=== PATIENT | female | born 1950 | race Caucasian/White ===

== ENCOUNTER 2024-01-12 15:17 | Emergency (ER) | payer MEDICARE, OTHER, SELFPAY ==
[2024-01-12] VITALS (11 sets, daily range): BP systolic 112–136; BP diastolic 84–101; PULSE 85–116; TEMP 36.6; O2SAT 95–97; BMI 32.6
--- NOTE | 2024-01-12 15:34 | ECG_ITS ---
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
--- NOTE | 2024-01-12 15:34 | XR_ITS ---
The [address] [address] Patient Name: MATTHEW CLARKE MRN: [id number] date: 1950 Sex: F Assigned Patient Location: ED.MAIN Current Patient Location: ER Accession/Order Number: [id number] Exam Date: 01/12/2024 16:06 Report Date: 01/12/2024 16:49 At the request of: MINDY LUCIANO Procedure: XR chest 1V EXAM: XR chest 1V HISTORY: sob COMPARISON: Chest x-ray 12/19/2020 and earlier. TECHNIQUE: AP portable upright chest x-ray FINDINGS: Prominent lung markings increased previous without focal density, cannot or consolidation. No evidence of edema. No pleural effusion. Heart size normal for technique unchanged. Probable retrocardiac hiatal hernia poorly visualized. XR/XR chest 1V IMPRESSION: Prominent lung markings increased from previous without focal infiltrate or edema. Probable retrocardiac hiatal hernia. Electronically authenticated by: RAMY GUAJARDO Date: 01/12/2024 16:49
[2024-01-12 16:11] LABS: Alanine Aminotransferase 14 U/L (14-59); Albumin Globulin Ratio 0.8; Albumin Level 3.6 g/dL (3.4-5.0); Alkaline Phosphatase 98 U/L (46-116); Anion Gap 16.6; Aspartate Amino Transferase 14 U/L (15-37); BUN Creatinine Ratio 22.7; Bilirubin Total 0.7 mg/dL (0.2-1.0); Calcium 9.7 mg/dL (8.5-10.1); Chloride 99 mmol/L (98-107); Estimated GFR (African America >60 (>=60); Estimated GFR (Non-African Ame >60 (>=60); Globulin 4.3 g/dL; Glucose 103 mg/dL (74-106); Potassium 3.6 mmol/L (3.5-5.1); Sodium 136 mmol/L (136-145); Total Protein 7.9 g/dL (6.4-8.2); Troponin I High Sensitivity 5.9 pg/mL (4.0-51.3)
[2024-01-12] MEDS: 0.9 % SODIUM CHLORIDE 1,000 ML 500 ML IV (16:12)
[2024-01-12] MEDS: KETOROLAC TROMETHAMINE 30 MG/ML VIAL 15 MG IVP (16:12)
[2024-01-12 16:36] LABS: Basophils Absolute Auto 0.1 10^3/uL (0.0-0.1); Eosinophils Absolute Auto 0.1 10^3/uL (0.0-0.7); Eosinophils Percent Auto 1.2 % (0.9-7.0); Hematocrit 40.5 % (36.0-48.0); Hemoglobin 13.1 g/dL (12.0-16.0); Immature Granulocytes Abs Auto 0.02 10^3/uL (0.00-0.03); Immature Granulocytes Pct Auto 0.3 % (0.0-0.5); Lymphocytes Absolute Auto 1.2 10^3/uL (1.2-3.8); Mean Corpuscular HGB Conc 32.3 g/dL (29.9-35.2); Mean Corpuscular Hemoglobin 28.5 pg (26.7-34.0); Mean Corpuscular Volume 88.2 fL (81.0-99.0); Mean Platelet Volume 10.8 fL (9.5-13.5); Monocytes Absolute Auto 0.9 10^3/uL (0.3-0.8); Neutrophils Absolute Auto 5.4 10^3/uL (1.4-6.5); Neutrophils Percent Auto 70.5 % (43.0-75.0); Platelet Count 334 10^3/uL (150-450); Red Blood Count 4.59 10^6/uL (4.20-5.40); Red Cell Distribution Width 14.3 % (11.0-15.0); White Blood Count 7.7 10^3/uL (4.0-11.0)
[2024-01-12 17:33] LABS: Troponin I High Sensitivity 9.6 pg/mL (4.0-51.3)
--- NOTE | 2024-01-12 17:44 | ED_ITS ---
HPI HPI - General Adult General Chief complaint: Weakness Stated complaint: High Blood Pressure Time Seen by Provider: 01/12/24 15:33 Source: patient and family Mode of arrival: walk-in Limitations: no limitations History of Present Illness HPI narrative: The patient had no complaints until she was standing outside and the grandson graduation for the last few hours when she all of a sudden started having headache in the posterior aspect of her head as well as neck pain and she was feeling warm, she mentioned also some mild shortness of breath, no chest pain no nausea no vomiting no other complaints Related Data Home Medications ?Medication ?Instructions ?Recorded ?Confirmed alprazolam 0.5 mg tablet 0.5 mg PO TID 01/12/24 01/12/24 benazepril 10 mg tablet 10 mg PO DAILY 01/12/24 01/12/24 citalopram 40 mg tablet 40 mg PO BEDTIME 01/12/24 01/12/24 tizanidine 2 mg tablet 2 mg PO BEDTIME 01/12/24 01/12/24 Allergies Allergy/AdvReac Type Severity Reaction Status Date / Time influenza A (H1N1) virus AdvReac Mild Swelling Verified 01/12/24 15:28 vaccine m-dayna-split 2008 of [From influenza A (H1N1)] Lip/Tongue/Throat morphine AdvReac Mild Headache Verified 01/12/24 15:28 Opioid HPI Opioid Management Most Recent Opioid Data: Last Pain Scale 7 01/12/24 16:12 Last OCT Pain Assessment 01/12/24 16:12 Review of Systems ROS Status of ROS 10 or more systems reviewed and unremark able except as noted in history and below Exam Narrative Exam Narrative: Nurses notes and vital signs reviewed and patient is not hypoxic. General: Well-appearing and in no apparent distress. Skin: Warm, dry, no pallor noted. No rash. Head: Normocephalic, atraumatic. Neck: Supple, non-tender. Eye: Pupils are equal, round and EOMI. No scleral icterus. Ears, Nose, Mouth, and Throat: TM are clear, no nasal mucosal hypertrophy. Oral mucosa is moist, no posterior oropharynx erythema, uvula is mid-line Cardiovascular: Regular Rate and Rhythm without murmur, gallop or rub. Respiratory: No accessory muscle use or respiratory distress. Lungs are clear to auscultation, no wheezing, rales or rhonchi Chest Wall: no tenderness Back: No midline thoracic or lumbar vertebral tenderness. No CVA tenderness Musculoskeletal: normal ROM, no calf or popliteal tenderness, no lower extremity edema/swelling GI: Abdomen is soft, non-distended. Normal bowel sounds. No masses appreciated. No tenderness to palpation. No rebound, guarding, or rigidity noted. Neurological: A&O x4. No cranial nerve dysfunction observed. No truncal ataxia. Moves all extremities. Sensation intact. Psychiatric: Cooperative and interactive. Normal mood and affect. Constitutional Vital Signs, click to edit/add: Last Vital Signs Temp 97.8 F 01/12/24 15:28 Pulse 102 H 01/12/24 16:31 Resp 01/12/24 16:31 BP 120/93 H 01/12/24 16:30 Pulse Ox 95 01/12/24 16:31 O2 Del Method Room Air 01/12/24 15:51 Course Vital Signs Vital signs: Vital Signs Blood Pressure 127/92 H 01/12/24 15:26 Temperature 97.8 F 01/12/24 15:28 Pulse Rate 102 H 01/12/24 16:31 Respiratory Rate 01/12/24 16:31 Blood Pressure 120/93 H 01/12/24 16:30 Pulse Oximetry 95 01/12/24 16:31 Oxygen Delivery Method Room Air 01/12/24 15:51 Medical Decision Making [facility] Narrative Medical decision making narrative: The patient EKG upon presentation showing sinus tachycardia with a heart rate of [address] elevation or depression CBC and chemistry showed no acute significant pathology except for the elevated BUN which could be secondary to dehydration The patient was feeling much better after she was treated with IV fluids as well as Toradol for the headache Troponin was repeated twice was negative The patient is smiling and feeling much better better she was discharged to continue supportive care and avoid heat exposure. The patient is to follow up with primary care physician in next 2-3 days or to return to the emergency department should any of the signs or symptoms worsen or new symptoms develop. The patient agrees with the following Diagnosis and Treatment plan and the patient will be discharged home. Lab Data Labs: Lab Results 01/12/24 01/12/24 Range/Units 15:46 17:11 WBC 7.7 (4.0-11.0) 10^3/uL RBC 4.59 (4.20-5.40) 10^6/uL Hgb 13.1 (12.0-16.0) g/dL Hct 40.5 (36.0-48.0) % MCV 88.2 (81.0-99.0) fL MCH 28.5 (26.7-34.0) pg MCHC 32.3 (29.9-35.2) g/dL RDW 14.3 (11.0-15.0) % Plt Count 334 (150-450) 10^3/uL MPV 10.8 (9.5-13.5) fL Neut % (Auto) 70.5 (43.0-75.0) % Lymph % (Auto) 15.0 L (20.5-60.0) % [place] % (Auto) 12.0 (1.7-12.0) % Eos % (Auto) 1.2 (0.9-7.0) % Baso % (Auto) 1.0 (0.2-2.0) % Neut # (Auto) 5.4 (1.4-6.5) 10^3/uL Lymph # (Auto) 1.2 (1.2-3.8) 10^3/uL [place] # (Auto) 0.9 H (0.3-0.8) 10^3/uL Eos # (Auto) 0.1 (0.0-0.7) 10^3/uL Baso # (Auto) 0.1 (0.0-0.1) 10^3/uL Abs Immat Gran (auto) 0.02 (0.00-0.03) 10^3/uL Imm/Tot Granulo (auto) 0.3 (0.0-0.5) % Sodium 136 (136-145) mmol/L Potassium 3.6 (3.5-5.1) mmol/L Chloride 99 (98-107) mmol/L Carbon Dioxide 24.0 (21.0-32.0) mmol/L Anion Gap 16.6 BUN 20.0 H (7.0-18.0) mg/dL Creatinine 0.88 (0.55-1.02) mg/dL Est GFR ( Amer) >60 (>=60) Est GFR (Non-Af Amer) >60 (>=60) BUN/Creatinine Ratio 22.7 Glucose 103 (74-106) mg/dL Calcium 9.7 (8.5-10.1) mg/dL Total Bilirubin 0.7 (0.2-1.0) mg/dL AST 14 L (15-37) U/L ALT 14 (14-59) U/L Alkaline Phosphatase 98 (46-116) U/L Troponin I High Sens 5.9 9.6 (4.0-51.3) pg/mL Total Protein 7.9 (6.4-8.2) g/dL Albumin 3.6 (3.4-5.0) g/dL Globulin 4.3 g/dL Albumin/Globulin Ratio 0.8 Discharge Plan Discharge Stand Alone Forms: Portal Instructions Chief Complaint: Weakness Clinical Impression: Adverse effect of heat Qualifiers: Encounter type: initial encounter Qualified Code(s): T67.9XXA - Effect of heat and light, unspecified, initial encounter Patient Disposition: Home, Self-Care Time of Disposition Decision: 17:43 Condition: Good Prescriptions / Home Meds: No Action alprazolam 0.5 mg tablet 0.5 mg PO TID benazepril 10 mg tablet 10 mg PO DAILY citalopram 40 mg tablet 40 mg PO BEDTIME tizanidine 2 mg tablet 2 mg PO BEDTIME Print Language: Indonesian Instructions: Heat Exhaustion (ED) Referrals: Francis Osborne DO [Primary Care Provider] - 1 week
== END 2024-01-12 17:58 | disposition home or self-care (01) ==
PROVIDERS: Emergency Provider Emergency Medicine; PCP Internal Medicine
DX: T67.9XXA Effect of heat and light, unspecified, initial encounter (principal); X30.XXXA Exposure to excessive natural heat, initial encounter; Z79.899 Other long term (current) drug therapy
CPT/HCPCS: 36415; 71045; 80053; 84484; 85025; 93005; 96374; 99285

== ENCOUNTER 2024-06-04 14:14 | Outpatient (OUT) | payer MEDICARE, OTHER, SELFPAY ==
--- NOTE | 2024-06-04 14:27 | XR_ITS ---
The [address] [address] Patient Name: MATTHEW CLARKE MRN: [id number] date: 1950 Sex: F Assigned Patient Location: MAMMO Current Patient Location: Accession/Order Number: [id number] Exam Date: 06/04/2024 14:55 Report Date: 06/07/2024 05:18 At the request of: JENIFER FRANCO Procedure: XR shoulder RT min 2V PROCEDURE: XR shoulder RT min 2V HISTORY: Right Shoulder Pain COMPARISON: None. FINDINGS: BONES:Mild degenerative changes of the acromioclavicular joint and glenohumeral joint. No fracture, dislocation, or bone lesion. SOFT TISSUES:No visible soft tissue swelling. EFFUSION:None visible. OTHER: Negative. XR/XR shoulder RT min 2V IMPRESSION: 1. No appreciable acute abnormality. 2. Very mild degenerative changes. Electronically authenticated by: MURRAY MCKAY Date: 06/07/2024 05:18
--- OUTSIDE RECORDS SUMMARY | 2024-06-04 14:31 | XMS_ITS | CCD ---
Author Organization [facility] Care Team Providers Care Preparatory Technician Name Role Phone Francis Osborne Unavailable DR FRANCIS OSBORNE Admitting Unavailable DYLON, DR BLANCO Attending Unavailable DYLON, DR BLANCO Primary Care Unavailable DYLON, DR BLANCO Consulting Unavailable WOODY, DR TRIPP Skinner Consulting Unavailable ROJELIO, DR Katey Gutierrez Admitting Unavailable ROJELIO, DR Katey Gutierrez Attending Unavailable DYLON, DR BLANCO Primary Care Unavailable ROJELIO, DR Katey Gutierrez Consulting Unavailable LEVON, HOLLEY Consulting Unavailable Emiliana Patricia Unavailable Francis Osborne Attending Unavailable Francis Osborne Primary Care Unavailable Francis Osborne Admitting Unavailable Dylon, DO Blanco Primary Care Provider [phone] DO Francis Osborne Attending Provider [phone] Allergies Allergy Classification Reported Allergen(s) Allergy Type Date of Onset Reaction(s) Facility (15 sources) Morphine Drug Allergy 02-10-20 24 [facility] (16 sources) Influenza Vac Recombinant MOREJON Drug allergy swelling at site location [employer] Other (1 source) Morphine Drug Allergy 10-26-19 14 [facility] (1 source) Flu Vaccine [id number] (9 yr +) Drug allergy (disorder) 10-26-19 14 [facility] (1 source) Flu Vaccine [id number] (3 yr +) Drug allergy (disorder) 10-26-19 14 [facility] (7 sources) influenza A virus (H1N1) antigen / influenza A virus (H3N2) antigen / influenza B virus antigen Drug Allergy Comment:FLU VACCINE [employer] Other (2 sources) patient allergy list reviewed by nurse or physicia Propensity to adverse reactions 07-24-20 13 Comment:Done [employer] Other (10 sources) Contraindication to Flu Injection Propensity to adverse reactions 09-20-19 Comment:advers e rxn/side effects [employer] Other (3 sources) Morphine Drug Allergy migraines [employer] [facility] [employer] Other (5 sources) Fluad Quadrivalent Drug allergy 05-15-20 Comment:FLU VACCINE [facility] (2 sources) Influenza Virus Vaccines Allergy to substance 02-10-20 swelling at site location [facility] Medications Current Medications Medication Drug Class(es) Dates Sig (Normalized) Sig (Original) ALPRAZolam 0.5 mg oral tablet (20 sources) Benzodiazepine Start: 10-31-2023 End: 04-09-2024 take 0.5 mg by mouth three times daily Alprazolam Active 0.5 MG PO Three times daily April 09, 2024 2:29pm Start: 09-03-2023 take 1 tablet by bony th three times daily ALPRAZolam 0.5 MG 1 tablet Orally three times daily for 30 days Aug, Active Start: 05-09-2023 take 1 tablet by bony th three times daily ALPRAZolam 0.5 MG 1 tablet Orally three times daily Apr, Active Start: 04-01-2023 take 1 tablet by bony th three times daily ALPRAZolam 0.5 MG TAKE 1 TABLET BY MOUTH THREE TIMES A DAY Mar, Active Start: 02-28-2023 Start: 08-30-2022 take 1 tablet by bony th three times daily ALPRAZolam 0.5 MG 1 tablet Orally three times daily Aug, Active atorvastatin 40 mg oral tablet (13 sources) HMG-CoA Reductase Inhibitor take 1 tablet by mouth every twenty-four hours Atorvastatin Calcium 40 MG 1 tablet Orally Once a day Active benazepril hydrochloride 10 mg oral tablet (20 sources) Angiotensin Converting Enzyme Inhibitor Start: 10-31-19 End: 11-01-19 take 10 mg by mouth once daily Benazepril Active 10 MG PO Daily November 01, 2023 11:32am take 1 tablet by mouth once buster y Benazepril HCl 10 MG TAKE 1 TABLET BY MOUTH EVERY DAY Active cetirizine hydrochloride 10 mg oral tablet (9 sources) Histamine-1 Receptor Antagonist Start: 10-31-2023 take 10 mg by mouth once daily Cetirizine Active 10 MG PO Daily October 31, 2023 1:00am Start: 04-12-2023 take 1 tablet by bony th every twenty-four hours Cetirizine HCl 10 MG 1 tablet Orally Once a day for 14 days Mar, Active citalopram 40 mg oral tablet (20 sources) Serotonin Reuptake Inhibitor Start: 10-21-2023 End: 11-01-2023 take 40 mg by mouth once daily Citalopram Active 40 MG PO Daily November 01, 2023 11:33am take 1 tablet by bony th once daily at bedtime Citalopram Hydrobromide 40 MG TAKE 1 TAB LET BY MOUTH EVERYDAY AT BEDTIME Active take 0.5 tablet by m outh every twenty-four hours Citalopram Hydrobromide 40 MG 0.5 tablet Orally Once a day Active cyproheptadine hydrochloride 4 mg oral tablet (1 source) Start: 05-08-2024 take 4 mg by mouth once daily at bedtime Cyproheptadine Active 4 MG PO Daily at bedtime May 08, 2024 12:00am etodolac 400 mg oral tablet (3 sources) Nonsteroidal Anti-inflammatory Drug Start: 05-15-2023 take 1 tablet by mouth every twelve hours Etodolac 400 MG 1 tablet with food Orally Twice a day for 14 days Apr, Active predniSONE 20 mg oral tablet (4 sources) Start: 04-12-2023 take 1 tablet by mouth every twelve hours prednisone 20 MG 1 tablet Orally BID for 5 Mar, Active Completed/Discontinued Medications Medication Drug Class(es) Dates Sig (Normalized) Sig (Original) Albuterol Sulfate 108 (90 Base) MCG/ACT (16 sources) Start: 09-23-2017 take 1-2 puff(s) by inhalation every six hours as needed Albuterol Sulfate 108 (90 Base) MCG/ACT 1-2 puff as needed Inhalation every 6 hrs, as needed for 10 days Aug, Not-Taking/PRN Start: 09-23-2017 Start: 09-23-2017 take 1-2 puff(s) by inhalation every six hours as needed Albuterol Sulfate 108 (90 Base) MCG/ACT 1-2 puff as needed Inhalation every 6 hrs, as needed for 10 days Aug, Not-Taking aspirin 81 mg delayed release oral tablet (18 sources) Platelet Aggregation Inhibitor, Nonsteroidal Anti-inflammatory Drug Start: 10-31-2023 End: 05-08-2024 take 81 mg by mouth once daily Aspirin Discontinued 81 MG PO Daily October 31, 2023 1:00am May 08, 2024 10:08am take 1 tablet by bony th every twenty-four hours Aspirin 81 81 MG 1 tablet Orally Once a day Active betamethasone 0.5 mg/ml / clotrimazole 10 mg/ml topical cream (16 sources) Azole Antifungal, Corticosteroid Clotrimazole-Betamet hasone 1-0.05 % 1 application Externally Twice a day Not-Taking/PRN hydroCHLOROthiazide (16 sources) Thiazide Diuretic hydroCHLOROthi azide Not-Taking/PRN hydroCHLOROthiaz ursula Not-Taking hydroCHLOROthiaz ursula Active omeprazole 20 mg / sodium bicarbonate 1100 mg oral capsule (9 sources) Proton Pump Inhibitor Start: 10-31-2023 End: 05-08-2024 Omeprazole-Sodium Bicarbonate Discontinued 1 CAP PO October 31, 2023 1:00am May 08, 2024 10:08am take 1 capsule by mo uth every twenty-four hours Zegerid 20-1100 MG 1 capsule on an empty stomach Orally Once a day Active tiZANidine 2 mg oral tablet (6 sources) Central alpha-2 Adrenergic Agonist Start: 02-16-2024 End: 05-08-2024 take 1 tablet by mouth at bedtime Tizanidine Discontinued 0 .ROUTE .COMPLEX February 16, 2024 8:20am May 08, 2024 10:08am take 1 tablet by mouth at bedtime Start: 11-01-2023 End: 02-16-2024 take 2 mg by mouth once daily at bedtime Tizanidine Discontinued 2 MG PO Daily at bedtime 90 November 01, 2023 1:00am February 16, 2024 8:20am Start: 05-15-2023 take 1 tablet by bony th once at bedtime as needed tiZANidine HCl 2 MG 1 tablet as needed Orally q HS for 14 days Apr, Active Vitamin D3 (16 sources) Vitamin D3 Not-T aking/PRN Vitamin D3 Not-T aking Problems Active Problems Problem Classification Problem Date Documented Da te Episodic/Chronic Anxiety disorders (20 sources) Generalized anxiety disorder; Translations: [Generalized anxiety disorder] Chronic Cancer of breast (4 sources) Malignant neoplasm of female breast; Translations: [Malignant neoplasm of unspecified site of right female breast] Onset: 4 Chronic Cancer of breast (20 sources) History of malignant neoplasm of breast; Translations: [Personal history of malignant neoplasm of breast] Onset: 4 Episodic Cardiac dysrhythmias (9 sources) Palpitations; Translations: [Palpitations] 10-31-2023 Episodic Deficiency and other anemia (4 sources) Pernicious anemia; Translations: [Vitamin B12 deficiency anemia due to intrinsic factor deficiency] 10-31-2023 Episodic Disorders of lipid metabolism (20 sources) Hypercholesterolemia; Translations: [Pure hypercholesterolemia, unspecified] Chronic Esophageal disorders (2 sources) Gastroesophageal reflux disease; Translations: [Gastro-esophageal reflux disease without esophagitis] 10-31-2023 Chronic Esophageal disorders (2 sources) Esophageal disorders; Translations: [Gastro-esophageal reflux disease with esophagitis, without bleeding] Essential hypertension (20 sources) Essential hypertension; Translations: [Essential (primary) hypertension] Chronic Genitourinary symptoms and ill-defined conditions (2 sources) Overflow incontinence of urine; Translations: [Overflow incontinence] Onset: 7 Chronic Headache; including migraine (13 sources) Migraine with aura; Translations: [Migraine with aura, not intractable, without status migrainosus] Onset: 4 11-01-2023 Chronic Menopausal disorders (2 sources) Primary ovarian failure; Translations: [Other primary ovarian failure] Onset: 7 Chronic Mood disorders (12 sources) Moderate recurrent major depression; Translations: [Major depressive disorder, recurrent, moderate] Onset: 4 Resolved: 2 10-31-2023 Chronic Multiple sclerosis (2 sources) Multiple sclerosis; Translations: [Multiple sclerosis] Onset: 5 Chronic Mycoses (2 sources) Candidiasis of skin and nails; Translations: [Candidiasis of skin and nail] Episodic Nutritional deficiencies (2 sources) Vitamin D deficiency; Translations: [Vitamin D deficiency, unspecified] Onset: 7 Chronic Osteoarthritis (6 sources) Localized, primary osteoarthritis of the shoulder region; Translations: [Primary osteoarthritis, left shoulder] Onset: 5 Chronic Osteoporosis (20 sources) Senile osteoporosis; Translations: [Age-related osteoporosis without current pathological fracture] Chronic Other aftercare (2 sources) Other half-way (current) drug therapy Episodic Other and ill-defined cerebrovascular disease (5 sources) Cerebral atherosclerosis; Translations: [Cerebral atherosclerosis] 10-31-2023 Chronic Other and ill-defined cerebrovascular disease (4 sources) Cerebral atherosclerosis; Translations: [Cerebral atherosclerosis] Chronic Other circulatory disease (2 sources) History of cerebrovascular accident without residual deficits; Translations: [Personal history of transient ischemic attack (TIA), and cerebral infarction without residual deficits] Episodic Other connective tissue disease (2 sources) Fibromyalgia; Translations: [Fibromyalgia] Episodic Other connective tissue disease (2 sources) Synovial cyst of popliteal space; Translations: [Synovial cyst of popliteal space [Garcia], left knee] Episodic Other connective tissue disease (2 sources) Adhesive capsulitis of left shoulder; Translations: [Adhesive capsulitis of left shoulder] Episodic Other connective tissue disease (1 source) Synovial cyst of left popliteal space; Translations: [Synovial cyst of popliteal space [Garcia], left knee] 10-31-2023 Episodic Other connective tissue disease (1 source) Synovial cyst of popliteal space [Garcia], left knee; Translations: [Synovial cyst of left popliteal space] 10-31-2023 Episodic Other diseases of bladder and urethra (2 sources) Bladder muscle dysfunction - overactive; Translations: [Hypertonicity of bladder] Onset: 7 Chronic Other ear and sense organ disorders (2 sources) Sensorineural hearing loss, bilateral; Translations: [Sensorineural hearing loss, bilateral] Chronic Other gastrointestinal disorders (2 sources) Irritable bowel syndrome with diarrhea; Translations: [Irritable bowel syndrome with diarrhea] Onset: 7 Chronic Other hereditary and degenerative nervous system conditions (2 sources) Mild cognitive disorder ; Translations: [Mild cognitive impairment, so stated] Onset: 4 Chronic Other injuries and conditions due to external causes (2 sources) History of fall; Translations: [History of falling] Episodic Other nervous system disorders (16 sources) Chronic pain; Translations: [Other chronic pain] Chronic Other nervous system disorders (1 source) Other chronic pain Chronic Other nervous system disorders (2 sources) Demyelinating disease of central nervous system; Translations: [Unspecified demyelinating disease of central nervous system] Onset: 6 Chronic Other nervous system disorders (2 sources) Disorder of autonomic nervous system; Translations: [Unspecified disorder of autonomic nervous system] Onset: 6 Chronic Other nervous system disorders (2 sources) Abnormal gait; Translations: [Unsteadiness on feet] Episodic Other non-traumatic joint disorders (2 sources) Lower limb joint arthritis; Translations: [Osteoarthrosis, unspecified whether generalized or localized, lower leg] Chronic Other non-traumatic joint disorders (2 sources) Pain in right hip; Translations: [PAIN IN RIGHT HIP] Onset: 3 Episodic Other non-traumatic joint disorders (2 sources) Pain in right hip joint; Translations: [Pain in right hip] Episodic Other non-traumatic joint disorders (2 sources) Arthralgia of the lower leg; Translations: [Pain in left knee] Episodic Other non-traumatic joint disorders (2 sources) Shoulder joint pain; Translations: [Pain in left shoulder] Episodic Other non-traumatic joint disorders (2 sources) Pain in right shoulder; Translations: [Right shoulder pain] 05-08-2024 Episodic Other nutritional; endocrine; and metabolic disorders (2 sources) Morbid obesity; Translations: [Morbid (severe) obesity due to excess calories] Onset: 4 Chronic Other nutritional; endocrine; and metabolic disorders (2 sources) Obesity; Translations: [Obesity, unspecified] Onset: 0 Chronic Other nutritional; endocrine; and metabolic disorders (2 sources) Simple obesity ; Translations: [Other obesity due to excess calories] Onset: 4 Chronic Other nutritional; endocrine; and metabolic disorders (6 sources) Obese class II; Translations: [Body mass index (BMI) 37.0-37.9, adult] Onset: 6 Chronic Other nutritional; endocrine; and metabolic disorders (2 sources) Obese class I; Translations: [Body mass index 34.0-34.9, adult] Onset: 4 Chronic Other nutritional; endocrine; and metabolic disorders (2 sources) Body mass index 30+ - obesity; Translations: [Body mass index 36.0-36.9, adult] Onset: 6 Chronic Other screening for suspected conditions (not mental disorders or infectious disease) (3 sources) Encounter for screening for malignant neoplasm of colon; Translations: [Patient encounter status] Episodic Other upper respiratory infections (3 sources) Acute maxillary sinusitis; Translations: [Acute maxillary sinusitis, unspecified] Onset: 7 Episodic Spondylosis; intervertebral disc disorders; other back problems (14 sources) Inflammatory spondylopathy; Translations: [Unspecified inflammatory spondylopathy, lumbar region] Onset: 5 Resolved: 1 10-31-2023 Chronic Spondylosis; intervertebral disc disorders; other back problems (20 sources) Chronic low back pain; Translations: [Lumbago with sciatica, right side] Onset: 7 Episodic Sprains and strains (1 source) Strain of muscle, fascia and tendon at neck level, initial encounter Episodic Unclassified (2 sources) Screening; Translations: [Screening for unspecified condition] Onset: 7 Past or Other Problems Problem Classification Problem Date Documented Da te Episodic/Chronic Bacterial infection; unspecified site (2 sources) Bacterial infectious disease; Translations: [Bacterial infection, unspecified, in conditions classified elsewhere and of unspecified site] Onset: 10-18-2016 Episodic Coma; stupor; and brain damage (2 sources) Coma; Translations: [Unspecified coma] Onset: 03-18-2017 Episodic Conditions associated with dizziness or vertigo (2 sources) Dizziness and giddiness; Translations: [Dizziness and giddiness] Onset: 06-22-2014 Episodic Genitourinary symptoms and ill-defined conditions (4 sources) Dysuria; Translations: [Dysuria] Onset: 12-22-2014 Episodic Headache; including migraine (2 sources) Headache; Translations: [Headache, unspecified] Onset: 06-22-2014 Episodic Headache; including migraine (1 source) Headache; including migraine Malaise and fatigue (2 sources) Malaise and fatigue; Translations: [Other malaise and fatigue] Onset: 02-07-2016 Episodic Nonmalignant breast conditions (2 sources) Breast lump; Translations: [Unspecified lump in unspecified breast] Onset: 06-10-2018 Episodic Other circulatory disease (2 sources) Elevated blood-pressure reading without diagnosis of hypertension; Translations: [Elevated blood-pressure reading, without diagnosis of hypertension] Onset: 05-03-2015 Episodic Other gastrointestinal disorders (2 sources) Diarrhea; Translations: [Diarrhea] Onset: 12-04-2013 Episodic Other nervous system disorders (2 sources) Ataxia; Translations: [Ataxia, unspecified] Onset: 02-10-2015 Episodic Other nervous system disorders (2 sources) Paresthesia; Translations: [Paresthesia of skin] Onset: 09-20-2014 Episodic Residual codes; unclassified (2 sources) Amnesia; Translations: [Memory loss] Onset: 02-07-2016 Episodic Syncope (2 sources) Syncope and collapse; Translations: [Syncope and collapse] Onset: 03-18-2017 Episodic Results Test Name Value Interpretation Reference Range Facility Basophils Auto (Bld) [#/Vol] on 01-12-2024 Basophils (Bld) [#/Vol] 0.1 10 3/uL 0.0-0.1 [facility] Basophils/100 WBC Auto (Bld) on 01-12-2024 Basophils/100 WBC (Bld) 1.0 % 0.2-2.0 [facility] Eosinophils/100 WBC Auto (Bl d)on 01-12-2024 Eosinophils/100 WBC (Bld) 1.2 % 0.9-7.0 [facility] Erythrocyte distribution wid th Auto (RBC) [Ratio]on 01-12-2024 Erythrocyte distribution width (RBC) [Ratio] 14.3 % 11.0-15.0 [facility] Estimated glomerular filtrat ion rate (GFR) non- Americanon 01-12-2024 GFR/1.73 sq M.predicted among non-blacks MDRD (S/P/Bld) [Vol rate/Area] mL/min/{1.73_m2} >=60 [facility] Globulin Calc (S) [Mass/Vol] on 01-12-2024 Globulin (S) [Mass/Vol] 4.3 g/dL [facility] Hematocrit Auto (Bld) [Volum e fraction]on 01-12-2024 Hematocrit (Bld) [Volume fraction] 40.5 % 36.0-48.0 [facility] Hemoglobin [Mass/volume] in Bloodon 01-12-2024 Hemoglobin (Bld) [Mass/Vol] 13.1 g/dL 12.0-16.0 [facility] Laboratory - Chemistry and C hemistry - challengeon 01-12-2024 Albumin [Mass/Vol] 3.6 g/dL 3.4-5.0 [facility] ALP [Catalytic activity/Vol] 98 U/L 46-116 [facility] ALT [Catalytic activity/Vol] 14 U/L 14-59 [facility] AST [Catalytic activity/Vol] 14 U/L 15-37 [facility] Bilirubin [Mass/Vol] 0.7 mg/dL 0.2-1.0 [facility] Calcium [Mass/Vol] 9.7 mg/dL 8.5-10.1 [facility] Chloride [Moles/Vol] 99 mmol/L 98-107 [facility] CO2 [Moles/Vol] 24.0 mmol/L 21.0-32.0 [facility] Creatinine [Mass/Vol] 0.88 mg/dL 0.55-1.02 [facility] GFR/1.73 sq M.predicted MDRD (S/P/Bld) [Vol rate/Area] mL/min/{1.73_m2} >=60 [facility] Glucose [Mass/Vol] 103 mg/dL 74-106 [facility] Potassium [Moles/Vol] 3.6 mmol/L 3.5-5.1 [facility] Protein [Mass/Vol] 7.9 g/dL 6.4-8.2 [facility] Sodium [Moles/Vol] 136 mmol/L 136-145 [facility] Urea nitrogen [Mass/Vol] 20.0 mg/dL 7.0-18.0 [facility] Urea nitrogen/Creatinine [Mass ratio] 22.7 mg/mg [facility] Laboratory - Hematology and Cell countson 01-12-2024 Immature granulocytes/100 WBC (Bld) 0.3 % 0.0-0.5 [facility] Leukocytes [#/volume] correc sharon for nucleated erythrocytes in Blood by Automated counon 01-12-2024 WBC corrected for nucl RBC Auto (Bld) [#/Vol] 7.7 10 3/uL 4.0-11.0 [facility] Lymphocytes Auto (Bld) [#/Vo l]on 01-12-2024 Lymphocytes (Bld) [#/Vol] 1.2 10 3/uL 1.2-3.8 [facility] Lymphocytes/100 WBC Auto (Bl d)on 01-12-2024 Lymphocytes/100 WBC (Bld) 15.0 % 20.5-60.0 [facility] MCH Auto (RBC) [Entitic mass ]on 01-12-2024 MCH (RBC) [Entitic mass] 28.5 pg 26.7-34.0 [facility] MCHC Auto (RBC) [Mass/Vol]on 01-12-2024 MCHC (RBC) [Mass/Vol] 32.3 g/dL 29.9-35.2 [facility] MCV Auto (RBC) [Entitic vol] on 01-12-2024 MCV (RBC) [Entitic vol] 88.2 fL 81.0-99.0 [facility] Monocytes Auto (Bld) [#/Vol] on 01-12-2024 Monocytes (Bld) [#/Vol] 0.9 10 3/uL 0.3-0.8 [facility] Monocytes/100 WBC Auto (Bld) on 01-12-2024 Monocytes/100 WBC (Bld) 12.0 % 1.7-12.0 [facility] Neutrophils Auto (Bld) [#/Vo l]on 01-12-2024 Neutrophils (Bld) [#/Vol] 5.4 10 3/uL 1.4-6.5 [facility] Neutrophils/100 WBC Auto (Bl d)on 01-12-2024 Neutrophils/100 WBC (Bld) 70.5 % 43.0-75.0 [facility] No Panel Informationon 01-11 Troponin I High Sensitivity 9.6 pg/mL 4.0-51.3 [facility] Comment on above: CUT-OFF POINTS HAVE BEEN ESTABLISHED BASED ON THE FOURTHUNIVERSAL DEFINITION OF MYOCARDIAL INFARCTION. THE UPPERREFERENCE LIMIT (URL) OF TROPONIN, DEFINED THE 99THPERCENTILE OF cTnI DISTRIBUTION IN A REFERENCE POPULATION,HAS BEEN CONFIRMED THE DECISION THRESHOLD FOR MIDIAGNOSIS.99TH PERCENTILE = 51.4 PG/MLNOTE: HIGH-SENSITIVITY TROPONIN ASSAY IS NOT INTENDED TO BEUSED IN ISOLATION BUT SHOULD BE INTERPRETED IN CONJUNCTIONWITH OTHER DIAGNOSTIC AND CLINICAL INFORMATION. Eosinophils # (Auto) 0.1 10 3/uL 0.0-0.7 [facility] Immature Granulocyte # (Auto) 0.02 10 3/uL 0.00-0.03 [facility] Platelet mean volume Auto (B ld) [Entitic vol]on 01-12-2024 Platelet mean volume (Bld) [Entitic vol] 10.8 fL 9.5-13.5 [facility] Platelets Auto (Bld) [#/Vol] on 01-12-2024 Platelets (Bld) [#/Vol] 334 10 3/uL 150-450 [facility] RBC Auto (Bld) [#/Vol]on RBC (Bld) [#/Vol] 4.59 10 6/uL 4.20-5.40 [facility] Serum or plasma albumin/glob ulin mass ratioon 01-12-2024 Albumin/Globulin [Mass ratio] 0.8 {ratio} [facility] Serum or plasma anion gap de terminationon 01-12-2024 Anion gap [Moles/Vol] 16.6 mmol/L [facility] MRI LSPINE WO CONon 12-07-19 MRI LSPINE WO CON EXAM: MRI LSPINE WO CON REASON FOR EXAM: Lumbago co-occurrent with right-side sciatica. TECHNIQUE: Multiplanar, multisequence imaging of the lumbar spine was performed without contrast COMPARISON: Plain radiograph 10/18/2022. FINDINGS: 5 nonrib-bearing lumbar vertebrae. Normal lumbar lordosis without significant listhesis. Vertebral body heights are maintained. No acute or aggressive osseous abnormality identified. Susceptibility artifact involving the posterior paraspinal muscles suggests prior surgical intervention. The visualized bony pelvis is congruent with mild to moderate osteoarthritis the sacroiliac joints. Limited evaluation the abdominopelvic viscera is without acute or suspicious abnormality. L1-L2: Broad-based disc bulge with thecal sac. No significant spinal canal stenosis. Moderate bilateral neural foraminal stenosis secondary to disc osteophyte complex and facet arthropathy. L2-L3: Broad-based disc bulge with moderate spinal canal stenosis when combined with ligamentum flavum hypertrophy and facet arthropathy. Moderate to severe bilateral neural foraminal stenosis, right greater than left secondary to disc osteophyte complex and facet arthropathy. L3-L4: Broad-based disc bulge with mild spinal canal stenosis. Moderate bilateral neural foraminal stenosis secondary to disc osteophyte complex and facet arthropathy. L4-L5: Minimal broad-based disc bulge without significant spinal canal stenosis. Mild bilateral neural foraminal stenosis secondary to disc osteophyte complex and facet arthropathy. L5-S1: No spinal canal stenosis. Mild to moderate bilateral neural foraminal stenosis secondary to disc osteophyte complex and facet arthropathy. IMPRESSION: Moderate multilevel degenerative disc disease and facet arthropathy, most notably at the L2-L3 level as described above. Electronically authenticated by: HOLLEY DOS SANTOS Date: 2022-12-06 10:06 Normal [facility] MG MAMM ALE DIAG W CADon MG MAMM ALE DIAG W CAD [employer] Other MG MAMM DIAGNOSTIC 3D ALE CA Don 10-18-2022 MG MAMM DIAGNOSTIC 3D ALE CAD Patient: BIRGIT CLARKE Exam Date: 10/18/2022 : 1950 Gender:F Ordering : DR FRANCIS OSBORNE D.O. Admission #: [id number] Family : Order #: [id number] CLICK HERE TO VIEW EXAM RADIOLOGY REPORT PROCEDURE: MAMMOGRAM DIAGNOSTIC 3D BILATERAL CAD COMPARISON: MG MAMM ALE DIAG W CAD, 03/30/2020. MG MAMM RT DIAG W CAD, 06/13/2018. DIGITIZED_MAMMO, 11/25/2008. INDICATIONS: Personal history of malignant neoplasm of breast Calculator Name NCI Breast Cancer Risk Assessment Tool 5 Year Breast Cancer Risk n/a% Lifetime Breast Cancer Risk n/a% Personal Breast Cancer Yes, Right breast cancer Age 44 Personal Ovarian Cancer No Treatments Lumpectomy and radiation Family Cancers Mother with breast cancer at age 68; Father with lung cancer at age 60. LOCATION: [facility] BREAST COMPOSITION: Scattered areas fibroglandular density. FINDINGS: DIAGNOSTIC CATEGORY 2--BENIGN FINDING: RIGHT BREAST: No significant suspicious finding. Stable postsurgical scarring and large dystrophic calcification within upper-outer quadrant. Scattered benign-appearing calcifications are present. No significant change has occurred. LEFT BREAST: No significant suspicious finding. No significant change has occurred. RECOMMENDATIONS: ROUTINE MAMMOGRAM AND CLINICAL EVALUATION IN 12 MONTHS. PLEASE NOTE: A NORMAL MAMMOGRAM DOES NOT EXCLUDE THE POSSIBILITY OF BREAST CANCER. A CLINICALLY SUSPICIOUS PALPABLE LUMP SHOULD BE BIOPSIED. Dictated by: Tripp Travis M.D. on 10/18/2022 at 13:32 Approved by: Tripp Travis M.D. on 10/18/2022 at 13:36 Normal [facility] XR HIP RT 2 3V W PELVISon XR HIP RT 2 3V W PELVIS [employer] Other XR LSPINE W_OBLS AND FLEX_EX Ton 10-18-2022 XR LSPINE W_OBLS AND FLEX_EXT EXAMINATION: XR LSPINE W_OBLS AND FLEX_EXT HISTORY: Lumbago co-occurrent with right-side sciatica ; chronic low back and right leg pain COMPARISON: XR L-spine 11/20/2018 FINDINGS: BONES: Moderate left convex curvature of lumbar spine. 4.7 mm anterior listhesis of L3 on 4 during flexion which reduces to 1 mm during extension and neutral position. No compression fracture or bone lesion. Moderate degenerative facet arthropathy L3-L4 through L5-S1. DISC SPACES: Multilevel mild narrowing. Moderate at L5-S1. PARASPINOUS: No paraspinous abnormality is seen. OTHER: Negative. IMPRESSION: 1. Moderate degenerative changes of lumbar spine and mild levoscoliosis; progressed compared to 2019. Electronically authenticated by: TRIPP TRAVIS Date: 2022-10-18 18:59 Normal [facility] XR lumbar spine 6V w bending on 10-18-2022 XR lumbar spine 6V w bending [employer] Other Vital Signs Date Time Vital Sign Value Performing Clinician Facility 05-08-2024 09:38-0400 Body height 157.48 cm DO flatev Work Phone: [facility] 05-08-2024 09:38-0400 Body mass index (BMI) [Ratio] 30.2 kg/m2 DO flatev Work Phone: [facility] 05-08-2024 09:38-0400 Body weight 74.84 kg DO Francis Ball Work Phone: [facility] 05-08-2024 09:38-0400 Diastolic blood pressure 86 mm[Hg] DO Francis Ball Work Phone: [facility] 05-08-2024 09:38-0400 Heart rate 84 /min DO Francis Ball Work Phone: [facility] 05-08-2024 09:38-0400 Respiratory rate 12 /min DO Francis Ball Work Phone: [facility] 05-08-2024 09:38-0400 Systolic blood pressure 136 mm[Hg] DO Francis Ball Work Phone: [facility] 02-10-2024 10:42-0400 Body height 157.48 cm [facility] 02-10-2024 10:42-0400 Body mass index (BMI) [Ratio] 29.9 kg/m2 [facility] 02-10-2024 10:42-0400 Body weight 74.38 kg [facility] 02-10-2024 10:42-0400 Diastolic blood pressure 89 mm[Hg] [facility] 02-10-2024 10:42-0400 Heart rate 114 /min [facility] 02-10-2024 10:42-0400 Respiratory rate 12 /min [facility] 02-10-2024 10:42-0400 Systolic blood pressure 130 mm[Hg] [facility] 05-15-2023 15:45-0400 Body height 157.48 cm Francis Ball Other [facility] Other 05-15-2023 15:45-0400 Body mass index (BMI) [Ratio] 32.37 kg/m2 Francis Ball Other [facility] Other 05-15-2023 15:45-0400 Body weight 80.29 kg Francis Ball Other [facility] Other 05-15-2023 15:45-0400 Diastolic blood pressure 87 mm[Hg] Francis Ball Other [employer] Other 05-15-2023 15:45-0400 Respiratory rate 12 /min Francis Ball Other [employer] Other 05-15-2023 15:45-0400 Systolic blood pressure 121 mm[Hg] Francis Ball Other [employer] Other 04-12-2023 11:25-0400 Body height 157.48 cm Emiliana Patricia Other [employer] Other 04-12-2023 11:25-0400 Body mass index (BMI) [Ratio] 31.09 kg/m2 Emiliana Patricia Other [employer] Other 04-12-2023 11:25-0400 Body temperature 98.1 [degF] Emiliana Patricia Other [employer] Other 04-12-2023 11:25-0400 Body weight 77.11 kg Emiliana Patricia Other [employer] Other 04-12-2023 11:25-0400 Diastolic blood pressure 88 mm[Hg] Emiliana Patricia Other [employer] Other 04-12-2023 11:25-0400 Respiratory rate 18 /min Emiliana Patricia Other [employer] Other 04-12-2023 11:25-0400 SaO2% (BldA) [Mass fraction] 98 % Emiliana Patricia Other [employer] Other 04-12-2023 11:25-0400 Systolic blood pressure 144 mm[Hg] Emiliana Patricia Other [employer] Other 04-08-2023 09:00-0400 Body height 157.48 cm Francis Ball Other [employer] Other 04-08-2023 09:00-0400 Body mass index (BMI) [Ratio] 32.19 kg/m2 Francis Ball Other [employer] Other 04-08-2023 09:00-0400 Body weight 79.83 kg Francis Ball Other [employer] Other 04-08-2023 09:00-0400 Diastolic blood pressure 83 mm[Hg] Francis Ball Other [employer] Other 04-08-2023 09:00-0400 Respiratory rate 12 /min Francis Ball Other [employer] Other 04-08-2023 09:00-0400 Systolic blood pressure 117 mm[Hg] Francis Ball Other [employer] Other 09-21-2022 14:30-0500 Body height 157.48 cm Francis Ball Other [employer] Other 09-21-2022 14:30-0500 Body mass index (BMI) [Ratio] 31.64 kg/m2 Francis Ball Other [employer] Other 09-21-2022 14:30-0500 Body weight 78.47 kg Francis Ball Other [employer] Other 09-21-2022 14:30-0500 Diastolic blood pressure 64 mm[Hg] Francis Ball Other [employer] Other 09-21-2022 14:30-0500 Respiratory rate 18 /min Francis Ball Other [employer] Other 09-21-2022 14:30-0500 SaO2% (BldA) [Mass fraction] 97 % Francis Osborne Other [employer] Other 09-21-2022 14:30-0500 Systolic blood pressure 136 mm[Hg] Francis Osborne Other [employer] Other Encounters Encounter Date Encounter Type Care Provider Facility Start: 05-08-2024 End: 05-08-2024 ambulatory DO Francis Osborne Work Phone: [facility] Work Phone: Start: 05-08-2024 End: 05-08-2024 Patient encounter procedure DO Francis Osborne Work Phone: [facility] Work Phone: Start: 05-06-2024 Patient encounter procedure DO Francis Dylon Work Phone: [facility] Start: 02-21-2024 End: 02-21-2024 Patient encounter procedure DO Francis Osborne Work Phone: [facility] Start: 02-21-2024 End: 02-21-2024 ambulatory Francis Osborne Facility:[facility] Start: 02-10-2024 End: 02-10-2024 ambulatory [facility] Work Phone: Start: 02-10-2024 End: 02-10-2024 Patient encounter procedure [facility] Work Phone: Start: 01-12-2024 Non-patient / Non-visit [facility] Work Phone: Start: 09-02-2023 End: 09-02-2023 ambulatory Francis Osborne Other [employer] Other Start: 01-08-2024 Telephone encounter Francis Osborne [facility] Start: 05-15-2023 End: 05-15-2023 ambulatory Francis Osborne Other [employer] Other Start: 05-15-2023 Office outpatient vi sit 25 minutes Francis Osborne [facility] Start: 05-15-2023 Telephone encounter Francis Osborne [facility] Start: 05-09-2023 End: 05-09-2023 ambulatory Francis Osborne Other [employer] Other Start: 05-09-2023 Telephone encounter Francis Osborne [facility] Start: 05-01-2023 End: 05-01-2023 ambulatory Francis Osborne Other [employer] Other Start: 05-01-2023 Telephone encounter Francis Osborne [facility] Start: 04-12-2023 End: 04-12-2023 ambulatory Emiliana Patricia Other [employer] Other Start: 04-12-2023 Office outpatient vi sit 25 minutes Emiliana Patricia [facility] Start: 04-08-2023 End: 04-08-2023 ambulatory Francis Osborne Other [employer] Other Start: 04-08-2023 Patient encounter procedure Francis Osborne [facility] Start: 04-01-2023 End: 04-01-2023 ambulatory Francis Osborne Other [employer] Other Start: 04-01-2023 Telephone encounter Francis Osborne [facility] Start: 02-28-2023 End: 02-28-2023 ambulatory Francis Osborne Other [employer] Other Start: 02-28-2023 Telephone encounter Francis Osborne [facility] Start: 01-27-2023 End: 01-27-2023 ambulatory Francis Osborne Other [employer] Other Start: 01-27-2023 Telephone encounter [facility] Start: 12-04-2022 End: 12-05-[address] Katey SHAH Facility:[facility] Start: 10-22-2022 End: 10-22-2022 ambulatory Francis Osborne Other [employer] Other Start: 10-22-2022 Telephone encounter [facility] Start: 10-18-2022 End: 10-19-[address] FRANCIS OSBORNE Facility:[facility] Start: 09-23-2022 End: 09-23-2022 ambulatory Francis Osborne Other [employer] Other Start: 09-23-2022 Telephone encounter Francis [facility] Start: 09-21-2022 End: 09-21-2022 ambulatory Francis Osborne Other [employer] Other Start: 09-21-2022 Office outpatient vi sit 25 minutes Francis Osborne [facility] Start: 08-30-2022 End: 08-30-2022 ambulatory Francis Dylon Other [employer] Other Start: 08-30-2022 Telephone encounter [facility] Start: 01-24-2022 Adult health examination Francis Osborne Other [employer] Other Procedures Date Procedure Procedure Detail Performing Clinician Start: 06-18-2017 Screening for malign ant neoplasm of colon Francis Osborne Other Start: 06-18-2017 Screening for osteoporosis Francis Osborne Other Start: 06-18-2017 Screening mammography B enjamecca Osborne Other Screening for malign ant neoplasm of breast Francis Osborne Other Plan of Treatment Date Care Activity Detail Author Comprehensive metabo lic 2000 panel - Serum or Plasma [facility] enter MG Breast - bilateral Diagnostic [facility] MG Breast - bilateral Diagnostic [facility] XR Shoulder - right Views Fi [facility] Immunizations Immunization Date Immunization Notes Care Provider Tamiko jose 12-31-2021 COVID-19 Vaccine Pfi zer - Documentation Purposes Only Francis Osborne Other [facility] 06-19-2017 diphtheria, tetanus toxoids and acellular pertussis vaccine, unspecified formulation Francis Osborne Other [facility] 04-29-2013 tetanus and diphther ia toxoids, adsorbed, preservative free, for adult use (5 Lf of tetanus toxoid and 2 Lf of diphtheria toxoid) Francis Osborne Other [facility] 06-06-2011 diphtheria, tetanus toxoids and acellular pertussis vaccine, unspecified formulation Francis Osborne Other [facility] Payers Date Payer Category Payer Medicare [id number] 1961 Unknown [id number] 1950 Unknown [id number] 1950 Unknown [id number] Medicare [id number] Medicare Medicare [id number] Medicare Cigna Medicare Supplemental [id number] Self-pay Self Pay [id number] Unknown [place] [id number] Social History Date Type Detail Facility Sex Assigned At [employer] Other Start: 1950 Sex Assigned At Female F [facility] Clinical Notes 09-21-2022 to 09-02-2023 Note Date & Type Note Facility 09-02-2023 Evaluation note Encounter Date Diagnosis Assessment Notes Aug, SHEFALI (generalized anxiety disorder) (ICD-10 - F41.1) [employer] Other 09-20-2023 Evaluation note* Encounter Date Diagnosis Assessment Notes Treatment Notes Treatment Clinical Notes Apr, Occipital headache (ICD-10 - R51.9) ROM exercises, heat/ice and Tylenol as needed. ER for increased pain. Apr, Cerebral atherosclerosis (ICD-10 - I67.2) Hx of TIA w/ MRI findings of significant microvascular atherosclerosis. Instructed to restart ASA Will be encouraged to initiate Statin therapy Healthy, low fat/salt diet Apr, Primary hypertension (ICD-10 - I10) This patient is instructed to consume a healthy, low-fat, low-salt diet. They are also encouraged to continue exercise to achieve/maintain a normal BMI. Apr, Elevated cholesterol (ICD-10 - E78.00) Instructed on diet and exercise and will be encouraged to initiated statin therapy.Discussed the beneficial effects of lowering cholesterol in reducing the risk for cerebrovascular and cardiovascular disease. Apr, Acute strain of neck muscle, initial encounter (ICD-10 - S16.1XXA) ROM exercises, heat/ice and Tylenol. Initiated Etodolac during daytime and Zanaflex at bedtime Apr, SHEFALI (generalized anxiety disorder) (ICD-10 - F41.1) Healthy diet, exercise and keep active Continue Xanax as needed Continue SSRI as prescribed. [employer] Other 09-14-2023 Evaluation note* Encounter Date Diagnosis Assessment Notes Treatment Notes Treatment Clinical Notes Apr, SHEFALI (generalized anxiety disorder) (ICD-10 - F41.1) [employer] Other 08-18-2023 Evaluation note* Encounter Date Diagnosis Assessment Notes Treatment Notes Treatment Clinical Notes Mar, Viral URI with cough (ICD-10 - J06.9) Patient declines/refuses all testing today in office. Discussed diagnosis with patient today in office. Advised patient that will treat as viral URI. Supportive care as directed, increase fluids and rest, Tylenol/Motrin as directed, OTC cough/cold remedies as directed on packaging such as Coricidin HBP, cool mist humidifier, throat lozenges. Will send in Rx of cetirizine and prednisone to use as directed. Discussed infection control practices such as good hand washing and mask wearing. Patient to follow up with PCP if symptoms persist or worsen despite treatment. Immediate eval for SOB, difficulty breathing, chest pain, fevers that do not break with antipyretic or any other concerning symptoms as reviewed on patient education handout. Patient verbalizes understanding and is agreeable to treatment plan. Patient left in stable condition. [employer] Other 08-14-2023 Evaluation note* Encounter Date Diagnosis Assessment Notes Treatment Notes Treatment Clinical Notes Mar, Medicare annual wellness visit, subsequent (ICD-10 - Z00.00) Personalized health advice was given to the beneficiary including a written plan for screenings discussed and provided. Advanced care planning reviewed and/or information given as requested. Additional counseling was provided here today in regards to, [ ]. The above visit was performed by [ ], under direct supervision of [ ]. Document reviewed and amended by provider signed below. Mar, Elevated cholesterol (ICD-10 - E78.00) Instructed on diet and exercise with continued statin therapy.Discussed the beneficial effects of lowering cholesterol in reducing the risk for cerebrovascular and cardiovascular disease. Mar, Primary hypertension (ICD-10 - I10) This patient is instructed to consume a healthy, low-fat, low-salt diet. They are also encouraged to continue exercise to achieve/maintain a normal BMI. Mar, SHEFALI (generalized anxiety disorder) (ICD-10 - F41.1) Healthy diet, exercise and continue medical therapy No recent ER/hosp visits due to anxiety/panic attacks Mar, Age-related osteoporosis without current pathological fracture (ICD-10 - M81.0) Continue Ca and Vitamin D supplements. Encouraged w/ weight bearing exercises Mar, Personal history of malignant neoplasm of breast (ICD-10 - Z85.3) UTD w/ surveilance mammgrams Instructed on monthly SBE Mar, Screening for colon cancer (ICD-10 - Z12.11) Due for cologuard She is an asymptomatic, low risk patient. She denies heartburn, dysphagia, N/V/D, abdominal pain, melena or hematochezia She denies change in appetite, weight or bowel habits Mar, High risk medication use (ICD-10 - Z79.899) [employer] Other 02-23-2023 NotePROCEDURE: XR HIP RT 2 3V W PELVIS HISTORY: Pain in right hip joint ; chronic lumbar and right leg pain COMPARISON: None. FINDINGS: BONES:No fracture, acute abnormality, or significant arthropathy of right hip joint. Irregularity involving posterior rim of right iliac wing, likely posttraumatic. SOFT TISSUES:No visible soft tissue swelling. EFFUSION:None visible. OTHER: Negative. IMPRESSION: 1. No acute abnormality or significant degenerative changes of right hip. Electronically authenticated by: TRIPP TRAVIS Date: 2022-10-18 19:00[facility]01-27-2023 Evaluation note* Encounter Date Diagnosis Assessment Notes Treatment Notes Treatment Clinical Notes Aug, Lumbago with sciatica, right side (ICD-10 - M54.41) The patient is instructed to avoid bending, twisting or lifting. They are to use intermittent heat and ice as needed. They may schedule a massage or gentle manipulation. They may safely use Tylenol as needed. Completed PT and injections w/ pain management w/o benefit. Discussed and ordered referral to Dr. Shah for evaluation and treatment Aug, Primary hypertension (ICD-10 - I10) This patient is instructed to consume a healthy, low-fat, low-salt diet. They are also encouraged to continue exercise to achieve/maintain a normal BMI. Aug, Pain in right hip (ICD-10 - M25.551) Hx of Epiphysitis as child w/ year long bedrest. Age related OA contributing, r/o bone metastasis. Aug, Age-related osteoporosis without current pathological fracture (ICD-10 - M81.0) Ca and Vitamin D supplements along w/ weight bearing exercise. Continue Alendronate, repeat DEXA qoy Aug, SHEFALI (generalized anxiety disorder) (ICD-10 - F41.1) Healthy diet, keep active, proper sleep routine. Continue medications w/o interruption. Aug, Elevated cholesterol (ICD-10 - E78.00) Diet and exercise with continued statin therapy. Aug, Other chronic pain (ICD-10 - G89.29) 27 Aug, 2022 Personal history of malignant neoplasm of breast (ICD-10 - Z85.3) Instructed on importance of timely surveillance. SBE monthly and will send order to schedule mammogram. [employer] Other Evaluation noteNo InformationNort [employer] [facility] [employer] Other Evaluation note* Diagnosis Onset Date Resolution Status Cerebral atherosclerosis acu te Cervical spondylosis acute SHEFALI (generalized anxiety disorder) acute Hypertension acute Migraine acute Sinus tachycardia acute [facility] Work Phone: Evaluation note* Diagnosis Onset Date Resolution Status Cerebral atherosclerosis acu te Cervical spondylosis acute SHEFALI (generalized anxiety disorder) acute Hypertension acute Migraine acute Sinus tachycardia acute Cerebral atherosclerosis acu te SHEFALI (generalized anxiety disorder) acute Hypertension acute Medicare annual wellness visit, subsequent acute Migraine acute Personal history of malignant neoplasm of breast acute Right shoulder pain acute Sinus tachycardia acute [facility] Work Phone: Hisvtbq general Narrative - Reported* Type Description Date Medical History high blood pressure Medical History obesity Medical History history of right breast cancer Medical History lumbar spondylosis Medical History fibromyalgia Medical History age related osteoporosis Medical History pernicious anemia Medical History GERD Medical History major depressive disorder Medical History palpitation Medical History hypercholesterolemia Medical History TIA Medical History generalized anxiety disorder Medical History sensorial hearing loss Medical History garcia cyst left knee Medical History Daniel's Epiphysitis Surgical History spinal surgery Surgical History lumbar fusion Surgical History MARIA E/BSO 03/1987 Surgical History right lumpectomy 1993 Surgical History cholecystectomy 09/2000 Surgical History ventral hernia repair 08/2007 Surgical History bilateral cataract extraction Hospitalization History SEE SURGICAL HX [employer] Other History general Narrative - [employer] Other [facility]wgr[facility] general Narrative - Reported* Type Description Date Medical History high blood pressure Medical History obesity Medical History history of right breast cancer Medical History lumbar spondylosis Medical History fibromyalgia Medical History age related osteoporosis Medical History pernicious anemia Medical History GERD Medical History major depressive disorder Medical History palpitation Medical History hypercholesterolemia Medical History TIA Medical History generalized anxiety disorder Medical History sensorial hearing loss Medical History garcia cyst left knee Medical History Daniel's Epiphysitis Surgical History spinal surgery Surgical History lumbar fusion Surgical History MARIA E/BSO 03/1987 Surgical History right lumpectomy 1992 Surgical History cholecystectomy 09/2000 Surgical History ventral hernia repair 08/2007 Surgical History bilateral cataract extraction Surgical History tonsillectomy and adenoidectomy Hospitalization History SEE SURGICAL HX [employer] Other Reason for Referral Reason *FU 10/29 Low back and right hip pain Diagnosis 1 Lumbago with sciatic a, right side (M54.41) Diagnosis 2 Pain in right hip (M 25.551) Referral Organization [facility] [employer] jay Referring Provider First Name Francis Referring Provider Last Name Dylon Referring Provider Specialty Internal Me siddhartha Referred Organization [facility] Referred Provider Colten Shah Referred Address ,[place], [place],[address] Referred Provider Specialty Orthopedic S urgery Referral Priority Routine General Notes Patient seen w/ database [facility] low back and right hip pain. 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 She has experienced increased pain over the past 6-12 months that is now interfering w/ ADL. She has completed PT and injections w/ pain management w/o benefit. She is being referred for evaluation and treatment. Lolis Du 09/24/2022 11:45:45 AM >received today, note locked, no ins card on file. will send XR results once we have them Lolis Du 10/01/2022 08:53:48 AM >faxed first attempt letter. no xr in chart Lolis Du 10/08/2022 02:21:19 PM >faxed second attempt letter Lolis Du 10/15/2022 02:12:25 PM >faxed third attempt letter. will call next Lolis Du 10/16/2022 04:15:45 PM >received fax that as of 10/01 they are waiting for pt to get XR and then will run it past Dr. Shah. will follow back up Clinical Notes She has hx of breast cancer and mammogram, XR hip, XR lumbar spine have been ordered and should be included Summary Purpose Family History Relationship Condition Age at Onset Recorded Date/T shakir brother Unknown father Heart disease Unknown Unknown Not Specified Malignant neoplasm Unknown Relationship Condition Age at Onset Recorded Date/T shakir brother Unknown father Heart disease Unknown Unknown mother Malignant neoplasm Unknown Advance Directives Advance Directive Response Recorded Date/ Time Advance Directives No January 29 2:22pm Chief Complaint and Reason for Visit Chief Complaint bp check, talk about driving Reason for Visit Cerebral atheroscler osis Cervical spondylosis SHEFALI (generalized anxiety disorder) Hypertension Migraine Sinus tachycardia Chief Complaint bp check, talk about driving [employer] Safety headahces, right knee pain Reason for Visit Cerebral atheroscler osis Cervical spondylosis SHEFALI (generalized anxiety disorder) Hypertension Migraine Sinus tachycardia Cerebral atherosclerosis SHEFALI (generalized anxiety disorder) Hypertension Medicare annual wellness visit, subsequent Migraine Personal history of malignant neoplasm of breast Right shoulder pain Sinus tachycardia Additional Source Comments REASON FOR VISIT (unrecogniz ed section and content) Prescription refillReferral DiscussionNo InformationresultsNo InformationNo InformationNo InformationWellnessEARACHEWellnessClinicalrefillWanting In TodayHeadachesrefill INFORMATION SOURCE (unrecogn ized section and content) DATE CREATED AUTHOR 12/10/2022 [facility] DATE CREATED AUTHOR AUTHOR'S ORGANIZ ATION 02/23/2024 [facility] Care Teams (unrecognized sec tion and content) Team Status: Active Member Role Status Dates Francis Osborne DO Primary Care Provider Active Team Status: Inactive Member Role Status Kashif Osborne DO Primary Care Provide r, Attending Provider Active Start: February 10, 2024 End: February 10, 2024 Team Status: Inactive Member Role Status Kashif Osborne DO Primary Care Provide r, Attending Provider Active Start: February 21, 2024 End: February 21, 2024 Team Status: Inactive Member Role Status Kashif Osborne DO Primary Care Provide r, Attending Provider Active Start: May 08, 2024 End: May 08, 2024 Team Status: Active Member Role Status Kashif Osborne DO Primary Care Provider Active Team Status: Active Member Role Status Kashif Osborne DO Primary Care Provider Active Start: January 12, 2024 Mia Manning MD Attending Provider Active Sta rt: January 12, 2024 Team Status: Inactive Member Role Status Kashif Osborne DO Primary Care Provide r, Attending Provider Active Start: February 10, 2024 End: February 10, 2024 Team Status: Inactive Member Role Status Kashif Osborne DO Primary Care Provide r, Attending Provider Active Start: February 21, 2024 End: February 21, 2024 Team Status: Inactive Member Role Status Dates Francis Osborne , DO Primary Care Provide r, Attending Provider Active Start: May 08, 2024 End: May 08, 2024 Goals (unrecognized section and content) Goals may be documented in a n alternate section FOR RECORDS PERTAINING TO PATIENTS WHO ARE OR HAVE BEEN ENROLLED IN A CHEMICAL DEPENDENCY/SUBSTANCEABUSE PROGRAM, SOME INFORMATION MAY BE OMITTED. This clinical summary was aggregated from multiple sources. Caution should be exercised in using it in the provision of clinical care. This summary normalizes information from multiple sources, and as a consequence, information in this document may materially change the coding, format and clinical context of patient data. In addition, data may be omitted in some cases. CLINICAL DECISIONS SHOULD BE BASED ON THE PRIMARY CLINICAL RECORDS. [facility] [employer] provides no warranty or guarantee of the accuracy or completeness of information in this document.
--- NOTE | 2024-06-04 14:32 | MM_ITS ---
Patient Name: MATTHEW CLARKE MR#: [id number] : 1950 Exam Date: 06/04/2024 Ordering Doctor: DR Francis Osborne D.O. RADIOLOGY REPORT PROCEDURE: MM TOMOSYNTHESIS SCREENING BI COMPARISON: MG MAMM DIAGNOSTIC 3D ALE CAD, 10/18/2022. MG MAMM ALE DIAG W CAD, 03/30/2020. MG MAMM RT DIAG W CAD, 06/13/2018. MG MAMM ALE DIAG W CAD DIG, 11/04/2014. INDICATIONS: Screening Calculator Name NCI Breast Cancer Risk Assessment Tool 5 Year Breast Cancer Risk n/a% Lifetime Breast Cancer Risk n/a% Personal Breast Cancer Yes, Right breast cancer Age 44 Personal Ovarian Cancer No Treatments Lumpectomy and radiation Family Cancers Mother with breast cancer at age ~68; Father with lung cancer at age ~60. LOCATION: [facility] BREAST COMPOSITION: There are scattered areas of fibroglandular density. FINDINGS: DIAGNOSTIC CATEGORY 2--BENIGN FINDING: RIGHT BREAST: No significant suspicious finding. Scattered benign-appearing calcifications are present. Stable large calcification within upper-outer quadrant likely dystrophic calcification from prior trauma/surgery. No significant change has occurred. LEFT BREAST: No significant suspicious finding. No significant change has occurred. RECOMMENDATIONS: ROUTINE MAMMOGRAM AND CLINICAL EVALUATION IN 12 MONTHS. PLEASE NOTE: A NORMAL MAMMOGRAM DOES NOT EXCLUDE THE POSSIBILITY OF BREAST CANCER. A CLINICALLY SUSPICIOUS PALPABLE LUMP SHOULD BE BIOPSIED. Dictated by: Tripp Travis M.D. on 06/04/2024 at 15:48 Approved by: Tripp Travis M.D. on 06/04/2024 at 15:51
[2024-06-04 14:33] LABS: Basophils Absolute Auto 0.1 10^3/uL (0.0-0.1); Basophils Percent Auto 1.1 % (0.2-2.0); Eosinophils Absolute Auto 0.1 10^3/uL (0.0-0.7); Eosinophils Percent Auto 2.2 % (0.9-7.0); Hematocrit 41.4 % (36.0-48.0); Hemoglobin 13.5 g/dL (12.0-16.0); Immature Granulocytes Abs Auto 0.01 10^3/uL (0.00-0.03); Immature Granulocytes Pct Auto 0.2 % (0.0-0.5); Lymphocytes Absolute Auto 1.3 10^3/uL (1.2-3.8); Lymphocytes Percent Auto 23.2 % (20.5-60.0); Mean Corpuscular HGB Conc 32.6 g/dL (29.9-35.2); Mean Corpuscular Hemoglobin 29.9 pg (26.7-34.0); Mean Corpuscular Volume 91.6 fL (81.0-99.0); Mean Platelet Volume 10.3 fL (9.5-13.5); Monocytes Absolute Auto 0.8 10^3/uL (0.3-0.8); Monocytes Percent Auto 14.9 % (1.7-12.0); Neutrophils Absolute Auto 3.2 10^3/uL (1.4-6.5); Neutrophils Percent Auto 58.4 % (43.0-75.0); Platelet Count 320 10^3/uL (150-450); Red Blood Count 4.52 10^6/uL (4.20-5.40); Red Cell Distribution Width 13.7 % (11.0-15.0); White Blood Count 5.4 10^3/uL (4.0-11.0)
[2024-06-04 15:33] LABS: Alanine Aminotransferase 15 U/L (14-59); Albumin Globulin Ratio 0.8; Albumin Level 3.3 g/dL (3.4-5.0); Alkaline Phosphatase 107 U/L (46-116); Anion Gap 12.4; Aspartate Amino Transferase 16 U/L (15-37); BUN Creatinine Ratio 17.6; Bilirubin Total 0.4 mg/dL (0.2-1.0); Calcium 9.5 mg/dL (8.5-10.1); Carbon Dioxide 27.9 mmol/L (21.0-32.0); Chloride 100 mmol/L (98-107); Estimated GFR (African America >60 (>=60 mL/min/1.73m^2); Estimated GFR (Non-African Ame >60 (>=60 mL/min/1.73m^2); Globulin 4.4 g/dL; Glucose 84 mg/dL (74-106); Potassium 4.3 mmol/L (3.5-5.1); Sodium 136 mmol/L (136-145); Thyroid Stimulating Hormone 2.602 uIU/mL (0.358-3.740); Total Protein 7.7 g/dL (6.4-8.2)
== END 2024-06-04 14:15 | disposition home or self-care (01) ==
LOC: MAMMO 14:14
PROVIDERS: PCP Internal Medicine; Visit Provider Internal Medicine
DX: R00.0 Tachycardia, unspecified (principal); Z85.3 Personal history of malignant neoplasm of breast; I67.2 Cerebral atherosclerosis; I10 Essential (primary) hypertension; M25.511 Pain in right shoulder; Z12.31 Encounter for screening mammogram for malignant neoplasm of breast; Z80.3 Family history of malignant neoplasm of breast; Z80.1 Family history of malignant neoplasm of trachea, bronchus and lung
CPT/HCPCS: 36415; 73030; 77063; 77067; 80053; 84443; 85025

== ENCOUNTER 2024-10-06 12:28 | Outpatient (OUT) | payer MEDICARE, OTHER, SELFPAY ==
--- OUTSIDE RECORDS SUMMARY | 2024-10-06 12:33 | XMS_ITS | CCD ---
Author Organization [facility] Care Team Providers Care Senior Lead Java Developer Name Role Phone Francis Osborne Unavailable DR [...] Unavailable Dylon, DO Blanco Primary Care Provider DO Francis Osborne Attending Provider [phone] Allergies Allergy Classification Reported Allergen(s) Allergy Type Date of Onset Reaction(s) Facility (16 sources) Morphine Drug Allergy 02-10-20 24 [facility] (16 sources) Influenza Vac Recombinant MOREJON Drug allergy swelling at site location [facility] Other (1 source) Morphine Drug Allergy 10-26-19 14 [facility] (1 source) Flu Vaccine [id number] (9 yr +) Drug allergy (disorder) 10-26-19 14 [facility] (1 source) Flu Vaccine [id number] (3 yr +) Drug allergy (disorder) 10-26-19 14 [facility] (7 sources) influenza A virus (H1N1) antigen / influenza A virus (H3N2) antigen / influenza B virus antigen Drug Allergy Comment:FLU VACCINE [facility] Other (2 sources) patient allergy list reviewed by nurse or physicia Propensity to adverse reactions 07-24-20 13 Comment:Done [facility] Other (10 sources) Contraindication to Flu Injection Propensity to adverse reactions 09-20-19 15 Comment:advers e rxn/side effects [facility] Other (3 sources) Morphine Drug Allergy migraines [facility] Other (6 sources) Fluad Quadrivalent Drug allergy 05-15-20 23 Comment:FLU VACCINE [facility] (3 sources) Influenza Virus Vaccines Allergy to substance 02-10-20 swelling at site location [facility] Medications Current Medications Medication Drug Class(es) Dates Sig (Normalized) Sig (Original) ALPRAZolam 0.5 mg oral tablet (20 sources) Benzodiazepine Start: 10-31-2023 End: 08-28-2024 take 1 tablet by mouth three times daily Alprazolam 0.5 mg tablet Active 0.5 MG PO Three times daily August 28, 2024 3:38pm Start: 09-03-2023 take 1 tablet by bony [...] Enzyme Inhibitor Start: 10-31-19 End: 11-01-19 take 1 tablet by mouth once daily Benazepril 10 mg tablet Active 10 MG PO Daily November 01, 2023 10:32am take 1 tablet by mouth once butser y Benazepril HCl 10 MG TAKE 1 TABLET BY MOUTH EVERY DAY Active bisoprolol fumarate 5 mg / hydroCHLOROthiazide 6.25 mg oral tablet (1 source) Thiazide Diuretic, beta-Adrenergic Lou Start: 09-24-2024 take 1 tablet by mouth once daily Bisoprolol-Hydrochlorothiazide 5-6.25 mg tablet Active 1 TAB PO Daily 90 September 24, 2024 12:00am cetirizine hydrochloride 10 mg oral tablet (10 sources) Histamine-1 Receptor Antagonist Start: 10-31-2023 take 1 tablet by mouth once daily Cetirizine 10 mg tablet Active 10 MG PO Daily October 31, 2023 12:00am Start: 04-12-2023 take 1 tablet by bony th every twenty-four hours Cetirizine HCl 10 MG 1 tablet Orally Once a day for 14 days Mar, Active citalopram 40 mg oral tablet (20 sources) Serotonin Reuptake Inhibitor Start: 10-21-2023 End: 06-12-2024 take 1 tablet by mouth once daily Citalopram 40 mg tablet Active 40 MG PO Daily June 12, 2024 11:01am take 1 tablet by bony th once daily at bedtime Citalopram Hydrobromide 40 MG TAKE 1 TAB LET BY MOUTH EVERYDAY AT BEDTIME Active take 0.5 tablet by m outh every twenty-four hours Citalopram Hydrobromide 40 MG 0.5 tablet Orally Once a day Active cyproheptadine hydrochloride 4 mg oral tablet (2 sources) Start: 05-08-2024 take 1 tablet by mouth once daily at bedtime Cyproheptadine 4 mg tablet Active 4 MG PO Daily at bedtime May 07, 2024 11:00pm etodolac 400 mg oral tablet (3 sources) [...] tablet Orally BID for 5 Mar, Active tiZANidine 2 mg oral capsule (10 sources) Central alpha-2 Adrenergic Agonist Start: 06-30-2024 End: 06-30-2024 take 1 capsule by mouth once daily at bedtime Tizanidine 2 mg capsule Active 2 MG PO Daily at bedtime June 30, 2024 4:44pm Start: 02-16-2024 End: 05-08-2024 take 1 tablet by mouth at bedtime Tizanidine 2 mg tablet Discontinued 0 .ROUTE .COMPLEX February 16, 2024 7:20am May 08, 2024 9:08am take 1 tablet by mouth at bedtime Start: 02-16-2024 End: 05-08-2024 take 1 tablet by mouth at bedtime Tizanidine Discontinued 0 .ROUTE .COMPLEX February 16, 2024 8:20am May 08, 2024 10:08am take 1 tablet by mouth at bedtime Start: 11-01-2023 End: 02-16-2024 take 1 tablet by mouth once daily at bedtime Tizanidine 2 mg tablet Discontinued 2 MG PO Daily at bedtime November 01, 2023 12:00am February 16, 2024 7:20am Start: 05-15-2023 take 1 tablet by bony th once at bedtime as needed tiZANidine HCl 2 MG 1 tablet as needed Orally q HS for 14 days Apr, Active Completed/Discontinued Medications Medication Drug Class(es) Dates [...] aspirin 81 mg delayed release oral tablet (19 sources) Platelet Aggregation Inhibitor, Nonsteroidal Anti-inflammatory Drug Start: 10-31-2023 End: 05-08-2024 take 1 tablet by mouth once daily Aspirin 81 mg tablet,delayed release (DR/EC) Discontinued 81 MG PO Daily October 31, 2023 12:00am May 08, 2024 9:08am take 1 tablet by bony th every [...] / sodium bicarbonate 1100 mg oral capsule (10 sources) Proton Pump Inhibitor Start: 10-31-2023 End: 05-08-2024 Omeprazole-Sodium Bicarbonate 20-1.1 mg-gram capsule Discontinued 1 CAP PO October 31, 2023 12:00am May 08, 2024 9:08am take 1 capsule by mo ut every twenty-four hours Zegerid 20-1100 MG 1 capsule on an empty stomach Orally Once a day Active Vitamin D3 (16 sources) Vitamin D3 [...] of breast] Onset: 4 Episodic Cardiac dysrhythmias (12 sources) Palpitations; Translations: [Palpitations] 10-31-2023 Episodic Deficiency and other anemia (5 sources) Pernicious anemia; Translations: [Vitamin B12 deficiency anemia due to intrinsic factor deficiency] 10-31-2023 Episodic Disorders of lipid metabolism (20 sources) Hypercholesterolemia; Translations: [Pure hypercholesterolemia, unspecified] Chronic Esophageal disorders (3 sources) Gastroesophageal reflux disease; Translations: [Gastro-esophageal reflux disease without esophagitis] 10-31-2023 Chronic Esophageal disorders (2 sources) Esophageal disorders; Translations: [Gastro-esophageal reflux disease with esophagitis, without bleeding] Essential hypertension (20 sources) Essential hypertension; Translations: [Essential (primary) hypertension] Chronic Genitourinary symptoms and ill-defined conditions (2 sources) Overflow incontinence of urine; Translations: [Overflow incontinence] Onset: 7 Chronic Headache; including migraine (15 sources) Migraine with aura; Translations: [Migraine with aura, not intractable, without status migrainosus] Onset: 4 11-01-2023 Chronic Menopausal disorders (2 sources) Primary ovarian failure; Translations: [Other primary ovarian failure] Onset: 7 Chronic Mood disorders (13 sources) Moderate recurrent major depression; Translations: [Major [...] fracture] Chronic Other aftercare (2 sources) Other oysterman (current) drug therapy Episodic Other and ill-defined cerebrovascular disease (6 sources) Cerebral atherosclerosis; Translations: [Cerebral atherosclerosis] 10-31-2023 Chronic Other and ill-defined cerebrovascular disease (5 sources) Cerebral atherosclerosis; Translations: [Cerebral atherosclerosis] Chronic [...] knee] 10-31-2023 Episodic Other connective tissue disease (2 sources) Synovial cyst of popliteal space [Garcia], left [...] left shoulder] Episodic Other non-traumatic joint disorders (3 sources) Pain in right shoulder; Translations: [Right [...] conditions (not mental disorders or infectious disease) (4 sources) Encounter for screening for malignant neoplasm of colon; Translations: [Patient encounter status] Episodic Other upper respiratory infections (3 sources) Acute maxillary sinusitis; Translations: [Acute maxillary sinusitis, unspecified] Onset: 7 Episodic Spondylosis; intervertebral disc disorders; other back problems (16 sources) Inflammatory spondylopathy; Translations: [Unspecified inflammatory spondylopathy, [...] Basophils (Bld) [#/Vol] 0.1 10 3/uL 0.0-0.1 [facility] Basophils/100 WBC Auto (Bld) on 01-12-2024 Basophils/100 WBC (Bld) 1.0 % 0.2-2.0 [facility] Eosinophils/100 WBC Auto (Bl d)on 01-12-2024 Eosinophils/100 WBC (Bld) 1.2 % 0.9-7.0 [facility] Erythrocyte distribution wid th Auto (RBC) [Ratio]on 01-12-2024 Erythrocyte distribution width (RBC) [Ratio] 14.3 % 11.0-15.0 [facility] Estimated glomerular filtrat ion rate (GFR) non- Americanon 01-12-2024 GFR/1.73 sq M.predicted among non-blacks MDRD (S/P/Bld) [Vol rate/Area] mL/min/{1.73_m2} >=60 [facility] Globulin Calc (S) [Mass/Vol] on 01-12-2024 Globulin (S) [Mass/Vol] 4.3 g/dL [facility] Hematocrit Auto (Bld) [Volum e fraction]on 01-12-2024 Hematocrit (Bld) [Volume fraction] 40.5 % 36.0-48.0 [facility] Hemoglobin [Mass/volume] in Bloodon 01-12-2024 Hemoglobin (Bld) [Mass/Vol] 13.1 g/dL 12.0-16.0 [facility] Laboratory - Chemistry and C hemistry - challengeon 01-12-2024 Albumin [Mass/Vol] 3.6 g/dL 3.4-5.0 [facility] ALP [Catalytic activity/Vol] 98 U/L 46-116 [facility] ALT [Catalytic activity/Vol] 14 U/L 14-59 [facility] AST [Catalytic activity/Vol] 14 U/L 15-37 [facility] Bilirubin [Mass/Vol] 0.7 mg/dL 0.2-1.0 [facility] Calcium [Mass/Vol] 9.7 mg/dL 8.5-10.1 [facility] Chloride [Moles/Vol] 99 mmol/L 98-107 [facility] CO2 [Moles/Vol] 24.0 mmol/L 21.0-32.0 [facility] Creatinine [Mass/Vol] 0.88 mg/dL 0.55-1.02 [facility] GFR/1.73 sq M.predicted MDRD (S/P/Bld) [Vol rate/Area] mL/min/{1.73_m2} >=60 [facility] Glucose [Mass/Vol] 103 mg/dL 74-106 [facility] Potassium [Moles/Vol] 3.6 mmol/L 3.5-5.1 [facility] Protein [Mass/Vol] 7.9 g/dL 6.4-8.2 [facility] Sodium [Moles/Vol] 136 mmol/L 136-145 [facility] Urea nitrogen [Mass/Vol] 20.0 mg/dL 7.0-18.0 [facility] Urea nitrogen/Creatinine [Mass ratio] 22.7 mg/mg [facility] Laboratory - Hematology and Cell countson 01-12-2024 Immature granulocytes/100 WBC (Bld) 0.3 % 0.0-0.5 [facility] Leukocytes [#/volume] correc sharon for nucleated erythrocytes in Blood by Automated counon 01-12-2024 WBC corrected for nucl RBC Auto (Bld) [#/Vol] 7.7 10 3/uL 4.0-11.0 [facility] Lymphocytes Auto (Bld) [#/Vo l]on 01-12-2024 Lymphocytes (Bld) [#/Vol] 1.2 10 3/uL 1.2-3.8 [facility] Lymphocytes/100 WBC Auto (Bl d)on 01-12-2024 Lymphocytes/100 WBC (Bld) 15.0 % 20.5-60.0 [facility] MCH Auto (RBC) [Entitic mass ]on 01-12-2024 MCH (RBC) [Entitic mass] 28.5 pg 26.7-34.0 [facility] MCHC Auto (RBC) [Mass/Vol]on 01-12-2024 MCHC (RBC) [Mass/Vol] 32.3 g/dL 29.9-35.2 [facility] MCV Auto (RBC) [Entitic vol] on 01-12-2024 MCV (RBC) [Entitic vol] 88.2 fL 81.0-99.0 [facility] Monocytes Auto (Bld) [#/Vol] on 01-12-2024 Monocytes (Bld) [#/Vol] 0.9 10 3/uL 0.3-0.8 [facility] Monocytes/100 WBC Auto (Bld) on 01-12-2024 Monocytes/100 WBC (Bld) 12.0 % 1.7-12.0 [facility] Neutrophils Auto (Bld) [#/Vo l]on 01-12-2024 Neutrophils (Bld) [#/Vol] 5.4 10 3/uL 1.4-6.5 [facility] Neutrophils/100 WBC Auto (Bl d)on 01-12-2024 Neutrophils/100 WBC (Bld) 70.5 % 43.0-75.0 [facility] No Panel Informationon 01-11 Troponin I High Sensitivity 9.6 pg/mL 4.0-51.3 [facility] Comment on above: CUT-OFF POINTS HAVE [...] Eosinophils # (Auto) 0.1 10 3/uL 0.0-0.7 [facility] Immature Granulocyte # (Auto) 0.02 10 3/uL 0.00-0.03 [facility] Platelet mean volume Auto (B ld) [Entitic vol]on 01-12-2024 Platelet mean volume (Bld) [Entitic vol] 10.8 fL 9.5-13.5 [facility] Platelets Auto (Bld) [#/Vol] on 01-12-2024 Platelets (Bld) [#/Vol] 334 10 3/uL 150-450 [facility] RBC Auto (Bld) [#/Vol]on RBC (Bld) [#/Vol] 4.59 10 6/uL 4.20-5.40 [facility] Serum or plasma albumin/glob ulin mass ratioon 01-12-2024 Albumin/Globulin [Mass ratio] 0.8 {ratio} [facility] Serum or plasma anion gap de terminationon 01-12-2024 Anion gap [Moles/Vol] 16.6 mmol/L [facility] MRI LSPINE WO CONon 12-07-19 MRI [...] HOLLEY DOS SANTOS Date: 2022-12-06 10:06 Normal [facility] MG MAMM ALE DIAG W CADon MG MAMM ALE DIAG W CAD [facility] Other MG MAMM DIAGNOSTIC 3D ALE CA Don 10-18-2022 MG MAMM DIAGNOSTIC 3D ALE CAD Patient: BIRGIT CLARKE Exam Date: 10/18/2022 : 1950 Gender:F Ordering : DR FRANCIS OSBORNE D.O. Admission #: [id number] Family : Order #: [id number] CLICK HERE TO VIEW EXAM RADIOLOGY REPORT [...] lung cancer at age 58. LOCATION: [facility] BREAST COMPOSITION: Scattered areas fibroglandular density. FINDINGS: [...] Travis M.D. on 10/18/2022 at 13:36 Normal [facility] XR HIP RT 2 3V W PELVISon XR HIP RT 2 3V W PELVIS [facility] Other XR LSPINE W_OBLS AND FLEX_EX Ton [...] by: TRIPP TRAVIS Date: 2022-10-18 18:59 Normal [facility] XR lumbar spine 6V w bending on 10-18-2022 XR lumbar spine 6V w bending [facility] Other Vital Signs Date Time Vital Sign Value Performing Clinician Facility 09-24-2024 11:02-0500 Body height 157.48 cm [facility] 09-24-2024 11:02-0500 Body mass index (BMI) [Ratio] 30.5 kg/m2 [facility] 09-24-2024 11:02-0500 Body weight 75.74 kg [facility] 09-24-2024 11:02-0500 Diastolic blood pressure 110 mm[Hg] [facility] 09-24-2024 11:02-0500 Heart rate 111 /min [facility] 09-24-2024 11:02-0500 Respiratory rate 20 /min [facility] 09-24-2024 11:02-0500 Systolic blood pressure 145 mm[Hg] [facility] 05-08-2024 09:38-0400 Body height 157.48 cm DO Francis Ball Work Phone: [facility] 05-08-2024 09:38-0400 Body mass index (BMI) [Ratio] 30.2 kg/m2 DO Francis Ball Work Phone: [facility] 05-08-2024 09:38-0400 Body weight 74.84 kg DO Francis Ball Work Phone: [facility] 05-08-2024 09:38-0400 Diastolic blood pressure 86 mm[Hg] DO Francis Ball Work Phone: [facility] 05-08-2024 09:38-0400 Heart rate 84 /min DO Francis Ball Work Phone: [facility] 05-08-2024 09:38-0400 Respiratory rate 12 /min DO Francis Ball Work Phone: [facility] 05-08-2024 09:38-0400 Systolic blood pressure 136 mm[Hg] DO Francis Ball Work Phone: [facility] 02-10-2024 10:42-0400 Body height 157.48 cm [facility] 02-10-2024 10:42-0400 Body mass index (BMI) [Ratio] 29.9 kg/m2 [facility] 02-10-2024 10:42-0400 Body weight 74.38 kg [facility] 02-10-2024 10:42-0400 Diastolic blood pressure 89 mm[Hg] [facility] 02-10-2024 10:42-0400 Heart rate 114 /min [facility] 02-10-2024 10:42-0400 Respiratory rate 12 /min [facility] 02-10-2024 10:42-0400 Systolic blood pressure 130 mm[Hg] [facility] 05-15-2023 15:45-0400 Body height 157.48 cm Francis Ball Other [facility] Other 05-15-2023 15:45-0400 Body mass index (BMI) [Ratio] 32.37 kg/m2 Francis Ball Other [facility] Other 05-15-2023 15:45-0400 Body weight 80.29 kg Farncis Ball Other [facility] Other 05-15-2023 15:45-0400 Diastolic blood pressure 87 mm[Hg] Francis Ball Other [facility] Other 05-15-2023 15:45-0400 Respiratory rate 12 /min Francis Ball Other [facility] Other 05-15-2023 15:45-0400 Systolic blood pressure 121 mm[Hg] Francis Ball Other [facility] Other 04-12-2023 11:25-0400 Body height 157.48 cm Emiliana Patricia Other [facility] Other 04-12-2023 11:25-0400 Body mass index (BMI) [Ratio] 31.09 kg/m2 Emiliana Patricia Other [facility] Other 04-12-2023 11:25-0400 Body temperature 98.1 [degF] Emiliana Patricia Other [facility] Other 04-12-2023 11:25-0400 Body weight 77.11 kg Emiliana Patricia Other [facility] Other 04-12-2023 11:25-0400 Diastolic blood pressure 88 mm[Hg] Emiliana Patricia Other [facility] Other 04-12-2023 11:25-0400 Respiratory rate 18 /min Emiliana Patricia Other [facility] Other 04-12-2023 11:25-0400 SaO2% (BldA) [Mass fraction] 98 % Emiliana Patricia Other [facility] Other 04-12-2023 11:25-0400 Systolic blood pressure 144 mm[Hg] Emiliana Patricia Other [facility] Other 04-08-2023 09:00-0400 Body height 157.48 cm Francis Ball Other [facility] Other 04-08-2023 09:00-0400 Body mass index (BMI) [Ratio] 32.19 kg/m2 Francis Ball Other [facility] Other 04-08-2023 09:00-0400 Body weight 79.83 kg Francis Ball Other [facility] Other 04-08-2023 09:00-0400 Diastolic blood pressure 83 mm[Hg] Francis Ball Other [facility] Other 04-08-2023 09:00-0400 Respiratory rate 12 /min Francis Ball Other [facility] Other 04-08-2023 09:00-0400 Systolic blood pressure 117 mm[Hg] Francis Ball Other [facility] Other 09-21-2022 14:30-0500 Body height 157.48 cm Francis Ball Other [facility] Other 09-21-2022 14:30-0500 Body mass index (BMI) [Ratio] 31.64 kg/m2 Francis Ball Other [facility] Other 09-21-2022 14:30-0500 Body weight 78.47 kg Francis Ball Other [facility] Other 09-21-2022 14:30-0500 Diastolic blood pressure 64 mm[Hg] Francis Ball Other [facility] Other 09-21-2022 14:30-0500 Respiratory rate 18 /min Francis Ball Other [facility] Other 09-21-2022 14:30-0500 SaO2% (BldA) [Mass fraction] 97 % Francis Ball Other [facility] Other 09-21-2022 14:30-0500 Systolic blood pressure 136 mm[Hg] Francis Osborne Other [facility] Other Encounters Encounter Date Encounter Type Care Provider Facility Start: 09-24-2024 End: 09-24-2024 ambulatory [facility] Work Phone: Start: 09-24-2024 End: 09-24-2024 Patient encounter procedure [facility] Physician [facility] Work Phone: Start: 05-08-2024 End: 05-08-2024 ambulatory DO Francis Ball Work Phone: [facility] Work Phone: Start: 05-08-2024 End: 05-08-2024 Patient encounter procedure DO Francis Ball Work Phone: [facility] Physician [facility] Work Phone: Start: 05-06-2024 Patient encounter procedure DO Francis Ball Work Phone: [facility] Start: 02-21-2024 End: 02-21-2024 Patient encounter procedure DO Francis Ball Work Phone: [facility] Start: 02-21-2024 End: 02-21-2024 ambulatory Francis Ball Facility:[facility] Start: 02-10-2024 End: 02-10-2024 ambulatory [facility] Work Phone: Start: 02-10-2024 End: 02-10-2024 Patient encounter procedure [facility] Physician [facility] Work Phone: Start: 01-12-2024 Non-patient / Non-visit [facility] Physician [facility] Professional [employer] Work Phone: Start: 09-02-2023 End: 09-02-2023 ambulatory Francis Osborne Other [facility] Other Start: 09-02-2023 Telephone encounter Francis Dylon FP [facility] Start: 05-15-2023 End: 05-15-2023 ambulatory Francis Osborne Other [facility] Other Start: 05-15-2023 Office outpatient vi sit 25 minutes Francis Osborne [facility] Start: 05-15-2023 Telephone encounter Francis Osborne [facility] Start: 05-09-2023 End: 05-09-2023 ambulatory Francis Osborne Other [facility] Other Start: 05-09-2023 Telephone encounter Francis Ball [facility] Start: 05-01-2023 End: 05-01-2023 ambulatory Francis Osborne Other [facility] Other Start: 05-01-2023 Telephone encounter Francis Osborne [facility] Start: 04-12-2023 End: 04-12-2023 ambulatory Emiliana Patricia Other [facility] Other Start: 04-12-2023 Office outpatient vi sit 25 minutes Emiliana Patricia [facility] Start: 04-08-2023 End: 04-08-2023 ambulatory Francis Osborne Other [facility] Other Start: 04-08-2023 Patient encounter procedure Francis Osborne [facility] Start: 04-01-2023 End: 04-01-2023 ambulatory Francis Osborne Other [facility] Other Start: 04-01-2023 Telephone encounter Francis Osborne [facility] Start: 02-28-2023 End: 02-28-2023 ambulatory Francis Osborne Other [facility] Other Start: 02-28-2023 Telephone encounter Francis Ball [facility] Start: 01-27-2023 End: 01-27-2023 ambulatory Francis Osborne Other [facility] Other Start: 01-27-2023 Telephone encounter Francis Ball [facility] Start: 12-04-2022 End: 12-05-[address] Katey SHAH Facility:[facility] Start: 10-22-2022 End: 10-22-2022 ambulatory Francis Dylon Other [facility] Other Start: 10-22-2022 Telephone encounter Francis Osborne [facility] Start: 10-18-2022 End: 10-19-[address] FRANCIS OSBORNE Facility:[facility] Start: 09-23-2022 End: 09-23-2022 ambulatory Francis Osborne Other [facility] Other Start: 09-23-2022 Telephone encounter Francis Osborne [facility] Start: 09-21-2022 End: 09-21-2022 ambulatory Francis Osborne Other [facility] Other Start: 09-21-2022 Office outpatient vi sit 25 minutes Francis Osborne [facility] Start: 08-30-2022 End: 08-30-2022 ambulatory Francis Dylon Other [facility] Other Start: 08-30-2022 Telephone encounter Francis Osborne [facility] Start: 01-24-2022 Adult health examination Francis Osborne Other [facility] Other Procedures Date Procedure Procedure Detail Performing Clinician Start: 06-18-2017 Screening for malign ant neoplasm of colon Francis Osborne Other Start: 06-18-2017 Screening for osteoporosis Francis Osborne Other Start: 06-18-2017 Screening mammography B enjamecca Osborne Other Screening for malign ant neoplasm of breast Francis Osborne Other Plan of Treatment Date Care Activity Detail Author Comprehensive metabo lic 2000 panel - Serum or Plasma [facility] enter MG Breast - bilateral Diagnostic [facility] MG Breast - bilateral Diagnostic [facility] XR Shoulder - right Views Fi [facility] Immunizations Immunization Date Immunization Notes Care Provider Tamiko jose 12-31-2021 COVID-19 Vaccine Pfi zer - Documentation Purposes Only Francis Osborne Other [facility] 06-19-2017 diphtheria, tetanus toxoids and acellular pertussis vaccine, unspecified formulation Francis Osborne Other [facility] 04-29-2013 tetanus and diphther ia toxoids, adsorbed, preservative free, for adult use (5 Lf of tetanus toxoid and 2 Lf of diphtheria toxoid) Francis Osborne Other [facility] 06-06-2011 diphtheria, tetanus toxoids and acellular pertussis vaccine, unspecified formulation Francis Osborne Other [facility] Payers Date Payer Category Payer Medicare [id number] 1961 Unknown [id number] 1950 Unknown [id number] 1950 Unknown [id number] Medicare [id number] Medicare Medicare [id number] Medicare Cign[employer] Medicare Supplemental [id number] Self-pay Self Pay [id number] Unknown [facility] [id number] Social History Date Type Detail Facility Sex Assigned At [facility] Other Start: 1950 Sex Assigned At Female [facility] [facility] Tobacco smoking stat us NJIS Unknown if ever smoked [facility] Work Phone: Start: 09-24-2024 Sex Female (finding) [facility] Clinical Notes 09-21-2022 to 09-02-2023 Note Date & Type Note Facility 09-02-2023 Evaluation note Encounter Date Diagnosis Assessment Notes Aug, SHEFALI (generalized anxiety disorder) (ICD-10 - F41.1) [facility] Other 09-20-2023 Evaluation note* Encounter Date Diagnosis [...] Xanax as needed Continue SSRI as prescribed. [facility] Other 09-14-2023 Evaluation note* Encounter Date Diagnosis Assessment Notes Treatment Notes Treatment Clinical Notes Apr, SHEFALI (generalized anxiety disorder) (ICD-10 - F41.1) [facility] Other 08-18-2023 Evaluation note* Encounter Date Diagnosis [...] treatment plan. Patient left in stable condition. [facility] Other 08-14-2023 Evaluation note* Encounter Date Diagnosis [...] High risk medication use (ICD-10 - Z79.899) [facility] Other 02-23-2023 NotePROCEDURE: XR HIP RT 2 [...] Electronically authenticated by: TRIPP TRAVIS Date: 2022-10-18 19:00[facility]01-27-2023 Evaluation note* Encounter Date Diagnosis Assessment Notes [...] Aug, Other chronic pain (ICD-10 - G89.29) Aug, Personal history of malignant neoplasm of breast (ICD-10 - Z85.3) Instructed on importance of timely surveillance. SBE monthly and will send order to schedule mammogram. [place] [facility] Other [facility]No [facility] Other [facility] [employer] Other Evaluation note* Diagnosis Onset Date Resolution Status Cerebral atherosclerosis acu te Cervical spondylosis acute SHEFALI (generalized anxiety disorder) acute Hypertension acute Migraine acute Sinus tachycardia acute [facility] Work Phone: Evaluation note* Diagnosis Onset Date Resolution Status Cerebral atherosclerosis acu te Cervical spondylosis acute SHEFALI (generalized anxiety disorder) acute Hypertension acute Migraine acute Sinus tachycardia acute Cerebral atherosclerosis acu te SHEFALI (generalized anxiety disorder) acute Hypertension acute Medicare annual wellness visit, subsequent acute Migraine acute Personal history of malignant neoplasm of breast acute Right shoulder pain acute Sinus tachycardia acute [facility] Work Phone: Evaluation note* Diagnosis Onset Date Resolution Status Admit Date Cerebral atherosclerosis acute September 24, 2024 10:50am SHEFALI (generalized anxiety disorder) acute September 24 10:50am Hypertension acute August 10:50am Migraine acute September 24, 2024 10:50am Sinus tachycardia acute September 24, 2024 10:50am [facility] Work Phone: History general Narrative - Reported* Type Description Date [...] cataract extraction Hospitalization History SEE SURGICAL HX [facility] Other History general Narrative - ReportedNort [employer] Other History general Narrative - Reported* Type Description Date [...] and adenoidectomy Hospitalization History SEE SURGICAL HX [facility] Other Reason for Referral Reason *FU 10/29 Low back and right hip pain Diagnosis 1 Lumbago with sciatic a, right side (M54.41) Diagnosis 2 Pain in right hip (M 25.551) Referral Organization [facility] Dylon Renteria jay Referring Provider First Name Francis Referring Provider Last Name Dylon Referring Provider Specialty Internal Fl dicine Referred Organization [facility] Referred Provider Colten Shah Referred Address ,[place], [place],[address] Referred Provider Specialty Orthopedic S urgery Referral Priority Routine General Notes 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 Reason for Visit Cerebral atheroscler osis Cervical spondylosis SHEFALI (generalized anxiety disorder) Hypertension Migraine Sinus tachycardia Cerebral atherosclerosis SHEFALI (generalized anxiety disorder) Hypertension Medicare annual wellness visit, subsequent Migraine Personal history of malignant neoplasm of breast Right shoulder pain Sinus tachycardia Chief Complaint Admit Date arthritis pain September 24, 2024 1 0:50am Reason for Visit Admit Date Cerebral atherosclerosis September 24, 025 10:50am SHEFALI (generalized anxiety disorder) Janua ry 2024 10:50am Hypertension September 24, 2024 1 0:50am Migraine September 24, 2024 1 0:50am Sinus tachycardia September 24, 2024 1 0:50am Additional Source Comments REASON FOR VISIT (unrecogniz ed section and content) Prescription refillReferral DiscussionNo InformationresultsNo InformationNo InformationNo InformationWellnessEARACHEWellnessClinicalrefillWanting In TodayHeadachesrefill INFORMATION SOURCE (unrecogn ized section and content) DATE CREATED AUTHOR 12/10/2022 [facility] DATE CREATED AUTHOR 'S ORGANIZ ATION 02/23/2024 [facility] Care Teams (unrecognized sec tion and content) Team Status: Active Member Role Status Dates Francis Osborne DO Primary Care Provider Active Team Status: Inactive Member Role Status Dates [...] 2024 Team Status: Active Member Role Status Dates Francis Osborne , DO Primary Care Provider Active Start: January 12, 2024 Mia Manning MD Attending Provider Active Sta rt: January 12, 2024 Team Status: Inactive Member Role Status Dates Francis Osborne , DO Primary Care Provide r, Attending Provider Active Start: September 24, 2024 End: September 24, 2024 Goals (unrecognized section and content) Goals [...] BE BASED ON THE PRIMARY CLINICAL RECORDS. [facility] [employer] provides no warranty or guarantee of the accuracy or completeness of information in this document.
--- NOTE | 2024-10-06 12:39 | XR_ITS ---
[place] [id number] Patient Name: MATTHEW CLARKE MRN: [id number] date: 1950 Sex: F Assigned Patient Location: [facility] Current Patient Location: [facility] Accession/Order Number: [id number] Exam Date: 10/06/2024 12:45 Report Date: 10/06/2024 14:55 At the request of: JENIFER FRANCO Procedure: XR knee RT 4V PROCEDURE: XR knee RT 4V COMPARISON: None. HISTORY: Primary osteoarthritis of right knee FINDINGS: BONES:No acute fracture or dislocation. Mild to moderate degenerative osteoarthropathy with marginal osteophyte formation SOFT TISSUES:Negative. No visible soft tissue swelling. EFFUSION:Trace joint effusion OTHER: Vascular calcifications XR/XR knee RT 4V IMPRESSION: Mild to moderate osteoarthritis Electronically authenticated by: LYNN WOODWARD Date: 10/06/2024 14:55
== END 2024-10-06 12:29 | disposition home or self-care (01) ==
LOC: RAD 12:30
PROVIDERS: PCP Internal Medicine; Visit Provider Internal Medicine
DX: M17.11 Unilateral primary osteoarthritis, right knee (principal)
CPT/HCPCS: 73564

== ENCOUNTER 2024-10-21 10:27 | Outpatient (OUT) | payer MEDICARE, OTHER, SELFPAY ==
--- OUTSIDE RECORDS SUMMARY | 2024-10-21 10:44 | XMS_ITS | CCD ---
Author Organization [facility] Care Team Providers Care Parts And Service Manager Name Role Phone Francis Osborne Unavailable DR [...] Care Provider DO Francis Osborne Attending Provider [phone] Allergies Allergy Classification Reported Allergen(s) Allergy Type Date of Onset Reaction(s) Facility (16 sources) Morphine Drug Allergy 02-10-20 24 [facility] (16 sources) Influenza Vac Recombinant MOREJON Drug allergy swelling at site location [facility] Other (1 source) Morphine Drug Allergy 10-26-19 14 [facility] (1 source) Flu Vaccine 6217-9189 (9 yr +) Drug allergy (disorder) 10-26-19 14 [facility] (1 source) Flu Vaccine 0241-0431 (3 yr +) Drug allergy (disorder) 10-26-19 14 [facility] (7 sources) influenza A virus (H1N1) antigen / influenza A virus (H3N2) antigen / influenza B virus antigen Drug Allergy Comment:FLU VACCINE [facility] Other (2 sources) patient allergy list reviewed by nurse or physicia Propensity to adverse reactions 07-24-20 13 Comment:Done [facility] Other (10 sources) Contraindication to Flu Injection Propensity to adverse reactions 09-20-19 15 Comment:advers e rxn/side effects [facility] Other (3 sources) Morphine Drug Allergy migraines [facility] [employer] Other (6 sources) Fluad Quadrivalent Drug allergy 05-15-20 23 Comment:FLU VACCINE [facility] (3 sources) Influenza Virus Vaccines Allergy to substance 02-10-20 swelling at site location [facility] Medications Current Medications Medication Drug Class(es) [...] 10:32am take 1 tablet by mouth once buster [...] fracture] Chronic Other aftercare (2 sources) Other terminal gauger (current) drug therapy Episodic Other and ill-defined [...] Basophils (Bld) [#/Vol] 0.1 10 3/uL 0.0-0.1 [facility] Basophils/100 WBC Auto (Bld) on 01-12-2024 Basophils/100 WBC (Bld) 1.0 % 0.2-2.0 [facility] Eosinophils/100 WBC Auto (Bl d)on 01-12-2024 Eosinophils/100 WBC (Bld) 1.2 % 0.9-7.0 [facility] Erythrocyte distribution wid th Auto (RBC) [Ratio]on 01-12-2024 Erythrocyte distribution width (RBC) [Ratio] 14.3 % 11.0-15.0 [facility] Estimated glomerular filtrat ion rate (GFR) non- Americanon 01-12-2024 GFR/1.73 sq M.predicted among non-blacks MDRD (S/P/Bld) [Vol rate/Area] mL/min/{1.73_m2} >=60 [facility] Globulin Calc (S) [Mass/Vol] on 01-12-2024 Globulin (S) [Mass/Vol] 4.3 g/dL [facility] Hematocrit Auto (Bld) [Volum e fraction]on 01-12-2024 Hematocrit (Bld) [Volume fraction] 40.5 % 36.0-48.0 [facility] Hemoglobin [Mass/volume] in Bloodon 01-12-2024 Hemoglobin (Bld) [Mass/Vol] 13.1 g/dL 12.0-16.0 [facility] Laboratory - Chemistry and C hemistry - challengeon 01-12-2024 Albumin [Mass/Vol] 3.6 g/dL 3.4-5.0 [facility] ALP [Catalytic activity/Vol] 98 U/L 46-116 [facility] ALT [Catalytic activity/Vol] 14 U/L 14-59 [facility] AST [Catalytic activity/Vol] 14 U/L 15-37 [facility] Bilirubin [Mass/Vol] 0.7 mg/dL 0.2-1.0 [facility] Calcium [Mass/Vol] 9.7 mg/dL 8.5-10.1 [facility] Chloride [Moles/Vol] 99 mmol/L 98-107 [facility] CO2 [Moles/Vol] 24.0 mmol/L 21.0-32.0 [facility] Creatinine [Mass/Vol] 0.88 mg/dL 0.55-1.02 [facility] GFR/1.73 sq M.predicted MDRD (S/P/Bld) [Vol rate/Area] mL/min/{1.73_m2} >=60 [facility] Glucose [Mass/Vol] 103 mg/dL 74-106 [facility] Potassium [Moles/Vol] 3.6 mmol/L 3.5-5.1 [facility] Protein [Mass/Vol] 7.9 g/dL 6.4-8.2 [facility] Sodium [Moles/Vol] 136 mmol/L 136-145 [facility] Urea nitrogen [Mass/Vol] 20.0 mg/dL 7.0-18.0 [facility] Urea nitrogen/Creatinine [Mass ratio] 22.7 mg/mg [facility] Laboratory - Hematology and Cell countson 01-12-2024 Immature granulocytes/100 WBC (Bld) 0.3 % 0.0-0.5 [facility] Leukocytes [#/volume] correc sharon for nucleated erythrocytes in Blood by Automated counon 01-12-2024 WBC corrected for nucl RBC Auto (Bld) [#/Vol] 7.7 10 3/uL 4.0-11.0 [facility] Lymphocytes Auto (Bld) [#/Vo l]on 01-12-2024 Lymphocytes (Bld) [#/Vol] 1.2 10 3/uL 1.2-3.8 [facility] Lymphocytes/100 WBC Auto (Bl d)on 01-12-2024 Lymphocytes/100 WBC (Bld) 15.0 % 20.5-60.0 [facility] MCH Auto (RBC) [Entitic mass ]on 01-12-2024 MCH (RBC) [Entitic mass] 28.5 pg 26.7-34.0 [facility] MCHC Auto (RBC) [Mass/Vol]on 01-12-2024 MCHC (RBC) [Mass/Vol] 32.3 g/dL 29.9-35.2 [facility] MCV Auto (RBC) [Entitic vol] on 01-12-2024 MCV (RBC) [Entitic vol] 88.2 fL 81.0-99.0 [facility] Monocytes Auto (Bld) [#/Vol] on 01-12-2024 Monocytes (Bld) [#/Vol] 0.9 10 3/uL 0.3-0.8 [facility] Monocytes/100 WBC Auto (Bld) on 01-12-2024 Monocytes/100 WBC (Bld) 12.0 % 1.7-12.0 [facility] Neutrophils Auto (Bld) [#/Vo l]on 01-12-2024 Neutrophils (Bld) [#/Vol] 5.4 10 3/uL 1.4-6.5 [facility] Neutrophils/100 WBC Auto (Bl d)on 01-12-2024 Neutrophils/100 WBC (Bld) 70.5 % 43.0-75.0 [facility] No Panel Informationon 01-11 Troponin I High Sensitivity 9.6 pg/mL 4.0-51.3 [facility] Comment on above: CUT-OFF POINTS HAVE [...] Eosinophils # (Auto) 0.1 10 3/uL 0.0-0.7 [facility] Immature Granulocyte # (Auto) 0.02 10 3/uL 0.00-0.03 [facility] Platelet mean volume Auto (B ld) [Entitic vol]on 01-12-2024 Platelet mean volume (Bld) [Entitic vol] 10.8 fL 9.5-13.5 [facility] Platelets Auto (Bld) [#/Vol] on 01-12-2024 Platelets (Bld) [#/Vol] 334 10 3/uL 150-450 [facility] RBC Auto (Bld) [#/Vol]on RBC (Bld) [#/Vol] 4.59 10 6/uL 4.20-5.40 [facility] Serum or plasma albumin/glob ulin mass ratioon 01-12-2024 Albumin/Globulin [Mass ratio] 0.8 {ratio} [facility] Serum or plasma anion gap de terminationon 01-12-2024 Anion gap [Moles/Vol] 16.6 mmol/L [facility] MRI LSPINE WO CONon 12-07-19 MRI [...] HOLLEY DOS SANTOS Date: 2022-12-06 10:06 Normal [facility] MG MAMM ALE DIAG W CADon MG MAMM ALE DIAG W CAD [facility] Other MG MAMM DIAGNOSTIC 3D ALE CA Don 10-18-2022 MG MAMM DIAGNOSTIC 3D ALE CAD Patient: BIRGIT CLARKE Exam Date: 10/18/2022 : 1950 Gender:F Ordering : DR FRANCIS OSBORNE D.O. Admission #: [id number] Family : Order #: [id number] CLICK HERE TO VIEW EXAM RADIOLOGY REPORT [...] lung cancer at age 58. LOCATION: [facility] BREAST COMPOSITION: Scattered areas fibroglandular density. FINDINGS: [...] M.D. on 10/18/2022 at 13:36 Normal [facility] XR HIP RT 2 3V W PELVISon XR HIP RT 2 3V W PELVIS [facility] Other XR LSPINE W_OBLS AND FLEX_EX Ton [...] by: TRIPP TRAVIS Date: 2022-10-18 18:59 Normal [facility] XR lumbar spine 6V w bending on 10-18-2022 XR lumbar spine 6V w bending [facility] Other Vital Signs Date Time Vital Sign Value Performing Clinician Facility 09-24-2024 11:02-0500 Body height 157.48 cm [facility] 09-24-2024 11:02-0500 Body mass index (BMI) [Ratio] 30.5 kg/m2 [facility] 09-24-2024 11:02-0500 Body weight 75.74 kg [facility] 09-24-2024 11:02-0500 Diastolic blood pressure 110 mm[Hg] [facility] 09-24-2024 11:02-0500 Heart rate 111 /min [facility] 09-24-2024 11:02-0500 Respiratory rate 20 /min [facility] 09-24-2024 11:02-0500 Systolic blood pressure 145 mm[Hg] [facility] 05-08-2024 09:38-0400 Body height 157.48 cm DO Francis Ball Work Phone: [facility] 05-08-2024 09:38-0400 Body mass index (BMI) [Ratio] 30.2 kg/m2 DO Francis Ball Work Phone: [facility] 05-08-2024 09:38-0400 Body weight 74.84 kg DO Francis Ball Work Phone: [facility] 05-08-2024 09:38-0400 Diastolic blood pressure 86 mm[Hg] DO Francis Ball Work Phone: [facility] 05-08-2024 09:38-0400 Heart rate 84 /min DO Francis Ball Work Phone: [facility] 05-08-2024 09:38-0400 Respiratory rate 12 /min DO Francis Ball Work Phone: [facility] 05-08-2024 09:38-0400 Systolic blood pressure 136 mm[Hg] DO Francis Ball Work Phone: [facility] 02-10-2024 10:42-0400 Body height 157.48 cm [facility] 02-10-2024 10:42-0400 Body mass index (BMI) [Ratio] 29.9 kg/m2 [facility] 02-10-2024 10:42-0400 Body weight 74.38 kg [facility] 02-10-2024 10:42-0400 Diastolic blood pressure 89 mm[Hg] [facility] 02-10-2024 10:42-0400 Heart rate 114 /min [facility] 02-10-2024 10:42-0400 Respiratory rate 12 /min [facility] 02-10-2024 10:42-0400 Systolic blood pressure 130 mm[Hg] [facility] 05-15-2023 15:45-0400 Body height 157.48 cm Francis Ball Other [facility] [employer] Other 05-15-2023 15:45-0400 Body mass index (BMI) [Ratio] 32.37 kg/m2 Francis Ball Other [facility] [employer] Other 05-15-2023 15:45-0400 Body weight 80.29 kg Francis Ball Other [facility] [employer] Other 05-15-2023 15:45-0400 Diastolic blood pressure 87 mm[Hg] Francis Ball Other [facility] [employer] Other 05-15-2023 15:45-0400 Respiratory rate 12 /min Francis Ball Other [facility] [employer] Other 05-15-2023 15:45-0400 Systolic blood pressure 121 mm[Hg] Francis Ball Other [facility] Other 04-12-2023 11:25-0400 Body height 157.48 cm Emiliana Patricia Other [facility] Other 04-12-2023 11:25-0400 Body mass index (BMI) [Ratio] 31.09 kg/m2 Emiliana Patricia Other [facility] Other 04-12-2023 11:25-0400 Body temperature 98.1 [degF] Emiliana Patricia Other [facility] Other 04-12-2023 11:25-0400 Body weight 77.11 kg Emiliana Particia Other [facility] Other 04-12-2023 11:25-0400 Diastolic blood pressure 88 mm[Hg] Emiliana Patricia Other [facility] Other 04-12-2023 11:25-0400 Respiratory rate 18 /min Emiliana Patricia Other [facility] Other 04-12-2023 11:25-0400 SaO2% (BldA) [Mass fraction] 98 % Emiliana Patricia Other [facility] Other 04-12-2023 11:25-0400 Systolic blood pressure 144 mm[Hg] Emiliana Patricia Other [facility] Other 04-08-2023 09:00-0400 Body height 157.48 cm Francis Ball Other [facility] Other 04-08-2023 09:00-0400 Body mass index (BMI) [Ratio] 32.19 kg/m2 Francis Ball Other [facility] Other 04-08-2023 09:00-0400 Body weight 79.83 kg Francis Ball Other [facility] Other 04-08-2023 09:00-0400 Diastolic blood pressure 83 mm[Hg] Francis Ball Other [facility] Other 04-08-2023 09:00-0400 Respiratory rate 12 /min Francis Ball Other [facility] Other 04-08-2023 09:00-0400 Systolic blood pressure 117 mm[Hg] Francis Ball Other [facility] Other 09-21-2022 14:30-0500 Body height 157.48 cm Francis Ball Other [facility] Other 09-21-2022 14:30-0500 Body mass index (BMI) [Ratio] 31.64 kg/m2 Francis Ball Other [facility] Other 09-21-2022 14:30-0500 Body weight 78.47 kg Francis Ball Other [facility] Other 09-21-2022 14:30-0500 Diastolic blood pressure 64 mm[Hg] Francis Ball Other [facility] Other 09-21-2022 14:30-0500 Respiratory rate 18 /min Francis Ball Other [facility] Other 09-21-2022 14:30-0500 SaO2% (BldA) [Mass fraction] 97 % Francis Ball Other [facility] Other 09-21-2022 14:30-0500 Systolic blood pressure 136 mm[Hg] Francis Osborne Other [facility] Other Encounters Encounter Date Encounter Type Care Provider Facility Start: 09-24-2024 End: 09-24-2024 ambulatory [facility] Work Phone: Start: 09-24-2024 End: 09-24-2024 Patient encounter procedure [facility] Work Phone: Start: 05-08-2024 End: 05-08-2024 ambulatory DO Francis Ball Work Phone: [facility] Work Phone: Start: 05-08-2024 End: 05-08-2024 Patient encounter procedure DO Francis Ball Work Phone: [facility] Work Phone: Start: 05-06-2024 Patient encounter procedure DO Francis Ball Work Phone: [facility] Start: 02-21-2024 End: 02-21-2024 Patient encounter procedure DO Francis Ball Work Phone: [facility] Start: 02-21-2024 End: 02-21-2024 ambulatory Francis Ball Facility:[facility] Start: 02-10-2024 End: 02-10-2024 ambulatory [facility] Work Phone: Start: 02-10-2024 End: 02-10-2024 Patient encounter procedure [facility] Work Phone: Start: 01-12-2024 Non-patient / Non-visit [facility] Work Phone: Start: 09-02-2023 End: 09-02-2023 ambulatory Francis Osborne Other [facility] Other Start: 09-02-2023 Telephone encounter Francis Dylon [facility] Start: 05-15-2023 End: 05-15-2023 ambulatory Francis Osborne Other [facility] Other Start: 05-15-2023 Office outpatient vi sit 25 minutes Francis Osborne [facility] Start: 05-15-2023 Telephone encounter Francis Osborne [facility] Start: 05-09-2023 End: 05-09-2023 ambulatory Francis Osborne Other [facility] Other Start: 05-09-2023 Telephone encounter Francis Ball [facility] Start: 05-01-2023 End: 05-01-2023 ambulatory Francis Osborne Other [facility] Other Start: 05-01-2023 Telephone encounter Francis Osborne [facility] Start: 04-12-2023 End: 04-12-2023 ambulatory Emiliana Patricia Other [facility] Other Start: 04-12-2023 Office outpatient vi sit 25 minutes Emiliana Patricia [facility] Start: 04-08-2023 End: 04-08-2023 ambulatory Francis Osborne Other [facility] Other Start: 04-08-2023 Patient encounter procedure Francis Osborne [facility] Start: 04-01-2023 End: 04-01-2023 ambulatory Francis Osborne Other [facility] Other Start: 04-01-2023 Telephone encounter Francis Obsorne [facility] Start: 02-28-2023 End: 02-28-2023 ambulatory Francis Osborne Other [facility] Other Start: 02-28-2023 Telephone encounter Francis Ball [facility] Start: 01-27-2023 End: 01-27-2023 ambulatory Francis Osborne Other [facility] Other Start: 01-27-2023 Telephone encounter Francis Ball [facility] Start: 12-04-2022 End: 12-05-[address] Katey SHAH Facility:[facility] Start: 10-22-2022 End: 10-22-2022 ambulatory Francis Dylon Other [facility] Other Start: 10-22-2022 Telephone encounter Francis Osborne [facility] Start: 10-18-2022 End: 10-19-[address] FRANCIS OSBORNE Facility:[facility] Start: 09-23-2022 End: 09-23-2022 ambulatory Francis Osborne Other [facility] Other Start: 09-23-2022 Telephone encounter Francis Osborne [facility] Start: 09-21-2022 End: 09-21-2022 ambulatory Francis Osborne Other [facility] Other Start: 09-21-2022 Office outpatient vi sit 25 minutes Francis Osborne [facility] Start: 08-30-2022 End: 08-30-2022 ambulatory Francis Dylon Other [facility] Other Start: 08-30-2022 Telephone encounter Francis Osborne [facility] Start: 01-24-2022 Adult health examination Francis Osborne Other [facility] Other Procedures Date Procedure Procedure Detail Performing Clinician Start: 06-18-2017 Screening for malign ant neoplasm of colon Francis Osborne Other Start: 06-18-2017 Screening for osteoporosis Francis Osborne Other Start: 06-18-2017 Screening mammography B enjamecca Osborne Other Screening for malign ant neoplasm of breast Francis Osborne Other Plan of Treatment Date Care Activity Detail Author Comprehensive metabo lic 2000 panel - Serum or Plasma [facility] enter MG Breast - bilateral Diagnostic [facility] MG Breast - bilateral Diagnostic [facility] XR Shoulder - right Views Fi [facility] Immunizations Immunization Date Immunization Notes Care Provider Tamiko jose 12-31-2021 COVID-19 Vaccine Pfi zer - Documentation Purposes Only Francis Osborne Other [facility] 06-19-2017 diphtheria, tetanus toxoids and acellular pertussis vaccine, unspecified formulation Francis Osborne Other [facility] 04-29-2013 tetanus and diphther ia toxoids, adsorbed, preservative free, for adult use (5 Lf of tetanus toxoid and 2 Lf of diphtheria toxoid) Francis Osborne Other [facility] 06-06-2011 diphtheria, tetanus toxoids and acellular pertussis vaccine, unspecified formulation Francis Osborne Other [facility] Payers Date Payer Category Payer Medicare [id number] 1961 Unknown [id number] 1950 Unknown [id number] 1950 Unknown [id number] Medicare [id number] Medicare Medicare [id number] Medicare Cigna Medicare Supplemental [id number] Self-pay Self Pay [id number] Unknown [place] [employer] [place] [id number] Social History Date Type Detail Facility Sex Assigned At [facility] Other Start: 1950 Sex Assigned At Female F [facility] Tobacco smoking stat us [facility]IS Unknown if ever smoked [facility] Work Phone: Start: 09-24-2024 Sex Female (finding) [facility] Clinical Notes 09-21-2022 to 09-02-2023 Note Date & Type Note Facility 09-02-2023 Evaluation note Encounter Date Diagnosis Assessment Notes Aug, SHEFALI (generalized anxiety disorder) (ICD-10 - F41.1) [facility] Other 09-20-2023 Evaluation note* Encounter Date Diagnosis [...] Xanax as needed Continue SSRI as prescribed. [facility] Other 09-14-2023 Evaluation note* Encounter Date Diagnosis Assessment Notes Treatment Notes Treatment Clinical Notes Apr, SHEFALI (generalized anxiety disorder) (ICD-10 - F41.1) [facility] Other 08-18-2023 Evaluation note* Encounter Date Diagnosis [...] treatment plan. Patient left in stable condition. [facility] Other 08-14-2023 Evaluation note* Encounter Date Diagnosis [...] High risk medication use (ICD-10 - Z79.899) [facility] Other 02-23-2023 NotePROCEDURE: XR HIP RT 2 [...] Electronically authenticated by: TRIPP TRAVIS Date: 2022-10-18 19:00[facility]01-27-2023 Evaluation note* Encounter Date Diagnosis Assessment [...] and will send order to schedule mammogram. [employer] Other Evaluation noteNo InformationNocox south [employer] Other Evaluation noteNocox south [employer] Other Evaluation note* Diagnosis Onset Date Resolution Status Cerebral atherosclerosis acu te Cervical spondylosis acute SHEFALI (generalized anxiety disorder) acute Hypertension acute Migraine acute Sinus tachycardia acute [facility] Work Phone: Evaluation note* Diagnosis Onset Date Resolution Status Cerebral atherosclerosis acu te Cervical spondylosis acute SHEFALI (generalized anxiety disorder) acute Hypertension acute Migraine acute Sinus tachycardia acute Cerebral atherosclerosis acu te SHEFALI (generalized anxiety disorder) acute Hypertension acute Medicare annual wellness visit, subsequent acute Migraine acute Personal history of malignant neoplasm of breast acute Right shoulder pain acute Sinus tachycardia acute [facility] Work Phone: Evaluation note* Diagnosis Onset Date Resolution Status Admit Date Cerebral atherosclerosis acute September 24, 2024 10:50am SHEFALI (generalized anxiety disorder) acute September 24 10:50am Hypertension acute August 10:50am Migraine acute September 24, 2024 10:50am Sinus tachycardia acute September 24, 2024 10:50am [facility] Work Phone: History general Narrative - Reported* [...] cataract extraction Hospitalization History SEE SURGICAL HX [facility] Other History general Narrative - ReportedNort [employer] Other History general Narrative - Reported* Type [...] and adenoidectomy Hospitalization History SEE SURGICAL HX [facility] Other Reason for Referral Reason *FU 10/29 Low back and right hip pain Diagnosis 1 Lumbago with sciatic a, right side (M54.41) Diagnosis 2 Pain in right hip (M 25.551) Referral Organization [facility] Dylon Renteria jay Referring Provider First Name Francis Referring Provider Last Name Dylon Referring Provider Specialty Internal Ri dicine Referred Organization [facility] Referred Provider Colten Shah Referred Address ,[place], [place],[address] Referred Provider Specialty Orthopedic S urgery Referral Priority Routine General Notes 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 [...] Chief Complaint bp check, talk about driving [employer] Safety headahces, right knee pain Reason for [...] CREATED AUTHOR 'S ORGANIZ ATION 02/23/2024 [facility] Care Teams (unrecognized sec tion [...] BE BASED ON THE PRIMARY CLINICAL RECORDS. [facility] [employer] provides no warranty or guarantee of the accuracy or completeness of information in this document.
--- NOTE | 2024-10-21 11:08 | PM.CN ---
Consult Note: HPI Data of Consult Patient: new to practice Requesting Physician: Mirtha Yuan NP Primary Care Provider: Francis Osborne DO Consult Narrative Reason for consult: establish, right knee pain Narrative: Birgit Sam a pleasant 74 year old female presents for evaluation and management of chronic right knee pain. Pt reports moderate to severe pain for the last 4-5 years, but significant increase over the last year without injury. Recent xray shows mild to moderate OA. Pain today 7/10 aching, increasing to 10/10 with standing, walking, activity, and ADLs. Pt has not had any prior knee injections. has failed to benefit from diclofenac gel, Tylenol, otc nsaids. engages in HEP as tolerated, however reporting difficulty tolerating exercises and stretching. cc:: CC: Mirtha Yuan NP Review of Systems ROS Musculoskeletal Reports: joint pain Meds Home Medications and Allergies Home Medications ?Medication ?Instructions ?Recorded ?Confirmed ?Type alprazolam 0.5 mg tablet 0.5 mg PO TID 01/12/24 01/12/24 History benazepril 10 mg tablet 10 mg PO DAILY 01/12/24 01/12/24 History citalopram 40 mg tablet 40 mg PO BEDTIME 01/12/24 01/12/24 History tizanidine 2 mg tablet 2 mg PO BEDTIME 01/12/24 01/12/24 History Allergies Allergy/AdvReac Type Severity Reaction Status Date / Time influenza A (H1N1) virus AdvReac Mild Swelling Verified 01/12/24 15:28 vaccine [id number] 2008 of (From influenza A (H1N1)) Lip/Tongue/Throat morphine AdvReac Mild Headache Verified 01/12/24 15:28 Exam Constitutional Documenting provider has reviewed patient's vital signs: yes Common normals: no apparent distress, oriented x3, healthy appearing, alert and well nourished General appearance: cooperative HENMT Common normals: normocephalic, hearing grossly normal bilaterally and moist oral mucous membranes Head and scalp: normocephalic Eye Common normals: PERRL Pupil: PERRL Neck & C-Spine Common normals: full ROM General: normal visual inspection Chest Common normals: inspection of chest normal Respiratory Common normals: normal respiratory effort, no retractions and no use of accessory muscles Extremity Right lower extremity: knee joint Other: mild edema, no redness or warmth noted. no instability noted. increased pain with medial and lateral stress testing. enlarged diameter, mild crepitus. Neuro Common normals: oriented x3, CN's II-XII intact bilaterally, moves all extremities, no focal motor deficits, no sensory deficits noted and deep tendon reflexes 2+ bilaterally Sensorium/orientation: alert Motor exam: strength 5/5 throughout and no movement abnormalities noted Psych Common normals: mental status grossly normal, thought process normal, cooperative, affect normal, speech normal and activity/motor behavior normal Speech: normal speech Thought process: normal thought process Assessment and Plan Assessment and Plan (1) Osteoarthritis of right knee: Plan right knee injection with Dr Pinto continue topical voltaren gel TID-QID continue HEP as tolerated f/u after injection
== END 2024-10-21 10:28 | disposition home or self-care (01) ==
LOC: PM 10:28
PROVIDERS: PCP Internal Medicine; Visit Provider Nurse Practitioner
DX: M17.11 Unilateral primary osteoarthritis, right knee (principal)
CPT/HCPCS: G0463

== ENCOUNTER 2024-10-26 14:38 | Outpatient (OUT) | payer MEDICARE, OTHER, SELFPAY ==
--- OUTSIDE RECORDS SUMMARY | 2024-10-26 14:43 | XMS_ITS | CCD ---
Author Organization [facility] Care Team Providers Care Baseball Player Name Role Phone Francis Osborne Unavailable DR [...] Care Provider DO Francis Osborne Attending Provider [phone] Allergies Allergy Classification Reported Allergen(s) Allergy Type Date of Onset Reaction(s) Facility (16 sources) Morphine Drug Allergy 02-10-20 24 [facility] (16 sources) Influenza Vac Recombinant MOREJON Drug allergy swelling at site location [facility] Other (1 source) Morphine Drug Allergy 10-26-19 14 [facility] (1 source) Flu Vaccine [id number] (9 yr +) Drug allergy (disorder) 10-26-19 14 [facility] (1 source) Flu Vaccine [id number] (3 yr +) Drug allergy (disorder) 10-26-19 14 [facility] (7 sources) influenza A virus (H1N1) antigen / influenza A virus (H3N2) antigen / influenza B virus antigen Drug Allergy Comment:FLU VACCINE [facility] Other (2 sources) patient allergy list reviewed by nurse or physicia Propensity to adverse reactions 07-24-20 13 Comment:Done [facility] Other (10 sources) Contraindication to Flu Injection Propensity to adverse reactions 09-20-19 15 Comment:advers e rxn/side effects [facility] Other (3 sources) Morphine Drug Allergy migraines [employer] [facility] Other (6 sources) Fluad Quadrivalent Drug allergy 05-15-20 23 Comment:FLU VACCINE [facility] (3 sources) Influenza Virus Vaccines Allergy to substance 02-10-20 swelling at site location [facility] Medications Current Medications Medication Drug Class(es) [...] Active Start: 05-09-2023 take 1 tablet by boyn th three times daily ALPRAZolam 0.5 MG [...] fracture] Chronic Other aftercare (2 sources) Other halfway (current) drug therapy Episodic Other and ill-defined [...] Basophils (Bld) [#/Vol] 0.1 10 3/uL 0.0-0.1 [facility] Basophils/100 WBC Auto (Bld) on 01-12-2024 Basophils/100 WBC (Bld) 1.0 % 0.2-2.0 [facility] Eosinophils/100 WBC Auto (Bl d)on 01-12-2024 Eosinophils/100 WBC (Bld) 1.2 % 0.9-7.0 [facility] Erythrocyte distribution wid th Auto (RBC) [Ratio]on 01-12-2024 Erythrocyte distribution width (RBC) [Ratio] 14.3 % 11.0-15.0 [facility] Estimated glomerular filtrat ion rate (GFR) non- Americanon 01-12-2024 GFR/1.73 sq M.predicted among non-blacks MDRD (S/P/Bld) [Vol rate/Area] mL/min/{1.73_m2} >=60 [facility] Globulin Calc (S) [Mass/Vol] on 01-12-2024 Globulin (S) [Mass/Vol] 4.3 g/dL [facility] Hematocrit Auto (Bld) [Volum e fraction]on 01-12-2024 Hematocrit (Bld) [Volume fraction] 40.5 % 36.0-48.0 [facility] Hemoglobin [Mass/volume] in Bloodon 01-12-2024 Hemoglobin (Bld) [Mass/Vol] 13.1 g/dL 12.0-16.0 [facility] Laboratory - Chemistry and C hemistry - challengeon 01-12-2024 Albumin [Mass/Vol] 3.6 g/dL 3.4-5.[address] [facility] ALP [Catalytic activity/Vol] 98 U/L 46-116 [facility] ALT [Catalytic activity/Vol] 14 U/L 14-59 [facility] AST [Catalytic activity/Vol] 14 U/L 15-37 [facility] Bilirubin [Mass/Vol] 0.7 mg/dL 0.2-1.0 [facility] Calcium [Mass/Vol] 9.7 mg/dL 8.5-10.[address] [facility] Chloride [Moles/Vol] 99 mmol/L 98-107 [facility] CO2 [Moles/Vol] 24.0 mmol/L 21.0-32.0 [facility] Creatinine [Mass/Vol] 0.88 mg/dL 0.55-1.02 [facility] GFR/1.73 sq M.predicted MDRD (S/P/Bld) [Vol rate/Area] mL/min/{1.73_m2} >=60 [facility] Glucose [Mass/Vol] 103 mg/dL 74-[address] [facility] Potassium [Moles/Vol] 3.6 mmol/L 3.5-5.1 [facility] Protein [Mass/Vol] 7.9 g/dL 6.4-8.[address] [facility] Sodium [Moles/Vol] 136 mmol/L 136-[address] [facility] Urea nitrogen [Mass/Vol] 20.0 mg/dL 7.0-18.0 [facility] Urea nitrogen/Creatinine [Mass ratio] 22.7 mg/mg [facility] Laboratory - Hematology and Cell countson 01-12-2024 Immature granulocytes/100 WBC (Bld) 0.3 % 0.0-0.5 [facility] Leukocytes [#/volume] correc sharon for nucleated erythrocytes in Blood by Automated counon 01-12-2024 WBC corrected for nucl RBC Auto (Bld) [#/Vol] 7.7 10 3/uL 4.0-11.0 [facility] Lymphocytes Auto (Bld) [#/Vo l]on 01-12-2024 Lymphocytes (Bld) [#/Vol] 1.2 10 3/uL 1.2-3.8 [facility] Lymphocytes/100 WBC Auto (Bl d)on 01-12-2024 Lymphocytes/100 WBC (Bld) 15.0 % 20.5-60.0 [facility] MCH Auto (RBC) [Entitic mass ]on 01-12-2024 MCH (RBC) [Entitic mass] 28.5 pg 26.7-34.0 [facility] MCHC Auto (RBC) [Mass/Vol]on 01-12-2024 MCHC (RBC) [Mass/Vol] 32.3 g/dL 29.9-35.2 [facility] MCV Auto (RBC) [Entitic vol] on 01-12-2024 MCV (RBC) [Entitic vol] 88.2 fL 81.0-99.0 [facility] Monocytes Auto (Bld) [#/Vol] on 01-12-2024 Monocytes (Bld) [#/Vol] 0.9 10 3/uL 0.3-0.8 [facility] Monocytes/100 WBC Auto (Bld) on 01-12-2024 Monocytes/100 WBC (Bld) 12.0 % 1.7-12.0 [facility] Neutrophils Auto (Bld) [#/Vo l]on 01-12-2024 Neutrophils (Bld) [#/Vol] 5.4 10 3/uL 1.4-6.5 [facility] Neutrophils/100 WBC Auto (Bl d)on 01-12-2024 Neutrophils/100 WBC (Bld) 70.5 % 43.0-75.0 [facility] No Panel Informationon 01-11 Troponin I High Sensitivity 9.6 pg/mL 4.0-51.3 [facility] Comment on above: CUT-OFF POINTS HAVE [...] Eosinophils # (Auto) 0.1 10 3/uL 0.0-0.7 [facility] Immature Granulocyte # (Auto) 0.02 10 3/uL 0.00-0.03 [facility] Platelet mean volume Auto (B ld) [Entitic vol]on 01-12-2024 Platelet mean volume (Bld) [Entitic vol] 10.8 fL 9.5-13.5 [facility] Platelets Auto (Bld) [#/Vol] on 01-12-2024 Platelets (Bld) [#/Vol] 334 10 3/uL 150-450 [facility] RBC Auto (Bld) [#/Vol]on RBC (Bld) [#/Vol] 4.59 10 6/uL 4.20-5.40 [facility] Serum or plasma albumin/glob ulin mass ratioon 01-12-2024 Albumin/Globulin [Mass ratio] 0.8 {ratio} [facility] Serum or plasma anion gap de terminationon 01-12-2024 Anion gap [Moles/Vol] 16.6 mmol/L [facility] MRI LSPINE WO CONon 12-07-19 MRI [...] HOLLEY DOS SANTOS Date: 2022-12-06 10:06 Normal [facility] MG MAMM ALE DIAG W CADon MG MAMM ALE DIAG W CAD [facility] Other MG MAMM DIAGNOSTIC 3D ALE CA Don 10-18-2022 MG MAMM DIAGNOSTIC 3D ALE CAD Patient: BIRGIT CLARKE Exam Date: 10/18/2022 : 1950 Gender:F Ordering : DR FRANCIS OSBORNE D.O. Admission #: [id number] Family : Order #: [id number] CLICK HERE TO VIEW EXAM RADIOLOGY REPORT [...] lung cancer at age 58. LOCATION: [facility] BREAST COMPOSITION: Scattered areas fibroglandular density. [...] M.D. on 10/18/2022 at 13:36 Normal [facility] XR HIP RT 2 3V W PELVISon XR HIP RT 2 3V W PELVIS [facility] Other XR LSPINE W_OBLS AND FLEX_EX Ton [...] by: TRIPP TRAVIS Date: 2022-10-18 18:59 Normal [facility] XR lumbar spine 6V w bending on 10-18-2022 XR lumbar spine 6V w bending [facility] Other Vital Signs Date Time Vital Sign Value Performing Clinician Facility 09-24-2024 11:02-0500 Body height 157.48 cm [facility] 09-24-2024 11:02-0500 Body mass index (BMI) [Ratio] 30.5 kg/m2 [facility] 09-24-2024 11:02-0500 Body weight 75.74 kg [facility] 09-24-2024 11:02-0500 Diastolic blood pressure 110 mm[Hg] [facility] 09-24-2024 11:02-0500 Heart rate 111 /min [facility] 09-24-2024 11:02-0500 Respiratory rate 20 /min [facility] 09-24-2024 11:02-0500 Systolic blood pressure 145 mm[Hg] [facility] 05-08-2024 09:38-0400 Body height 157.48 cm DO Francis Ball Work Phone: [facility] 05-08-2024 09:38-0400 Body mass index (BMI) [Ratio] 30.2 kg/m2 DO Francis Ball Work Phone: [facility] 05-08-2024 09:38-0400 Body weight 74.84 kg DO Francis Ball Work Phone: [facility] 05-08-2024 09:38-0400 Diastolic blood pressure 86 mm[Hg] DO Francis Ball Work Phone: [facility] 05-08-2024 09:38-0400 Heart rate 84 /min DO Francis Ball Work Phone: [facility] 05-08-2024 09:38-0400 Respiratory rate 12 /min DO Francis Ball Work Phone: [facility] 05-08-2024 09:38-0400 Systolic blood pressure 136 mm[Hg] DO Francis Ball Work Phone: [facility] 02-10-2024 10:42-0400 Body height 157.48 cm [facility] 02-10-2024 10:42-0400 Body mass index (BMI) [Ratio] 29.9 kg/m2 [facility] 02-10-2024 10:42-0400 Body weight 74.38 kg [facility] 02-10-2024 10:42-0400 Diastolic blood pressure 89 mm[Hg] [facility] 02-10-2024 10:42-0400 Heart rate 114 /min [facility] 02-10-2024 10:42-0400 Respiratory rate 12 /min [facility] 02-10-2024 10:42-0400 Systolic blood pressure 130 mm[Hg] [facility] 05-15-2023 15:45-0400 Body height 157.48 cm Francis Ball Other [facility] Other 05-15-2023 15:45-0400 Body mass index (BMI) [Ratio] 32.37 kg/m2 Francis Ball Other [facility] Other 05-15-2023 15:45-0400 Body weight 80.29 kg Francis Ball Other [facility] Other 05-15-2023 15:45-0400 Diastolic blood pressure 87 mm[Hg] Francis Ball Other [facility] Other 05-15-2023 15:45-0400 Respiratory rate 12 /min Francis Ball Other [facility] Other 05-15-2023 15:45-0400 Systolic blood pressure 121 mm[Hg] Francis Ball Other [facility] Other 04-12-2023 11:25-0400 Body height 157.48 cm Emiliana Patricia Other [facility] Other 04-12-2023 11:25-0400 Body mass index (BMI) [Ratio] 31.09 kg/m2 Emiliana Patricia Other [facility] Other 04-12-2023 11:25-0400 Body temperature 98.1 [degF] Emiliana Patricia Other [facility] Other 04-12-2023 11:25-0400 Body weight 77.11 kg Emiliana Patricia Other [facility] Other 04-12-2023 11:25-0400 Diastolic blood pressure 88 mm[Hg] Emiliana Patricia Other [facility] Other 04-12-2023 11:25-0400 Respiratory rate 18 /min Emiliana Patricia Other [facility] Other 04-12-2023 11:25-0400 SaO2% (BldA) [Mass fraction] 98 % Emiliana Patricia Other [facility] Other 04-12-2023 11:25-0400 Systolic blood pressure 144 mm[Hg] Emiliana Patricia Other [facility] Other 04-08-2023 09:00-0400 Body height 157.48 cm Francis Ball Other [facility] Other 04-08-2023 09:00-0400 Body mass index (BMI) [Ratio] 32.19 kg/m2 Francis Ball Other [facility] Other 04-08-2023 09:00-0400 Body weight 79.83 kg Francis Ball Other [facility] Other 04-08-2023 09:00-0400 Diastolic blood pressure 83 mm[Hg] Francis Ball Other [facility] Other 04-08-2023 09:00-0400 Respiratory rate 12 /min Francis Ball Other [facility] Other 04-08-2023 09:00-0400 Systolic blood pressure 117 mm[Hg] Francis Ball Other [facility] Other 09-21-2022 14:30-0500 Body height 157.48 cm Francis Ball Other [facility] Other 09-21-2022 14:30-0500 Body mass index (BMI) [Ratio] 31.64 kg/m2 Francis Ball Other [facility] Other 09-21-2022 14:30-0500 Body weight 78.47 kg Francis Ball Other [facility] Other 09-21-2022 14:30-0500 Diastolic blood pressure 64 mm[Hg] Francis Ball Other [facility] Other 09-21-2022 14:30-0500 Respiratory rate 18 /min Francis Ball Other [facility] Other 09-21-2022 14:30-0500 SaO2% (BldA) [Mass fraction] 97 % Francis Ball Other [facility] Other 09-21-2022 14:30-0500 Systolic blood pressure 136 mm[Hg] Francis Osborne Other [facility] Other Encounters Encounter Date Encounter Type Care Provider Facility Start: 09-24-2024 End: 09-24-2024 ambulatory [facility] Work Phone: Start: 09-24-2024 End: 09-24-2024 Patient encounter procedure [facility] Physician [facility] Work Phone: Start: 05-08-2024 End: 05-08-2024 ambulatory DO Francis Ball Work Phone: [facility] Work Phone: Start: 05-08-2024 End: 05-08-2024 Patient encounter procedure DO Francis Ball Work Phone: [facility] Physician [facility] Work Phone: Start: 05-06-2024 Patient encounter procedure DO Francis Ball Work Phone: [facility] Start: 02-21-2024 End: 02-21-2024 Patient encounter procedure DO Francis Ball Work Phone: [facility] [facility] Start: 02-21-2024 End: 02-21-2024 ambulatory Francis Ball Facility:[facility] Start: 02-10-2024 End: 02-10-2024 ambulatory [facility] Work Phone: Start: 02-10-2024 End: 02-10-2024 Patient encounter procedure [facility] Physician [facility] Work Phone: Start: 01-12-2024 Non-patient / Non-visit [facility] Physician [facility] Work Phone: Start: 09-02-2023 End: 09-02-2023 ambulatory Francis Osborne Other [facility] Other Start: 09-02-2023 Telephone encounter Francis Dylon [facility] Start: 05-15-2023 End: 05-15-2023 ambulatory Francis Osborne Other [facility] Other Start: 05-15-2023 Office outpatient vi sit 25 minutes Francis Osborne [facility] Start: 05-15-2023 Telephone encounter Francis Osborne [facility] Start: 05-09-2023 End: 05-09-2023 ambulatory Francis Osborne Other [facility] Other Start: 05-09-2023 Telephone encounter Francis Ball [facility] Start: 05-01-2023 End: 05-01-2023 ambulatory Francis Osborne Other [facility] Other Start: 05-01-2023 Telephone encounter Francis Osborne [facility] Start: 04-12-2023 End: 04-12-2023 ambulatory Emiliana Patricia Other [facility] Other Start: 04-12-2023 Office outpatient vi sit 25 minutes Emiliana Patricia [facility] Start: 04-08-2023 End: 04-08-2023 ambulatory Francis Osborne Other [facility] Other Start: 04-08-2023 Patient encounter procedure Francis Osborne [facility] Start: 04-01-2023 End: 04-01-2023 ambulatory Francis Osborne Other [facility] Other Start: 04-01-2023 Telephone encounter Francis Osborne [facility] Start: 02-28-2023 End: 02-28-2023 ambulatory Francis Osborne Other [facility] Other Start: 02-28-2023 Telephone encounter Francis Ball [facility] Start: 01-27-2023 End: 01-27-2023 ambulatory Francis Osborne Other [facility] Other Start: 01-27-2023 Telephone encounter Francis Ball [facility] Start: 12-04-2022 End: 12-05-[address] Katey SHAH Facility:[facility] Start: 10-22-2022 End: 10-22-2022 ambulatory Francis Dylon Other [facility] Other Start: 10-22-2022 Telephone encounter Francis Osborne [facility] Start: 10-18-2022 End: 10-19-[address] FRANCIS OSBORNE Facility:[facility] Start: 09-23-2022 End: 09-23-2022 ambulatory Francis Osborne Other [facility] Other Start: 09-23-2022 Telephone encounter Francis Osborne [facility] Start: 09-21-2022 End: 09-21-2022 ambulatory Francis Osborne Other [facility] Other Start: 09-21-2022 Office outpatient vi sit 25 minutes Francis Osborne [facility] Start: 08-30-2022 End: 08-30-2022 ambulatory Francis Dylon Other [facility] Other Start: 08-30-2022 Telephone encounter Francis Osborne [facility] Start: 01-24-2022 Adult health examination Francis Osborne Other [facility] Other Procedures Date Procedure Procedure Detail Performing Clinician Start: 06-18-2017 Screening for malign ant neoplasm of colon Francis Osborne Other Start: 06-18-2017 Screening for osteoporosis Francis Osborne Other Start: 06-18-2017 Screening mammography B enjamecca Osborne Other Screening for malign ant neoplasm of breast Francis Osborne Other Plan of Treatment Date Care Activity Detail Author Comprehensive metabo lic 2000 panel - Serum or Plasma [facility] enter MG Breast - bilateral Diagnostic [facility] MG Breast - bilateral Diagnostic [facility] XR Shoulder - right Views Fi [facility] Immunizations Immunization Date Immunization Notes Care Provider Tamiko jose 12-31-2021 COVID-19 Vaccine Pfi zer - Documentation Purposes Only Francis Osborne Other [facility] 06-19-2017 diphtheria, tetanus toxoids and acellular pertussis vaccine, unspecified formulation Francis Osborne Other [facility] 04-29-2013 tetanus and diphther ia toxoids, adsorbed, preservative free, for adult use (5 Lf of tetanus toxoid and 2 Lf of diphtheria toxoid) Francis Osborne Other [facility] 06-06-2011 diphtheria, tetanus toxoids and acellular pertussis vaccine, unspecified formulation Francis Osborne Other [facility] Payers Date Payer Category Payer Medicare [id number] 1961 Unknown [id number] 1950 Unknown [id number] 1950 Unknown [id number] Medicare [id number] Medicare Medicare [id number] Medicare Cign[employer] Medicare Supplemental [id number] Self-pay Self Pay [id number] Unknown [place] [employer] [place] [id number] Social History Date Type Detail Facility Sex Assigned At [facility] Other Start: 1950 Sex Assigned At Female F [facility] Tobacco smoking stat us UTIS Unknown if ever smoked [facility] Work Phone: Start: 09-24-2024 Sex Female (finding) [facility] Clinical Notes 09-21-2022 to 09-02-2023 Note Date & Type Note Facility 09-02-2023 Evaluation note Encounter Date Diagnosis Assessment Notes Aug, SHEFALI (generalized anxiety disorder) (ICD-10 - F41.1) [facility] Other 09-20-2023 Evaluation note* Encounter Date Diagnosis [...] Xanax as needed Continue SSRI as prescribed. [facility] Other 09-14-2023 Evaluation note* Encounter Date Diagnosis Assessment Notes Treatment Notes Treatment Clinical Notes Apr, SHEFALI (generalized anxiety disorder) (ICD-10 - F41.1) [facility] Other 08-18-2023 Evaluation note* Encounter Date Diagnosis [...] treatment plan. Patient left in stable condition. [facility] Other 08-14-2023 Evaluation note* Encounter Date Diagnosis [...] High risk medication use (ICD-10 - Z79.899) [facility] Other 02-23-2023 NotePROCEDURE: XR HIP RT 2 [...] Electronically authenticated by: TRIPP TRAVIS Date: 2022-10-18 19:00[facility]01[facility] Evaluation note* Encounter Date Diagnosis Assessment [...] and will send order to schedule mammogram. [facility] Other Evaluation noteNo InformationNocarondelet health [facility] Other [facility] Other Evaluation note* Diagnosis Onset Date Resolution Status Cerebral atherosclerosis acu te Cervical spondylosis acute SHEFALI (generalized anxiety disorder) acute Hypertension acute Migraine acute Sinus tachycardia acute [facility] Work Phone: Evaluation note* Diagnosis Onset Date Resolution Status Cerebral atherosclerosis acu te Cervical spondylosis acute SHEFALI (generalized anxiety disorder) acute Hypertension acute Migraine acute Sinus tachycardia acute Cerebral atherosclerosis acu te SHEFALI (generalized anxiety disorder) acute Hypertension acute Medicare annual wellness visit, subsequent acute Migraine acute Personal history of malignant neoplasm of breast acute Right shoulder pain acute Sinus tachycardia acute [facility] Work Phone: Evaluation note* Diagnosis Onset Date Resolution Status Admit Date Cerebral atherosclerosis acute September 24, 2024 10:50am SHEFALI (generalized anxiety disorder) acute September 24 10:50am Hypertension acute August 10:50am Migraine acute September 24, 2024 10:50am Sinus tachycardia acute September 24, 2024 10:50am [facility] Work Phone: History general Narrative - [...] cataract extraction Hospitalization History SEE SURGICAL HX [facility] Other History general Narrative - [facility] [employer] Other History general Narrative - Reported* Type [...] and adenoidectomy Hospitalization History SEE SURGICAL HX [facility] Other Reason for Referral Reason *FU 10/29 Low back and right hip pain Diagnosis 1 Lumbago with sciatic a, right side (M54.41) Diagnosis 2 Pain in right hip (M 25.551) Referral Organization [facility] Dylon Renteria jay Referring Provider First Name Francis Referring Provider Last Name Dylon Referring Provider Specialty Internal Wi dicine Referred Organization [facility] Referred Provider Colten Shah Referred Address ,[place], [place],[address] Referred Provider Specialty Orthopedic S urgery Referral Priority Routine General Notes Patient seen w/ drum puller marly low back and right hip pain. 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 [facility] [employer] provides no warranty or guarantee of the accuracy or completeness of information in this document.
--- NOTE | 2024-10-26 15:36 | P.CN_ITS ---
Consult Note: HPI Data of Consult Patient: known to practice within the last 3 years Consult date: 10/26/24 Requesting Physician: Blanca Pinto MD Primary Care Provider: Francis Osborne DO Consult Narrative Reason for consult: right knee pain Narrative: 74yof who presents for in office injection. continues to have right knee pain, would like to proceed with right knee injection. cc:: CC: Blanca Pinto MD Review of Systems ROS Status of ROS 10 or more systems reviewed and unremark able except as noted in history and below Meds Home Medications and Allergies Home Medications ?Medication ?Instructions ?Recorded ?Confirmed ?Type alprazolam 0.5 mg tablet 0.5 mg PO TID 01/12/24 01/12/24 History citalopram 40 mg tablet 40 mg PO BEDTIME 01/12/24 01/12/24 History Allergies Allergy/AdvReac Type Severity Reaction Status Date / Time influenza A (H1N1) virus AdvReac Mild Swelling Verified 01/12/24 15:28 vaccine m-dayna-split 2009 of (From influenza A (H1N1)) Lip/Tongue/Throat morphine AdvReac Mild Headache Verified 01/12/24 15:28 Exam Narrative Exam Narrative: Psych-alert and oriented x 3.? Attentive and appropriate, constitutionally normal, displays normal mood and affect per situation.? There are no obvious deficits in memory, reasoning, or intellect. Extremities-lower extremities are warm with minimal edema and palpable pulses. Knee-examination of the right knee reveals tenderness to palpation over the superior, inferior, lateral, and medial aspect of the knee.? Some swelling is noted without erythema. Pain is elicited with flexion and extension of the knee both actively and passively.? Some grinding is noted with these motions.? There is no notable ligamental laxity or instability.? Coordination remains intact.? Gait remains antalgic. Assessment and Plan Assessment and Plan (1) Osteoarthritis of right knee: Qualifiers: Osteoarthritis type: primary Qualified Code(s): M17.11 - Unilateral primary osteoarthritis, right knee Plan 74yof who presents for in office injection. would like to proceed with right knee injection. i am in agreement. follow up in 6 weeks. Procedure: Right knee injection Medications: Bupivacaine 0.25% 4cc, depomedrol 40mg I explained the details of the procedure to the patient including the risks, benefits and alternatives. We had an informed discussion and the patient verbalized understanding and signed the consent form. All questions were answered appropriately.? A time out was performed.? After obtaining a comfortable seated position, the right knee was prepped with alcohol x3. A syringe containing the above medication was attached to a 25 gauge, 1.5 inch needle under strict aseptic technique. The lateral tibial plateau was palpated.? The needle was then advanced through the subcutaneous tissue in a medial and superior direction towards the joint space.? The contents of the syringe were gently injected without any resistance. The needle was removed and pressure was applied to the injection site to decrease the incidence of ecchymosis and hematoma formation.? A sterile bandage was applied.
== END 2024-10-26 14:39 | disposition home or self-care (01) ==
LOC: PM 14:38
PROVIDERS: PCP Internal Medicine; Visit Provider Anesthesiology
DX: M17.11 Unilateral primary osteoarthritis, right knee (principal)
CPT/HCPCS: 20610; J0665; J1010

== ENCOUNTER 2024-12-03 13:37 | Outpatient (OUT) | payer MEDICARE, OTHER, SELFPAY ==
--- NOTE | 2024-12-03 14:10 | PM.CN ---
Consult Note: HPI Data of Consult Patient: known to practice within the last 3 years Requesting Physician: Mirtha Yuan NP Primary Care Provider: Francis Osborne DO Consult Narrative Reason for consult: back pain and right knee pain Narrative: 74 year old female presents for evaluation and management of chronic right knee pain and back pain. right knee pain 100% improvement ongoing after right knee injection 10/26/24. pt reports longstanding thoracic and lumbar spine pain, hx of lumbar surgery, has failed prior interventions per pt. no recent imaging available for review. engaged in provider guided HEP > 6 weeks without improvement, has failed tylenol, ibuprofen, heat, and ice. Pain today 8.5/10 increasing with standing, walking, activity. cc:: CC: Mirtha Yuan NP Review of Systems ROS Status of ROS 10 or more systems reviewed and unremarkable except as noted in history and below Musculoskeletal Reports: back pain Meds Home Medications and Allergies Home Medications ?Medication ?Instructions ?Recorded ?Confirmed ?Type alprazolam 0.5 mg tablet 0.5 mg PO TID 01/12/24 01/12/24 History citalopram 40 mg tablet 40 mg PO BEDTIME 01/12/24 01/12/24 History Allergies Allergy/AdvReac Type Severity Reaction Status Date / Time influenza A (H1N1) virus AdvReac Mild Swelling Verified 01/12/24 15:28 vaccine m-dayna-split 2008 of (From influenza A (H1N1)) Lip/Tongue/Throat morphine AdvReac Mild Headache Verified 01/12/24 15:28 Exam Constitutional Documenting provider has reviewed patient's vital signs: yes Common normals: no apparent distress, oriented x3, healthy appearing, alert and well nourished General appearance: cooperative HENMT Common normals: normocephalic, hearing grossly normal bilaterally and moist oral mucous membranes Head and scalp: normocephalic Eye Common normals: PERRL Pupil: PERRL Neck & C-Spine Common normals: full ROM General: normal visual inspection Chest Common normals: inspection of chest normal Respiratory Common normals: normal respiratory effort, no retractions and no use of accessory muscles Back & Pelvis Thoracic spine/upper back: ROM limited, pain with ROM and thoracic spinal tenderness T-spine tenderness location: T4, T5, T6 and T7 Lumbar spine/lower back: ROM limited, pain with ROM and lumbar spinal tenderness Lumbar spinal tenderness location: L2, L3 and L4 Other: increased pain with standing and walking, improved with forward flexion decreased sensation bilateral L3,4,5 strength 4/5 in BLE Neuro Common normals: oriented x3 Sensorium/orientation: alert Psych Common normals: mental status grossly normal, thought process normal, cooperative, affect normal, speech normal and activity/motor behavior normal Speech: normal speech Thought process: normal thought process Results Additional Findings Additional findings: If on a controlled substance or opioids, I have checked an OARRS report on this patient and there are no aberrancies noted in the prescribing history.??If on a controlled substance or opioid a drug screen was completed and reviewed within the last year, and if there has not been a drug screen completed we ordered one today to monitor higher risk, state monitored pain medication use. As part of providing excellent, safe, comprehensive care, the following was completed at our patient's visit: 1. A medication reconciliation and review to ensure accurate knowledge of current/active medications, including asking our patients to inform us about any [id number] medications or herbal remedies/nutritional supplements/alternative remedies. 2. A review to specifically ensure our patients have had annual screening for screening for depression, screening for tobacco use, and screening for unhealthy alcohol use. For concerning screenings had a discussion with the patient, provided patient education, and recommended follow-up with primary care provider when appropriate. If patient noted with a risk of falling, they received education on strength, gait, and balance training to prevent future risk of falling. Portions of this note may have been carried over from the previous visit and updated as appropriate. Please note this office utilizes paper charting in addition to the electronic medical record. A list of current medications, vitals, and PMH is available there as the clinical staff outside of myself do not have access to [employer] charting during the clinic day operations. As part of providing quality comprehensive care the current medications, vitals, and PMH were reviewed in the paper chart. Assessment and Plan Assessment and Plan (1) Thoracic spondylosis: (2) Lumbar spondylosis: (3) Failed back surgical syndrome: (4) Lumbar stenosis with neurogenic claudication: (5) Osteoarthritis of right knee: Qualifiers: Osteoarthritis type: primary Qualified Code(s): M17.11 - Unilateral primary osteoarthritis, right knee Plan update thoracic xray update lumbar xray with flexion update lumbar MRI without contrast to assess lumbar stenosis with NC and failed back syndrome in consideration of lumbar MADDY, SCS, NS consultation continue HEP as tolerated continue current medications f/u to review imaging
== END 2024-12-03 13:38 | disposition home or self-care (01) ==
LOC: PM 13:37
PROVIDERS: PCP Internal Medicine; Visit Provider Nurse Practitioner
DX: M47.814 Spondylosis without myelopathy or radiculopathy, thoracic region (principal); M47.816 Spondylosis without myelopathy or radiculopathy, lumbar region; M96.1 Postlaminectomy syndrome, not elsewhere classified; M48.062 Spinal stenosis, lumbar region with neurogenic claudication; M17.11 Unilateral primary osteoarthritis, right knee
CPT/HCPCS: G0463

== ENCOUNTER 2024-12-15 12:19 | Outpatient (OUT) | payer MEDICARE, OTHER, SELFPAY ==
--- NOTE | 2024-12-15 12:23 | MR_ITS ---
The [address] [address] Patient Name: MATTHEW CLARKE MRN: [id number] date: 1950 Sex: F Assigned Patient Location: MRI Current Patient Location: MRI Accession/Order Number: [id number] Exam Date: 12/15/2024 13:34 Report Date: 12/15/2024 14:11 At the request of: RINKU LOVE NP Procedure: MR lumbar spine wo con MRI Lumbar Spine withoutcontrast TECHNIQUE: Multiplanar T1 and T2-weighted imaging of lumbar spine obtained without contrast. HISTORY: Postlaminectomy syndrome. Spinal stenosis and neural chronic low back pain. COMPARISON: 12/04/2022 The last fully segmented vertebral pair is operationally defined as L5/S1. POST SURGERY CHANGES: None BONE MARROW INFILTRATION: None BONE MARROW EDEMA: None BONY ALIGNMENT: Adequate bony alignment identified. SPINAL CANAL: No significant central canal narrowing. LUMBAR FRACTURE: None BONY LESIONS: None KIDNEYS: No hydronephrosis is identified. AORTA: No aortic aneurysm is seen. CONUS MEDULLARIS : The distal spinal cord is in adequate position without abnormality. Additional findings CONJOINED NERVE ROOT: None Lower thoracic level: Unremarkable L1-2 :Broad-based disc bulge. Patent central canal. Moderate bilateral neural foraminal narrowing secondary to disc osteophyte complex and facet arthropathy. L2-3: Broad-based disc bulge with moderate central canal stenosis. Posterior element hypertrophy. Moderate severe bilateral foraminal stenosis greater on the right. This is secondary to disc and osteophyte complex and facet arthropathy. L3-4: A broad-based disc bulge with mild central canal stenosis. Moderate bilateral neural foraminal narrowing secondary to disc and osteophyte complex and facet arthropathy. L4-5: Minimal broad-based disc bulge without significant central canal stenosis. Mild bilateral neural foraminal narrowing secondary to disc and osteophyte complex and facet arthropathy. Bony bridging posteriorly L5-S1: No spinal canal stenosis. Mild to moderate bilateral neural foraminal narrowing secondary to disc osteophyte complex and facet arthropathy. No bony bridging posteriorly. MR/MR lumbar spine wo con IMPRESSION: Similar moderate multilevel discovertebral degenerative changes. Most prevalent at the L2-3 level. Pre-MRI plain film assessment: None Impression dictated by: Dorian Argueta M.D.12/15/2024 2:11 PM Dictation Location: [place] [address] Electronically authenticated by: [id number] Y Date: 12/15/2024 14:11
--- NOTE | 2024-12-15 12:46 | XR_ITS ---
[place] [id number] Patient Name: MATTHEW CLARKE MRN: [id number] date: 1950 Sex: F Assigned Patient Location: MRI Current Patient Location: MRI Accession/Order Number: [id number] Exam Date: 12/15/2024 13:30 Report Date: 12/15/2024 13:33 At the request of: RINKU LOVE NP Procedure: XR lumbar spine 6V w bending 8 views Lumbar Spinewith flexion and extension HISTORY: Chronic low back pain COMPARISON: None POSTSURGICAL CHANGES: Lower lumbar fusion change BONY ALIGNMENT: Mild scoliosis. Adequate lumbar lordosis. HYPERMOBILITY:No hypermobility LISTHESIS:Mild multilevel degenerative listhesis. FRACTURE: None DEGENERATIVE CHANGES: Multilevel disc space narrowing greatest at the L2-3 level. Extensive multilevel facet degeneration. SOFT TISSUES: Unremarkable BONY MINERALIZATION:Diffuse osteopenia XR/XR lumbar spine 6V w bending IMPRESSION: No hypermobility. Extensive degenerative changes. Scoliosis. Diffuse osteopenia. Impression dictated by: Dorian Argueta M.D.12/15/2024 1:33 PM Dictation Location: [employer] Electronically authenticated by: [id number] Y Date: 12/15/2024 13:33
--- NOTE | 2024-12-15 12:46 | XR_ITS ---
The [place] [id number] Patient Name: MATTHEW CLARKE MRN: [id number] date: 1950 Sex: F Assigned Patient Location: MRI Current Patient Location: MRI Accession/Order Number: [id number] Exam Date: 12/15/2024 13:29 Report Date: 12/15/2024 13:30 At the request of: RINKU LOVE NP Procedure: XR thoracic spine 2V 2 views of thoracic spine COMPARISON: None HISTORY: Thoracic spine pain. The thoracic kyphosis is adequate. The disc spaces are maintained. Thoracic endplate spurs are present. No compression deformity identified diffuse osteopenia No paraspinal abnormality seen. XR/XR thoracic spine 2V IMPRESSION: Thoracic spondylosis and diffuse osteopenia. There are no acute compression fracture. Impression dictated by: Dorian Argueta M.D.12/15/2024 1:30 PM Dictation Location: [place] [address] Electronically authenticated by: [id number] Y Date: 12/15/2024 13:30
== END 2024-12-15 12:20 | disposition home or self-care (01) ==
LOC: MRI 12:19
PROVIDERS: PCP Internal Medicine; Visit Provider Nurse Practitioner
DX: M96.1 Postlaminectomy syndrome, not elsewhere classified (principal); M48.062 Spinal stenosis, lumbar region with neurogenic claudication; M54.50 Low back pain, unspecified; M51.369 Other intervertebral disc degeneration, lumbar region without mention of lumbar back pain or lower extremity pain; M85.80 Other specified disorders of bone density and structure, unspecified site; M47.894 Other spondylosis, thoracic region
CPT/HCPCS: 72070; 72114; 72148

== ENCOUNTER 2024-12-24 09:20 | Outpatient (OUT) | payer MEDICARE, OTHER, SELFPAY ==
--- NOTE | 2024-12-24 10:01 | PM.CN ---
Consult Note: HPI Data of Consult Patient: known to practice within the last 3 years Requesting Physician: Mirtha Yuan NP Primary Care Provider: Francis Osborne DO Consult Narrative Reason for consult: back pain and right knee pain Narrative: 74 year old female presents for evaluation and management of chronic right knee pain and back pain. right knee pain 100% improvement ongoing after right knee injection 10/26/24. pt reports longstanding thoracic and lumbar spine pain, hx of lumbar surgery, has failed prior interventions per pt. recently underwent thoracic xray and lumbar MRI, see chart for details. engaged in provider guided HEP > 6 weeks without improvement, has failed tylenol, ibuprofen, heat, and ice. Pain today 8.5/10 increasing with standing, walking, activity. cc:: CC: Mirtha Yuan NP Review of Systems ROS Status of ROS 10 or more systems reviewed and unremarkable except as noted in history and below Musculoskeletal Reports: back pain Meds Home Medications and Allergies Home Medications ?Medication ?Instructions ?Recorded ?Confirmed ?Type alprazolam 0.5 mg tablet 0.5 mg PO TID 01/12/24 01/12/24 History citalopram 40 mg tablet 40 mg PO BEDTIME 01/12/24 01/12/24 History Allergies Allergy/AdvReac Type Severity Reaction Status Date / Time influenza A (H1N1) virus AdvReac Mild Swelling Verified 01/12/24 15:28 vaccine m-dayna-split 2008 of (From influenza A (H1N1)) Lip/Tongue/Throat morphine AdvReac Mild Headache Verified 01/12/24 15:28 Exam Constitutional Documenting provider has reviewed patient's vital signs: yes Common normals: no apparent distress, oriented x3, healthy appearing, alert and well nourished General appearance: cooperative HENMT Common normals: normocephalic, hearing grossly normal bilaterally and moist oral mucous membranes Head and scalp: normocephalic Eye Common normals: PERRL Pupil: PERRL Neck & C-Spine Common normals: full ROM General: normal visual inspection Chest Common normals: inspection of chest normal Respiratory Common normals: normal respiratory effort, no retractions and no use of accessory muscles Back & Pelvis Thoracic spine/upper back: ROM limited, pain with ROM and thoracic spinal tenderness T-spine tenderness location: T6, T7, T8 and T9 Lumbar spine/lower back: ROM limited, pain with ROM and lumbar spinal tenderness Lumbar spinal tenderness location: L2, L3 and L4 Other: increased pain with standing and walking, improved with forward flexion decreased sensation bilateral L3,4,5 strength 4/5 in BLE Neuro Common normals: oriented x3 Sensorium/orientation: alert Psych Common normals: mental status grossly normal, thought process normal, cooperative, affect normal, speech normal and activity/motor behavior normal Speech: normal speech Thought process: normal thought process Results Additional Findings Additional findings: If on a controlled substance or opioids, I have checked an OARRS report on this patient and there are no aberrancies noted in the prescribing history.??If on a controlled substance or opioid a drug screen was completed and reviewed within the last year, and if there has not been a drug screen completed we ordered one today to monitor higher risk, state monitored pain medication use. As part of providing excellent, safe, comprehensive care, the following was completed at our patient's visit: 1. A medication reconciliation and review to ensure accurate knowledge of current/active medications, including asking our patients to inform us about any [id number] medications or herbal remedies/nutritional supplements/alternative remedies. 2. A review to specifically ensure our patients have had annual screening for screening for depression, screening for tobacco use, and screening for unhealthy alcohol use. For concerning screenings had a discussion with the patient, provided patient education, and recommended follow-up with primary care provider when appropriate. If patient noted with a risk of falling, they received education on strength, gait, and balance training to prevent future risk of falling. Portions of this note may have been carried over from the previous visit and updated as appropriate. Please note this office utilizes paper charting in addition to the electronic medical record. A list of current medications, vitals, and PMH is available there as the clinical staff outside of myself do not have access to [employer] charting during the clinic day operations. As part of providing quality comprehensive care the current medications, vitals, and PMH were reviewed in the paper chart. Assessment and Plan Assessment and Plan (1) Thoracic spondylosis: Assessment and Plan: The patient has had over 3 months of moderate to severe back pain with functional impairment and inadequate response to conservative care including NSAIDS (unless there are contraindication such as concurrent blood thinners), multiple oral or topical pain medications, and home exercise program/physical therapy.? Patient has completed >6 weeks of guided home exercise program and/or formal physical therapy program without relief of their symptoms.? The Oswestry Disability Index was completed, and the patient scored a 46%.? The patient noted the following:?? moderate to severe pain impacting ADLs, sleep, social life, travel We discussed the risks and benefits of the procedure with the patient, and we are NOT planning on using sedation as outlined in the guidelines from Medicare unless there is a documented reason that sedation would be strongly recommended.?? ?The procedure will be completed with fluoroscopic guidance.? (2) Lumbar spondylosis: (3) Failed back surgical syndrome: Assessment and Plan: unknown prior back surgery, pt reports hx of extensive fusion however recent xrays contraindicate (4) Lumbar stenosis with neurogenic claudication: (5) Osteoarthritis of right knee: Qualifiers: Osteoarthritis type: primary Qualified Code(s): M17.11 - Unilateral primary osteoarthritis, right knee Plan bilateral T7,8 T8,7 MBB x2 working towards RFA for axial facet mediated back pain consider scs trial for chronic pain start baclofen 10mg TID PRN pain/spasms nncp due to xanax use continue PRN tylenol f/u after each injection
== END 2024-12-24 09:21 | disposition home or self-care (01) ==
PROVIDERS: PCP Internal Medicine; Visit Provider Nurse Practitioner
DX: M47.814 Spondylosis without myelopathy or radiculopathy, thoracic region (principal); M47.816 Spondylosis without myelopathy or radiculopathy, lumbar region; M96.1 Postlaminectomy syndrome, not elsewhere classified; M48.062 Spinal stenosis, lumbar region with neurogenic claudication; M17.11 Unilateral primary osteoarthritis, right knee
CPT/HCPCS: G0463

== ENCOUNTER 2024-12-29 18:43 | Observation (INO) | payer MEDICARE, OTHER, SELFPAY ==
[2024-12-29] VITALS (21 sets, daily range): BP systolic 147–173; BP diastolic 81–109; PULSE 83–121; TEMP 36.5–36.8; O2SAT 93–97; BMI 33.4; BMI 32.4
--- NOTE | 2024-12-29 18:57 | ECG_ITS ---
The [facility] Test Date: 2024-12-29 Pat Name: MATTHEW CLARKE Department: Room: - Gender: Female [employer]: : 1950 Requested By: [id number] Order Number: [id number] Reading MD: ANJALI WILKINSON M.D. Measurements Intervals [place] Rate: 111 P: 20 MN: 146 QRS: 16 QRSD: 76 T: 15 QT: 332 QTc: 398 Interpretive Statements 1120 Sinus tachycardia 4068 Nonspecific Twave abnormality abnormal ECG Compared to ECG 01/12/2024 15:26:01 No significant changes Electronically Signed On 12-30-2024 7:39:29 EDT by ANJALI WILKINSON M.D.
[2024-12-29 19:17] LABS: Glucometer 99 mg/dL (74-106)
[2024-12-29 19:23] LABS: Basophils Absolute Auto 0.1 10^3/uL (0.0-0.1); Basophils Percent Auto 0.6 % (0.2-2.0); Eosinophils Percent Auto 0.4 % (0.9-7.0); Hematocrit 44.1 % (36.0-48.0); Hemoglobin 14.9 g/dL (12.0-16.0); Immature Granulocytes Abs Auto 0.02 10^3/uL (0.00-0.03); Immature Granulocytes Pct Auto 0.2 % (0.0-0.5); Lymphocytes Absolute Auto 1.4 10^3/uL (1.2-3.8); Lymphocytes Percent Auto 14.6 % (20.5-60.0); Mean Corpuscular HGB Conc 33.8 g/dL (29.9-35.2); Mean Corpuscular Hemoglobin 30.2 pg (26.7-34.0); Mean Corpuscular Volume 89.3 fL (81.0-99.0); Mean Platelet Volume 10.2 fL (9.5-13.5); Monocytes Percent Auto 10.7 % (1.7-12.0); Neutrophils Absolute Auto 6.9 10^3/uL (1.4-6.5); Neutrophils Percent Auto 73.5 % (43.0-75.0); Platelet Count 369 10^3/uL (150-450); Red Blood Count 4.94 10^6/uL (4.20-5.40); Red Cell Distribution Width 13.6 % (11.0-15.0); White Blood Count 9.3 10^3/uL (4.0-11.0)
[2024-12-29 19:35] LABS: INR 0.97; Prothrombin Time 10.3 sec (9.0-11.6)
--- NOTE | 2024-12-29 19:42 | ED_ITS ---
HPI - Altered Mental Status General Chief Complaint: Altered Mental Status Stated Complaint: Altered Mental Status Time Seen by Provider: 12/29/24 18:57 Source: family Mode of arrival: walk-in Limitations: no limitations History of Present Illness HPI narrative: daughter spoke to patient last PM around 9 o'clock and she was her normal self. Son called her today around 5pm and he states she was confused. She was repeated questions he asked her as a response to his question. Did not know who her children were. Still does't know who the President of the [employer] is but states she does not like him. She also does not know what year it is. When asked how her vision is she answers with she feels a little confused. No weakness, nausea or paresthesia . States she has past history of TIAs Related Data Home Medications ?Medication ?Instructions ?Recorded ?Confirmed alprazolam 0.5 mg tablet 0.5 mg PO TID 01/12/2412/29 citalopram 40 mg tablet 40 mg PO BEDTIME 01/12/24 Held on 12/29/24. Instructions: Doctor's Order bisoprolol fumarate 5 mg tablet 5 mg PO .once daily 12/29/24 Previous Rx's ?Medication ?Instructions ?Recorded baclofen 10 mg tablet 10 mg PO TID #90 tabs Allergies Allergy/AdvReac Type Severity Reaction Status Date / Time influenza A (H1N1) virus AdvReac Mild Swelling Verified 12/29/24 18:51 vaccine m-dayna-split 2008 of (From influenza A (H1N1)) Lip/Tongue/Throat morphine AdvReac Mild Headache Verified 12/29/24 18:51 Review of Systems ROS Status of ROS 10 or more systems reviewed and unremark able except as noted in history and below Exam Constitutional Vital Signs, click to edit/add: Last Vital Signs Temp 98.2 F 12/29/24 18:51 Pulse 89 12/29/24 22:19 Resp 20 12/29/24 22:19 BP 158/88 H 12/29/24 22:19 Pulse Ox 96 12/29/24 22:19 O2 Del Method Room Air 12/29/24 22:19 Common normals: no apparent distress, average body habitus, healthy appearing, alert and well nourished [facility] Common normals: normocephalic Eye Common normals: PERRL and EOMs intact bilaterally Respiratory Common normals: normal respiratory effort, no retractions, no use of accessory muscles and clear to auscultation bilaterally Cardio Common normals: regular rate, regular rhythm, S1 normal heart sound and S2 normal heart sound GI Common normals: Normal to inspection, nondistended, normoactive bowel sounds present, soft to palpation and non-tender Extremity Common normals: normal to inspection and full ROM Neuro Common normals: CN's II-XII intact bilaterally, moves all extremities, no focal motor deficits and no sensory deficits noted Sensorium/orientation: awake, alert and oriented to place (AxOx1. Doesn't know president or year) Psych Appearance: grossly normal Course Vital Signs Vital signs: Vital Signs Temperature 98.2 F 12/29/24 18:51 Pulse Rate 121 H 12/29/24 18:51 Respiratory Rate 20 12/29/24 18:51 Blood Pressure 150/100 H 12/29/24 18:51 Pulse Oximetry 97 12/29/24 18:51 Oxygen Delivery Method Room Air 12/29/24 18:51 Temperature 98.2 F 12/29/24 18:51 Pulse Rate 89 12/29/24 22:19 Respiratory Rate 20 12/29/24 22:19 Blood Pressure 158/88 H 12/29/24 22:19 Pulse Oximetry 96 12/29/24 22:19 Oxygen Delivery Method Room Air 12/29/24 22:19 MDM - Altered Mental Status MDM Narrative Medical decision making narrative: patient presents with confusion. Usually clear headed . Family last spoke to her last PM at 9PM and she was her normal self. Today son spoke to her around 5pm and she was confused. She would answer his questions with the same question he asked her. Basically would repeat his question as her answer. She doesn't know the year or the President. CT brain without acute findings. UA neg for infection. Discussed with Stroke physican Dr Ramirez who feels she can stay here for the workup. Patient admitted to hospitalist service Lab Data Labs: Lab Results 12/29/24 12/29/24 12/29/24 Range/Units 17:46 19:16 20:56 WBC 9.3 (4.0-11.0) 10^3/uL RBC 4.94 (4.20-5.40) 10^6/uL Hgb 14.9 (12.0-16.0) g/dL Hct 44.1 (36.0-48.0) % MCV 89.3 (81.0-99.0) fL MCH 30.2 (26.7-34.0) pg MCHC 33.8 (29.9-35.2) g/dL RDW 13.6 (11.0-15.0) % Plt Count 369 (150-450) 10^3/uL MPV 10.2 (9.5-13.5) fL Neut % (Auto) 73.5 (43.0-75.0) % Lymph % (Auto) 14.6 L (20.5-60.0) % [place] % (Auto) 10.7 (1.7-12.0) % Eos % (Auto) 0.4 L (0.9-7.0) % Baso % (Auto) 0.6 (0.2-2.0) % Neut # (Auto) 6.9 H (1.4-6.5) 10^3/uL Lymph # (Auto) 1.4 (1.2-3.8) 10^3/uL [place] # (Auto) 1.0 H (0.3-0.8) 10^3/uL Eos # (Auto) 0.0 (0.0-0.7) 10^3/uL Baso # (Auto) 0.1 (0.0-0.1) 10^3/uL Abs Immat Gran (auto) 0.02 (0.00-0.03) 10^3/uL Imm/Tot Granulo (auto) 0.2 (0.0-0.5) % PT 10.3 (9.0-11.6) sec INR 0.97 Sodium 136 (136-145) mmol/L Potassium 3.6 (3.5-5.1) mmol/L Chloride 102 (98-107) mmol/L Carbon Dioxide 25.3 (21.0-32.0) mmol/L Anion Gap 12.3 BUN 19.0 H (7.0-18.0) mg/dL Creatinine 0.96 (0.55-1.02) mg/dL Est GFR ( Amer) >60 (>=60 mL/min/1.73m^2) Est GFR (Non-Af Amer) 57 L (>=60 mL/min/1.73m^2) BUN/Creatinine Ratio 19.8 Glucose 101 (74-106) mg/dL Calcium 9.6 (8.5-10.1) mg/dL Total Bilirubin 0.6 (0.2-1.0) mg/dL AST 17 (15-37) U/L ALT 18 (14-59) U/L Alkaline Phosphatase 146 H (46-116) U/L Troponin I High Sens <4.0 L (4.0-51.3) pg/mL Total Protein 8.3 H (6.4-8.2) g/dL Albumin 3.6 (3.4-5.0) g/dL Globulin 4.7 g/dL Albumin/Globulin Ratio 0.8 Urine Color Yellow (YELLOW) Urine Clarity Clear (CLEAR) Urine pH 6.0 (5.0-9.0) Ur Specific [place] >=1.030 A (1.005-1.025) Urine Protein Trace (NEG/TRACE) mg/dL Urine Glucose (UA) Negative (NEGATIVE) mg/dL Urine Ketones Trace A (NEGATIVE) mg/dL Urine Occult Blood Small A (NEGATIVE) Urine Nitrite Negative (NEGATIVE) Urine Bilirubin Negative (NEGATIVE) Urine Urobilinogen 1.0 (0.2-1.0) EU/dL Ur Leukocyte Esterase Negative (NEGATIVE) Urine RBC 0-2 (0-2) #/HPF Urine WBC 0-2 A (NONE SEEN) #/HPF Ur Squamous Epith Cells Rare (NONE/RARE) #/LPF Urine Crystals None seen (None Seen) #/HPF Urine Bacteria Trace A (NONE SEEN) #/HPF Urine Casts None seen (NONE SEEN) #/LPF Urine Mucus Moderate A (NONE SEEN) Ur Culture Indicated? No POC Glucose 99 (74-106) mg/dL Discharge Plan Discharge Chief Complaint: Altered Mental Status Clinical Impression: Altered mental status, Stroke Patient Disposition: Admitted as Observation
[2024-12-29 19:44] LABS: Alanine Aminotransferase 18 U/L (14-59); Albumin Globulin Ratio 0.8; Albumin Level 3.6 g/dL (3.4-5.0); Alkaline Phosphatase 146 U/L (46-116); Anion Gap 12.3; Aspartate Amino Transferase 17 U/L (15-37); BUN Creatinine Ratio 19.8; Bilirubin Total 0.6 mg/dL (0.2-1.0); Calcium 9.6 mg/dL (8.5-10.1); Carbon Dioxide 25.3 mmol/L (21.0-32.0); Chloride 102 mmol/L (98-107); Estimated GFR (African America >60 (>=60 mL/min/1.73m^2); Estimated GFR (Non-African Ame 57 (>=60 mL/min/1.73m^2); Globulin 4.7 g/dL; Glucose 101 mg/dL (74-106); Potassium 3.6 mmol/L (3.5-5.1); Sodium 136 mmol/L (136-145); Total Protein 8.3 g/dL (6.4-8.2); Troponin I High Sensitivity <4.0 pg/mL (4.0-51.3)
[2024-12-29] MEDS: 0.9 % SODIUM CHLORIDE 500 ML IV (20:03)
[2024-12-29 21:02] LABS: Bilirubin Urine NEGATIVE (NEGATIVE); Blood Urine SMALL (NEGATIVE); Clarity Urine CLEAR (CLEAR); Color Urine YELLOW (YELLOW); Glucose Urine UA NEGATIVE (NEGATIVE); Ketones Urine TRACE mg/dL (NEGATIVE); Leukocyte Esterase Urine NEGATIVE (NEGATIVE); Nitrite Urine NEGATIVE (NEGATIVE); Protein Urine TRACE mg/dL (NEG/TRACE); Specific Gravity Urine >=1.030 (1.005-1.025); Urine Microscopic Indicated YES
[2024-12-29 21:09] LABS: Bacteria Urine TRACE #/HPF (NONE SEEN); Cast Seen? NONE SEEN #/LPF (NONE SEEN); Crystals Seen? None Seen #/HPF (None Seen); Mucus Urine MODERATE (NONE SEEN); RBC Urine 0-2 #/HPF (0-2); Squamous Epithelial Cell Urine RARE #/LPF (NONE/RARE); Urine Culture Indicated NO; WBC Urine 0-2 #/HPF (NONE SEEN)
[2024-12-30] VITALS (17 sets, daily range): BP systolic 120–172; BP diastolic 76–102; PULSE 64–90; TEMP 36.6–36.8; O2SAT 91–98; BMI 32.4
[2024-12-30 06:10] LABS: Basophils Absolute Auto 0.1 10^3/uL (0.0-0.1); Basophils Percent Auto 0.8 % (0.2-2.0); Eosinophils Absolute Auto 0.1 10^3/uL (0.0-0.7); Hematocrit 39.6 % (36.0-48.0); Hemoglobin 13.4 g/dL (12.0-16.0); Immature Granulocytes Abs Auto 0.02 10^3/uL (0.00-0.03); Immature Granulocytes Pct Auto 0.3 % (0.0-0.5); Lymphocytes Absolute Auto 1.2 10^3/uL (1.2-3.8); Lymphocytes Percent Auto 19.7 % (20.5-60.0); Mean Corpuscular HGB Conc 33.8 g/dL (29.9-35.2); Mean Corpuscular Hemoglobin 30.1 pg (26.7-34.0); Mean Platelet Volume 10.6 fL (9.5-13.5); Monocytes Absolute Auto 0.9 10^3/uL (0.3-0.8); Monocytes Percent Auto 14.5 % (1.7-12.0); Neutrophils Absolute Auto 3.8 10^3/uL (1.4-6.5); Neutrophils Percent Auto 63.7 % (43.0-75.0); Platelet Count 320 10^3/uL (150-450); Red Blood Count 4.45 10^6/uL (4.20-5.40); Red Cell Distribution Width 13.8 % (11.0-15.0)
[2024-12-30 06:28] LABS: Alanine Aminotransferase 17 U/L (14-59); Albumin Globulin Ratio 0.8; Albumin Level 3.3 g/dL (3.4-5.0); Alkaline Phosphatase 127 U/L (46-116); Anion Gap 11.5; Aspartate Amino Transferase 14 U/L (15-37); Bilirubin Total 0.6 mg/dL (0.2-1.0); Calcium 9.1 mg/dL (8.5-10.1); Carbon Dioxide 24.7 mmol/L (21.0-32.0); Chloride 104 mmol/L (98-107); Estimated GFR (African America >60 (>=60 mL/min/1.73m^2); Estimated GFR (Non-African Ame >60 (>=60 mL/min/1.73m^2); Globulin 4.1 g/dL; Glucose 97 mg/dL (74-106); Potassium 3.2 mmol/L (3.5-5.1); Sodium 137 mmol/L (136-145); Total Protein 7.4 g/dL (6.4-8.2)
[2024-12-30 06:29] LABS: Estimated Average Glucose 111 mg/dL; Glycohemoglobin A1C 5.5 % (4.5-6.2)
[2024-12-30 06:36] LABS: Chol HDL Ratio 4.4; Cholesterol 229 mg/dL (<=200); HDL Cholesterol 52 mg/dL (40-60); Thyroid Stimulating Hormone 2.531 uIU/mL (0.358-3.740); Triglycerides 105 mg/dL (<=150)
[2024-12-30 06:37] LABS: Troponin I High Sensitivity 5.4 pg/mL (4.0-51.3)
--- NOTE | 2024-12-30 09:52 | CA_ITS ---
Patient Name: MATTHEW CLARKE MR#: [id number] : 1950 Exam Date: 12/30/2024 Ordering Doctor: SHAIKH Jannet BREWSTER . ECHOCARDIOGRAM REPORT PROCEDURE: CA ECHO DOPPLER COMPLETE INDICATIONS: stroke, h/o TIA, h/o TIA COMPARISON: None. DESCRIPTION: COMPLETE ECHOCARDIOGRAM Real-time transthoracic echocardiography with 2D, M-mode, spectral and color flow Doppler performed. QUALITY: Technical quality was good. LEFT VENTRICLE: Normal chamber size. Thickened septal wall. Normal systolic function. LV EF: Normal left ventricular ejection fraction, (55%). DIASTOLIC: Diastolic function is indeterminate. ATRIAL SEPTUM: LEFT ATRIUM: Normal chamber size. RIGHT ATRIUM: Normal chamber size. RIGHT VENTRICLE: Normal chamber size. Normal systolic function. TRICUSPID VALVE: Normal mobility and thickness. No stenosis with no regurgitation. Unable to assess right-sided pressures due to lack of measurable tricuspid regurgitation. MITRAL VALVE: Normal mobility and thickness. No evidence of mitral valve stenosis. Mild mitral annular calcification. Mild mitral regurgitation. AORTIC VALVE: Normal trileaflet appearance. Thickened aortic valve. Normal leaflet mobility. No evidence of aortic valve stenosis. No aortic regurgitation. AORTIC ROOT: Normal diameter and appearance, measuring 2.8 cm. The ascending aorta is normal in size measuring 3.1 cm. PULMONIC VALVE: Normal thickness and mobility. No stenosis. Trivial regurgitation. PERICARDIUM: No evidence of pericardial effusion. IVC: Not well visualized. PLEURA: CONCLUSION: 1. Normal left ventricular size and systolic function. LVEF is estimated at 55%. 2. Normal right ventricular size and systolic function. 3. Mild mitral regurgitation. 4. Unable to assess right-sided pressures due to lack of measurable tricuspid regurgitation. Adult Echocardiography Procedure Report Left Ventricle LVEDD (3.7 - 5.6 cm): 3.08 cm LVESD (2.2 - 4.0 cm): 2.81 cm LVIVS thickness (0.6 - 1.2 cm): 1.32 cm LVPW thickness (0.5 - 1.0 cm): 0.89 cm e': 0.07 m/s E - e': 8.40 LVOT Diameter 1.97 cm Left Atrium LA Volume Index (2D A2C): 25.18 ml/m2 Left Atrium Systolic Dimension: 2.62 cm Mitral Valve MV E to A Ratio: 0.75 Mitral Valve A-Wave Peak Velocity: 0.80 m/s Mitral Valve E-Wave Peak Velocity: 0.60 m/s Right Ventricle Aorta AO Root Diam: 2.83 cm Ascending Ao Diam: 3.13 cm Aortic Valve Peak Velocity(Antegrade Flow): 1.04 m/s, 1.16 m/s Peak Gradient(Antegrade Flow): 4.37 mm[Hg], 5.34 mm[Hg] Mean Velocity(Antegrade Flow): 0.79 m/s, 0.78 m/s Mean Gradient(Antegrade Flow): 2.79 mm[Hg], 2.77 mm[Hg] Velocity Time Integral: 24.45 cm, 26.37 cm Tricuspid Valve Pulmonic Valve Mean Gradient: 1.02 mm[Hg] Mean Velocity: 0.47 m/s Peak Velocity: 0.69 m/s, 0.70 m/s Peak Gradient: 1.98 mm[Hg], 1.90 mm[Hg] Right Atrium Dictated by: Phillip Gamez M.D. on 12/30/2024 at 17:54 Approved by: Phillip Gamez M.D. on 12/30/2024 at 17:57
[2024-12-30] MEDS: CEFTRIAXONE 1,000 MG in 0.9 % SODIUM CHLORIDE 50 ML 100 MG IV (09:55)
[2024-12-30] MEDS: ENOXAPARIN SODIUM 40 MG/0.4 ML SYRINGE SUBQ (09:56)
[2024-12-30] MEDS: ASPIRIN 81 MG TAB.CHEW PO (09:56)
[2024-12-30] MEDS: METOPROLOL TARTRATE 50 MG TABLET PO ×2 (09:57→21:07)
[2024-12-30] MEDS: 0.9 % SODIUM CHLORIDE 250 ML 10 ML IV (09:57)
--- NOTE | 2024-12-30 11:00 | CM.NOTE ---
Medicare Outpatient Observation Notice discussed with pt and daughter, daughter signs paper. Original given to pt and copy placed on pt's chart.
--- NOTE | 2024-12-30 12:15 | CM.NOTE ---
Rounds made with Dr. Whiting, discussed MRI findings with pt and daughter. Dr. Snyder also discussed daily ASA and cholesterol medication as new medications, pt verbalizes understanding. Teleneuro with consult with pt today for further recommendations.
--- NOTE | 2024-12-30 12:35 | CM.NOTE ---
Talked with pt about diagnosis and possible HH for nurse to check on pt and do vitals. Pt has had persistent hypertension and has failed to f/u with PCP. Discussed important of f/u with PCP and neurologist at discharge, pt and daughter verbalize understanding. Pt at this time refuse HH services. Pt states she will record her BP's twice daily and f/u with PCP. Pt is [employer] and has understanding of importance of recording BP's and f/u with PCP for better control of BP.
--- NOTE | 2024-12-30 13:29 | SWNOTE1 ---
See case management note. Pt has refused any services (home health) to come in to the home at this time. Pt's daughter was in room during conversation.
[2024-12-30] MEDS: BACLOFEN 10 MG TABLET PO ×2 (14:03→21:08)
[2024-12-30] MEDS: ONDANSETRON PF 4 MG/2 ML VIAL IV (14:08)
[2024-12-30] MEDS: ALPRAZOLAM 0.5 MG TABLET PO (14:49)
--- NOTE | 2024-12-30 14:56 | SWNOTE1 ---
SW reviewed physical therapy note and home health was recommended. SW went to speak with pt, nurse was in room, then someone came in to complete testing. SW to stop back later today.
--- NOTE | 2024-12-30 15:44 | SWNOTE1 ---
SW stopped back in room and spoke to pt and daughter about HH. SW explained what HH was. 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 SW explained HH is different and will not be a systems analyst engineer thing and is covered under insurance. SW explained it would just be therapy and a nurse. Pt is agreeable at this time and stated she is not going to be difficult about it. Daughter in agreement as well. Pt spoke about having [place] for insurance, but has Medicare as primary. Pt did not have preference on HH company. Referral sent to [facility] . Referral included face sheet, ED note, H&P, provider notes, case management report, and PT/OT notes.
--- NOTE | 2024-12-30 18:22 | DIETREC ---
Recommend 237 mL Ensure Clear BID. [place] Text to Dr. Snyder.
[2024-12-30] MEDS: ATORVASTATIN CALCIUM 40 MG TABLET PO (21:07)
--- NOTE | 2024-12-30 22:15 | PM.HP ---
HPI H&P: HPI History of Present Illness Chief complaint: Altered Mental Status, Stroke Narrative: 74 y o female with Pmhx of CVA, HTN, lives by herself at home and was in her usual state of health when her son called and noted that she was confused and did not act like her usual self. Son called his sister who then went to patient's house to check on her and noted that patient was confused, could not recognize her daughter and was unable to answer or respond to her questions appropriately. According to patient's daughter, patient also seemed to stoop to her one side when she attempted to walk her to bring her to ED and that patient reported feeling dizzy and unsteady. Patient has no recollection of the events and could not provide us any meaningful information. Patient had ischemic stroke about 15 years ago and had TIA subsequently but is not on ASA or statin. CTH in ED did not reveal anything significant. Tele stroke team was consulted from ED and patient was admitted for an MRI and stroke work up. MRI earlier today revealed acute ischemic stroke in left parieto-occipital region. Earlier today, upon evaluation, patient felt well and was at her baseline mentation. She reported feeling dizzy, nauseous, weak and felt unsteady. Patient also reported numbness in her hands. Her BP was noted to be poorly controlled but given recent stroke, it was left untreated to allow for permissive HTN. Opioid HPI Opioid Management Most Recent Pain and Opioid Data: Last Pain Scale 7 01/12/24, 16:12 Last Pain Assessment Today, 00:27 Last ORT Total Score 0 12/29/24, 23:51 Last ORT Risk Category Low Risk 12/29/24, 23:51 Review of Systems ROS Status of ROS 10 or more systems reviewed and unremarkable except as noted in history and below [facility] Medical History (Updated 12/30/24 @ 22:28 by Shaikh Claudio MD) HLD (hyperlipidemia) ?E78.5 - Hyperlipidemia, unspecified (ICD-10) HTN (hypertension) ?I10 - Essential (primary) hypertension (ICD-10) Encounter for cholecystectomy ?Z76.89 - Persons encountering health services in other specified circumstances (ICD-10) Hysterectomy planned TIA (transient ischemic attack) ?G45.9 - Transient cerebral ischemic attack, unspecified (ICD-10) Breast cancer ?C50.919 - Malignant neoplasm of unspecified site of unspecified female breast (ICD-10) Surgical History History of breast lump removal ?Z98.890 - Other specified postprocedural states (ICD-10) H/O Spinal surgery ?Z98.890 - Other specified postprocedural states (ICD-10) Social History Highest level of school completed/degree received: Bachelor's degree Little interest or pleasure in doing things: not at all Feeling down, depressed, or hopeless: not at all Meds Home Medications and Allergies Home Medications ?Medication ?Instructions ?Recorded ?Confirmed ?Type alprazolam 0.5 mg tablet 0.5 mg PO TID PRN anxiety 01/12/24 12/30/24 History baclofen 10 mg tablet 10 mg PO TID #90 tabs 12/24/24 12/29/24 Rx bisoprolol fumarate 5 mg tablet 5 mg PO .once daily 12/29/24 12/29/24 History bisoprolol 5 1 tab PO .QD 12/30/24 History mg-hydrochlorothiazide 6.25 mg tablet Allergies Allergy/AdvReac Type Severity Reaction Status Date / Time influenza A (H1N1) virus AdvReac Mild Swelling Verified 12/29/24 23:55 vaccine m-dayna-split 2008 of (From influenza A (H1N1)) Lip/Tongue/Throat morphine AdvReac Mild Headache Verified 12/29/24 23:55 Exam Constitutional Vital Signs, click to edit/add: Last Vital Signs Temp 98.2 F 12/30/24 19:43 Pulse 78 12/30/24 22:00 Resp 18 12/30/24 19:43 BP 120/76 12/30/24 19:43 Pulse Ox 91 L 12/30/24 19:43 O2 Del Method Room Air 12/30/24 19:43 Documenting provider has reviewed patient's vital signs: yes Common normals: no apparent distress and oriented x3 General appearance: cooperative HENMA Common normals: normocephalic and head/scalp atraumatic Head and scalp: normocephalic and atraumatic Eye Common normals: conjunctivae normal and no scleral icterus Conjunctiva: conjunctiva(e) normal Respiratory Common normals: normal respiratory effort and clear to auscultation bilaterally Effort & inspection: able to speak in complete sentences Auscultation: clear to auscultation bilaterally Cardio Common normals: regular rate, S1 normal heart sound and S2 normal heart sound Rate: regular rate Heart sounds: S1 normal and S2 normal GI Common normals: Normal to inspection, nondistended, normoactive bowel sounds present, soft to palpation, non-tender and no hepatosplenomegaly Palpation: soft and no hepatosplenomegaly Extremity Common normals: no clubbing, cyanosis or edema Neuro Common normals: oriented x3, moves all extremities and no focal motor deficits Psych Common normals: mental status grossly normal, denies hallucinations, denies homicidal ideation and denies suicidal ideation Results Labs Labs: Short CBC 12/30/24 Range/Units 05:20 WBC 6.0 (4.0-11.0) 10^3/uL Hgb 13.4 (12.0-16.0) g/dL Hct 39.6 (36.0-48.0) % Plt Count 320 (150-450) 10^3/uL BMP 12/30/24 05:20 Sodium 137 Potassium 3.2 L Chloride 104 Carbon Dioxide 24.7 BUN 17.0 Creatinine 0.74 Glucose 97 Calcium 9.1 Liver Function 12/30/24 Range/Units 05:20 Total Bilirubin 0.6 (0.2-1.0) mg/dL AST 14 L (15-37) U/L ALT 17 (14-59) U/L Alkaline Phosphatase 127 H (46-116) U/L Albumin 3.3 L (3.4-5.0) g/dL Assessment and Plan Assessment and Plan (1) Acute ischemic stroke: Assessment and Plan: Acute ischemic stroke on MRI. No large vessel occlusion/stenosis on CTA head/neck. ECHO pending. No afib on tele Started on ASA, Lipitor. (2) Altered mental status: Assessment and Plan: Likely due to Stroke but suspected non convulsive seizure. EEG ordered as per Tele stroke team. Back to baseline mentation Qualifiers: Altered mental status type: disorientation Qualified Code(s): R41.0 - Disorientation, unspecified (3) UTI (urinary tract infection): Assessment and Plan: No urinary symptoms, but abnormal UA. Will treat with Rocephin. Qualifiers: Urinary tract infection type: acute cystitis Hematuria presence: without hematuria Qualified Code(s): N30.00 - Acute cystitis without hematuria (4) HTN (hypertension): Assessment and Plan: Poorly controlled at baseline. Will allow permissive HTN. Patient will need to f/u with PCP to adjust her BP medications. Qualifiers: Hypertension type: primary hypertension Qualified Code(s): I10 - Essential (primary) hypertension (5) HLD (hyperlipidemia): Assessment and Plan: started on lipitor. Lipid panel in 6 weeks as outpatient. Qualifiers: Hyperlipidemia type: unspecified Qualified Code(s): E78.5 - Hyperlipidemia, unspecified
[2024-12-31] VITALS (9 sets, daily range): BP systolic 126–132; BP diastolic 78–81; PULSE 59–87; TEMP 36.6–36.8; O2SAT 90–94
[2024-12-31] MEDS: BACLOFEN 10 MG TABLET PO (05:05)
[2024-12-31] MEDS: METOPROLOL TARTRATE 50 MG TABLET PO (08:03)
[2024-12-31] MEDS: ASPIRIN 81 MG TAB.CHEW PO (08:03)
[2024-12-31] MEDS: CEFTRIAXONE 1,000 MG in 0.9 % SODIUM CHLORIDE 50 ML 100 MG IV (08:04)
[2024-12-31] MEDS: ENOXAPARIN SODIUM 40 MG/0.4 ML SYRINGE SUBQ (08:04)
--- NOTE | 2024-12-31 09:11 | SWNOTE1 ---
SW received voicemail from [facility] and they are able to accept. SW to let pt and nurse know.
--- NOTE | 2024-12-31 09:35 | P.DS_ITS ---
DS: Providers Provider Date of admission: 12/30/24 00:01 Primary care physician: Francis Osborne DO Admitting clinician: Shaikh Claudio Attending physician on admission: Shaikh Claudio Consults: 12/29/24 Consult to Dietitian Routine Reason for consultation: weight loss Has provider been notified: No 12/29/24 21:42 Consult to Telestroke Routine Reason for consultation: CVA.Discussed with Dr Ashley Richter Stroke Has provider been notified: Yes 12/30/24 07:03 Consult to Telestroke Routine Reason for consultation: stroke 12/30/24 09:00 Occupational Therapy Eval and Treat Routine Reason for consultation: Stroke-like symptoms; confusion Has provider been notified: No Physical Therapy Eval and Treat Routine Reason for consultation: Stroke-like symptoms Has provider been notified: No Speech Therapy Eval and Treat Routine Reason for consultation: Stroke-like symptoms; confusion Has provider been notified: No Attending physician on discharge: Shaikh Claudio Discharging clinician: Shaikh Claudio Anticipated date of discharge: 12/31/24 DS: Diagnosis Discharge Diagnosis (1) Acute ischemic stroke: (2) Altered mental status: Qualifiers: Altered mental status type: disorientation Qualified Code(s): R41.0 - Disorientation, unspecified (3) UTI (urinary tract infection): Qualifiers: Urinary tract infection type: acute cystitis Hematuria presence: without hematuria Qualified Code(s): N30.00 - Acute cystitis without hematuria (4) HTN (hypertension): Qualifiers: Hypertension type: primary hypertension Qualified Code(s): I10 - Essential (primary) hypertension (5) HLD (hyperlipidemia): Qualifiers: Hyperlipidemia type: unspecified Qualified Code(s): E78.5 - Hyperlipidemia, unspecified DS: Summary Hospital Course Hospital Course: 74 y o female with Pmhx of CVA, HTN, lives by herself at home and was in her usual state of health when her son called and noted that she was confused and did not act like her usual self. Son called his sister who then went to patient's house to check on her and noted that patient was confused, could not recognize her daughter and was unable to answer or respond to her questions appropriately. According to patient's daughter, patient also seemed to stoop to her one side when she attempted to walk her to bring her to ED and that patient reported feeling dizzy and unsteady. Patient has no recollection of the events and could not provide us any meaningful information. Patient had ischemic stroke about 15 years ago and had TIA subsequently but is not on ASA or statin. CTH in ED did not reveal anything significant. Tele stroke team was consulted from ED and patient was admitted for an MRI and stroke work up. MRI revealed acute ischemic stroke in left parieto-occipital region. Echocardiogram did not reveal any significant cardiac structural abnormalities. CTA head and neck was unremarkable with no evidence of hemodynamically significant stenosis/thrombosis or large vessel occlusion. Telestroke team also recommended an EEG due to her symptoms and agreed with starting patient on aspirin and Lipitor. Patient has poorly controlled essential hypertension at baseline and was discussed with her that her blood pressure medications need to be adjusted as outpatient when she follows up with her PCP in 1 to 2 weeks. EEG report was not available at the time of discharge and will need to be followed up by PCP as outpatient. During her initial workup, she had abnormal UA for which she was treated with IV Rocephin. Urine culture is pending. I will send her home on 5 days of oral Ceftin to complete treatment course of UTI. Patient will be discharged home with home health on aspirin, statin for acute ischemic stroke. While I have low suspicion that she had urinary tract infection, I will send her home on oral Ceftin for 5 more days for presumptive/suspected bacterial UTI. She will need to follow-up with PCP in 1 to 2 weeks. She was also instructed to follow-up with [facility] neurology in 2 weeks. All questions and concerns answered. Plan of care, discharge instructions and outpatient follow-ups were discussed with patient and her daughter. Case was also discussed with patient's RN, case management. Patient educated on worrisome signs and symptoms and was instructed to return to ED if she develop similar symptoms or any new neurological symptoms. Status at Discharge Functional status at discharge: uses cane/walker Overall status at discharge: patient is back to baseline Time Spent with Patient Time attestation: Total time spent providing and/or coordinating discharge services: Time spent: greater than 30 minutes Exam Constitutional Vital Signs, click to edit/add: Last Vital Signs Temp 97.9 F 12/31/24 08:00 Pulse 65 12/31/24 08:00 Resp 16 12/31/24 08:00 BP 126/78 12/31/24 08:00 Pulse Ox 92 L 12/31/24 08:00 O2 Del Method Room Air 12/31/24 08:00 Documenting provider has reviewed patient's vital signs: yes Common normals: no apparent distress and oriented x3 General appearance: cooperative Respiratory Common normals: normal respiratory effort and clear to auscultation bilaterally Effort & inspection: able to speak in complete sentences Auscultation: clear to auscultation bilaterally Cardio Common normals: regular rate, S1 normal heart sound and S2 normal heart sound Rate: regular rate Heart sounds: S1 normal and S2 normal GI Common normals: Normal to inspection, nondistended, normoactive bowel sounds pr esent, soft to palpation, non-tender and no hepatosplenomegaly Palpation: soft and no hepatosplenomegaly Extremity Common normals: no clubbing, cyanosis or edema Neuro Common normals: oriented x3, moves all extremities and no focal motor deficits Psych Common normals: mental status grossly normal, denies hallucinations, denies homicidal ideation and denies suicidal ideation Discharge Plan Discharge Disposition: Home Health Service Condition: Fair Discharge Medications: New aspirin 81 mg tablet 81 mg PO DAILY Qty: 30 0RF atorvastatin [Lipitor] 40 mg tablet 40 mg PO DAILY Qty: 30 0RF cefuroxime axetil 500 mg tablet 500 mg PO BID Qty: 10 0RF Continued alprazolam 0.5 mg tablet 0.5 mg PO TID PRN (Reason: anxiety) baclofen 10 mg tablet 10 mg PO TID Qty: 90 2RF bisoprolol fumarate 5 mg tablet 5 mg PO .once daily bisoprolol-hydrochlorothiazide 5-6.25 mg tablet 1 tab PO .QD Activity: increase activity as tolerated Diet: advance to your usual diet Print Language: Chinese Patient Instructions: Ischemic Stroke (DC) Forms: Portal Instructions Follow Up Appointments: January 06 @ 3:45pm with Dr. Osborne [phone]
--- NOTE | 2024-12-31 09:54 | CM.NOTE ---
Rounds made with Dr. Snyder, pt will discharge to home today. Dr. Snyder spoke with pt and daughter regarding concerns of seizure activity and importance of f/u with neurology. Both verbalize understanding.
--- NOTE | 2024-12-31 10:00 | CM.NOTE ---
Pt's daughter voices concern regarding pt going to appointments on her own and having recall of what she needs to do. Daughter would like appointment for f/u scheduled when she can be available. Pt has also had EEG and need for f/u with neurology, feels as pt could be lost in what she needs to do at discharge. Daughter would like Dr. Osborne's office updated, update given to Dr. Osborne and scheduled f/u for SatJanuary 06 and daughter will be available for appt. Pt will also discharge with . Pt herself feels as she is having memory issues feels fuzzy in the brain. Pt is A&Ox3 but appears confused as to her diagnosis and f/u appointments. Pt asked daughter if she( as in herself the patient) would need to go to the appointment with Dr. Osborne. Explained to pt again reason for f/u visit and why she would need to go to the appointment.
--- NOTE | 2024-12-31 10:04 | SWNOTE1 ---
JAZMÍN faxed over CRF, dc med rec, H&P, and dc summary to [facility]
--- NOTE | 2024-12-31 10:17 | SWNOTE1 ---
JAZMÍN let pt and daughter know that it is Ady . Daughter requested that she be contact to schedule visits. JAZMÍN faxed [facility] pt's daughters phone number and requested she be the point of contact.
--- NOTE | 2024-12-31 10:45 | SWNOTE1 ---
JAZMÍN faxed telestroke consult to [facility] as well.
--- NOTE | 2024-12-31 11:11 | PT.DAILY ---
Physical Therapy Daily Note PT Daily Note/Assess Start: 12/31/24 11:09 Freq: Status: Active Protocol: Document 12/31/24 11:10 SERGEY (Rec: 12/31/24 11:11 SERGEY [id number]) Visit Not Completed Visit Not Completed Visit Not Completed Other Due to: Other Reason Visit Attempted treatment, patient reports waiting for DC Not Completed paperwork then will be DC home with Physical Therapy Daily Note/Assessment Time In/Time Out Time In 11:10 Time Out 11:10 GG. Functional Abilities and Goals-Complete for Swing Bed Patients Only [id number]. Self-Care [id number]. Mobility
--- NOTE | 2025-01-04 13:44 | CM.DCFOLLOWU ---
Returned to ED and was transferred to higher level of care
== END 2024-12-31 12:14 | disposition home health service (06) ==
LOC: ER 23:03 → MS 12-30 09:19
PROVIDERS: Emergency Medicine; Registered Nurse; Admitting Provider Internal Medicine; Emergency Provider Internal Medicine; PCP Internal Medicine; Visit Provider Internal Medicine
DX: I63.9 Cerebral infarction, unspecified (principal); Z86.73 Personal history of transient ischemic attack (TIA), and cerebral infarction without residual deficits; I10 Essential (primary) hypertension; R42 Dizziness and giddiness; R26.81 Unsteadiness on feet; R41.0 Disorientation, unspecified; N30.00 Acute cystitis without hematuria; E78.5 Hyperlipidemia, unspecified; Z79.899 Other long term (current) drug therapy; Z85.3 Personal history of malignant neoplasm of breast; F41.9 Anxiety disorder, unspecified; R20.0 Anesthesia of skin; R11.0 Nausea
CPT/HCPCS: 36415; 70450; 70496; 70498; 70551; 80053; 80061; 81001; 83036; 84443; 84484; 85025; 85610; 92523; 93005; 93306; 95816; 96361; 96365; 96366; 96372; 96375; 97162; 99285; G0378; J0696; J1650; J2405; Q9967

== ENCOUNTER 2025-01-01 10:38 | Observation (INO) | payer MEDICARE, OTHER, SELFPAY ==
[2025-01-01] VITALS (31 sets, daily range): BP systolic 127–161; BP diastolic 85–95; PULSE 72–101; TEMP 36.5–36.6; O2SAT 92–98; BMI 33.3; BMI 32.9
--- NOTE | 2025-01-01 10:55 | ECG_ITS ---
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 Measurements Intervals Morton Rate: 83 P: 3 TX: 134 QRS: 21 QRSD: 78 T: 11 QT: 370 QTc: 410 Interpretive Statements 1100 Sinus rhythm 4068 Nonspecific Twave abnormality 9130 Abnormal ECG Compared to ECG 12/29/2024 19:11:48 Sinus tachycardia no longer present Electronically Signed On 01-01-2025 18:43:12 EDT by ANJALI WILKINSON M.D.
[2025-01-01 11:02] LABS: Glucometer 85 mg/dL (74-106)
[2025-01-01 11:08] LABS: Basophils Absolute Auto 0.1 10^3/uL (0.0-0.1); Basophils Percent Auto 0.8 % (0.2-2.0); Eosinophils Absolute Auto 0.1 10^3/uL (0.0-0.7); Eosinophils Percent Auto 1.9 % (0.9-7.0); Hematocrit 42.4 % (36.0-48.0); Immature Granulocytes Abs Auto 0.02 10^3/uL (0.00-0.03); Immature Granulocytes Pct Auto 0.3 % (0.0-0.5); Lymphocytes Absolute Auto 1.1 10^3/uL (1.2-3.8); Lymphocytes Percent Auto 18.4 % (20.5-60.0); Mean Corpuscular Hemoglobin 29.7 pg (26.7-34.0); Mean Corpuscular Volume 89.8 fL (81.0-99.0); Mean Platelet Volume 10.2 fL (9.5-13.5); Monocytes Absolute Auto 0.9 10^3/uL (0.3-0.8); Neutrophils Percent Auto 63.6 % (43.0-75.0); Platelet Count 325 10^3/uL (150-450); Red Blood Count 4.72 10^6/uL (4.20-5.40); Red Cell Distribution Width 13.5 % (11.0-15.0); White Blood Count 6.2 10^3/uL (4.0-11.0)
[2025-01-01 11:09] LABS: PCO2 VBG 45.2 mmHg (40.0-52.0); pH VBG 7.387 (7.330-7.430)
[2025-01-01 11:31] LABS: Alanine Aminotransferase 16 U/L (14-59); Albumin Globulin Ratio 0.8; Albumin Level 3.4 g/dL (3.4-5.0); Alkaline Phosphatase 128 U/L (46-116); Anion Gap 7.8; Aspartate Amino Transferase 18 U/L (15-37); BUN Creatinine Ratio 21.4; Bilirubin Total 0.5 mg/dL (0.2-1.0); Calcium 9.1 mg/dL (8.5-10.1); Carbon Dioxide 28.8 mmol/L (21.0-32.0); Chloride 103 mmol/L (98-107); Estimated GFR (African America >60 (>=60 mL/min/1.73m^2); Estimated GFR (Non-African Ame >60 (>=60 mL/min/1.73m^2); Globulin 4.3 g/dL; Glucose 96 mg/dL (74-106); Potassium 3.6 mmol/L (3.5-5.1); Sodium 136 mmol/L (136-145); Total Protein 7.7 g/dL (6.4-8.2)
--- NOTE | 2025-01-01 11:31 | ED_ITS ---
HPI HPI - General Adult General Chief complaint: Altered Mental Status Stated complaint: CVA SYMPTOMS Time Seen by Provider: 01/01/25 10:55 Source: patient Mode of arrival: walk-in Limitations: no limitations History of Present Illness HPI narrative: Patient is a 74-year-old female who is presenting today when she woke up around 9 AM this morning with confusion. Patient went to bed at 11:00 last night had normal baseline. Patient woke up at 9 AM this morning with confusion. This is very similar to how she presented on December 29. Patient was admitted, had echocardiogram, MRI. MRI showed small left sided stroke that did not correlate with her symptoms. Patient also had a EEG. Patient was discharged yesterday. Patient walks with her 2 feet, does not need a cane or walker. Patient was unsteady with her gait this morning. Patient daughter stayed with her last night and this morning. No changes to eating or bowel habits. Patient has been drinking. Patient takes a aspirin daily, no other blood thinners. She takes an aspirin a blood pressure pill. Patient has been very healthy up until this week. Patient PCP is Dr. Osborne. No recent falls, no head injury. No other acute complaints. Patient vital signs and blood sugar were within normal limits initially. All systems are negative except as noted/marked. All systems reviewed and otherwise negative. Nurses note and vital signs reviewed and patient is not hypoxic. General: The patient appears well and in no apparent distress. Patient is resting comfortably on cart. Patient is not toxic, lethargic, or listless Skin: Warm, dry, no pallor noted. There is no rash noted. No petechiae, purpura. Head: Normocephalic, atraumatic; no carotid bruits bilateral. Eye: Normal conjunctiva, no drainage, EOMI. PERRL Ears, Nose, Mouth, and Throat: oral mucosa is moist. Nares patent. Mouth without vesicles. Cardiovascular: Regular Rate and Rhythm, no murmur, gallop, rub Respiratory: Patient is in no distress, no accessory muscle use, lungs are clear to auscultation, no wheezing, rales or rhonchi Back: non-tender, no CVA tenderness bilaterally to percussion. No CT LS midline pain GI: no tenderness to palpation, no masses appreciated. No rebound, guarding, or rigidity noted. No distention Musculoskeletal: Patient has full range of motion of all of the extremities, no motor, sensory, or focal neurological deficits Neurological: A&O x4, normal speech, NIH 0, patient is slightly confused at time. Patient has a dazed look on her face. Psychiatric: Cooperative Related Data Home Medications ?Medication ?Instructions ?Recorded ?Confirmed alprazolam 0.5 mg tablet 0.5 mg PO TID PRN anxiety 01/01/25 bisoprolol fumarate 5 mg tablet 5 mg PO .once daily 01/01/25 bisoprolol 5 1 tab PO .QD 12/30/24 mg-hydrochlorothiazide 6.25 mg tablet Previous Rx's ?Medication ?Instructions ?Recorded baclofen 10 mg tablet 10 mg PO TID #90 tabs aspirin 81 mg tablet 81 mg PO DAILY #30 tabs 04/19 atorvastatin 40 mg tablet (Lipitor) 40 mg PO DAILY #30 tabs 12/31/24 cefuroxime axetil 500 mg tablet 500 mg PO BID #10 tabs 12/31/24 Allergies Allergy/AdvReac Type Severity Reaction Status Date / Time influenza A (H1N1) virus AdvReac Mild Swelling Verified 12/29/24 23:55 vaccine m-dayna-split 2008 of (From influenza A (H1N1)) Lip/Tongue/Throat morphine AdvReac Mild Headache Verified 12/29/24 23:55 Opioid HPI Opioid Management Most Recent Opioid Data: Last Pain Scale 7 01/12/24, 16:12 Last Pain Assessment Today, 16:00 Last ORT Total Score 0 Today, 15:08 Last ORT Risk Category Low Risk Today, 15:08 Ur Phencyclidine Scrn, (NEGATIVE) Negative Today, 12:00 [facility] Medical History (Updated 01/01/25 @ 12:57 by Dorian Romeo MD) HLD (hyperlipidemia) ?E78.5 - Hyperlipidemia, unspecified (ICD-10) HTN (hypertension) ?I10 - Essential (primary) hypertension (ICD-10) Encounter for cholecystectomy ?Z76.89 - Persons encountering health services in other specified circumstances (ICD-10) Hysterectomy planned TIA (transient ischemic attack) ?G45.9 - Transient cerebral ischemic attack, unspecified (ICD-10) Breast cancer ?C50.919 - Malignant neoplasm of unspecified site of unspecified female breast (ICD-10) Surgical History History of breast lump removal ?Z98.890 - Other specified postprocedural states (ICD-10) H/O Spinal surgery ?Z98.890 - Other specified postprocedural states (ICD-10) Social History Highest level of school completed/degree received: Bachelor's degree Little interest or pleasure in doing things: several days Feeling down, depressed, or hopeless: several days Exam Constitutional Vital Signs, click to edit/add: Last Vital Signs Temp 97.8 F 01/01/25 15:34 Pulse 76 01/01/25 17:53 Resp 18 01/01/25 15:34 BP 149/87 H 01/01/25 15:34 Pulse Ox 94 L 01/01/25 15:45 O2 Del Method Room Air 01/01/25 15:45 Course Vital Signs Vital signs: Vital Signs Temperature 97.7 F 01/01/25 10:48 Pulse Rate 83 01/01/25 10:48 Respiratory Rate 18 01/01/25 10:48 Blood Pressure 127/90 01/01/25 10:48 Pulse Oximetry 96 01/01/25 10:48 Oxygen Delivery Method Room Air 01/01/25 10:48 Temperature 97.8 F 01/01/25 15:34 Pulse Rate 76 01/01/25 17:53 Respiratory Rate 18 01/01/25 15:34 Blood Pressure 149/87 H 01/01/25 15:34 Pulse Oximetry 94 L 01/01/25 15:45 Oxygen Delivery Method Room Air 01/01/25 15:45 Medical Decision Making MDM Narrative Medical decision making narrative: Patient seen and examined: Differential diagnosis includes but is not limited to: Diagnostics and management: Patient will have laboratory studies Relevant laboratory interpretation: Radiological studies: Please see the formal radiological report. Chest x-ray shows mild vascular congestion, no edema pneumonia, hiatal hernia noted, no other acute findings. CT of the brain shows moderate to severe chronic small vessel ischemic changes. No acute intracranial hemorrhage, mass, infarct, or edema. Small lacunar infarcts needed. This was compared to MRI that was done a few days ago by the radiologist who gave me verbal report over the phone, Reevaluation: 1200 Dr Snyder had discussed the case with me. He does discharge the patient yesterday. He stated there was a EEG done by local [facility]. They have done the EEG, but the results are not back yet. He stated sometimes results could take a week or 2 to come back. It is uncertain why this patient is having intermittent episodes of confusion. Her stroke findings on the MRI are not correlating with her physical exam and symptoms. He recommended transfer to [facility] for continuous video EEG, neurology consultation and further testing. 1210 information was presented to the patient, daughter, son-in-law, and son at bedside. Patient stated that she wanted to go home. However, patient is not of sound mind. She is confused to time slightly, she does know person and place. Patient is not completely altered that she qualifies for pink slip because she is a risk to herself. However, with myself and family, we have been able to educate her and help her understand that being admitted to the hospital is the most important thing to see specialist, have additional testing, and try to get to the root of intermittent episodes of confusion whether it seizure, stroke, or other possibility of etiologies uncertain. Patient understand and agrees with admission and transfer. Patient's family strongly agrees with transfer. Approximately 1 week ago, patient living on her own, walking around with just her 2 feet, no confusion, no problems taking care of herself. There is a large concern of patient's safety at home and being able to care for herself currently with her confusion state. Patient is very pleasantly confused. Patient is calling her Different names, confused about who is in the room, confused about different situations at home, not delirious or hallucinating at this time. No acute signs of Broca's aphasia or Warnicke's aphasia. 1240 Case was discussed with Luis Miguel, the stroke neurologist at the [facility]. He wanted all the images of CAT scans, MRI pushed through to him, before he would agree with transfer and admission to the hospital. 1340 I have spoken to the stroke neurologist again, Dr. Bolanos. He reviewed patient's CT of the head, MRIs, and states that the stroke patient did have was very minuscule, not related to the patient's symptoms today of confusion or encephalopathy. Also since there is no evidence of seizure-like activity, recommending admission to medicine. 1402 Dr. Ragsdale the hospital did agree to admission for encephalopathy, confusion, to [facility]. The [facility] has a bed wait for 24 to 48 hours. They are discharge dependent and will have a transfer when bed is available. I did speak to Dr. Snyder and we are able to keep patient in [facility] on the nursing floor while we are waiting for transfer to the [facility]. Patient is aware, son, daughter, and family members bedside are aware and thankful for time and care today. Shared decision making: I discussed with the patient the necessary laboratory findings and radiological findings. Social barriers to healthcare: There are no food insecurities, there is no issue with transportation, there are no insurance barriers. Disposition: I discussed with the patient returning of symptoms with patient, daughter, son, and son-in-law at bedside., Multiple bedside visits, greater than 7 bedside visits have been made updating patient, family, reassessing and updating them on transfer. Critical care time 43 minutes exclusive from separate billable procedures that were performed. The following was considered in the determination of critical care but not limited to the level of medical decision making, intensive cardiac and/or respiratory monitoring, frequent vital sign monitoring, evaluation of laboratory studies, evaluation of radiographic studies, oxygen monitoring, and constant monitoring and speaking to family at bedside Lab Data Labs: Lab Results 01/01/25 01/01/25 01/01/25 Range/Units 10:51 11:00 11:40 WBC 6.2 (4.0-11.0) 10^3/uL RBC 4.72 (4.20-5.40) 10^6/uL Hgb 14.0 (12.0-16.0) g/dL Hct 42.4 (36.0-48.0) % MCV 89.8 (81.0-99.0) fL MCH 29.7 (26.7-34.0) pg MCHC 33.0 (29.9-35.2) g/dL RDW 13.5 (11.0-15.0) % Plt Count 325 (150-450) 10^3/uL MPV 10.2 (9.5-13.5) fL Neut % (Auto) 63.6 (43.0-75.0) % Lymph % (Auto) 18.4 L (20.5-60.0) % Barber % (Auto) 15.0 H (1.7-12.0) % Eos % (Auto) 1.9 (0.9-7.0) % Baso % (Auto) 0.8 (0.2-2.0) % Neut # (Auto) 4.0 (1.4-6.5) 10^3/uL Lymph # (Auto) 1.1 L (1.2-3.8) 10^3/uL Barber # (Auto) 0.9 H (0.3-0.8) 10^3/uL Eos # (Auto) 0.1 (0.0-0.7) 10^3/uL Baso # (Auto) 0.1 (0.0-0.1) 10^3/uL Abs Immat Gran (auto) 0.02 (0.00-0.03) 10^3/uL Imm/Tot Granulo (auto) 0.3 (0.0-0.5) % VBG pH 7.387 (7.330-7.430) VBG pCO2 45.2 (40.0-52.0) mmHg Sodium 136 (136-145) mmol/L Potassium 3.6 (3.5-5.1) mmol/L Chloride 103 (98-107) mmol/L Carbon Dioxide 28.8 (21.0-32.0) mmol/L Anion Gap 7.8 BUN 18.0 (7.0-18.0) mg/dL Creatinine 0.84 (0.55-1.02) mg/dL Est GFR ( Amer) >60 (>=60 mL/min/1.73m^2) Est GFR (Non-Af Amer) >60 (>=60 mL/min/1.73m^2) BUN/Creatinine Ratio 21.4 Glucose 96 (74-106) mg/dL Lactate 0.9 (0.4-2.0) mmol/L Calcium 9.1 (8.5-10.1) mg/dL Magnesium 2.2 (1.8-2.4) mg/dL Total Bilirubin 0.5 (0.2-1.0) mg/dL AST 18 (15-37) U/L ALT 16 (14-59) U/L Alkaline Phosphatase 128 H (46-116) U/L Ammonia <10 L (11-32) umol/L Troponin I High Sens 4.4 (4.0-51.3) pg/mL Total Protein 7.7 (6.4-8.2) g/dL Albumin 3.4 (3.4-5.0) g/dL Globulin 4.3 g/dL Albumin/Globulin Ratio 0.8 Urine Color (YELLOW) Urine Clarity (CLEAR) Urine pH (5.0-9.0) Ur Specific [place] (1.005-1.025) Urine Protein (NEG/TRACE) mg/dL Urine Glucose (UA) (NEGATIVE) mg/dL Urine Ketones (NEGATIVE) mg/dL Urine Occult Blood (NEGATIVE) Urine Nitrite (NEGATIVE) Urine Bilirubin (NEGATIVE) Urine Urobilinogen (0.2-1.0) EU/dL Ur Leukocyte Esterase (NEGATIVE) Urine RBC (0-2) #/HPF Urine WBC (NONE SEEN) #/HPF Ur Squamous Epith Cells (NONE/RARE) #/LPF Urine Crystals (None Seen) #/HPF Urine Bacteria (NONE SEEN) #/HPF Urine Casts (NONE SEEN) #/LPF Urine Mucus (NONE SEEN) Ur Culture Indicated? Urine Opiates Screen (NEGATIVE) Ur Buprenorphine Scrn (NEGATIVE) Ur Oxycodone Screen (NEGATIVE) Urine Methadone Screen (NEGATIVE) Ur Barbiturates Screen (NEGATIVE) U Tricyclic Antidepress (NEGATIVE) Ur Phencyclidine Scrn (NEGATIVE) Ur Amphetamines Screen (NEGATIVE) U Methamphetamines Scrn (NEGATIVE) U Benzodiazepines Scrn (NEGATIVE) Urine Cocaine Screen (NEGATIVE) U Cannabinoids Screen (NEGATIVE) Ethanol Quant <3 mg/dL POC Glucose 85 (74-106) mg/dL 01/01/25 Range/Units 12:00 WBC (4.0-11.0) 10^3/uL RBC (4.20-5.40) 10^6/uL Hgb (12.0-16.0) g/dL Hct (36.0-48.0) % MCV (81.0-99.0) fL MCH (26.7-34.0) pg MCHC (29.9-35.2) g/dL RDW (11.0-15.0) % Plt Count (150-450) 10^3/uL MPV (9.5-13.5) fL Neut % (Auto) (43.0-75.0) % Lymph % (Auto) (20.5-60.0) % Barber % (Auto) (1.7-12.0) % Eos % (Auto) (0.9-7.0) % Baso % (Auto) (0.2-2.0) % Neut # (Auto) (1.4-6.5) 10^3/uL Lymph # (Auto) (1.2-3.8) 10^3/uL Barber # (Auto) (0.3-0.8) 10^3/uL Eos # (Auto) (0.0-0.7) 10^3/uL Baso # (Auto) (0.0-0.1) 10^3/uL Abs Immat Gran (auto) (0.00-0.03) 10^3/uL Imm/Tot Granulo (auto) (0.0-0.5) % VBG pH (7.330-7.430) VBG pCO2 (40.0-52.0) mmHg Sodium (136-145) mmol/L Potassium (3.5-5.1) mmol/L Chloride (98-107) mmol/L Carbon Dioxide (21.0-32.0) mmol/L Anion Gap BUN (7.0-18.0) mg/dL Creatinine (0.55-1.02) mg/dL Est GFR ( Amer) (>=60 mL/min/1.73m^2) Est GFR (Non-Af Amer) (>=60 mL/min/1.73m^2) BUN/Creatinine Ratio Glucose (74-106) mg/dL Lactate (0.4-2.0) mmol/L Calcium (8.5-10.1) mg/dL Magnesium (1.8-2.4) mg/dL Total Bilirubin (0.2-1.0) mg/dL AST (15-37) U/L ALT (14-59) U/L Alkaline Phosphatase (46-116) U/L Ammonia (11-32) umol/L Troponin I High Sens (4.0-51.3) pg/mL Total Protein (6.4-8.2) g/dL Albumin (3.4-5.0) g/dL Globulin g/dL Albumin/Globulin Ratio Urine Color Yellow (YELLOW) Urine Clarity Clear (CLEAR) Urine pH 6.0 (5.0-9.0) Ur Specific [place] 1.025 (1.005-1.025) Urine Protein Negative (NEG/TRACE) mg/dL Urine Glucose (UA) Negative (NEGATIVE) mg/dL Urine Ketones Negative (NEGATIVE) mg/dL Urine Occult Blood Small A (NEGATIVE) Urine Nitrite Negative (NEGATIVE) Urine Bilirubin Negative (NEGATIVE) Urine Urobilinogen 0.2 (0.2-1.0) EU/dL Ur Leukocyte Esterase Negative (NEGATIVE) Urine RBC 2-5 A (0-2) #/HPF Urine WBC 0-2 A (NONE SEEN) #/HPF Ur Squamous Epith Cells Few A (NONE/RARE) #/LPF Urine Crystals None seen (None Seen) #/HPF Urine Bacteria Moderate A (NONE SEEN) #/HPF Urine Casts None seen (NONE SEEN) #/LPF Urine Mucus Large A (NONE SEEN) Ur Culture Indicated? Yes-[facility] [place] Urine Opiates Screen Negative (NEGATIVE) Ur Buprenorphine Scrn Negative (NEGATIVE) Ur Oxycodone Screen Negative (NEGATIVE) Urine Methadone Screen Negative (NEGATIVE) Ur Barbiturates Screen Negative (NEGATIVE) U Tricyclic Antidepress Negative (NEGATIVE) Ur Phencyclidine Scrn Negative (NEGATIVE) Ur Amphetamines Screen Negative (NEGATIVE) U Methamphetamines Scrn Negative (NEGATIVE) U Benzodiazepines Scrn Positive A (NEGATIVE) Urine Cocaine Screen Negative (NEGATIVE) U Cannabinoids Screen Negative (NEGATIVE) Ethanol Quant mg/dL POC Glucose (74-106) mg/dL ECG Data Attestation: I personally reviewed and interpreted this ECG as follows: (EKG interpretation. Normal sinus at 83 beats a minute. Patient has nonspecific ST changes in lead III, no ST elevation, normal axis deviation. Flattening of ST segment throughout the anterior lateral leads. Compared to EKG done on December 29, 2024, pt does have similar findings in lead III/precordia) Discharge Plan Discharge Chief Complaint: Altered Mental Status Clinical Impression: Confusion Patient Disposition: Admitted as Observation Discharge Date/Time: 01/01/25 15:25
[2025-01-01 11:39] LABS: Lactate/Lactic Acid 0.9 mmol/L (0.4-2.0)
[2025-01-01 11:43] LABS: Troponin I High Sensitivity 4.4 pg/mL (4.0-51.3)
--- NOTE | 2025-01-01 12:05 | PC.NURSE ---
Urine sample obtained and sent to lab Pt ambulated to and from restroom at this time Pt follows commands correctly, has witty remarks and sarcastic replies to questions which her daughter and son in law at bedside say are not like her Pt has been informed by Dr. Romeo that he would like to admit her for observation, pt repeats to this nurse that she is not sick and does not need to be here and asks why her daughter gets to dictate what she says and does Pt given a warm blanket and placed back on monitor
[2025-01-01 12:06] LABS: Ammonia <10 umol/L (11-32)
[2025-01-01 12:16] LABS: Bilirubin Urine NEGATIVE (NEGATIVE); Blood Urine SMALL (NEGATIVE); Clarity Urine CLEAR (CLEAR); Color Urine YELLOW (YELLOW); Glucose Urine UA NEGATIVE (NEGATIVE); Ketones Urine NEGATIVE (NEGATIVE); Leukocyte Esterase Urine NEGATIVE (NEGATIVE); Nitrite Urine NEGATIVE (NEGATIVE); Protein Urine NEGATIVE (NEG/TRACE); Specific Gravity Urine 1.025 (1.005-1.025); Urobilinogen Urine 0.2 EU/dL (0.2-1.0)
[2025-01-01 12:28] LABS: Bacteria Urine MODERATE #/HPF (NONE SEEN); Mucus Urine LARGE (NONE SEEN); Squamous Epithelial Cell Urine FEW #/LPF (NONE/RARE); WBC Urine 0-2 #/HPF (NONE SEEN)
[2025-01-01 12:30] LABS: Cast Seen? NONE SEEN #/LPF (NONE SEEN); Crystals Seen? None Seen #/HPF (None Seen)
[2025-01-01 12:31] LABS: Urine Culture Indicated YES-FRMC
--- NOTE | 2025-01-01 13:05 | PC.NURSE ---
Pt and family made aware of plans for transfer to [facility] Phone calls being made
[2025-01-01 13:20] LABS: Magnesium 2.2 mg/dL (1.8-2.4)
[2025-01-01] MEDS: 0.9 % SODIUM CHLORIDE 1,000 ML 1000 ML IV (13:22)
[2025-01-01 13:26] LABS: Ethanol <3 mg/dL
[2025-01-01 14:10] LABS: Amphetamine Screen Urine NEGATIVE (NEGATIVE); Barbiturates Screen Urine NEGATIVE (NEGATIVE); Benzodiazepines Screen Urine POSITIVE (NEGATIVE); Buprenorphine Screen Urine NEGATIVE (NEGATIVE); Cannabinoid Screen Urine NEGATIVE (NEGATIVE); Cocaine Screen Urine NEGATIVE (NEGATIVE); Methadone Screen Urine NEGATIVE (NEGATIVE); Methamphetamines Screen Urine NEGATIVE (NEGATIVE); Opiate Screen Urine NEGATIVE (NEGATIVE); Oxycodone Screen Urine NEGATIVE (NEGATIVE); Phencyclidine Screen Urine NEGATIVE (NEGATIVE); Tricyclic Antidepressant Urine NEGATIVE (NEGATIVE)
--- NOTE | 2025-01-01 14:34 | PC.NURSE ---
Pt accepted to [facility] by hospitalist Dr. Ragsdale Pt being moved to our med-surg floor to be admitted until a bed is assigned in [place] Pt and her family are aware of this and okay with the transfer plan Pt still does not believe she needs to be transferred or admitted but is agreeable with the plan
--- NOTE | 2025-01-01 16:14 | SWNOTE1 ---
SW consulted for Advanced Directives. SW stopped in and spoke with pt and her daughter, son in law, and grandson. Eventually her son came in room as well. Pt did remember SW from yesterday and voiced the [employer] came in this morning. Her daughter and her voiced she was confused this morning. Daughter voiced she is better now. SW did ask pt if she knew where she was, the year, month, president, and her birthdate. Pt knew all of these. Pt is willing to complete HCPOA and voiced Lucas is going to do it all and already makes decisions for her. SW completed HCPOA paperwork with pt. SW provided a copy to pt/family, placed copy in chart, and gave pt/daughter the booklet. Plan is for pt to transfer to higher level of care.
[2025-01-01] MEDS: CEFUROXIME AXETIL 250 MG TABLET 500 MG PO (21:09)
[2025-01-01] MEDS: BACLOFEN 10 MG TABLET PO (21:09)
[2025-01-01] MEDS: ATORVASTATIN CALCIUM 40 MG TABLET PO (21:09)
[2025-01-01] MEDS: METOPROLOL TARTRATE 100 MG TABLET PO (21:09)
== END 2025-01-01 21:56 | disposition short-term general hospital (02) ==
LOC: ER 11:11 → MS 15:01
PROVIDERS: Admitting Provider Internal Medicine; Emergency Provider Emergency Medicine; PCP Internal Medicine; Visit Provider Internal Medicine
DX: R41.0 Disorientation, unspecified (principal); R26.81 Unsteadiness on feet; Z79.82 Long term (current) use of aspirin; Z79.899 Other long term (current) drug therapy; G93.40 Encephalopathy, unspecified
CPT/HCPCS: 36415; 70450; 71045; 80053; 80307; 80320; 81001; 82140; 82800; 83605; 83735; 84484; 85025; 87086; 93005; 94761; 96360; 97161; 97530; 99285; G0378

== ENCOUNTER 2025-01-11 09:28 | Day surgery (SDC) | payer MEDICARE, OTHER, SELFPAY ==
--- OUTSIDE RECORDS SUMMARY | 2025-01-11 09:38 | XMS_ITS | CCD ---
Author Organization [facility] Care Team Providers Care Heel Cover Softener Name Role Phone Francis Osborne Unavailable SALVADOR, DR BURGESS Admitting Unavailable BALL, DR BURGESS Attending Unavailable BALL, DR BURGESS Primary Care Unavailable BALL, DR BURGESS Consulting Unavailable ZIEBER, DR MURRAY Skinner Consulting Unavailable ROJELIO, DR Katey Gutierrez Admitting Unavailable ROJELIO, DR Katey Gutierrez Attending Unavailable BALL, DR BURGESS Primary Care Unavailable ROJELIO, DR Katey Gutierrez Consulting Unavailable LEVON, HOLLEY Consulting Unavailable Emiliana Patricia Unavailable DO Francis Osborne Primary Care Provider [phone] DO Francis Osborne Attending Provider Blair CARTER, Blanca Ugalde Attending Unavailable Ball DO, Francis E Primary Care Provider NICHOLAS BOGGS Admitting Unavailable PAY, DORIAN Garvey Referring Unavailable BALL, FRANCIS E Primary Care Unavailable ALI, TUTU Pagan Consulting Unavailable NOUMILOBO Attending Unavailable FARRARANDRAE Consulting Unavailable PayDorian Admitting Unavailable Pay, Dorian Attending Unavailable Ball, Francis Admitting Unavailable Ball, Francis Primary Care Unavailable Ball, Francis Attending Unavailable BALL, FRANCIS E Primary Care Unavailable BALL, FRANCIS E Referring Unavailable BALL, FRANCIS E Primary Care Unavailable BALL, FRANCIS E Referring Unavailable BALL, FRANCIS E Primary Care Unavailable BALL, FRANCIS E Referring Unavailable BALL, FRANCIS E Primary Care Unavailable BALL, FRANCIS E Referring Unavailable BALL, FRANCIS E Primary Care Unavailable BALL, FRANCIS E Referring Unavailable BALL, FRANCIS E Primary Care Unavailable BALL, FRANCIS E Referring Unavailable BALL, FRANCIS E Primary Care Unavailable BALL, FRANCIS E Referring Unavailable BALL, FRANCIS E Primary Care Unavailable BALL, FRANCIS E Referring Unavailable BALL, FRANCIS E Primary Care Unavailable BALL, FRANCIS E Referring Unavailable BALL, FRANCIS E Primary Care Unavailable Pay Dorian CAIN Attending Provider Allergies Allergy Classification Reported Allergen(s) Allergy Type Date of Onset Reaction(s) Facility (20 sources) Morphine; Translations: [MORPHINE] Drug Allergy 01-21-20 17 Headache [facility] (16 sources) Influenza Vac Recombinant MOREJON Drug allergy swelling at site location [facility] Other (1 source) Morphine Drug Allergy 10-26-[address] [facility] (1 source) Flu Vaccine 1659-7590 (9 yr +) Drug allergy (disorder) 10-26-[address] [facility] (1 source) Flu Vaccine 7110-7031 (3 yr +) Drug allergy (disorder) 10-26-[address] [facility] (7 sources) influenza A virus (H1N1) antigen / influenza A virus (H3N2) antigen / influenza B virus antigen Drug Allergy Comment:FLU VACCINE Zimride [facility] Other (2 sources) patient allergy list reviewed by nurse or physicia Propensity to adverse reactions 07-24-20 13 Comment:Done [facility] Other (10 sources) Contraindication to Flu Injection Propensity to adverse reactions 09-20-19 15 Comment:advers e rxn/side effects [facility] Other (3 sources) Morphine Drug Allergy migraines Zimride [facility] Other (9 sources) Fluad Quadrivalent Drug allergy 05-15-20 23 Comment:FLU VACCINE [facility] (6 sources) Influenza Virus Vaccines Allergy to substance 02-10-20 24 swelling at site location [facility] (4 sources) Flu Vac 2014 (65 Up)-Mf59c(Pf); Translations: [FLU VAC 2014 (65 UP)-MF59C(PF)] Propensity to adverse reactions to drug 08-25-20 21 [facility] Medications Current Medications Medication Drug Class(es) Dates Sig (Normalized) Sig (Original) acetaminophen 500 mg oral tablet (1 source) Start: 01-02-2025 End: 01-07-2025 take 1 tablet by mouth every six hours as needed for pain and fever and headache 500 mg, oral, Every 6 hours PRN, mild pain - pain scale 1-3, temperature greater than 38 C, headaches, Starting on 01/02/25 at 0242, For 5 days ALPRAZolam 0.25 mg oral tablet (20 sources) Benzodiazepine Start: 01-03-2025 take 0.5 mg by mouth twice daily as needed for anxiety 0.5 mg, oral, 2 times daily PRN, anxiety, Starting on 01/03/25 at 0140, Look-alike/sound-a like medication - verify indication for use. Start: 08-30-2022 End: 01-02-2025 take 1 tablet by mouth three times daily Alprazolam 0.5 mg tablet Discontinued 0.5 MG PO Three times daily October 31, 2023 1:00am December 11, 2023 5:15pm aspirin 81 mg chewable tablet (20 sources) Platelet Aggregation Inhibitor, Nonsteroidal Anti-inflammatory Drug Start: 01-05-2025 take 1 tablet by mouth once daily Aspirin 81 mg tablet,chewable Active 81 MG PO Daily January 05, 2025 12:00am Start: 01-02-2025 take 81 mg by mouth once daily 81 mg, oral, Daily, First dose on 01/02/25 at 0900 Start: 10-31-2023 End: 05-08-2024 take 1 tablet by mouth once daily Aspirin 81 mg tablet,delayed release (DR/EC) Discontinued 81 MG PO Daily October 31, 2023 1:00am May 08, 2024 10:08am take 1 tablet by bony th every twenty-four hours Aspirin 81 81 MG 1 tablet Orally Once a day Active atorvastatin 40 mg oral tablet (17 sources) HMG-CoA Reductase Inhibitor Start: 01-05-2025 take 1 tablet by mouth once daily Atorvastatin 40 mg tablet Active 40 MG PO Daily January 05, 2025 12:00am Start: 01-02-2025 take 40 mg by mouth once daily 40 mg, oral, Daily, First dose on 01/02/25 at 0900, Look-alike/sound-alike medication - verify indication for use. baclofen 10 mg oral tablet (3 sources) gamma-Aminobutyric Acid-ergic Agonist Start: 01-05-2025 take 1 tablet by mouth three times daily Baclofen 10 mg tablet Active 10 MG PO Three times daily January 05, 2025 12:00am Start: 12-24-2024 take 1 tablet by bony th three times daily baclofen (LIORESAL) 10 mg tablet Take 1 tablet (10 mg total) by mouth 3 (three) times a day. 12/24/2024 Active bisoprolol fumarate 10 mg oral tablet (6 sources) beta-Adrenergic Lou Start: 01-02-2025 take 5 mg by mouth once daily 5 mg, oral, Daily, First dose on 01/02/25 at 0900, Hold if HR Start: 11-24-2024 take 1 tablet by bony th once daily Bisoprolol Fumarate 5 mg tablet Active 5 MG PO Daily November 24, 2024 12:00am cetirizine hydrochloride 10 mg oral tablet (13 sources) Histamine-1 Receptor Antagonist Start: 10-31-2023 take 1 tablet by mouth once daily Cetirizine 10 mg tablet Active 10 MG PO Daily October 31, 2023 1:00am Start: 04-12-2023 take 1 tablet by bony th every twenty-four hours Cetirizine HCl 10 MG 1 tablet Orally Once a day for 14 days Mar, Active clopidogrel 75 mg oral tablet (4 sources) P2Y12 Platelet Inhibitor Start: 01-02-2025 End: 01-23-2025 take 1 tablet by mouth once daily Clopidogrel 75 mg tablet Active 75 MG PO Daily January 05, 2025 12:00am 0.4 ml enoxaparin sodium 100 mg/ml prefilled syringe (1 source) Low Molecular Weight Heparin Start: 01-02-2025 inject 40 mg by subcutaneous injection once daily 40 mg, subcutaneous, Daily, First dose (after last modification) on 01/02/25 at 1030, Look-alike/soun d-alike medication - verify indication for use. etodolac 400 mg oral tablet (3 sources) Nonsteroidal Anti-inflammatory Drug Start: 05-15-2023 take 1 tablet by mouth every twelve hours Etodolac 400 MG 1 tablet with food Orally Twice a day for 14 days Apr, Active famotidine 20 mg oral tablet (1 source) Histamine-2 Receptor Antagonist Start: 01-02-2025 End: 01-07-2025 take 10 mg by mouth twice daily as needed for gastroesophageal reflux disease 10 mg, oral, 2 times daily PRN, indigestion, heartburn, Starting on 01/02/25 at 0242, For 5 days 1 ml hydrALAZINE hydrochloride 20 mg/ml injection (1 source) Arteriolar Vasodilator Start: 01-02-2025 take 10 mg intravenously every six hours as needed 10 mg, intravenous, Every 6 hours PRN, high blood pressure, Starting on 01/02/25 at 1707, For systolic blood pressure greater than 165 mmHg Look-alike/soun d-alike medication - verify indication for use. Administer IV doses as a slow IV push; maximum rate: 5 mg/minute. polyethylene glycol 3350 [id number] mg powder for oral solution (1 source) Osmotic Laxative Start: 01-02-2025 End: 01-07-2025 17 g, oral, Daily PRN, constipation, Starting on 01/02/25 at 0242, For 5 days, Look-alike/soun d-alike medication - verify indication for use. Dissolve 1 packet (17 gm) in 8 ounces of water, juice, soda, coffee or tea. predniSONE 20 mg oral tablet (4 sources) Start: 04-12-2023 take 1 tablet by mouth every twelve hours prednisone 20 MG 1 tablet Orally BID for 5 Mar, Active 1000 ml sodium chloride 9 mg/ml injection (2 sources) Start: 01-02-2025 take 20 mL intravenously every hour as needed 20 mL/hr, intravenous, Continuous PRN, to maintain patency of lines, Starting on 01/02/25 at 0241 Start: 01-02-2025 take 25 mL intraveno usly every hour as needed 25 mL, intravenous, at 100 mL/hr, Administer over 15 Minutes, As needed, line care, line care after IVPB administration, Starting on 01/02/25 at 0241 vitamin b12 1 mg/ml injectable solution (4 sources) Vitamin B12 Start: 01-03-2025 End: 02-22-2025 inject 1000 ug by intramuscular injection every week Cyanocobalamin (Vitamin B-12) 1,000 mcg/mL solution Active 1000 MCG IM every week January 05, 2025 12:00am Start: 01-02-2025 inject 1000 ug by in tramuscular injection once daily 1,000 mcg, intramuscular, Daily, First dose on 01/02/25 at 0900 Completed/Discontinued Medications Medication Drug Class(es) Dates Sig [...] as needed for 10 days Aug, Not-Taking benazepril hydrochloride 10 mg oral tablet (20 sources) Angiotensin Converting Enzyme Inhibitor Start: 10-31-2023 End: 01-05-2025 take 1 tablet by mouth once daily Benazepril 10 mg tablet Discontinued 10 MG PO Daily November 24, 2024 3:50pm January 05, 2025 8:06am take 1 tablet by mouth once buster y Benazepril HCl 10 MG TAKE 1 TABLET BY MOUTH EVERY DAY Active betamethasone 0.5 mg/ml / clotrimazole 10 mg/ml topical cream (16 sources) Azole Antifungal, Corticosteroid Clotrimazole-Betamet hasone 1-0.05 % 1 application Externally Twice a day Not-Taking/PRN bisoprolol fumarate 5 mg / hydroCHLOROthiazide 6.25 mg oral tablet (11 sources) Thiazide Diuretic, beta-Adrenergic Lou Start: 09-24-2024 End: 11-24-2024 take 1 tablet by mouth once daily Bisoprolol-Hydrochlorothiazide 5-6.25 mg tablet Discontinued 1 TAB PO Daily November 24, 2024 3:41pm November 24, 2024 3:49pm End: 01-02-2025 take 1 tablet by mouth once in the morning bisoprolol-hydroCHLOROthiazide (ZIAC) 5- 6.25 mg per tablet Take 1 tablet by mouth in the morning. 01/02/2025 Discontinued (Therapy completed) 24 hr buPROPion hydrochloride 300 mg extended release oral tablet (2 sources) Aminoketone End: 01-02-2025 take 1 tablet by mouth every twenty-four hours in the morning buPROPion XL (WELLBUTRIN XL) 300 mg 24 hr tablet Take 1 tablet (300 mg total) by mouth in the morning. 01/02/2025 Discontinued take 1 tablet by mouth once buster y buPROPion XL (WELLBUTRIN XL) 300 mg 24 hr tablet Take 300 mg by mouth daily. Active cefuroxime 500 mg oral tablet (1 source) Cephalosporin Antibacterial End: 01-03-2025 take 1 tablet by mouth in the morning, then take 1 tablet by mouth at bedtime ceFUROxime (CEFTIN) 500 mg tablet Indications: bacterial urinary tract infection Take 1 tablet (500 mg total) by mouth in the morning and 1 tablet (500 mg total) before bedtime. Indications: bacterial urinary tract infection. 01/03/2025 Discontinued (Stop Taking at Discharge) citalopram 40 mg oral tablet (20 sources) Serotonin Reuptake Inhibitor Start: 10-21-2023 End: 01-05-2025 take 1 tablet by mouth once daily Citalopram 40 mg tablet Discontinued 40 MG PO Daily 90 90 November 24, 2024 3:51pm January 05, 2025 8:06am End: 01-02-2025 take 1 tablet by mouth in the morning citalopram (CeleXA) 20 mg tablet Take 1 tablet (20 mg total) by mouth in the morning. 01/02/2025 Discontinued take 1 tablet by bony th once daily at bedtime Citalopram Hydrobromide 40 MG TAKE 1 TABLET BY MOUTH EVERYDAY AT BEDTIME Active take 0.5 tablet by m outh every twenty-four hours Citalopram Hydrobromide 40 MG 0.5 tablet Orally Once a day Active cyproheptadine hydrochloride 4 mg oral tablet (5 sources) Start: 05-08-2024 End: 01-05-2025 take 1 tablet by mouth once daily at bedtime Cyproheptadine 4 mg tablet Discontinued 4 MG PO Daily at bedtime 30 May 08, 2024 12:00am January 05, 2025 8:06am hydroCHLOROthiazide (16 sources) Thiazide Diuretic hydroCHLOROthiazide Not-Taking/PRN hydroCHLOROthiaz ursula Not-Taking hydroCHLOROthiaz ursula Active omeprazole 20 mg / sodium bicarbonate 1100 mg oral capsule (13 sources) Proton Pump Inhibitor Start: 10-31-2023 End: 05-08-2024 Omeprazole-Sodium Bicarbonate 20-1.1 mg-gram capsule Discontinued 1 CAP PO October 31, 2023 1:00am May 08, 2024 10:08am take 1 capsule by mo [facility] every twenty-four hours Zegerid 20-1100 MG 1 capsule on an empty stomach Orally Once a day Active tiZANidine 2 mg oral capsule (20 sources) Central alpha-2 Adrenergic Agonist Start: 06-30-2024 End: 01-05-2025 take 1 capsule by mouth once daily at bedtime Tizanidine 2 mg capsule Discontinued 2 MG PO Daily at bedtime June 30, 2024 5:44pm January 05, 2025 8:06am Start: 02-16-2024 End: 05-08-2024 take 1 tablet [...] PO Daily at bedtime November 01, 2023 1:00am February 16, 2024 8:20am Start: 05-15-2023 take 1 tablet by bony once at bedtime as needed tiZANidine HCl 2 MG 1 tablet as needed Orally q HS for 14 days Apr, Active Vitamin D3 (16 sources) Vitamin D3 Not-T aking/PRN Vitamin D3 Not-T aking Problems Active Problems Problem Classification Problem Date Documented Da te Episodic/Chronic Acute cerebrovascular disease (3 sources) Cerebrovascular accident; Translations: [Cerebral infarction, unspecified] Onset: 5 01-03-2025 Chronic Acute cerebrovascular disease (1 source) Acute cerebrovascular disease Onset: 5 Anxiety disorders (20 sources) Generalized anxiety disorder; Translations: [Generalized anxiety disorder] Chronic Cancer of breast (4 sources) Malignant neoplasm of female breast; Translations: [Malignant neoplasm of unspecified site of right female breast] Onset: 4 Chronic Cancer of breast (20 sources) History of malignant neoplasm of breast; Translations: [Personal history of malignant neoplasm of breast] Onset: 4 Episodic Cardiac dysrhythmias (20 sources) Palpitations; Translations: [Palpitations] 10-31-2023 Episodic Deficiency and other anemia (8 sources) Pernicious anemia; Translations: [Vitamin B12 deficiency anemia due to intrinsic factor deficiency] 10-31-2023 Episodic Disorders of lipid metabolism (20 sources) Hypercholesterolemia; Translations: [Pure hypercholesterolemia, unspecified] Chronic Esophageal disorders (6 sources) Gastroesophageal reflux disease; Translations: [Gastro-esophageal reflux disease without esophagitis] 10-31-2023 Chronic Esophageal disorders (2 sources) Esophageal disorders; Translations: [Gastro-esophageal reflux disease with esophagitis, without bleeding] Essential hypertension (20 sources) Essential hypertension; Translations: [Essential (primary) hypertension] Chronic Comment on above: Echo: LVEF 55%, norm al RV size/function - 12/2024 Genitourinary symptoms and ill-defined conditions (2 sources) Overflow incontinence of urine; Translations: [Overflow incontinence] Onset: 7 Chronic Headache; including migraine (20 sources) Migraine with aura; Translations: [Migraine with aura, not intractable, without status migrainosus] Onset: 4 11-01-2023 Chronic Menopausal disorders (2 sources) Primary ovarian failure; Translations: [Other primary ovarian failure] Onset: 7 Chronic Mood disorders (16 sources) Moderate recurrent major depression; Translations: [Major depressive disorder, recurrent, moderate] Onset: 4 Resolved: 2 10-31-2023 Chronic Multiple sclerosis (2 sources) Multiple sclerosis; Translations: [Multiple sclerosis] Onset: 5 Chronic Mycoses (2 sources) Candidiasis of skin and nails; Translations: [Candidiasis of skin and nail] Episodic Nutritional deficiencies (2 sources) Vitamin D deficiency; Translations: [Vitamin D deficiency, unspecified] Onset: 7 Chronic Nutritional deficiencies (2 sources) Cobalamin deficiency; Translations: [Deficiency of other specified B group vitamins] Onset: 5 01-02-2025 Episodic Osteoarthritis (18 sources) Localized, primary osteoarthritis of the shoulder region; Translations: [Primary osteoarthritis, left shoulder] Onset: 5 09-24-2024 Chronic Osteoporosis (20 sources) Senile osteoporosis; Translations: [Age-related osteoporosis without current pathological fracture] Chronic Other aftercare (2 sources) Other intermediate frame tender (current) drug therapy Episodic Other and ill-defined cerebrovascular disease (9 sources) Cerebral atherosclerosis; Translations: [Cerebral atherosclerosis] 10-31-2023 Chronic Comment on above: CVA: left parietal - 12/2024,CTA head/neck: no stenosis, thrombus or aneurysm - 12/2024,MR brain: left parietal infarct - T brain: no mass, hemorrhage or infarct - 12/2024 Other and ill-defined cerebrovascular disease (10 sources) Cerebral atherosclerosis; Translations: [Cerebral atherosclerosis] Chronic [...] knee] 10-31-2023 Episodic Other connective tissue disease (5 sources) Synovial cyst of popliteal space [Garcia], [...] Onset: 6 Chronic Other nervous system disorders (3 sources) Disorder of brain; Translations: [Encephalopathy, unspecified] Onset: 5 Resolved: 5 01-03-2025 Chronic Other nervous system disorders (1 source) Encephalopathy, unspecified; Translations: [Encephalopathy, unspecified] Onset: 5 Chronic Other nervous system disorders (2 sources) Abnormal gait; Translations: [Unsteadiness on feet] Episodic Other nervous system disorders (4 sources) Ataxia; Translations: [Ataxia, unspecified] Onset: 5 Resolved: 5 01-03-2025 Episodic Other non-traumatic joint disorders (2 sources) [...] conditions (not mental disorders or infectious disease) (7 sources) Encounter for screening for malignant neoplasm of colon; Translations: [Patient encounter status] Episodic Other upper respiratory infections (3 sources) Acute maxillary sinusitis; Translations: [Acute maxillary sinusitis, unspecified] Onset: 7 Episodic Residual codes; unclassified (1 source) Pain, unspecified; Translations: [Pain, unspecified] Onset: 5 Episodic Spondylosis; intervertebral disc disorders; other back problems (20 sources) Inflammatory spondylopathy; Translations: [Unspecified inflammatory spondylopathy, [...] [Other malaise and fatigue] Onset: 02-07-2016 Episodic Mood disorders (1 source) Mood disorders Onset: 01-02-2025 01-02-2025 Nonmalignant breast conditions (2 sources) Breast lump; [...] Test Name Value Interpretation Reference Range Facility Bacteria identified Cx Nom ( U)on 01-03-2025 Bacteria identified Aer cx Nom (Unsp spec) NO GROWTH AT <1000 CFU/mL [facility] CBC WITH AUTO DIFFERENTIALon 01-03-2025 BASOPHILS ABSOLUTE COUNT (10*3/UL) BY AUTOMATED COUNT 0.1 10*3/uL Normal 0.0-0.2 [facility] Comment on above: Performed By: #### C BCA #### [facility] ([facility]) [address] [place] [address] VIR BASOPHILS RELATIVE PERCENT BY AUTOMATED COUNT 1.3 % Normal [facility] Comment on above: Performed By: #### C BCA #### [facility] ([facility]) [address] [place] [address] VIR CELLAVISION DIFFERENTIAL TYPE AUTOMATED DIFFERENTIAL Normal [facility] Comment on above: Performed By: #### C BCA #### [facility] ([facility]) [address] [place] [address] VIR Eosinophils (Bld) [#/Vol] 0.2 10*3/uL Normal 0.0-0.4 [facility] Comment on above: Performed By: #### C BCA #### [facility] ([facility]) [address] [place] [address] VIR EOSINOPHILS RELATIVE PERCENT BY AUTOMATED COUNT 3.3 % Normal [facility] Comment on above: Performed By: #### C BCA #### [facility] ([facility]) [address] [place] [address] VIR Erythrocyte distribution width (RBC) [Ratio] 14.1 % Normal 11.5-15 [facility] Comment on above: Performed By: #### C BCA #### [facility] ([facility]) [address] [place] [address] VIR Hematocrit (Bld) [Volume fraction] 38.5 % Normal 35-47 [facility] Comment on above: Performed By: #### C BCA #### [facility] ([facility]) [address] [place] [address] VIR Hemoglobin (Bld) [Mass/Vol] 13.1 g/dL Normal 11.7-15.5 [facility] Comment on above: Performed By: #### C BCA #### [facility] ([facility]) [address] [place] [address] VIR LYMPHOCYTES ABSOLUTE COUNT (10*3/UL) BY AUTOMATED COUNT 0.9 10*3/uL Low 1.0-3.5 [facility] Comment on above: Performed By: #### C BCA #### [facility] ([facility]) [address] [place] [address] VIR LYMPHOCYTES RELATIVE PERCENT BY AUTOMATED COUNT 16.8 % Normal [facility] Comment on above: Performed By: #### C BCA #### [facility] ([facility]) [address] [place] [address] VIR MCH (RBC) [Entitic mass] 29.8 pg Normal 27-34 [facility] Comment on above: Performed By: #### C BCA #### [facility] ([facility]) [address] [place] [address] VIR MCHC (RBC) [Mass/Vol] 34.1 g/dL Normal 32-36 [facility] Comment on above: Performed By: #### C BCA #### [facility] ([facility]) [address] [place] [address] VIR MCV (RBC) [Entitic vol] 87 fL Normal 80-100 [facility] Comment on above: Performed By: #### C BCA #### [facility] ([facility]) [address] [place] [address] VIR MONOCYTES ABSOLUTE COUNT (10*3/UL) BY AUTOMATED COUNT 0.9 10*3/uL Normal 0.0-0.9 [facility] Comment on above: Performed By: #### C BCA #### [facility] ([facility]) [address] [place] [address] VIR MONOCYTES RELATIVE PERCENT BY AUTOMATED COUNT 16.0 % Normal [facility] Comment on above: Performed By: #### C BCA #### [facility] ([facility]) [address] [place] [address] VIR NEUTROPHILS ABSOLUTE COUNT BY AUTOMATED COUNT 3.4 10*3/uL Normal 1.5-6.6 [facility] Comment on above: Performed By: #### C BCA #### [facility] ([facility]) [address] [place] [address] VIR NEUTROPHILS RELATIVE PERCENT BY AUTOMATED COUNT 62.6 % Normal [facility] Comment on above: Performed By: #### C BCA #### [facility] ([facility]) [address] [place] [address] VIR Platelet mean volume (Bld) [Entitic vol] 9.0 fL Normal 7-12 [facility] Comment on above: Performed By: #### C BCA #### [facility] ([facility]) [address] [place] [address] VIR Platelets (Bld) [#/Vol] 264 10*3/uL Normal 150-450 [facility] Comment on above: Performed By: #### C BCA #### [facility] ([facility]) [address] [place] [address] VIR RBC COUNT 4.40 X10E12/L Normal 3.8-5.2 [facility] Comment on above: Performed By: #### C BCA #### [facility] ([facility]) [address] [place] [address] VIR WBC (Bld) [#/Vol] 5.4 10*3/uL Normal 4-11 [facility] Comment on above: Performed By: #### C BCA #### [facility] ([facility]) [address] [place] [address] VIR CBC auto differentialon 12-24 Basophils (Bld) [#/Vol] 0.1 10*3/uL 0.0 - 0.2 10*3/uL [facility] Basophils/100 WBC (Bld) 1.3 % [facility] Differential cell count method Nom (Bld) AUTOMATED DIFFERENTIAL [facility] Eosinophils (Bld) [#/Vol] 0.2 10*3/uL 0.0 - 0.4 10*3/uL [facility] Eosinophils/100 WBC (Bld) 3.3 % [facility] Erythrocyte distribution width (RBC) [Ratio] 14.1 % 11.5 - 15 % [facility] Hematocrit (Bld) [Volume fraction] 38.5 % 35 - 47 % [facility] Hemoglobin (Bld) [Mass/Vol] 13.1 g/dL 11.7 - 15.5 g/dL [facility] Interpretation and review of laboratory results Abnormal [facility] Lymphocytes (Bld) [#/Vol] 0.9 10*3/uL Low 1.0 - 3.5 10*3/uL [facility] Lymphocytes/100 WBC (Bld) 16.8 % [facility] MCH (RBC) [Entitic mass] 29.8 pg 27 - 34 pg [facility] MCHC (RBC) [Mass/Vol] 34.1 g/dL 32 - 36 g/dL [facility] MCV (RBC) [Entitic vol] 87 fL 80 - 100 fL [facility] Monocytes (Bld) [#/Vol] 0.9 10*3/uL 0.0 - 0.9 10*3/uL [facility] Monocytes/100 WBC (Bld) 16 % [facility] Neutrophils (Bld) [#/Vol] 3.4 10*3/uL 1.5 - 6.6 10*3/uL [facility] Neutrophils/100 WBC (Bld) 62.6 % [facility] Platelet mean volume (Bld) [Entitic vol] 9 fL 7 - 12 fL [facility] Platelets (Bld) [#/Vol] 264 10*3/uL [facility] RBC (Bld) [#/Vol] 4.4 10*6/uL [facility] WBC LM Ql (Sput) 5.4 [facility] COMPREHENSIVE METABOLIC PANE Artemio 01-03-2025 Albumin [Mass/Vol] 3.7 g/dL Normal 3.2-5.3 [facility] Comment on above: Performed By: #### C BCA #### [facility] ([facility]) [address] [place] [address] VIR ALP [Catalytic activity/Vol] 97 U/L Normal 39-130 [facility] Comment on above: Performed By: #### C BCA #### [facility] ([facility]) [address] [place] [address] VIR ALT [Catalytic activity/Vol] 7 U/L Normal <=31 [facility] Comment on above: Performed By: #### C BCA #### [facility] ([facility]) [address] [place] [address] VIR Anion gap [Moles/Vol] 8 mmol/L Normal 5-15 [facility] Comment on above: Performed By: #### C BCA #### [facility] ([facility]) [address] [place] [address] VIR AST [Catalytic activity/Vol] 16 U/L Normal <=41 [facility] Comment on above: Performed By: #### C BCA #### [facility] ([facility]) [address] [place] [address] VIR Bilirubin [Mass/Vol] 0.5 mg/dL Normal 0.3-1.2 [facility] Comment on above: Performed By: #### C BCA #### [facility] ([facility]) [address] [place] [address] VIR Calcium [Mass/Vol] 9.2 mg/dL Normal 8.5-10.5 [facility] Comment on above: Performed By: #### C BCA #### [facility] ([facility]) [address] [place] [address] VIR Chloride [Moles/Vol] 106 mmol/L Normal 98-109 [facility] Comment on above: Performed By: #### C BCA #### [facility] ([facility]) [address] [place] [address] VIR CO2 [Moles/Vol] 28 mmol/L Normal 22-32 [facility] Comment on above: Performed By: #### C BCA #### [facility] ([facility]) [address] [place] [address] VIR Creatinine [Mass/Vol] 0.68 mg/dL Normal 0.40-1.00 [facility] Comment on above: Result Comment: METH OD TRACEABLE TO IDMS STANDARD Performed By: #### C BCA #### [facility] ([facility]) [address] [place] [address] VIR GFR/1.73 sq M.predicted among non-blacks MDRD (S/P/Bld) [Vol rate/Area] 90 mL/min/{1.73_m2} Normal >=60 [facility] Comment on above: Result Comment: [facility] is based on the CKD-EPI 2020 equation that does not use a race coefficient. Performed By: #### C BCA #### [facility] ([facility]) [address] [place] [address] VIR Glucose [Mass/Vol] 82 mg/dL Normal 65-99 [facility] Comment on above: Performed By: #### C BCA #### [facility] ([facility]) [address] [place] [address] VIR Potassium [Moles/Vol] 3.5 mmol/L Normal 3.5-5.0 [facility] Comment on above: Performed By: #### C BCA #### [facility] ([facility]) [address] [place] [address] VIR Protein [Mass/Vol] 6.7 g/dL Normal 6.0-8.0 [facility] Comment on above: Performed By: #### C BCA #### [facility] ([facility]) [address] [place] [address] VIR Sodium [Moles/Vol] 142 mmol/L Normal 134-146 [facility] Comment on above: Performed By: #### C BCA #### [facility] ([facility]) [address] [place] [address] VIR Urea nitrogen [Mass/Vol] 12 mg/dL Normal 5-27 [facility] Comment on above: Performed By: #### C BCA #### [facility] ([facility]) [address] [place] [address] VIR Comprehensive metabolic pane artemio 01-03-2025 Albumin [Mass/Vol] 3.7 g/dL 3.2 - 5.3 g/dL [facility] ALP [Catalytic activity/Vol] 97 U/L 39 - 130 U/L [facility] ALT No additional P-5'-P [Catalytic activity/Vol] 7 U/L NINF - 31 U/L [facility] Anion gap [Moles/Vol] 8 mmol/L 5 - 15 mmol/L [facility] AST [Catalytic activity/Vol] 16 U/L NINF - 41 U/L [facility] Bilirubin [Mass/Vol] 0.5 mg/dL 0.3 - 1 .2 mg/dL [facility] Calcium [Mass/Vol] 9.2 mg/dL 8.5 - 10. 5 mg/dL [facility] Chloride [Moles/Vol] 106 mmol/L 98 - 10 9 mmol/L [facility] CO2 [Moles/Vol] 28 mmol/L 22 - 32 mmol/L [facility] Creatinine [Mass/Vol] 0.68 mg/dL 0.40 - 1.00 mg/dL [facility] Comment on above: METHOD TRACEABLE TO IDTX STANDARD EGFR Non-Race Dependent 90 - PINF [facility] Comment on above: Reported eGFR is bas ed on the CKD-EPI 2020 equation that does not use a race coefficient. Glucose [Mass/Vol] 82 mg/dL 65 - 99 mg/dL [facility] Potassium [Moles/Vol] 3.5 mmol/L 3.5 - 5.0 mmol/L [facility] Protein [Mass/Vol] 6.7 g/dL 6.0 - 8.0 g/dL [facility] Sodium [Moles/Vol] 142 mmol/L 134 - 146 mmol/L [facility] Urea nitrogen [Mass/Vol] 12 mg/dL 5 - 27 mg/dL [facility] MAGNESIUMon 01-03-2025 Magnesium [Mass/Vol] 2.2 mg/dL Normal 1.8-2.6 [facility] Comment on above: Performed By: #### C BCA #### [facility] ([facility]) [address] [place] [address] VIR Magnesiumon 01-03-2025 Magnesium [Mass/Vol] 2.2 mg/dL 1.8 - 2 .6 mg/dL [facility] No Panel Informationon 01-03 Interpretation and review of laboratory results Normal [facility] AMMONIAon 01-02-2025 Ammonia (P) [Moles/Vol] 21 umol/L Normal 18-72 [facility] Comment on above: Performed By: #### A MMON #### [facility] ([facility]) [address] [place] [address] VIR Ammoniaon 01-02-2025 Ammonia (P) [Moles/Vol] 21 umol/L 18 - 72 umol/L [facility] Interpretation and review of laboratory results Normal [facility] CBC WITH AUTO DIFFERENTIALon 01-02-2025 BASOPHILS ABSOLUTE COUNT (10*3/UL) BY AUTOMATED COUNT 0.1 10*3/uL Normal 0.0-0.2 [facility] Comment on above: Performed By: #### C BCA #### [facility] ([facility]) [address] [place] [address] VIR BASOPHILS RELATIVE PERCENT BY AUTOMATED COUNT 1.3 % Normal [facility] Comment on above: Performed By: #### C BCA #### [facility] ([facility]) [address] [place] [address] VIR CELLAVISION DIFFERENTIAL TYPE AUTOMATED DIFFERENTIAL Normal [facility] Comment on above: Performed By: #### C BCA #### [facility] ([facility]) [address] [place] [address] VIR Eosinophils (Bld) [#/Vol] 0.2 10*3/uL Normal 0.0-0.4 [facility] Comment on above: Performed By: #### C BCA #### [facility] ([facility]) [address] [place] [address] VIR EOSINOPHILS RELATIVE PERCENT BY AUTOMATED COUNT 3.2 % Normal [facility] Comment on above: Performed By: #### C BCA #### [facility] ([facility]) [address] [place] [address] VIR Erythrocyte distribution width (RBC) [Ratio] 14.3 % Normal 11.5-15 [facility] Comment on above: Performed By: #### C BCA #### [facility] ([facility]) [address] [place] [address] VIR Hematocrit (Bld) [Volume fraction] 38.2 % Normal 35-47 [facility] Comment on above: Performed By: #### C BCA #### [facility] ([facility]) [address] [place] [address] VIR Hemoglobin (Bld) [Mass/Vol] 12.9 g/dL Normal 11.7-15.5 [facility] Comment on above: Performed By: #### C BCA #### [facility] ([facility]) [address] [place] [address] VIR LYMPHOCYTES ABSOLUTE COUNT (10*3/UL) BY AUTOMATED COUNT 1.1 10*3/uL Normal 1.0-3.5 [facility] Comment on above: Performed By: #### C BCA #### [facility] ([facility]) [address] [place] [address] VIR LYMPHOCYTES RELATIVE PERCENT BY AUTOMATED COUNT 21.5 % Normal [facility] Comment on above: Performed By: #### C BCA #### [facility] ([facility]) [address] [place] [address] VIR MCH (RBC) [Entitic mass] 29.7 pg Normal 27-34 [facility] Comment on above: Performed By: #### C BCA #### [facility] ([facility]) [address] [place] [address] VIR MCHC (RBC) [Mass/Vol] 33.8 g/dL Normal 32-36 [facility] Comment on above: Performed By: #### C BCA #### [facility] ([facility]) [address] [place] [address] VIR MCV (RBC) [Entitic vol] 88 fL Normal 80-100 [facility] Comment on above: Performed By: #### C BCA #### [facility] ([facility]) [address] [place] [address] VIR MONOCYTES ABSOLUTE COUNT (10*3/UL) BY AUTOMATED COUNT 0.9 10*3/uL Normal 0.0-0.9 [facility] Comment on above: Performed By: #### C BCA #### [facility] ([facility]) [address] [place] [address] VIR MONOCYTES RELATIVE PERCENT BY AUTOMATED COUNT 18.2 % Normal [facility] Comment on above: Performed By: #### C BCA #### [facility] ([facility]) [address] [place] [address] VIR NEUTROPHILS ABSOLUTE COUNT BY AUTOMATED COUNT 2.8 10*3/uL Normal 1.5-6.6 [facility] Comment on above: Performed By: #### C BCA #### [facility] ([facility]) [address] [place] [address] VIR NEUTROPHILS RELATIVE PERCENT BY AUTOMATED COUNT 55.8 % Normal [facility] Comment on above: Performed By: #### C BCA #### [facility] ([facility]) [address] [place] [address] VIR Platelet mean volume (Bld) [Entitic vol] 8.9 fL Normal 7-12 [facility] Comment on above: Performed By: #### C BCA #### [facility] ([facility]) [address] [place] [address] VIR Platelets (Bld) [#/Vol] 284 10*3/uL Normal 150-450 [facility] Comment on above: Performed By: #### C BCA #### [facility] ([facility]) [address] [place] [address] VIR RBC COUNT 4.33 X10E12/L Normal 3.8-5.2 [facility] Comment on above: Performed By: #### C BCA #### [facility] ([facility]) [address] [place] [address] VIR WBC (Bld) [#/Vol] 5.1 10*3/uL Normal 4-11 [facility] Comment on above: Performed By: #### C BCA #### [facility] ([facility]) [address] [place] [address] VIR CBC auto differentialon 12-24 Basophils (Bld) [#/Vol] 0.1 10*3/uL 0.0 - 0.2 10*3/uL [facility] Basophils/100 WBC (Bld) 1.3 % [facility] Differential cell count method Nom (Bld) AUTOMATED DIFFERENTIAL [facility] Eosinophils (Bld) [#/Vol] 0.2 10*3/uL 0.0 - 0.4 10*3/uL [facility] Eosinophils/100 WBC (Bld) 3.2 % [facility] Erythrocyte distribution width (RBC) [Ratio] 14.3 % 11.5 - 15 % [facility] Hematocrit (Bld) [Volume fraction] 38.2 % 35 - 47 % [facility] Hemoglobin (Bld) [Mass/Vol] 12.9 g/dL 11.7 - 15.5 g/dL [facility] Lymphocytes (Bld) [#/Vol] 1.1 10*3/uL 1.0 - 3.5 10*3/uL [facility] Lymphocytes/100 WBC (Bld) 21.5 % [facility] MCH (RBC) [Entitic mass] 29.7 pg 27 - 34 pg [facility] MCHC (RBC) [Mass/Vol] 33.8 g/dL 32 - 36 g/dL [facility] MCV (RBC) [Entitic vol] 88 fL 80 - 100 fL [facility] Monocytes (Bld) [#/Vol] 0.9 10*3/uL 0.0 - 0.9 10*3/uL [facility] Monocytes/100 WBC (Bld) 18.2 % [facility] Neutrophils (Bld) [#/Vol] 2.8 10*3/uL 1.5 - 6.6 10*3/uL [facility] Neutrophils/100 WBC (Bld) 55.8 % [facility] Platelet mean volume (Bld) [Entitic vol] 8.9 fL 7 - 12 fL [facility] Platelets (Bld) [#/Vol] 284 10*3/uL [facility] RBC (Bld) [#/Vol] 4.33 10*6/uL [facility] WBC LM Ql (Sput) 5.1 [facility] COMPREHENSIVE METABOLIC PANE Artemio 01-02-2025 Albumin [Mass/Vol] 3.7 g/dL Normal 3.2-5.3 [facility] Comment on above: Performed By: #### C MP #### [facility] ([facility]) [address] [place] [address] VIR ALP [Catalytic activity/Vol] 93 U/L Normal 39-130 [facility] Comment on above: Performed By: #### C MP #### [facility] ([facility]) [address] [place] [address] VIR ALT [Catalytic activity/Vol] 7 U/L Normal <=31 [facility] Comment on above: Performed By: #### C MP #### [facility] ([facility]) [address] [place] [address] VIR Anion gap [Moles/Vol] 8 mmol/L Normal 5-15 [facility] Comment on above: Performed By: #### C MP #### [facility] ([facility]) [address] [place] [address] VIR AST [Catalytic activity/Vol] 19 U/L Normal <=41 [facility] Comment on above: Performed By: #### C MP #### [facility] ([facility]) [address] [place] [address] VIR Bilirubin [Mass/Vol] 0.6 mg/dL Normal 0.3-1.2 [facility] Comment on above: Performed By: #### C MP #### [facility] ([facility]) [address] [place] [address] VIR Calcium [Mass/Vol] 9.0 mg/dL Normal 8.5-10.5 [facility] Comment on above: Performed By: #### C MP #### [facility] ([facility]) [address] [place] [address] VIR Chloride [Moles/Vol] 106 mmol/L Normal 98-109 [facility] Comment on above: Performed By: #### C MP #### [facility] ([facility]) [address] [place] [address] VIR CO2 [Moles/Vol] 27 mmol/L Normal 22-32 [facility] Comment on above: Performed By: #### C MP #### [facility] ([facility]) [address] [place] [address] VIR Creatinine [Mass/Vol] 0.64 mg/dL Normal 0.40-1.00 [facility] Comment on above: Result Comment: METH OD TRACEABLE TO IDMS STANDARD Performed By: #### C MP #### [facility] ([facility]) [address] [place] [address] VIR EGFR (CKD-EPI) NON-RACE DEPENDENT >^90 Normal >=60 [facility] Comment on above: Result Comment: Repo rted eGFR is based on the CKD-EPI 2020 equation that does not use a race coefficient. Performed By: #### C MP #### [facility] ([facility]) [address] [place] [address] VIR Glucose [Mass/Vol] 88 mg/dL Normal 65-99 [facility] Comment on above: Performed By: #### C MP #### [facility] ([facility]) [address] [place] [address] VIR Potassium [Moles/Vol] 3.7 mmol/L Normal 3.5-5.0 [facility] Comment on above: Performed By: #### C MP #### [facility] ([facility]) [address] [place] [address] VIR Protein [Mass/Vol] 6.7 g/dL Normal 6.0-8.0 [facility] Comment on above: Performed By: #### C MP #### [facility] ([facility]) [address] [place] [address] VIR Sodium [Moles/Vol] 141 mmol/L Normal 134-146 [facility] Comment on above: Performed By: #### C MP #### [facility] ([facility]) [address] [place] [address] VIR Urea nitrogen [Mass/Vol] 12 mg/dL Normal 5-27 [facility] Comment on above: Performed By: #### C MP #### [facility] ([facility]) [address] [place] [address] VIR Comprehensive metabolic pane artemio 01-02-2025 Albumin [Mass/Vol] 3.7 g/dL 3.2 - 5.3 g/dL [facility] ALP [Catalytic activity/Vol] 93 U/L 39 - 130 U/L [facility] ALT No additional P-5'-P [Catalytic activity/Vol] 7 U/L NINF - 31 U/L [facility] Anion gap [Moles/Vol] 8 mmol/L 5 - 15 mmol/L [facility] AST [Catalytic activity/Vol] 19 U/L NINF - 41 U/L [facility] Bilirubin [Mass/Vol] 0.6 mg/dL 0.3 - 1 .2 mg/dL [facility] Calcium [Mass/Vol] 9 mg/dL 8.5 - 10. 5 mg/dL [facility] Chloride [Moles/Vol] 106 mmol/L 98 - 10 9 mmol/L [facility] CO2 [Moles/Vol] 27 mmol/L 22 - 32 mmol/L [facility] Creatinine [Mass/Vol] 0.64 mg/dL 0.40 - 1.00 mg/dL [facility] Comment on above: METHOD TRACEABLE TO IDTX STANDARD EGFR Non-Race Dependent - PINF [facility] Comment on above: Reported eGFR is bas ed on the CKD-EPI 2020 equation that does not use a race coefficient. Glucose [Mass/Vol] 88 mg/dL 65 - 99 mg/dL [facility] Potassium [Moles/Vol] 3.7 mmol/L 3.5 - 5.0 mmol/L [facility] Protein [Mass/Vol] 6.7 g/dL 6.0 - 8.0 g/dL [facility] Sodium [Moles/Vol] 141 mmol/L 134 - 146 mmol/L [facility] Urea nitrogen [Mass/Vol] 12 mg/dL 5 - 27 mg/dL [facility] EEGon 01-02-2025 Images from the original result were not included. DC Routine EEG Report Length of Study: 31 minutes EEG Service Date: 01/02/2025 History: 74 year old woman with concern for seizures Medications: Not on any psychotropic medications Technique: This EEG was acquired with electrodes placed according to the 10-20 electrode placement system. A single EKG channel was recorded for cardiac rhythm monitoring. The quality of recording was good. EEG Classification: Normal State of Consciousness: Awake EEG Findings: 1.) Dominant Rhythm: A PDR of up to 9 Hz was seen, symmetric and reactive 2.) Background: There were multiple waveforms seen throughout the recording. In awake states, there was a normal PDR appreciated as described above. Reactivity to external stimuli was appreciated. No progressive sleep stages were seen. 3.) Activating procedures: Hyperventilation was not performed. Photic stimulation was performed, but did not produce significant changes. 4.) HR 48-50 BPM, regular Impression: This is a normal awake EEG. No epileptiform discharges or lateralizing signs were seen. Martha Prince MD Primary Education Professor [place] Neurology MANUALLY TRANSCRIBED RESULTS EEGOrdered By: Martha Prince on 01-02-2025 [facility] Work Phone: Er Extra Urineon 01-02-2025 Extra Tube Auto Resulted [facility] MAGNESIUMon 01-02-2025 Magnesium [Mass/Vol] 2.2 mg/dL Normal 1.8-2.6 [facility] Comment on above: Performed By: #### M G #### [facility] ([facility]) [address] [place] [address] VIR Magnesiumon 01-02-2025 Magnesium [Mass/Vol] 2.2 mg/dL 1.8 - 2 .6 mg/dL [facility] No Panel Informationon 01-02 Interpretation and review of laboratory results Normal [facility] PROTIME AND INRon 01-02-2025 INR 1.0 Normal 0.9-1.2 [facility] Comment on above: Performed By: #### P INR #### [facility] ([facility]) [address] [place] [address] VIR PT Coag (PPP) [Time] 11.1 s Normal 9.8-13.2 [facility] Comment on above: Performed By: #### P INR #### [facility] ([facility]) [address] [place] [address] VIR Protime & INRon 01-02-2025 INR Coag (Platelet poor plasma or blood) [Relative time] 1 0.9 - 1.2 [facility] Interpretation and review of laboratory results Normal [facility] PT Coag (PPP) [Time] 11.[address] [facility] THYROID PROFILE INCLUDES TSH FT4on 01-02-2025 Free T4 [Mass/Vol] 0.81 ng/dL Normal 0.61-1.60 [facility] Comment on above: Performed By: #### T HYR #### [facility] ([facility]) [address] [place] [address] VIR TSH 2.85 uIU/mL Normal 0.49-4.67 [facility] Comment on above: Performed By: #### T HYR #### [facility] ([facility]) [address] [place] [address] VIR Thyroid profile includes TSH FT4on 01-02-2025 Free T4 [Mass/Vol] 0.81 ng/dL 0.61 - 1. 60 ng/dL [facility] Interpretation and review of laboratory results Normal [facility] TSH Qn 2.85 m[IU]/L [facility] URINALYSISon 01-02-2025 Bilirubin Ql (U) Negative Normal Negative [facility] Comment on above: Performed By: #### U A #### [facility] ([facility]) [address] [place] [id number] VIR BLOOD/HGB Negative Normal Negative [facility] Comment on above: Performed By: #### U A #### [facility] ([facility]) [address] [place] [address] VIR Color (U) Yellow Normal Yellow, Colorless [facility] Comment on above: Performed By: #### U A #### [facility] ([facility]) [address] [place] [id number] VIR Glucose Ql (U) Negative Normal Negative [facility] Comment on above: Performed By: #### U A #### [facility] ([facility]) [address] [place] [id number] VIR Ketones Ql (U) Negative Normal Negative [facility] Comment on above: Performed By: #### U A #### [facility] ([facility]) [address] [place] [id number] VIR Leukocyte esterase Test strip Ql (U) Negative Normal Negative [facility] Comment on above: Performed By: #### U A #### [facility] ([facility]) [address] [place] [address] VIR Nitrite Ql (U) Negative Normal Negative [facility] Comment on above: Performed By: #### U A #### [facility] ([facility]) [address] [place] [address] VIR PH,URINE 6.0 Normal 5.0-8.5 [facility] Comment on above: Performed By: #### U A #### [facility] ([facility]) [address] [place] [address] VIR Protein Ql (U) Negative Normal Negative [facility] Comment on above: Performed By: #### U A #### [facility] ([facility]) [address] [place] [address] VIR Specific gravity (U) [Rel density] 1.012 Normal 1.003-1.035 [facility] Comment on above: Performed By: #### U A #### [facility] ([facility]) [address] [place] [address] VIR TURBIDITY Clear Normal Clear [facility] Comment on above: Performed By: #### U A #### [facility] ([facility]) [address] [place] [address] VIR UROBILINOGEN <1.1 eu/dL Normal <1.1 eu/dL [facility] Comment on above: Performed By: #### U A #### [facility] ([facility]) [address] [place] [address] VIR URINE CULTUREon 01-02-2025 Bacteria identified Cx Nom (U) CULTURE RESULTS NO GROWTH AT <1000 CFU/mL Normal [facility] Comment on above: Performed By: #### U C #### [facility] ([facility]) [address] [place] [address] VIR Urinalysison 01-02-2025 Bilirubin Ql (U) Negative Negative [facility] Color (U) Yellow Yellow, Colorless [facility] Glucose (U) [Mass/Vol] Negative Negative [facility] Hemoglobin Auto test strip Ql (U) Negative Negative [facility] Interpretation and review of laboratory results Normal [facility] Ketones (U) [Mass/Vol] Negative Negative [facility] Leukocyte esterase Auto test strip Ql (U) Negative Negative [facility] Nitrite Auto test strip Ql (U) Negative Negative [facility] pH (U) 6 [pH] 5.0 - 8.5 [facility] Protein (U) [Mass/Vol] Negative Negative [facility] Specific gravity Refractometry automated (U) [Rel density] 1.012 1.003 - 1.035 [facility] Turbidity Ql (U) Clear Clear [facility] Urobilinogen Qn (U) {Aura'U}/dL <1.1 eu/dL [facility] VITAMIN B12on 01-02-2025 Cobalamin (Vitamin B12) [Mass/Vol] 167 pg/mL Low 180-914 [facility] Comment on above: Performed By: #### B 12 #### [facility] ([facility]) [address] [place] [address] VIR Vitamin B12on 01-02-2025 Cobalamin (Vitamin B12) [Mass/Vol] 167 pg/mL Low 180 - 914 pg/mL [facility] Interpretation and review of laboratory results Abnormal [facility] XR CHEST 1 VWon 01-02-2025 XR CHEST 1 VW XR CHEST 1 VW Single view chest History:Encephalopath y Difficulty breathing, shortness of breath Comparison: 01/02/2025 Findings: Single portable view of the chest. Cardiomediastinal silhouette is within normal limits. This bilateral lower lung atelectasis with hypoventilatory change. No large effusion or pneumothorax. Impression: Expiratory changes with bilateral lower lung atelectasis. Finalized by Horace Denis MD on 01/02/2025 6:57 AM Normal [facility] XR Chest Single viewon 01-02 Single view chest History:Encephalopath y Difficulty breathing, shortness of breath Comparison: 01/02/2025 Findings: Single portable view of the chest. Cardiomediastinal silhouette is within normal limits. This bilateral lower lung atelectasis with hypoventilatory change. No large effusion or pneumothorax. Impression: Expiratory changes with bilateral lower lung atelectasis. Finalized by Horace Denis MD on 01/02/2025 6:57 AM ROBBRAHorace Diaz MD - 01/02/2025 Single view chest History:Encephalopath y Difficulty breathing, shortness of breath Comparison: 01/02/2025 Findings: Single portable view of the chest. Cardiomediastinal silhouette is within normal limits. This bilateral lower lung atelectasis with hypoventilatory change. No large effusion or pneumothorax. Impression: Expiratory changes with bilateral lower lung atelectasis. Finalized by Horace Denis MD on 01/02/2025 6:57 AM [facility] Study observation (narrative) [employer] XR Chest Single viewOrdered By: Horace Denis on 01-02-2025 [facility] Work Phone: Basophils Auto (Bld) [#/Vol] on 01-01-2025 Basophils (Bld) [#/Vol] Automated basophil count 0.0-0.1 [facility] Basophils/100 WBC Auto (Bld) on 01-01-2025 Basophils/100 WBC (Bld) Automated basophil % 0.2-2.0 [facility] Buprenorphine [Presence] in Urineon 01-01-2025 Buprenorphine Ql (U) Buprenorphine [Presence] in Urine NEGATIVE [facility] Comment on above: DRUG CLASS TEST SYST EM CUT-OFF CONCENTRATIONS ARE ASFOLLOWS:AMP (Amphetamine): 500 ng/mLBAR (Barbiturates): 200 ng/mLBZO (Benzodiazepines): 150 ng/mLBUP (Buprenorphine): 10 ng/mLCOC (Cocaine): 150 ng/mLmAMP (Methamphetamine): 500 ng/mLMTD (Methadone): 200 ng/mLOPI (Opiates): 100 ng/mLOXY (Oxycodone): 100 ng/mLPCP (Phencyclidine): 25 ng/mLTHC (Cannabinoids): 50 ng/mLTCA (Trycyclic Antidepressants): 300 ng/mL Eosinophils/100 WBC Auto (Bl d)on 01-01-2025 Eosinophils/100 WBC (Bld) Automated eosinophil % 0.9-7.0 [facility] Erythrocyte distribution wid th Auto (RBC) [Ratio]on 01-01-2025 Erythrocyte distribution width (RBC) [Ratio] Erythrocyte distribution width [Ratio] by Automated count 11.0-15.0 [facility] Estimated glomerular filtrat ion rate (GFR) non- Americanon 01-01-2025 GFR/1.73 sq M.predicted among non-blacks MDRD (S/P/Bld) [Vol rate/Area] Estimated glomerular filtration rate (GFR) non- >=60 mL/min/1.73m 2 [facility] Globulin Calc (S) [Mass/Vol] on 01-01-2025 Globulin (S) [Mass/Vol] Serum globulin measurement by calculation (mass/volume) [facility] Hematocrit Auto (Bld) [Volum e fraction]on 01-01-2025 Hematocrit (Bld) [Volume fraction] Hematocrit [Volume Fraction] of Blood by Automated count 36.0-48.0 [facility] Hemoglobin [Mass/volume] in Bloodon 01-01-2025 Hemoglobin (Bld) [Mass/Vol] Hemoglobin [Mass/volume] in Blood 12.0-16.0 [facility] Laboratory - Chemistry and C hemistry - challengeon 01-01-2025 Albumin [Mass/Vol] 3.4 g/dL 3.4-5.0 [facility] ALP [Catalytic activity/Vol] 128 U/L High 46-116 [facility] ALT [Catalytic activity/Vol] 16 U/L 14-59 [facility] AST [Catalytic activity/Vol] 18 U/L 15-37 [facility] Bilirubin [Mass/Vol] 0.5 mg/dL 0.2-1.0 [facility] Calcium [Mass/Vol] 9.1 mg/dL 8.5-10.1 [facility] Chloride [Moles/Vol] 103 mmol/L 98-107 [facility] CO2 [Moles/Vol] 28.8 mmol/L 21.0-32.0 [facility] Creatinine [Mass/Vol] 0.84 mg/dL 0.55-1.02 [facility] GFR/1.73 sq M.predicted MDRD (S/P/Bld) [Vol rate/Area] mL/min/{1.73_m2} >=60 mL/min/1.73m 2 [facility] Glucose [Mass/Vol] 96 mg/dL 74-106 [facility] Lactate [Moles/Vol] 0.9 mmol/L 0.4-2.0 [facility] Magnesium [Mass/Vol] 2.2 mg/dL 1.8-2.4 [facility] Potassium [Moles/Vol] 3.6 mmol/L 3.5-5.1 [facility] Protein [Mass/Vol] 7.7 g/dL 6.4-8.2 [facility] Sodium [Moles/Vol] 136 mmol/L 136-145 [facility] Urea nitrogen [Mass/Vol] 18.0 mg/dL 7.0-18.0 [facility] Urea nitrogen/Creatinine [Mass ratio] 21.4 mg/mg [facility] Laboratory - Drug toxicology on 01-01-2025 Amphetamines Ql (U) Negative NEGATIVE [facility] Benzodiazepines Ql (U) Positive Abnormal NEGATIVE [facility] Cocaine Ql (U) Negative NEGATIVE [facility] Opiates Ql (U) Negative NEGATIVE [facility] Phencyclidine Ql (U) Negative NEGATIVE [facility] Laboratory - Hematology and Cell countson 01-01-2025 Immature granulocytes/100 WBC (Bld) 0.3 % 0.0-0.5 [facility] Leukocytes [#/volume] correc sharon for nucleated erythrocytes in Blood by Automated counon 01-01-2025 WBC corrected for nucl RBC Auto (Bld) [#/Vol] Leukocytes [#/volume] corrected for nucleated erythrocytes in Blood by Automated coun 4.0-11.0 [facility] Lymphocytes Auto (Bld) [#/Vo l]on 01-01-2025 Lymphocytes (Bld) [#/Vol] Lymphocytes [#/volume] in Blood by Automated count Low 1.2-3.8 [facility] Lymphocytes/100 WBC Auto (Bl d)on 01-01-2025 Lymphocytes/100 WBC (Bld) Lymphocytes/100 leukocytes in Blood by Automated count Low 20.5-60.0 [facility] MCH Auto (RBC) [Entitic mass ]on 01-01-2025 MCH (RBC) [Entitic mass] MCH [Entitic mass] by Automated count 26.7-34.0 [facility] MCHC Auto (RBC) [Mass/Vol]on 01-01-2025 MCHC (RBC) [Mass/Vol] MCHC [Mass/volume] by Automated count 29.9-35.2 [facility] MCV Auto (RBC) [Entitic vol] on 01-01-2025 MCV (RBC) [Entitic vol] MCV [Entitic volume] by Automated count 81.0-99.0 [facility] Methadone [Presence] in Urin e by Screen methodon 01-01-2025 Methadone Screen Ql (U) Methadone [Presence] in Urine by Screen method NEGATIVE [facility] Monocytes Auto (Bld) [#/Vol] on 01-01-2025 Monocytes (Bld) [#/Vol] Automated blood monocyte count High 0.3-0.8 [facility] Monocytes/100 WBC Auto (Bld) on 01-01-2025 Monocytes/100 WBC (Bld) Automated monocyte % High 1.7-12.0 [facility] Neutrophils Auto (Bld) [#/Vo l]on 01-01-2025 Neutrophils (Bld) [#/Vol] Neutrophils [#/volume] in Blood by Automated count 1.4-6.5 [facility] Neutrophils/100 WBC Auto (Bl d)on 01-01-2025 Neutrophils/100 WBC (Bld) Automated neutrophil % 43.0-75.0 [facility] No Panel Informationon 01-01 Urine Barbiturates Screen Negative NEGATIVE [facility] Urine Marijuana (THC) Screen Negative NEGATIVE [facility] Urine Methamphetamines Screen Negative NEGATIVE [facility] Ammonia <10 umol/L Low 11-32 [facility] Eosinophils # (Auto) 0.1 10 3/uL 0.0-0.7 [place] Ethyl Alcohol Level <3 mg/dL [facility] Comment on above: NOTE: 80 mg/dl is th e legal limit for a blood alcohol level Immature Granulocyte # (Auto) 0.02 10 3/uL 0.00-0.03 [facility] Troponin I High Sensitivity 4.4 pg/mL 4.0-51.3 [facility] Comment on above: CUT-OFF POINTS HAVE [...] IN CONJUNCTIONWITH OTHER DIAGNOSTIC AND CLINICAL INFORMATION. Venous Blood Partial Pressure CO2 45.2 mm[Hg] 40.0-52.0 [facility] Venous Blood pH 7.387 7.330-7.430 [facility] Platelet mean volume Auto (B ld) [Entitic vol]on 01-01-2025 Platelet mean volume (Bld) [Entitic vol] Platelet mean volume [Entitic volume] in Blood by Automated count 9.5-13.5 [facility] Platelets Auto (Bld) [#/Vol] on 01-01-2025 Platelets (Bld) [#/Vol] Platelets [#/volume] in Blood by Automated count 150-450 [facility] RBC Auto (Bld) [#/Vol]on RBC (Bld) [#/Vol] Erythrocytes [#/volume] in Blood by Automated count 4.20-5.40 [facility] Serum or plasma albumin/glob ulin mass ratioon 01-01-2025 Albumin/Globulin [Mass ratio] Serum or plasma albumin/globulin mass ratio [facility] Serum or plasma anion gap de terminationon 01-01-2025 Anion gap [Moles/Vol] Serum or plasma anion gap determination [facility] Urine Cultureon 01-01-2025 Bacteria identified Cx Nom (U) No Growth 2 Days PERFORMED BY: [facility] [address] [place] [address] PATHOLOGIST DESIGNER/WRITER TARYN PITTMAN M.D. Normal [facility] Comment on above: Performed By: #### C UU #### [facility] [address] [id number] [facility] Urine cultureOrdered By: Francisco Javier Romeo on 01-01-2025 Bacteria identified Cx Nom (U) Urine culture [facility] Urine tricyclic antidepressa nt measurementon 01-01-2025 Tricyclic antidepressants (U) [Mass/Vol] Urine tricyclic antidepressant measurement NEGATIVE [facility] oxyCODONE+oxyMORphone [Prese nce] in Urine by Screen methodon 01-01-2025 oxyCODONE+oxyMORphon e Screen Ql (U) oxyCODONE+oxyMORphone [Presence] in Urine by Screen method NEGATIVE [facility] Basophils Auto (Bld) [#/Vol] on 12-30-2024 Basophils (Bld) [#/Vol] Automated basophil count 0.0-0.1 [facility] Basophils/100 WBC Auto (Bld) on 12-30-2024 Basophils/100 WBC (Bld) Automated basophil % 0.2-2.0 [facility] Cholesterol in LDL Calc [Mas s/Vol]on 12-30-2024 Cholesterol in LDL [Mass/Vol] Cholesterol in LDL [Mass/volume] in Serum or Plasma by calculation [facility] Comment on above: <100 mg/dl [id number] 0-129 mg/dl NEAR OR ABOVE [id number] mg/dl BORDERLINE [id number] mg/dl HIGH>190 mg/dl VERY HIGH Cholesterol in VLDL Calc [Ma ss/Vol]on 12-30-2024 Cholesterol in VLDL [Mass/Vol] Cholesterol in VLDL [Mass/volume] in Serum or Plasma by calculation [facility] Eosinophils/100 WBC Auto (Bl d)on 12-30-2024 Eosinophils/100 WBC (Bld) Automated eosinophil % 0.9-7.0 [facility] Erythrocyte distribution wid th Auto (RBC) [Ratio]on 12-30-2024 Erythrocyte distribution width (RBC) [Ratio] Erythrocyte distribution width [Ratio] by Automated count 11.0-15.0 [facility] Estimated glomerular filtrat ion rate (GFR) non- Americanon 12-30-2024 GFR/1.73 sq M.predicted among non-blacks MDRD (S/P/Bld) [Vol rate/Area] Estimated glomerular filtration rate (GFR) non- >=60 mL/min/1.73m 2 [facility] Globulin Calc (S) [Mass/Vol] on 12-30-2024 Globulin (S) [Mass/Vol] Serum globulin measurement by calculation (mass/volume) [facility] Glucose mean value [Mass/vol ume] in Blood Estimated from glycated hemoglobinon 12-30-2024 Average glucose Estimated from glycated hemoglobin (Bld) [Mass/Vol] Glucose mean value [Mass/volume] in Blood Estimated from glycated hemoglobin [facility] Hematocrit Auto (Bld) [Volum e fraction]on 12-30-2024 Hematocrit (Bld) [Volume fraction] Hematocrit [Volume Fraction] of Blood by Automated count 36.0-48.0 [facility] Hemoglobin A1c percentageon 12-30-2024 HbA1c (Bld) [Mass fraction] Hemoglobin A1c percentage 4.5-6.2 [facility] Comment on above: ADA RECOMMENDED LIMI T 4.0 - 6.0ADA THERAPEUTIC TARGET < 7.0ACTION SUGGESTED> 7.0 Hemoglobin [Mass/volume] in Bloodon 12-30-2024 Hemoglobin (Bld) [Mass/Vol] Hemoglobin [Mass/volume] in Blood 12.0-16.0 [facility] Laboratory - Chemistry and C hemistry - challengeon 12-30-2024 Albumin [Mass/Vol] 3.3 g/dL Low 3.4-5.0 [facility] ALP [Catalytic activity/Vol] 127 U/L High 46-116 [facility] ALT [Catalytic activity/Vol] 17 U/L 14-59 [facility] AST [Catalytic activity/Vol] 14 U/L Low 15-37 [facility] Bilirubin [Mass/Vol] 0.6 mg/dL 0.2-1.0 [facility] Calcium [Mass/Vol] 9.1 mg/dL 8.5-10.1 [facility] Chloride [Moles/Vol] 104 mmol/L 98-107 [facility] Cholesterol [Mass/Vol] 229 mg/dL High <=200 [facility] Cholesterol in HDL [Mass/Vol] 52 mg/dL 40-60 [facility] Comment on above: > or =60 mg/dl - LOW CARDIOVASCULAR RISK<40 mg/dl - HIGH CARDIOVASCULAR RISK CO2 [Moles/Vol] 24.7 mmol/L 21.0-32.0 [facility] Creatinine [Mass/Vol] 0.74 mg/dL 0.55-1.02 [facility] GFR/1.73 sq M.predicted MDRD (S/P/Bld) [Vol rate/Area] mL/min/{1.73_m2} >=60 mL/min/1.73m 2 [facility] Glucose [Mass/Vol] 97 mg/dL 74-106 [facility] Potassium [Moles/Vol] 3.2 mmol/L Low 3.5-5.1 [facility] Protein [Mass/Vol] 7.4 g/dL 6.4-8.2 [facility] Sodium [Moles/Vol] 137 mmol/L 136-145 [facility] Triglyceride [Mass/Vol] 105 mg/dL <=150 [facility] TSH Qn 2.531 m[IU]/L 0.358-3.740 [facility] Urea nitrogen [Mass/Vol] 17.0 mg/dL 7.0-18.0 [facility] Urea nitrogen/Creatinine [Mass ratio] 23.0 mg/mg [facility] Laboratory - Hematology and Cell countson 12-30-2024 Immature granulocytes/100 WBC (Bld) 0.3 % 0.0-0.5 [facility] Leukocytes [#/volume] correc sharon for nucleated erythrocytes in Blood by Automated counon 12-30-2024 WBC corrected for nucl RBC Auto (Bld) [#/Vol] Leukocytes [#/volume] corrected for nucleated erythrocytes in Blood by Automated coun 4.0-11.0 [facility] Lymphocytes Auto (Bld) [#/Vo l]on 12-30-2024 Lymphocytes (Bld) [#/Vol] Lymphocytes [#/volume] in Blood by Automated count 1.2-3.8 [facility] Lymphocytes/100 WBC Auto (Bl d)on 12-30-2024 Lymphocytes/100 WBC (Bld) Lymphocytes/100 leukocytes in Blood by Automated count Low 20.5-60.0 [facility] MCH Auto (RBC) [Entitic mass ]on 12-30-2024 MCH (RBC) [Entitic mass] MCH [Entitic mass] by Automated count 26.7-34.0 [facility] MCHC Auto (RBC) [Mass/Vol]on 12-30-2024 MCHC (RBC) [Mass/Vol] MCHC [Mass/volume] by Automated count 29.9-35.2 [facility] MCV Auto (RBC) [Entitic vol] on 12-30-2024 MCV (RBC) [Entitic vol] MCV [Entitic volume] by Automated count 81.0-99.0 [facility] Monocytes Auto (Bld) [#/Vol] on 12-30-2024 Monocytes (Bld) [#/Vol] Automated blood monocyte count High 0.3-0.8 [facility] Monocytes/100 WBC Auto (Bld) on 12-30-2024 Monocytes/100 WBC (Bld) Automated monocyte % High 1.7-12.0 [facility] Neutrophils Auto (Bld) [#/Vo l]on 12-30-2024 Neutrophils (Bld) [#/Vol] Neutrophils [#/volume] in Blood by Automated count 1.4-6.5 [facility] Neutrophils/100 WBC Auto (Bl d)on 12-30-2024 Neutrophils/100 WBC (Bld) Automated neutrophil % 43.0-75.0 [facility] No Panel Informationon 12-30 Eosinophils # (Auto) 0.1 10 3/uL 0.0-0.7 [place] Immature Granulocyte # (Auto) 0.02 10 3/uL 0.00-0.03 [facility] Troponin I High Sensitivity 5.4 pg/mL 4.0-51.3 [facility] Comment on above: CUT-OFF POINTS HAVE [...] IN CONJUNCTIONWITH OTHER DIAGNOSTIC AND CLINICAL INFORMATION. Platelet mean volume Auto (B ld) [Entitic vol]on 12-30-2024 Platelet mean volume (Bld) [Entitic vol] Platelet mean volume [Entitic volume] in Blood by Automated count 9.5-13.5 [facility] Platelets Auto (Bld) [#/Vol] on 12-30-2024 Platelets (Bld) [#/Vol] Platelets [#/volume] in Blood by Automated count 150-450 [facility] RBC Auto (Bld) [#/Vol]on RBC (Bld) [#/Vol] Erythrocytes [#/volume] in Blood by Automated count 4.20-5.40 [facility] Serum or plasma albumin/glob ulin mass ratioon 12-30-2024 Albumin/Globulin [Mass ratio] Serum or plasma albumin/globulin mass ratio [facility] Serum or plasma anion gap de terminationon 12-30-2024 Anion gap [Moles/Vol] Serum or plasma anion gap determination [facility] Serum or plasma total choles terol/high density lipoprotein (HDL) cholesterol mass aakash 12-30-2024 Cholesterol.total/Ch olesterol in HDL [Mass ratio] Serum or plasma total cholesterol/high density lipoprotein (HDL) cholesterol mass rat [facility] Comment on above: 3.3 - 4.4 LOW RISK4. 4 - 7.1 AVERAGE RISK7.1 - 11.0 MODERATE RISK>11.0 HIGH RISK Basophils Auto (Bld) [#/Vol] on 12-29-2024 Basophils (Bld) [#/Vol] Automated basophil count 0.0-0.1 [facility] Basophils/100 WBC Auto (Bld) on 12-29-2024 Basophils/100 WBC (Bld) Automated basophil % 0.2-2.0 [facility] Eosinophils/100 WBC Auto (Bl d)on 12-29-2024 Eosinophils/100 WBC (Bld) Automated eosinophil % Low 0.9-7.0 [facility] Erythrocyte distribution wid th Auto (RBC) [Ratio]on 12-29-2024 Erythrocyte distribution width (RBC) [Ratio] Erythrocyte distribution width [Ratio] by Automated count 11.0-15.0 [facility] Estimated glomerular filtrat ion rate (GFR) non- Americanon 12-29-2024 GFR/1.73 sq M.predicted among non-blacks MDRD (S/P/Bld) [Vol rate/Area] Estimated glomerular filtration rate (GFR) non- Low >=60 mL/min/1.73m 2 [facility] Globulin Calc (S) [Mass/Vol] on 12-29-2024 Globulin (S) [Mass/Vol] Serum globulin measurement by calculation (mass/volume) [facility] Hematocrit Auto (Bld) [Volum e fraction]on 12-29-2024 Hematocrit (Bld) [Volume fraction] Hematocrit [Volume Fraction] of Blood by Automated count 36.0-48.0 [facility] Hemoglobin [Mass/volume] in Bloodon 12-29-2024 Hemoglobin (Bld) [Mass/Vol] Hemoglobin [Mass/volume] in Blood 12.0-16.0 [facility] INR in Platelet poor plasma by Coagulation assayon 12-29-2024 INR Coag (PPP) [Relative time] INR in Platelet poor plasma by Coagulation assay [facility] Comment on above: DESIRED INR:2.0-3.0 CONDITIONS NOT LISTED BELOW2.5-3.5 FOR PROSTHETIC HEART VALVE REPLACEMENT2.5-3.5 RECURRENT THROMBOSIS Laboratory - Chemistry and C hemistry - challengeon 12-29-2024 Albumin [Mass/Vol] 3.6 g/dL 3.4-5.0 [facility] ALP [Catalytic activity/Vol] 146 U/L High 46-116 [facility] ALT [Catalytic activity/Vol] 18 U/L 14-59 [facility] AST [Catalytic activity/Vol] 17 U/L 15-37 [facility] Bilirubin [Mass/Vol] 0.6 mg/dL 0.2-1.0 [facility] Calcium [Mass/Vol] 9.6 mg/dL 8.5-10.1 [facility] Chloride [Moles/Vol] 102 mmol/L 98-107 [facility] CO2 [Moles/Vol] 25.3 mmol/L 21.0-32.0 [facility] [facility] Creatinine [Mass/Vol] 0.96 mg/dL 0.55-1.02 [facility] GFR/1.73 sq M.predicted MDRD (S/P/Bld) [Vol rate/Area] mL/min/{1.73_m2} >=60 mL/min/1.73m 2 [facility] Glucose [Mass/Vol] 101 mg/dL 74-106 [facility] Potassium [Moles/Vol] 3.6 mmol/L 3.5-5.1 [facility] Protein [Mass/Vol] 8.3 g/dL High 6.4-8.2 [facility] Sodium [Moles/Vol] 136 mmol/L 136-145 [facility] Urea nitrogen [Mass/Vol] 19.0 mg/dL High 7.0-18.0 [facility] Urea nitrogen/Creatinine [Mass ratio] 19.8 mg/mg [facility] Laboratory - Hematology and Cell countson 12-29-2024 Immature granulocytes/100 WBC (Bld) 0.2 % 0.0-0.5 [facility] Laboratory - Urinalysison Mucus Ql (Urine sed) MODERATE Abnormal NONE SEEN [facility] Leukocytes [#/volume] correc sharon for nucleated erythrocytes in Blood by Automated counon 12-29-2024 WBC corrected for nucl RBC Auto (Bld) [#/Vol] Leukocytes [#/volume] corrected for nucleated erythrocytes in Blood by Automated coun 4.0-11.0 [facility] Lymphocytes Auto (Bld) [#/Vo l]on 12-29-2024 Lymphocytes (Bld) [#/Vol] Lymphocytes [#/volume] in Blood by Automated count 1.2-3.8 [facility] Lymphocytes/100 WBC Auto (Bl d)on 12-29-2024 Lymphocytes/100 WBC (Bld) Lymphocytes/100 leukocytes in Blood by Automated count Low 20.5-60.0 [facility] MCH Auto (RBC) [Entitic mass ]on 12-29-2024 MCH (RBC) [Entitic mass] MCH [Entitic mass] by Automated count 26.7-34.0 [facility] MCHC Auto (RBC) [Mass/Vol]on 12-29-2024 MCHC (RBC) [Mass/Vol] MCHC [Mass/volume] by Automated count 29.9-35.2 [facility] MCV Auto (RBC) [Entitic vol] on 12-29-2024 MCV (RBC) [Entitic vol] MCV [Entitic volume] by Automated count 81.0-99.0 [facility] Monocytes Auto (Bld) [#/Vol] on 12-29-2024 Monocytes (Bld) [#/Vol] Automated blood monocyte count High 0.3-0.8 [facility] Monocytes/100 WBC Auto (Bld) on 12-29-2024 Monocytes/100 WBC (Bld) Automated monocyte % 1.7-12.0 [facility] Neutrophils Auto (Bld) [#/Vo l]on 12-29-2024 Neutrophils (Bld) [#/Vol] Neutrophils [#/volume] in Blood by Automated count High 1.4-6.5 [facility] Neutrophils/100 WBC Auto (Bl d)on 12-29-2024 Neutrophils/100 WBC (Bld) Automated neutrophil % 43.0-75.0 [facility] No Panel Informationon 12-29 Urine Bacteria TRACE #/HPF Abnormal NONE SEEN [facility] Urine Culture Reflexed NO [facility] Urine Other Casts NONE SEEN #/LPF NONE SEEN [facility] Urine Other Crystals None Seen #/HPF None Seen [facility] Urine RBC 0-2 #/HPF 0-2 [facility] Urine Squamous Epithelial Cells RARE #/LPF NONE/RARE [facility] Urine WBC 0-2 #/HPF Abnormal NONE SEEN [facility] Eosinophils # (Auto) 0.0 10 3/uL 0.0-0.7 [place] Immature Granulocyte # (Auto) 0.02 10 3/uL 0.00-0.03 [facility] Troponin I High Sensitivity <4.0 pg/mL Low 4.0-51.3 [facility] Comment on above: CUT-OFF POINTS HAVE [...] IN CONJUNCTIONWITH OTHER DIAGNOSTIC AND CLINICAL INFORMATION. Platelet mean volume Auto (B ld) [Entitic vol]on 12-29-2024 Platelet mean volume (Bld) [Entitic vol] Platelet mean volume [Entitic volume] in Blood by Automated count 9.5-13.5 [facility] Platelets Auto (Bld) [#/Vol] on 12-29-2024 Platelets (Bld) [#/Vol] Platelets [#/volume] in Blood by Automated count 150-450 [facility] Prothrombin time (PT)on PT Coag (PPP) [Time] Prothrombin time (PT) 9.0- 11.6 [facility] RBC Auto (Bld) [#/Vol]on RBC (Bld) [#/Vol] Erythrocytes [#/volume] in Blood by Automated count 4.20-5.40 [facility] Serum or plasma albumin/glob ulin mass ratioon 12-29-2024 Albumin/Globulin [Mass ratio] Serum or plasma albumin/globulin mass ratio [facility] Serum or plasma anion gap de terminationon 12-29-2024 Anion gap [Moles/Vol] Serum or plasma anion gap determination [facility] Laboratory - Chemistry and C hemistry - challengeon 11-24-2024 Bilirubin Ql (U) Negative [facility] Glucose (U) [Mass/Vol] Negative [facility] Ketones Ql (U) Negative [facility] pH (U) 5.0 [pH] [facility] Specific gravity (U) [Rel density] 1.015 [facility] Urobilinogen (U) [Mass/Vol] 0.2 mg/dL [facility] Laboratory - Specimen inform ationon 11-24-2024 Appearance (U) clear [facility] Color (U) yellow [facility] Laboratory - Urinalysison Leukocyte esterase Test strip Ql (U) Negative [facility] Nitrite Ql (U) Negative [facility] Protein Ql (U) + [facility] No Panel Informationon 11-24 Urine Occult Blood +/- [facility] Basophils Auto (Bld) [#/Vol] on 01-12-2024 Basophils (Bld) [#/Vol] 0.1 10 3/uL 0.0-0.1 [facility] Basophils/100 WBC Auto (Bld) on 01-12-2024 Basophils/100 WBC (Bld) 1.0 % 0.2-2.0 [facility] Eosinophils/100 WBC Auto (Bl d)on 01-12-2024 Eosinophils/100 WBC (Bld) 1.2 % 0.9-7.0 [facility] Erythrocyte distribution wid th Auto (RBC) [Ratio]on 01-12-2024 Erythrocyte distribution width (RBC) [Ratio] 14.3 % 11.0-15.0 [facility] Estimated glomerular filtrat ion rate (GFR) non- Americanon 01-12-2024 GFR/1.73 sq M.predicted among non-blacks MDRD (S/P/Bld) [Vol rate/Area] mL/min/{1.73_m2} >=60 [facility] Globulin Calc (S) [Mass/Vol] on 01-12-2024 Globulin (S) [Mass/Vol] 4.3 g/dL [facility] Hematocrit Auto (Bld) [Volum e fraction]on 01-12-2024 Hematocrit (Bld) [Volume fraction] 40.5 % 36.0-48.0 [facility] Hemoglobin [Mass/volume] in Bloodon 01-12-2024 Hemoglobin (Bld) [Mass/Vol] 13.1 g/dL 12.0-16.0 [facility] Laboratory - Chemistry and C hemistry - challengeon 01-12-2024 Albumin [Mass/Vol] 3.6 g/dL 3.4-5.0 [facility] ALP [Catalytic activity/Vol] 98 U/L 46-116 [facility] ALT [Catalytic activity/Vol] 14 U/L 14-59 [facility] AST [Catalytic activity/Vol] 14 U/L 15-37 [facility] Bilirubin [Mass/Vol] 0.7 mg/dL 0.2-1.0 [facility] Calcium [Mass/Vol] 9.7 mg/dL 8.5-10.1 [facility] Chloride [Moles/Vol] 99 mmol/L 98-107 [facility] CO2 [Moles/Vol] 24.0 mmol/L 21.0-32.0 [facility] Creatinine [Mass/Vol] 0.88 mg/dL 0.55-1.02 [facility] GFR/1.73 sq M.predicted MDRD (S/P/Bld) [Vol rate/Area] mL/min/{1.73_m2} >=60 [facility] Glucose [Mass/Vol] 103 mg/dL 74-106 [facility] Potassium [Moles/Vol] 3.6 mmol/L 3.5-5.1 [facility] Protein [Mass/Vol] 7.9 g/dL 6.4-8.2 [facility] Sodium [Moles/Vol] 136 mmol/L 136-145 [facility] Urea nitrogen [Mass/Vol] 20.0 mg/dL 7.0-18.0 [facility] Urea nitrogen/Creatinine [Mass ratio] 22.7 mg/mg [facility] Laboratory - Hematology and Cell countson 01-12-2024 Immature granulocytes/100 WBC (Bld) 0.3 % 0.0-0.5 [facility] Leukocytes [#/volume] correc sharon for nucleated erythrocytes in Blood by Automated counon 01-12-2024 WBC corrected for nucl RBC Auto (Bld) [#/Vol] 7.7 10 3/uL 4.0-11.0 [facility] Lymphocytes Auto (Bld) [#/Vo l]on 01-12-2024 Lymphocytes (Bld) [#/Vol] 1.2 10 3/uL 1.2-3.8 [facility] Lymphocytes/100 WBC Auto (Bl d)on 01-12-2024 Lymphocytes/100 WBC (Bld) 15.0 % 20.5-60.0 [facility] MCH Auto (RBC) [Entitic mass ]on 01-12-2024 MCH (RBC) [Entitic mass] 28.5 pg 26.7-34.0 [facility] MCHC Auto (RBC) [Mass/Vol]on 01-12-2024 MCHC (RBC) [Mass/Vol] 32.3 g/dL 29.9-35.2 [facility] MCV Auto (RBC) [Entitic vol] on 01-12-2024 MCV (RBC) [Entitic vol] 88.2 fL 81.0-99.0 [facility] Monocytes Auto (Bld) [#/Vol] on 01-12-2024 Monocytes (Bld) [#/Vol] 0.9 10 3/uL 0.3-0.8 [facility] Monocytes/100 WBC Auto (Bld) on 01-12-2024 Monocytes/100 WBC (Bld) 12.0 % 1.7-12.0 [facility] Neutrophils Auto (Bld) [#/Vo l]on 01-12-2024 Neutrophils (Bld) [#/Vol] 5.4 10 3/uL 1.4-6.5 [facility] Neutrophils/100 WBC Auto (Bl d)on 01-12-2024 Neutrophils/100 WBC (Bld) 70.5 % 43.0-75.0 [facility] No Panel Informationon 01-11 Troponin I High Sensitivity 9.6 pg/mL 4.0-51.3 [facility] Comment on above: CUT-OFF POINTS HAVE [...] Eosinophils # (Auto) 0.1 10 3/uL 0.0-0.7 [place] Immature Granulocyte # (Auto) 0.02 10 3/uL 0.00-0.03 [facility] Platelet mean volume Auto (B ld) [Entitic vol]on 01-12-2024 Platelet mean volume (Bld) [Entitic vol] 10.8 fL 9.5-13.5 [facility] Platelets Auto (Bld) [#/Vol] on 01-12-2024 Platelets (Bld) [#/Vol] 334 10 3/uL 150-450 [facility] RBC Auto (Bld) [#/Vol]on RBC (Bld) [#/Vol] 4.59 10 6/uL 4.20-5.40 [facility] Serum or plasma albumin/glob ulin mass ratioon 01-12-2024 Albumin/Globulin [Mass ratio] 0.8 {ratio} [facility] Serum or plasma anion gap de terminationon 01-12-2024 Anion gap [Moles/Vol] 16.6 mmol/L [facility] MRI LSPINE WO CONon 12-07-19 MRI [...] DOS SANTOS Date: 2022-12-06 10:06 [address] [facility] MG MAMM ALE DIAG W CADon MG MAMM ALE DIAG W CAD [facility] Other MG MAMM DIAGNOSTIC 3D ALE CA Don 10-18-2022 MG MAMM DIAGNOSTIC 3D ALE CAD Patient: BIRGIT CLARKE Exam Date: 10/18/2022 : 1950 Gender:F Ordering : DR FRANCIS OSBORNE D.O. Admission #: [id number] Family : Order #: [id number] CLICK HERE TO VIEW EXAM RADIOLOGY REPORT [...] lung cancer at age 58. LOCATION: [facility] BREAST COMPOSITION: Scattered areas fibroglandular [...] PALPABLE LUMP SHOULD BE BIOPSIED. Dictated by: Murray Travis M.D. on 10/18/2022 at 13:32 Approved by: Murray Travis M.D. on 10/18/2022 at 13:36 Normal [facility] XR HIP RT 2 3V W PELVISon XR HIP RT 2 3V W PELVIS [facility] Other XR LSPINE W_OBLS AND FLEX_EX Ton [...] progressed compared to 2019. Electronically authenticated by: MURRAY TRAVIS Date: 2022-10-18 18:59 Normal [facility] XR lumbar spine 6V w bending on 10-18-2022 XR lumbar spine 6V w bending [employer] Other Vital Signs Date Time Vital Sign Value Performing Clinician Facility 01-06-2025 16:07-0400 Body height 157.48 cm Dorian Pay DO Work Phone: [facility] 01-06-2025 16:07-0400 Body mass index (BMI) [Ratio] 30.6 kg/m2 Dorian Pay DO Work Phone: [facility] 01-06-2025 16:07-0400 Body weight 75.92 kg Dorian Pay DO Work Phone: [facility] 01-06-2025 16:07-0400 Diastolic blood pressure 87 mm[Hg] Dorian Pay DO Work Phone: [facility] 01-06-2025 16:07-0400 Heart rate 71 /min Dorian Pay DO Work Phone: [facility] 01-06-2025 16:07-0400 Respiratory rate 12 /min Dorian Pay DO Work Phone: [facility] 01-06-2025 16:07-0400 Systolic blood pressure 133 mm[Hg] Dorian Pay DO Work Phone: [facility] 01-03-2025 12:10-0400 Body temperature 97.81 [degF] Lobo Miguel MD Work Phone: [facility] 01-03-2025 12:10-0400 Diastolic blood pressure 81 mm[Hg] Lobo Miguel MD Work Phone: [facility] 01-03-2025 12:10-0400 Heart rate 64 /min Lobo Miguel MD Work Phone: [facility] 01-03-2025 12:10-0400 Respiratory rate 18 /min Lobo Miguel MD Work Phone: [facility] 01-03-2025 12:10-0400 SaO2% (BldA) [Mass fraction] 94 % oLbo Miguel MD Work Phone: [facility] 01-03-2025 12:10-0400 Systolic blood pressure 149 mm[Hg] Lobo Miguel MD Work Phone: [facility] 01-02-2025 05:00-0400 Body height 152.4 cm Lobo Miguel MD Work Phone: [facility] 01-02-2025 05:00-0400 Body mass index (BMI) [Ratio] 32.29 kg/m2 Lobo Miguel MD Work Phone: [facility] 01-02-2025 05:00-0400 Body weight 75 kg Lobo Miguel MD Work Phone: [facility] 11-24-2024 15:23-0400 Body height 157.48 cm [facility] 11-24-2024 15:23-0400 Body mass index (BMI) [Ratio] 30.7 kg/m2 [facility] 11-24-2024 15:23-0400 Body weight 76.2 kg [facility] 11-24-2024 15:23-0400 Diastolic blood pressure 84 mm[Hg] [facility] 11-24-2024 15:23-0400 Heart rate 111 /min [facility] 11-24-2024 15:23-0400 Respiratory rate 12 /min [facility] 11-24-2024 15:23-0400 Systolic blood pressure 131 mm[Hg] [facility] 09-24-2024 11:02-0500 Body height 157.48 cm [facility] 09-24-2024 11:02-0500 Body mass index (BMI) [Ratio] 30.5 kg/m2 [facility] 09-24-2024 11:02-0500 Body weight 75.74 kg [facility] 09-24-2024 11:02-0500 Diastolic blood pressure 110 mm[Hg] [facility] 09-24-2024 11:02-0500 Heart rate 111 /min [facility] 09-24-2024 11:02-0500 Respiratory rate 20 /min [facility] 09-24-2024 11:02-0500 Systolic blood pressure 145 mm[Hg] [facility] 05-08-2024 09:38-0400 Body height 157.48 cm DO Francis Ball Work Phone: [facility] 05-08-2024 09:38-0400 Body mass index (BMI) [Ratio] 30.2 kg/m2 DO Francis Ball Work Phone: [facility] 05-08-2024 09:38-0400 Body weight 74.84 kg DO Francis Ball Work Phone: [facility] 05-08-2024 09:38-0400 Diastolic blood pressure 86 mm[Hg] DO Francis Ball Work Phone: [facility] 05-08-2024 09:38-0400 Heart rate 84 /min DO Francis Ball Work Phone: [facility] 05-08-2024 09:38-0400 Respiratory rate 12 /min DO Francis Ball Work Phone: [facility] 05-08-2024 09:38-0400 Systolic blood pressure 136 mm[Hg] DO Francis Ball Work Phone: [facility] 02-10-2024 10:42-0400 Body height 157.48 cm [facility] 02-10-2024 10:42-0400 Body mass index (BMI) [Ratio] 29.9 kg/m2 [facility] 02-10-2024 10:42-0400 Body weight 74.38 kg [facility] 02-10-2024 10:42-0400 Diastolic blood pressure 89 mm[Hg] [facility] 02-10-2024 10:42-0400 Heart rate 114 /min [facility] 02-10-2024 10:42-0400 Respiratory rate 12 /min [facility] 02-10-2024 10:42-0400 Systolic blood pressure 130 mm[Hg] [facility] 05-15-2023 15:45-0400 Body height 157.48 cm Francis Ball Other [facility] Other 05-15-2023 15:45-0400 Body mass index (BMI) [Ratio] 32.37 kg/m2 Francis Ball Other [facility] Other 05-15-2023 15:45-0400 Body weight 80.29 kg Francis Ball Other [facility] Other 05-15-2023 15:45-0400 Diastolic blood pressure 87 mm[Hg] Francis Ball Other [facility] Other 05-15-2023 15:45-0400 Respiratory rate 12 /min Francis Ball Other [facility] Other 05-15-2023 15:45-0400 Systolic blood pressure 121 mm[Hg] Francis Ball Other [employer] Other 04-12-2023 11:25-0400 Body height 157.48 cm Emiliana Patricia Other [employer] Other 04-12-2023 11:25-0400 Body mass index (BMI) [Ratio] 31.09 kg/m2 Emiliana Patricia Other [employer] Other 04-12-2023 11:25-0400 Body temperature 98.1 [degF] Emiliana Patricia Other [employer] Other 04-12-2023 11:25-0400 Body weight 77.11 kg Emiliana Patricia Other [employer] Other 04-12-2023 11:25-0400 Diastolic blood pressure 88 mm[Hg] Emiliana Patricia Other [facility] Other 04-12-2023 11:25-0400 Respiratory rate 18 /min Emiliana Patricia Other [employer] Other 04-12-2023 11:25-0400 SaO2% (BldA) [Mass fraction] 98 % Emiliana Patricia Other [employer] Other 04-12-2023 11:25-0400 Systolic blood pressure 144 mm[Hg] Emiliana Patricia Other [employer] Other 04-08-2023 09:00-0400 Body height 157.48 cm Francis Ball Other [employer] Other 04-08-2023 09:00-0400 Body mass index (BMI) [Ratio] 32.19 kg/m2 Francis Ball Other [employer] Other 04-08-2023 09:00-0400 Body weight 79.83 kg Francis Ball Other [employer] Other 04-08-2023 09:00-0400 Diastolic blood pressure 83 mm[Hg] Francis Ball Other [employer] Other 04-08-2023 09:00-0400 Respiratory rate 12 /min Francis Ball Other [employer] Other 04-08-2023 09:00-0400 Systolic blood pressure 117 mm[Hg] Francis Ball Other [employer] Other 09-21-2022 14:30-0500 Body height 157.48 cm Francis Ball Other [employer] Other 09-21-2022 14:30-0500 Body mass index (BMI) [Ratio] 31.64 kg/m2 Francis Ball Other [employer] Other 09-21-2022 14:30-0500 Body weight 78.47 kg Francis Ball Other [employer] Other 09-21-2022 14:30-0500 Diastolic blood pressure 64 mm[Hg] Francis Ball Other [employer] Other 09-21-2022 14:30-0500 Respiratory rate 18 /min Francis Ball Other [employer] Other 09-21-2022 14:30-0500 SaO2% (BldA) [Mass fraction] 97 % Francis Ball Other [employer] Other 01-27-2023 14:30-0500 Systolic blood pressure 136 mm[Hg] Francis Osborne Other [facility] [employer] Other Encounters Encounter Date Encounter Type Care Provider Facility Start: 01-06-2025 End: 01-06-2025 ambulatory Dorian Pay DO Work Phone: [facility] Work Phone: Start: 01-06-2025 End: 01-06-2025 Patient encounter procedure Dorian Pay DO Work Phone: [facility] Work Phone: Start: 01-02-2025 ambulatory [facility] Start: 01-01-2025 End: 01-03-2025 Evaluation and management of inpatient Nicholas Boggs MD Work Phone: [facility] - GEN 9 Acute Comment on above: Cerebrovascular acci dent (CVA), unspecified mechanism (CMS- HCC) (Primary Dx) Start: 01-01-2025 End: 01-03-2025 ambulatory NICHOLAS BOGGS [facility] Work Phone: Start: 01-01-2025 End: 01-01-2025 Departed Referred Dorian Pay DO Work Phone: [facility] Start: 01-01-2025 Non-patient / Non-visit Jeffre y Pay DO Work Phone: [facility] Work Phone: Start: 12-31-2024 End: 12-31-2024 Telephone encounter Krystin Johns MD Work Phone: [facility], A Department of [facility] Start: 12-31-2024 Non-patient / Non-visit Jeffre y Pay DO Work Phone: [facility] Work Phone: Start: 12-31-2024 ambulatory [facility] Start: 12-30-2024 Non-patient / Non-visit Jeffre y Pay DO Work Phone: [facility] Work Phone: Start: 12-30-2024 End: 01-01-2025 Emergency department patient visit FRANCIS Chrissy OSBORNE [facility] Start: 12-29-2024 Non-patient / Non-visit Jeffre y Pay DO Work Phone: [facility] Work Phone: Start: 11-24-2024 End: 11-24-2024 ambulatory [facility] Work Phone: Start: 11-24-2024 End: 11-24-2024 Patient encounter procedure [facility] Work Phone: Start: 10-26-2024 End: 10-26-2024 ambulatory Blanca Pinto MD Facility:[facility] Start: 09-24-2024 End: 09-24-2024 ambulatory [facility] Work Phone: Start: 09-24-2024 End: 09-24-2024 Patient encounter procedure [facility] Work Phone: Start: 05-08-2024 End: 05-08-2024 ambulatory DO Francis Ball Work Phone: [facility] Work Phone: Start: 05-08-2024 End: 05-08-2024 Patient encounter procedure DO Francis Ball Work Phone: [facility] Work Phone: Start: 05-06-2024 Patient encounter procedure DO Francis Ball Work Phone: [facility] Start: 02-21-2024 End: 02-21-2024 Patient encounter procedure DO Francis Ball Work Phone: [facility] Start: 02-21-2024 End: 02-21-2024 ambulatory Francis Osborne Facility:[facility] Start: 02-10-2024 End: 02-10-2024 ambulatory [facility] Work Phone: Start: 02-10-2024 End: 02-10-2024 Patient encounter procedure [facility] Work Phone: Start: 01-12-2024 Non-patient / Non-visit [facility] [facility] [employer] Work Phone: Start: 09-02-2023 End: 09-02-2023 ambulatory Francis Ball Other [employer] Other Start: 09-02-2023 Telephone encounter Francis Ball [facility] Start: 05-15-2023 End: 05-15-2023 ambulatory Francis Ball Other [employer] Other Start: 05-15-2023 Office outpatient vi sit 25 minutes Francis Salvador [facility] Start: 05-15-2023 Telephone encounter Francis Ball [facility] Start: 05-09-2023 End: 05-09-2023 ambulatory Francis Ball Other [employer] Other Start: 05-09-2023 Telephone encounter Francis Ball [facility] Start: 05-01-2023 End: 05-01-2023 ambulatory Francis Osborne Other [employer] Other Start: 05-01-2023 Telephone encounter Francis Ball [facility] Start: 04-12-2023 End: 04-12-2023 ambulatory Emiliana Patricia Other [employer] Other Start: 04-12-2023 Office outpatient vi sit 25 minutes Emiliana Harshad [facility] Start: 04-08-2023 End: 04-08-2023 ambulatory Francis Ball Other [employer] Other Start: 04-08-2023 Patient encounter procedure Francis Osborne [facility] Start: 04-01-2023 End: 04-01-2023 ambulatory Francis Osborne Other [employer] Other Start: 04-01-2023 Telephone encounter Francis Osborne [facility] Start: 02-28-2023 End: 02-28-2023 ambulatory Francis Osborne Other [employer] Other Start: 02-28-2023 Telephone encounter Francis Osborne [facility] Start: 01-27-2023 End: 01-27-2023 ambulatory Francis Salvador Other [employer] Other Start: 01-27-2023 Telephone encounter Francis Osborne [facility] Start: 12-04-2022 End: 12-05-[address] Katey SHAH Facility:[facility] Start: 10-22-2022 End: 10-22-2022 ambulatory Francis Salvador Other [employer] Other Start: 10-22-2022 Telephone encounter Francis Osborne [facility] Start: 10-18-2022 End: 10-19-[address] FRANCIS OSBORNE Facility:[facility] Start: 09-23-2022 End: 09-23-2022 ambulatory Francis Salvador Other [employer] Other Start: 09-23-2022 Telephone encounter Francis Salvador [facility] Start: 09-21-2022 End: 09-21-2022 ambulatory Francis Salvador Other [employer] Other Start: 09-21-2022 Office outpatient vi sit 25 minutes Francis Osborne [facility] Start: 08-30-2022 End: 08-30-2022 ambulatory Francis Osborne Other [employer] Other Start: 08-30-2022 Telephone encounter Francis Osborne [facility] Start: 01-24-2022 Adult health examination Seferino min Salvador Other [facility] Other Procedures Date Procedure Procedure Detail Performing Clinician Start: 01-03-2025 Comprehensive metabo lic panel Nisa Hurst MD Work Phone: Start: 01-02-2025 EEG Sylvia Esposito i, MD Work Phone: Start: 01-02-2025 Comprehensive metabo lic panel Nisa Hurst MD Work Phone: Start: 01-02-2025 Culture bacterial quanttative colony count urine Nisa Hurst MD Work Phone: Start: 01-02-2025 ER EXTRA URINE Nicholas lindsey MD Work Phone: Start: 01-02-2025 Urinalysis Nisa may MD Work Phone: Start: 01-02-2025 Radiologic exam ches t single view Nisa Hurst MD Work Phone: Start: 01-02-2025 PULSE OXIMETRY, SPOT Celestina Hurst MD Work Phone: Start: 01-01-2025 Urine culture Dorian Biggs griselda DO Work Phone: Start: 06-18-2017 Screening for malign ant neoplasm of colon Francis Osborne Other Start: 06-18-2017 Screening for osteoporosis Francis Osborne Other Start: 06-18-2017 Screening mammography B enjamecca Osborne Other Screening for malign ant neoplasm of breast Francis Osborne Other Plan of Treatment Date Care Activity Detail Author Start: 04-26-2025 Influenza vaccination Influenza Vacc ine [facility] Start: 03-02-2025 End: 03-02-2025 Patient encounter procedure 03/02/2025 3:30 PM EDT [facility] Department of [address] [place] [address] Krystin Johns MD [address] [place] [address] [address] [place] [address] [facility] Neurology, A Department of [facility] Start: 01-01-2025 Bacteria identified in Urine by Culture Urine Culture [facility] Start: 01-01-2025 Urine culture [facility] Start: 04-26-2024 COVID-19 Vaccine ( season) COVID-19 Vaccine ( season) [facility] Start: 2013 Fall Risk Screening Fall Risk Screen ing [facility] Start: 1998 Administration of varicella zoster vaccine Zoster (Shingles) Vaccine (1 of 2) [facility] Start: 1967 DTaP,Tdap and Td Vaccines (1 - Tdap) DTaP,Tdap and Td Vaccines (1 - Tdap) [facility] Start: 1960 Depression Screening Depression Scre ening [facility] Start: 1960 Tobacco Screening Tobacco Screening [facility] End: 01-04-2025 CBC W Auto Differential panel - Blood CBC auto differential Lab Routine Lab max of 3 days, Daily, for lab use only for 3 Days starting 01/02/2025 until 01/04/2025, 2 completed [facility] Comment on above: Lab max of 3 days, D aily, for lab use only for 3 Days starting 01/02/2025 until 01/04/2025, 2 completed Comprehensive metabo lic 2000 panel - Serum or Plasma [facility] End: 01-04-2025 Comprehensive metabolic 2000 panel - Serum or Plasma Comprehensive metabolic panel Lab Routine Lab max of 3 days, Daily, for lab use only for 3 Days starting 01/02/2025 until 01/04/2025, 2 completed [facility] Comment on above: Lab max of 3 days, D aily, for lab use only for 3 Days starting 01/02/2025 until 01/04/2025, 2 completed End: 01-04-2025 Magnesium [Mass/volume] in Serum or Plasma Magnesium Lab Routine Lab max of 3 days, Daily, for lab use only for 3 Days starting 01/02/2025 until 01/04/2025, 2 completed [facility] Comment on above: Lab max of 3 days, Junior bañuelos, for lab use only for 3 Days starting 01/02/2025 until 01/04/2025, 2 completed MG Breast - bilatera l Diagnostic [facility] MG Breast - bilatera l Diagnostic [facility] Oxygen Therapy - Maintain SpO2: 90%; *PROSPECTING OBSERVER Guidelines for O2: Yes; Document: [email or web address]\epi c\EPIC_Reference\Orders\ Respiratory Care Guidelines\CPG Oxygen 2022.pdf Oxygen Therapy - Maintain SpO2: 90%; *PROSPECTING OBSERVER Guidelines for O2: Yes; Document: \[email or web address]\ep ic\EPIC_Reference\Order s\Respiratory Care Guidelines\CPG Oxygen 2022.pdf Respiratory Care Routine As Needed until discontinued starting 01/02/2025 [employer] Work Phone: Comment on above: As Needed until disc ontinued starting 01/02/2025 Platelets [#/volume] in Blood Platelet count Lab Routine Daily until discontinued starting 01/02/2025 [employer] Comment on above: Daily until disconti nued starting 01/02/2025 XR Shoulder - right Views [facility] Immunizations Immunization Date Immunization Notes Care Provider Tamiko jose 12-31-2021 COVID-19 Vaccine Pfi zer - Documentation Purposes Only Francis Osborne Other [facility] 06-19-2017 diphtheria, tetanus toxoids and acellular pertussis vaccine, unspecified formulation Francis Osborne Other [facility] 04-29-2013 tetanus and diphther ia toxoids, adsorbed, preservative free, for adult use (5 Lf of tetanus toxoid and 2 Lf of diphtheria toxoid) Francis Osborne Other [facility] 06-06-2011 diphtheria, tetanus toxoids and acellular pertussis vaccine, unspecified formulation Francis Osborne Other [facility] Payers Date Payer Category Payer Private Health Insurance 2020 Managed Care Other (unspecified) COMMERCIAL [id number] 2020 Unknown [id number] 2017 Unknown [id number] 2013 Medicare 2013 Medicare [id number] 1959 Medicare [id number] 1959 Unknown [id number] 1948 Unknown [id number] 2.16.840.1.813087.3.579.2 .593 1948 Unknown [id number] 2.16.840.1.760852.3.579.2 .593 1948 Unknown [id number] 2.16.840.1.559228.3.579.2 .196 1948 Unknown [id number] 2.16.840.1.973528.3.579.2 .1286 1948 Unknown [id number] 2.16.840.1.266248.3.579.2 .1286 1948 Unknown [id number] 2.16.840.1.308921.3.579.2 .1286 1948 Unknown [id number] 2.16.840.1.844989.3.579.2 .1286 1948 Unknown [id number] 2.16.840.1.635074.3.579.2 .128 1948 Unknown [id number] 2.16.840.1.488142.3.579.2 .1286 1948 Unknown [id number] 2.16.840.1.785079.3.579.2 .1286 1948 Unknown [id number] 2.16.840.1.453002.3.579.2 .1286 1948 Unknown [id number] 2.16.840.1.677401.3.579.2 .1286 1948 Unknown [id number] 2.16.840.1.209591.3.579.2 .1286 1948 Unknown [id number] 2.16.840.1.201395.3.579.2 .1286 1948 Unknown [id number] 2.16.840.1.583448.3.579.2 .1286 Medicare [id number] 2.16.840.1.856481.19 Medicare Cigna Medicare Supplemental [id number] Self-pay Self Pay [id number] Unknown [facility] [id number] Social History Date Type Detail Facility Start: 10-06-2020 End: 08-25-2021 Sex Assigned At [facility] Via Other Start: 1950 Sex Assigned At Female F [facility] Work Phone: Start: 09-24-2024 End: 01-06-2025 Sex Female (finding) [facility] Start: 08-25-2021 [facility] Start: 08-25-2021 Tobacco use and exposure Smokeless tobacco non-user [facility] Start: 08-25-2021 End: 01-02-2025 Alcoholic beverage intake Lifetime non-drinker (finding) [facility] Start: 10-06-2020 End: 08-25-2021 History of Social function [facility] Childcare Unknown [facility] Start: 1950 Sex assigned at Not on file P [facility] Has the electric, [employer], [employer], or water company threatened to shut off services in your home in past 12Mo No [facility] How often to you hav e a drink containing alcohol? Never [facility] Goals Date Patient Goal Desired Activity /State Personal health goal Comment on above: Formatting of this n ote might be different from the original. Evaluation of progress towards goal: transition home with self care/family assist and resume home care services Functional Status Date Assessment Result Facility 01-02-2025 Total score [AUDIT-C] 0 01/03/20 9:07 AM EDT Lisbet Abreu RN [facility] 01-02-2025 Humiliation, Afraid, Rape, and Kick questionnaire [HARK] [facility] Clinical Notes 09-21-2022 to 01-03-2025 Discharge Planning Note - LARA Arroyo - 01/03/2025 1:37 PM EDTDischarge Planning Note - LARA Arroyo - 01/03/2025 1:37 PM EDTPlan of Care - Edilia Perales MD - 01/03/2025 10:41 AM EDT Note Date & Type Note Facility 01-03-2025 Progress note Formatting of t his note might be different from the original. DISCHARGE PLANNING NOTE Discharge written, CRF complete. [facility] notified of discharge and CRF sent. RN updated. - LARA ARROYO 01/03/25 1:37 PM [facility] 01-03-2025 Miscellaneous Notes DISCHARGE PLANNING NOTE Discharge written, CRF complete. [facility] notified of discharge and CRF sent. RN updated. - LARA ARROYO 01/03/25 1:37 PM 74 y/o female with recent left parietal stroke and recurrent admission for reported confusion not explained by the stroke. Currently oriented x4. Oriented to name, place, person, situation. Intact recent and remote memory. Able to tell me days of the week. No further inpatient workup warranted. We will sign off Edilia Perales MD PGY-3 Neurology Problem: Pain Goal: Patient goal is pain score less than 4, able to rest, and participant in treatment plan as appropriate Description: INTERVENTIONS: 1. Encourage patient or legal screening representative to report early pain and ask for pain medicine when needed 2. Assess pain using appropriate pain scale and include the scale used when documenting 3. Administer analgesics based on type and severity of pain and evaluate response within appropriate time frame 4. Implement non-pharmacological measures as appropriate and evaluate response 5. Consider cultural and social influences on pain and pain management 6. Notify LIP if interventions ineffective or patient reports new pain 7. Monitor vital signs including pulse ox, end-tidal CO2 based on pain intervention 8. Reassess pain per policy 9. Teach patient or legal screening representative interventions for comforting Outcome: Progressing Note: Evaluation of progress towards goal: Patient assessed with appropriate pain scale and reports no pain at the moment. Patient encouraged to call out and to report if any new pain occurs. Will continue to assess the patient for pain while providing care. Problem: Safety Goal: Patient will be injury free during hospitalization Description: INTERVENTIONS: 1. Assess patient's risk for falls and implement fall prevention plan of care per policy 2. Provide and maintain a safe environment 3. Proper use of double Identifiers 4. Medication administration using the 5 rights 5. Hand hygiene 6. Specimens are labeled at the bedside 7. Instruct patient/ patient screening representative about use of safety devices 8. Include patient/ patient screening representative in decisions related to safety Outcome: Progressing Note: Evaluation of progress towards goal: Patient remains injury free while on the unit. Safe environment maintained; personal items and call light within reach; bed locked and in lowest position. Safety education reinforced with patient and/or family. Six rights of medication administration maintained. Will continue to monitor for further needs related to patient safety. Problem: Infection Goal: Absence of infection during hospitalization Description: INTERVENTIONS 1. Assess and monitor for signs and symptoms of infection. 2. Monitor lab/diagnostic results. 3. Monitor all insertion sites i.e., indwelling lines, tubes and drains. 4. Monitor endotracheal (as able) and nasal secretions for changes in amount and color. 5. Administer medications as ordered. 6. Instruct and encourage patient and family to use good hand hygiene technique. 7. Identify and instruct patient/patient screening representative in use of appropriate isolation precautions for identified infection/symptoms. 8. Provide and discuss with patient/patient screening representative on educational MDRO sheet. 9. Encourage and monitor nutritional status daily and consult senior bioinformatics specialist if indicated. 10. Implement neutropenic guidelines as needed. Outcome: Progressing Note: Evaluation of progress towards goal: Patient remains afebrile with absence of typical signs of infection such as redness, swelling, purulent drainage, etc. Labs remain within defined limits. Infection preventative measures maintained. Will continue to monitor patient for any signs or symptoms indicating infection while providing care. Problem: Knowledge Deficit Goal: Patient/patient screening representative demonstrates understanding of disease process, treatment plan, medications, and discharge instructions Description: INTERVENTIONS 1. Complete learning assessment and assess knowledge base 2. Provide teaching at level of understanding 3. Provide teaching via preferred learning method(s) Outcome: Progressing Note: Evaluation of progress towards goal: Medications reviewed with and understood by patient. Patient updated on plan of care. Patient states understanding of discharge plan to home with home health. Family/spouse are aware and accepting. Patient to have adequate support when discharged. Will continue plan of care and assess for further needs regarding above mentioned topics. Problem: Discharge Planning Goal: Discharge to post-acute care, other facility, or home with appropriate resources Description: Patient's goal is: INTERVENTIONS 1. Conduct assessment to determine patient/family and health care team treatment goals, and need for post-acute services based on payer coverage, community resources, and patient preferences, and barriers to discharge 2. Coordinate with Social work, Care Navigation, and Utilization Review to arrange appropriate level of services according to patient's needs based on patient preference and payer coverage in collaboration with the physician and health care team 3. Address psychosocial, clinical, and financial barriers to discharge as identified in assessment in conjunction with the patient/family and health care team 4. Consult appropriate ancillary services (i.e.. PT/OT/ST, etc) as needed 5. Communicate with and update the patient/family, physician, and health care team regarding progress on the discharge plan 6. Identify discharge learning needs (meds, wound care, etc). 7. Arrange for needed discharge transportation as appropriate Outcome: Progressing Note: Evaluation of progress towards goal: Patient is involved in discharge planning. Problem: Neurological Deficit Goal: Neurological status is stable or improving Description: Patient's goal is: INTERVENTIONS 1. Complete Neurological assessment as indicated/ordered 2. Initiate measures to prevent increased intracranial pressure 3. Monitor and assess patient's level of consciousness, motor function, sensory function, and level of assistance needed for ADLs 4. Monitor and report changes from baseline 5. Maintain blood pressure and fluid volume within ordered parameters to optimize cerebral perfusion and minimize risk of hemorrhage 6. Monitor labs and diagnostic tests 7. Administer anti-seizure medications as ordered 8. Maintain airway, patient safety and administer oxygen as ordered 9. Monitor patient for seizure activity, document and report duration and description of seizure to LIP 10. If seizure occurs, turn patient to side and suction secretions as needed 11. Reorient patient post seizure 12. Seizure pads on all 4 side rails 13. Instruct patient/family to notify RN of any seizure activity 14. Instruct patient/family to call for assistance with activity based on assessment 15. Utilize bleeding precautions if thrombolytic given Outcome: Progressing Note: Evaluation of progress towards goal: Patient's level of consciousness, motor function, sensory function, and level of assistance needed for ADLs are assessed as indicated/ordered. Will report any changes from baseline. Patient/family instructed to call for assistance with activity based on assessment. Plan of care ongoing. Problem: Pain Goal: Patient goal is pain score less than 4, able to rest, and participant in treatment plan as appropriate Description: INTERVENTIONS: 1. Encourage patient or legal screening representative to report early pain and ask for pain medicine when needed 2. Assess pain using appropriate pain scale and include the scale used when documenting 3. Administer analgesics based on type and severity of pain and evaluate response within appropriate time frame 4. Implement non-pharmacological measures as appropriate and evaluate response 5. Consider cultural and social influences on pain and pain management 6. Notify LIP if interventions ineffective or patient reports new pain 7. Monitor vital signs including pulse ox, end-tidal CO2 based on pain intervention 8. Reassess pain per policy 9. Teach patient or legal screening representative interventions for comforting Outcome: Progressing Note: Evaluation of progress towards goal: no pain complains at this time Problem: Safety Goal: Patient will be injury free during hospitalization Description: INTERVENTIONS: 1. Assess patient's risk for falls and implement fall prevention plan of care per policy 2. Provide and maintain a safe environment 3. Proper use of double Identifiers 4. Medication administration using the 5 rights 5. Hand hygiene 6. Specimens are labeled at the bedside 7. Instruct patient/ patient screening representative about use of safety devices 8. Include patient/ patient screening representative in decisions related to safety Note: Evaluation of progress towards goal: no fall or injury, oriented to own ability Problem: Infection Goal: Absence of infection during hospitalization Description: INTERVENTIONS 1. Assess and monitor for signs and symptoms of infection. 2. Monitor lab/diagnostic results. 3. Monitor all insertion sites i.e., indwelling lines, tubes and drains. 4. Monitor endotracheal (as able) and nasal secretions for changes in amount and color. 5. Administer medications as ordered. 6. Instruct and encourage patient and family to use good hand hygiene technique. 7. Identify and instruct patient/patient screening representative in use of appropriate isolation precautions for identified infection/symptoms. 8. Provide and discuss with patient/patient screening representative on educational MDRO sheet. 9. Encourage and monitor nutritional status daily and consult senior bioinformatics specialist if indicated. 10. Implement neutropenic guidelines as needed. Outcome: Progressing Note: Evaluation of progress towards goal: afebrile, no signs of infection DISCHARGE PLANNING NOTE Referral for return sent to. [facility], [facility] ([place]: P# ; F# ); ([place]: P# ; F# ) ; ([place]: P# ; F# ); ([place]: P# ; F# for C F# for Hospice) ([place] P# [phone] ; F# [phone]) Images from the original note were not included. DISCHARGE PLANNING NOTE [employer] met with patient and daughter, introduced self, and explained role. Patient is alert and oriented, sitting in bed, cooperative. Supportive daughter and friend at bedside. Patient and family educated on safe discharge plan. Pt admitted 01/01/2025 with Encephalopathy [G93.40] per chart review. Consults: Neurology Discharge Barriers per Daily Transition Rounds and chart review: EEG, u/a, PT/OT Past Medical History: Diagnosis Date Anxiety Breast cancer (CMS-HCC) TIA (transient ischemic attack) Prior to admission patient was living alone in an apartment with no steps into the home and self care. Medical equipment patient used prior to admission includes: None but has a cane and wheeled walker for home use if needed. Patient will prepare simple meals. Daughter will bring meals to patient and completes household duties. Daughter stating that her brother will assist as needed. Patient no longer drives and family will transport as needed. [facility]. Patient denies need for transportation/ food/ prescription medication assistance resources. Social work discussed potential transition plan and options with patient and family. Patient and family are planning to transition home with resumption of [facility] services. Social work task RC to send referral to [facility]. Family will transport patient at discharge. PCP: FRANCIS OSBORNE DO [facility]acy:[facility] PCP and pharmacy confirmed with patient. CN offered to assist with follow up appointment arrangements; patient declines. FRANCIS OSBORNE DO added to Follow Up Providers for Summary of Care communication. Per patient self-report: Drug use: denies Smoking: denies ETOH Use: denies Current discharge plan is: home care Services Requested: Services Requested Patient expects to be discharged to:: home with homecare Goals: Goals transition home with self care/family assist and resume home care services (pt-stated) Evaluation of progress towards goal: transition home with self care/family assist and resume home care services Will continue to follow as plan of care develops. CN discussed benefits and importance of medication compliance and follow ups. Please feel free to reach out for any discharge planning questions. - LARA ARROYO 01/02/25 2:45 PM Problem: Pain Goal: Patient goal is pain score less than 4, able to rest, and participant in treatment plan as appropriate Description: INTERVENTIONS: 1. Encourage patient or legal screening representative to report early pain and ask for pain medicine when needed 2. Assess pain using appropriate pain scale and include the scale used when documenting 3. Administer analgesics based on type and severity of pain and evaluate response within appropriate time frame 4. Implement non-pharmacological measures as appropriate and evaluate response 5. Consider cultural and social influences on pain and pain management 6. Notify LIP if interventions ineffective or patient reports new pain 7. Monitor vital signs including pulse ox, end-tidal CO2 based on pain intervention 8. Reassess pain per policy 9. Teach patient or legal screening representative interventions for comforting Outcome: Progressing Note: Evaluation of progress towards goal: Medicated with prn Tylenol for chronic pain. Pt states medication is helpful. Neurology plan of care. Patient currently awake, alert and oriented. Considering the patient's recent stroke, we will consult vascular neurology service for further recommendations. Patient also has low vitamin B12 and has been started on B12 replacement therapy. Kendall Higgins MD PGY-2 Neurology Resident, [facility]. Problem: Pain Goal: Patient goal is pain score less than 4, able to rest, and participant in treatment plan as appropriate Description: INTERVENTIONS: 1. Encourage patient or legal screening representative to report early pain and ask for pain medicine when needed 2. Assess pain using appropriate pain scale and include the scale used when documenting 3. Administer analgesics based on type and severity of pain and evaluate response within appropriate time frame 4. Implement non-pharmacological measures as appropriate and evaluate response 5. Consider cultural and social influences on pain and pain management 6. Notify LIP if interventions ineffective or patient reports new pain 7. Monitor vital signs including pulse ox, end-tidal CO2 based on pain intervention 8. Reassess pain per policy 9. Teach patient or legal screening representative interventions for comforting Outcome: Progressing Note: Evaluation of progress towards goal: [employer] assessed that patient has had pain reassessed per policy. Implement no-pharmacological measures as appropriate and evaluate response with appropriate time frame. Monitor vital signs including pulse ox, end-tidal c02 based on paint intervention. Problem: Safety Goal: Patient will be injury free during hospitalization Description: INTERVENTIONS: 1. Assess patient's risk for falls and implement fall prevention plan of care per policy 2. Provide and maintain a safe environment 3. Proper use of double Identifiers 4. Medication administration using the 5 rights 5. Hand hygiene 6. Specimens are labeled at the bedside 7. Instruct patient/ patient screening representative about use of safety devices 8. Include patient/ patient screening representative in decisions related to safety Outcome: Progressing Note: Evaluation of progress towards goal: [employer] assessed that patient has been provided and maintained a safe environment. Medication administration using the 5 rights. Proper use of double identifiers. Problem: Infection Goal: Absence of infection during hospitalization Description: INTERVENTIONS 1. Assess and monitor for signs and symptoms of infection. 2. Monitor lab/diagnostic results. 3. Monitor all insertion sites i.e., indwelling lines, tubes and drains. 4. Monitor endotracheal (as able) and nasal secretions for changes in amount and color. 5. Administer medications as ordered. 6. Instruct and encourage patient and family to use good hand hygiene technique. 7. Identify and instruct patient/patient screening representative in use of appropriate isolation precautions for identified infection/symptoms. 8. Provide and discuss with patient/patient screening representative on educational MDRO sheet. 9. Encourage and monitor nutritional status daily and consult senior bioinformatics specialist if indicated. 10. Implement neutropenic guidelines as needed. Outcome: Progressing Note: Evaluation of progress towards goal: [employer] has been assessed and monitored for signs and symptoms of infection. Administered medications as ordered. Monitored all insertion sites. Problem: Knowledge Deficit Goal: Patient/patient screening representative demonstrates understanding of disease process, treatment plan, medications, and discharge instructions Description: INTERVENTIONS 1. Complete learning assessment and assess knowledge base 2. Provide teaching at level of understanding 3. Provide teaching via preferred learning method(s) Outcome: Progressing Note: Evaluation of progress towards goal: [employer] has assessed that patient has been provided teaching at level of understanding. Provided teaching via preferred learning methods. Completed learning assessment and assessed knowledge base. Problem: Discharge Planning Goal: Discharge to post-acute care, other facility, or home with appropriate resources Description: Patient's goal is: INTERVENTIONS 1. Conduct assessment to determine patient/family and health care team treatment goals, and need for post-acute services based on payer coverage, community resources, and patient preferences, and barriers to discharge 2. Coordinate with Social work, Care Navigation, and Utilization Review to arrange appropriate level of services according to patient's needs based on patient preference and payer coverage in collaboration with the physician and health care team 3. Address psychosocial, clinical, and financial barriers to discharge as identified in assessment in conjunction with the patient/family and health care team 4. Consult appropriate ancillary services (i.e.. PT/OT/ST, etc) as needed 5. Communicate with and update the patient/family, physician, and health care team regarding progress on the discharge plan 6. Identify discharge learning needs (meds, wound care, etc). 7. Arrange for needed discharge transportation as appropriate Outcome: Progressing Note: Evaluation of progress towards goal: [employer] [place] assessed the patient for the following. Identify discharge learning needs. Arrange for needed discharge transportation as appropriate. Coordinate with social work and care navigation to arrange appropriate level of services according to patient's needs based on patient preference. documented in this encounter [facility] 01-03-2025 Hospital course Narrative Images from the original note were not included. [facility]- Hospital Medicine Discharge Summary Patient's Name: Birgit Clarke Date of : 1950 Age: 74 yrs Gender: female PCP: Patient Care Team: Francis Osborne DO as PCP - General DATE OF ADMISSION: 01/01/2025 DATE OF DISCHARGE: 01/03/2025 DISCHARGE DIAGNOSES: Active Hospital Problems Diagnosis Date Noted Vitamin B12 deficiency 01/02/2025 Resolved Problems Diagnosis Date Noted Date Resolved Ataxia 01/02/2025 01/03/2025 Encephalopathy 01/01/2025 01/03/2025 CONSULTANTS: Consulting Providers Provider Service Specialty Tutu Perales MD -- Neurology Andrae Farrar MD -- Neurology PROCEDURES: No admission procedures for hospital encounter. Things needing follow up: - Monitor response to B12 treatment. Hospital Course Birgit Zacarias a 74 y.o.female with past medical history significant for breast cancer, primary hypertension, anxiety, stroke/TIA. The patient was transferred to [facility] from [facility] due to altered mental status and ataxia. The patient had a recent stroke 12/30/2024 with MRI showing left parietal ischemic stroke and she was discharged on aspirin and statin. Her LDL was 156 and her A1c was 5.5. She had negative CTA head and CTA neck. During this new presentation at outside hospital CT head was done and showed small chronic caudate head lacunar stroke. The patient was transferred to [facility] for Neurology evaluation. Per report she was disoriented and confused. Workup was negative for infection. She was diagnosed with vitamin B12 deficiency at our hospital. Her serum vitamin B12 level was 167 and this can explain her symptoms. Her TSH was normal. She was started on cyanocobalamin 1000 mcg IM daily. She was evaluated by Neurology and had an EEG which was negative. They recommended 21 days of DAPT in addition to statin. The patient's confusion and gait abnormalities resolved . She was able to ambulate independently. I walked with the patient in her room today and she did not require any assistance and had no signs of ataxia or imbalance. Her neurological exam is intact and she has negative Romberg sign. She wants to be discharged home and does not want to wait for PT/OT evaluation. She had UA and urine cultures at our hospital which were both negative. She will be discharged home today with home health care. Will prescribe IM cyanocobalamin 1000 mcg weekly x8 weeks. We will ask the visit RN to do them. The patient informed me that she has a friend who is trained to do intramuscular injections. I instructed her to seek help from PCP if needed. Discharge Medications: Medication List START taking these medications Instructions Last Dose Given Next Dose Due clopidogreL 75 mg tablet Commonly known as: PLAVIX Start taking on: January 04, 2025 Take 1 tablet (75 mg total) by mouth in the morning for 19 days. Take for 19 days only. cyanocobalamin 1,000 mcg/mL injection Commonly known as: VITAMIN B-12 Inject 1 mL (1,000 mcg total) into the appropriate muscle once a week for 8 doses. CONTINUE taking these medications Instructions Last Dose Given Next Dose Due aspirin 81 mg chewable tablet Chew 1 tablet (81 mg total) and swallow in the morning. atorvastatin 40 mg tablet Commonly known as: LIPITOR Take 1 tablet (40 mg total) by mouth in the morning. baclofen 10 mg tablet Commonly known as: LIORESAL Take 1 tablet (10 mg total) by mouth 3 (three) times a day. bisoprolol 5 mg tablet Commonly known as: ZEBETA Take 1 tablet (5 mg total) by mouth in the morning. STOP taking these medications ceFUROxime 500 mg tablet Commonly known as: CEFTIN Where to Get Your Medications These medications were sent to [facility] #[id number] - [address] AT [address] [id number] clopidogreL 75 mg tablet cyanocobalamin 1,000 mcg/mL injection For most accurate medication list, please review the discharge medication summary. DISCHARGE EXAM: Vitals: 01/03/25 1210 BP: 149/81 Pulse: 64 Resp: 18 Temp: 36.6 C (97.8 F) SpO2: 94% General appearance: alert, in no acute distress Skin: No rash, no erythema Lungs: Nonlabored respiration, no wheezing Heart: RRR, No ectopy Abdomen: Abdomen soft, non-tender. Extremities: No edema, no swelling or erythema. Neuro: AAOx3, non-focal Labs: Recent Results (from the past 48 hours) Urinalysis Collection Time: 01/02/25 5:32 AM Specimen: Urine Result Value Ref Range COLOR Yellow Yellow, Colorless TURBIDITY Clear Clear SPECIFIC GRAVITY 1.012 1.003 - 1.035 NITRITE Negative Negative PH,URINE 6.0 5.0 - 8.5 LEUKOCYTE ESTERASE Negative Negative PROTEIN Negative Negative KETONES (URINE) Negative Negative UROBILINOGEN <1.1 eu/dL <1.1 eu/dL BILIRUBIN (URINE) Negative Negative BLOOD/HGB Negative Negative GLUCOSE (URINE) Negative Negative Urine Culture Urine, Clean Catch Midstream Collection Time: 01/02/25 5:32 AM Specimen: Urine, Clean Catch Midstream Result Value Ref Range CULTURE RESULTS NO GROWTH AT <1000 CFU/mL Er Extra Urine Collection Time: 01/02/25 5:32 AM Specimen: Urine Result Value Ref Range Extra Tube Auto Resulted CBC auto differential Collection Time: 01/02/25 5:54 AM Result Value Ref Range WBC 5.1 4 - 11 x10E9/L RBC Count 4.33 3.8 - 5.2 X10E12/L Hemoglobin 12.9 11.7 - 15.5 g/dL Hematocrit 38.2 35 - 47 % MCV 88 80 - 100 fL MCH 29.7 27 - 34 pg MCHC 33.8 32 - 36 g/dL RDW 14.3 11.5 - 15 % Platelet Count 284 150 - 450 X10E9/L MPV 8.9 7 - 12 fL Neutrophils Relative 55.8 % Lymphocytes Relative 21.5 % Monocytes Relative 18.2 % Eosinophils Relative 3.2 % Basophils Relative 1.3 % Neutrophils Absolute (A) 2.8 1.5 - 6.6 10*3/uL Lymphocytes Absolute 1.1 1.0 - 3.5 10*3/uL Monocytes Absolute 0.9 0.0 - 0.9 10*3/uL Eosinophils Absolute 0.2 0.0 - 0.4 10*3/uL Basophils Absolute 0.1 0.0 - 0.2 10*3/uL Differential Type AUTOMATED DIFFERENTIAL Comprehensive metabolic panel Collection Time: 01/02/25 5:54 AM Result Value Ref Range SODIUM 141 134 - 146 mmol/L POTASSIUM 3.7 3.5 - 5.0 mmol/L CHLORIDE 106 98 - 109 mmol/L CARBON DIOXIDE 27 22 - 32 mmol/L ANION GAP 8 5 - 15 mmol/L BLOOD UREA NITROGEN 12 5 - 27 mg/dL CREATININE 0.64 0.40 - 1.00 mg/dL GLUCOSE 88 65 - 99 mg/dL CALCIUM 9.0 8.5 - 10.5 mg/dL TOTAL PROTEIN 6.7 6.0 - 8.0 g/dL ALBUMIN 3.7 3.2 - 5.3 g/dL ALKALINE PHOSPHATASE 93 39 - 130 U/L AST 19 <=41 U/L ALT 7 <=31 U/L BILIRUBIN,TOTAL 0.6 0.3 - 1.2 mg/dL EGFR Non-Race Dependent >90 >=60 ml/min/1.73sq.m Magnesium Collection Time: 01/02/25 5:54 AM Result Value Ref Range MAGNESIUM 2.2 1.8 - 2.6 mg/dL Thyroid profile includes TSH FT4 Collection Time: 01/02/25 5:54 AM Result Value Ref Range FREE T4 0.81 0.61 - 1.60 ng/dL TSH 2.85 0.49 - 4.67 uIU/mL Protime & INR Collection Time: 01/02/25 5:54 AM Result Value Ref Range PROTIME 11.1 9.8 - 13.2 sec INR 1.0 0.9 - 1.2 Vitamin B12 Collection Time: 01/02/25 5:54 AM Result Value Ref Range VITAMIN B12 167 (L) 180 - 914 pg/mL Ammonia Collection Time: 01/02/25 5:54 AM Result Value Ref Range AMMONIA 21 18 - 72 umol/L CBC auto differential Collection Time: 01/03/25 6:57 AM Result Value Ref Range WBC 5.4 4 - 11 x10E9/L RBC Count 4.40 3.8 - 5.2 X10E12/L Hemoglobin 13.1 11.7 - 15.5 g/dL Hematocrit 38.5 35 - 47 % MCV 87 80 - 100 fL MCH 29.8 27 - 34 pg MCHC 34.1 32 - 36 g/dL RDW 14.1 11.5 - 15 % Platelet Count 264 150 - 450 X10E9/L MPV 9.0 7 - 12 fL Neutrophils Relative 62.6 % Lymphocytes Relative 16.8 % Monocytes Relative 16.0 % Eosinophils Relative 3.3 % Basophils Relative 1.3 % Neutrophils Absolute (A) 3.4 1.5 - 6.6 10*3/uL Lymphocytes Absolute 0.9 (L) 1.0 - 3.5 10*3/uL Monocytes Absolute 0.9 0.0 - 0.9 10*3/uL Eosinophils Absolute 0.2 0.0 - 0.4 10*3/uL Basophils Absolute 0.1 0.0 - 0.2 10*3/uL Differential Type AUTOMATED DIFFERENTIAL Comprehensive metabolic panel Collection Time: 01/03/25 6:57 AM Result Value Ref Range SODIUM 142 134 - 146 mmol/L POTASSIUM 3.5 3.5 - 5.0 mmol/L CHLORIDE 106 98 - 109 mmol/L CARBON DIOXIDE 28 22 - 32 mmol/L ANION GAP 8 5 - 15 mmol/L BLOOD UREA NITROGEN 12 5 - 27 mg/dL CREATININE 0.68 0.40 - 1.00 mg/dL GLUCOSE 82 65 - 99 mg/dL CALCIUM 9.2 8.5 - 10.5 mg/dL TOTAL PROTEIN 6.7 6.0 - 8.0 g/dL ALBUMIN 3.7 3.2 - 5.3 g/dL ALKALINE PHOSPHATASE 97 39 - 130 U/L AST 16 <=41 U/L ALT 7 <=31 U/L BILIRUBIN,TOTAL 0.5 0.3 - 1.2 mg/dL EGFR Non-Race Dependent 90 >=60 ml/min/1.73sq.m Magnesium Collection Time: 01/03/25 6:57 AM Result Value Ref Range MAGNESIUM 2.2 1.8 - 2.6 mg/dL Radiology: No results found. Discharge Instructions Disposition: Discharge to home health care Condition: Good Activity: activity as tolerated Diet: Adult diet Regular Texture Adult diet Francis Osborne DO [facility] [id number] Schedule an appointment as soon as possible for a visit in 1 week(s) Information Provided to the Patient: Patient given copy of Discharge Instructions, patient hospital stay was discussed. No special instructions. I have spent 35 minutes coordinating and preparing this discharge. I have discussed the patient's hospitalization course, treatment plan and follow up instructions with the patient. I have answered all the patient's questions. Electronically signed by: LOBO MIGUEL MD [facility] Hospitalists, Department of Internal Medicine 01/03/25 1:27 PM documented in this encounter [facility] 01-03-2025 Plan of care note 74 y/o female with recent left parietal stroke and recurrent admission for reported confusion not explained by the stroke. Currently oriented x4. Oriented to name, place, person, situation. Intact recent and remote memory. Able to tell me days of the week. No further inpatient workup warranted. We will sign off Edilia Perales MD PGY-3 Neurology [facility] Work Phone: 01-03-2025 Plan of care note Problem: Pain Goal: Patient goal is pain score less than 4, able to rest, and participant in treatment plan as appropriate Description: INTERVENTIONS: 1. Encourage patient or legal screening representative to report early pain and ask for pain medicine when needed 2. Assess pain using appropriate pain scale and include the scale used when documenting 3. Administer analgesics based on type and severity of pain and evaluate response within appropriate time frame 4. Implement non-pharmacological measures as appropriate and evaluate response 5. Consider cultural and social influences on pain and pain management 6. Notify LIP if interventions ineffective or patient reports new pain 7. Monitor vital signs including pulse ox, end-tidal CO2 based on pain intervention 8. Reassess pain per policy 9. Teach patient or legal screening representative interventions for comforting Outcome: Progressing Note: Evaluation of progress towards goal: Patient assessed with appropriate pain scale and reports no pain at the moment. Patient encouraged to call out and to report if any new pain occurs. Will continue to assess the patient for pain while providing care. Problem: Safety Goal: Patient will be injury free during hospitalization Description: INTERVENTIONS: 1. Assess patient's risk for falls and implement fall prevention plan of care per policy 2. Provide and maintain a safe environment 3. Proper use of double Identifiers 4. Medication administration using the 5 rights 5. Hand hygiene 6. Specimens are labeled at the bedside 7. Instruct patient/ patient screening representative about use of safety devices 8. Include patient/ patient screening representative in decisions related to safety Outcome: Progressing Note: Evaluation of progress towards goal: Patient remains injury free while on the unit. Safe environment maintained; personal items and call light within reach; bed locked and in lowest position. Safety education reinforced with patient and/or family. Six rights of medication administration maintained. Will continue to monitor for further needs related to patient safety. Problem: Infection Goal: Absence of infection during hospitalization Description: INTERVENTIONS 1. Assess and monitor for signs and symptoms of infection. 2. Monitor lab/diagnostic results. 3. Monitor all insertion sites i.e., indwelling lines, tubes and drains. 4. Monitor endotracheal (as able) and nasal secretions for changes in amount and color. 5. Administer medications as ordered. 6. Instruct and encourage patient and family to use good hand hygiene technique. 7. Identify and instruct patient/patient screening representative in use of appropriate isolation precautions for identified infection/symptoms. 8. Provide and discuss with patient/patient screening representative on educational MDRO sheet. 9. Encourage and monitor nutritional status daily and consult senior bioinformatics specialist if indicated. 10. Implement neutropenic guidelines as needed. Outcome: Progressing Note: Evaluation of progress towards goal: Patient remains afebrile with absence of typical signs of infection such as redness, swelling, purulent drainage, etc. Labs remain within defined limits. Infection preventative measures maintained. Will continue to monitor patient for any signs or symptoms indicating infection while providing care. Problem: Knowledge Deficit Goal: Patient/patient screening representative demonstrates understanding of disease process, treatment plan, medications, and discharge instructions Description: INTERVENTIONS 1. Complete learning assessment and assess knowledge base 2. Provide teaching at level of understanding 3. Provide teaching via preferred learning method(s) Outcome: Progressing Note: Evaluation of progress towards goal: Medications reviewed with and understood by patient. Patient updated on plan of care. Patient states understanding of discharge plan to home with home health. Family/spouse are aware and accepting. Patient to have adequate support when discharged. Will continue plan of care and assess for further needs regarding above mentioned topics. Problem: Discharge Planning Goal: Discharge to post-acute care, other facility, or home with appropriate resources Description: Patient's goal is: INTERVENTIONS 1. Conduct assessment to determine patient/family and health care team treatment goals, and need for post-acute services based on payer coverage, community resources, and patient preferences, and barriers to discharge 2. Coordinate with Social work, Care Navigation, and Utilization Review to arrange appropriate level of services according to patient's needs based on patient preference and payer coverage in collaboration with the physician and health care team 3. Address psychosocial, clinical, and financial barriers to discharge as identified in assessment in conjunction with the patient/family and health care team 4. Consult appropriate ancillary services (i.e.. PT/OT/ST, etc) as needed 5. Communicate with and update the patient/family, physician, and health care team regarding progress on the discharge plan 6. Identify discharge learning needs (meds, wound care, etc). 7. Arrange for needed discharge transportation as appropriate Outcome: Progressing Note: Evaluation of progress towards goal: Patient is involved in discharge planning. Problem: Neurological Deficit Goal: Neurological status is stable or improving Description: Patient's goal is: INTERVENTIONS 1. Complete Neurological assessment as indicated/ordered 2. Initiate measures to prevent increased intracranial pressure 3. Monitor and assess patient's level of consciousness, motor function, sensory function, and level of assistance needed for ADLs 4. Monitor and report changes from baseline 5. Maintain blood pressure and fluid volume within ordered parameters to optimize cerebral perfusion and minimize risk of hemorrhage 6. Monitor labs and diagnostic tests 7. Administer anti-seizure medications as ordered 8. Maintain airway, patient safety and administer oxygen as ordered 9. Monitor patient for seizure activity, document and report duration and description of seizure to LIP 10. If seizure occurs, turn patient to side and suction secretions as needed 11. Reorient patient post seizure 12. Seizure pads on all 4 side rails 13. Instruct patient/family to notify RN of any seizure activity 14. Instruct patient/family to call for assistance with activity based on assessment 15. Utilize bleeding precautions if thrombolytic given Outcome: Progressing Note: Evaluation of progress towards goal: Patient's level of consciousness, motor function, sensory function, and level of assistance needed for ADLs are assessed as indicated/ordered. Will report any changes from baseline. Patient/family instructed to call for assistance with activity based on assessment. Plan of care ongoing. [facility] 01-02-2025 Plan of care note Problem: Pain Goal: Patient goal is pain score less than 4, able to rest, and participant in treatment plan as appropriate Description: INTERVENTIONS: 1. Encourage patient or legal screening representative to report early pain and ask for pain medicine when needed 2. Assess pain using appropriate pain scale and include the scale used when documenting 3. Administer analgesics based on type and severity of pain and evaluate response within appropriate time frame 4. Implement non-pharmacological measures as appropriate and evaluate response 5. Consider cultural and social influences on pain and pain management 6. Notify LIP if interventions ineffective or patient reports new pain 7. Monitor vital signs including pulse ox, end-tidal CO2 based on pain intervention 8. Reassess pain per policy 9. Teach patient or legal screening representative interventions for comforting Outcome: Progressing Note: Evaluation of progress towards goal: no pain complains at this time Problem: Safety Goal: Patient will be injury free during hospitalization Description: INTERVENTIONS: 1. Assess patient's risk for falls and implement fall prevention plan of care per policy 2. Provide and maintain a safe environment 3. Proper use of double Identifiers 4. Medication administration using the 5 rights 5. Hand hygiene 6. Specimens are labeled at the bedside 7. Instruct patient/ patient screening representative about use of safety devices 8. Include patient/ patient screening representative in decisions related to safety Note: Evaluation of progress towards goal: no fall or injury, oriented to own ability Problem: Infection Goal: Absence of infection during hospitalization Description: INTERVENTIONS 1. Assess and monitor for signs and symptoms of infection. 2. Monitor lab/diagnostic results. 3. Monitor all insertion sites i.e., indwelling lines, tubes and drains. 4. Monitor endotracheal (as able) and nasal secretions for changes in amount and color. 5. Administer medications as ordered. 6. Instruct and encourage patient and family to use good hand hygiene technique. 7. Identify and instruct patient/patient screening representative in use of appropriate isolation precautions for identified infection/symptoms. 8. Provide and discuss with patient/patient screening representative on educational MDRO sheet. 9. Encourage and monitor nutritional status daily and consult senior bioinformatics specialist if indicated. 10. Implement neutropenic guidelines as needed. Outcome: Progressing Note: Evaluation of progress towards goal: afebrile, no signs of infection [facility] Progress note Formatting of t his note might be different from the original. DISCHARGE PLANNING NOTE Referral for return sent to. [facility] ([place]: P# ; F# ); ([place]: P# ; F# ) ; ([place], [place]: P# ; F# ); ([place]: P# ; F# for [facility] F# for Hospice) ([place] P# [phone] ; F# [phone]) [facility] 01-02-2025 Progress note Formatting of t his note is different from the original. Images from the original note were not included. DISCHARGE PLANNING NOTE [employer] met with patient and daughter, introduced self, and explained role. Patient is alert and oriented, sitting in bed, cooperative. Supportive daughter and friend at bedside. Patient and family educated on safe discharge plan. Pt admitted 01/01/2025 with Encephalopathy [G93.40] per chart review. Consults: Neurology Discharge Barriers per Daily Transition Rounds and chart review: EEG, u/a, PT/OT Past Medical History: Diagnosis Date Anxiety Breast cancer [facility]) TIA (transient ischemic attack) Prior to admission patient was living alone in an apartment with no steps into the home and self care. Medical equipment patient used prior to admission includes: None but has a cane and wheeled walker for home use if needed. Patient will prepare simple meals. Daughter will bring meals to patient and completes household duties. Daughter stating that her brother will assist as needed. Patient no longer drives and family will transport as needed. [facility]. Patient denies need for transportation/ food/ prescription medication assistance resources. Social work discussed potential transition plan and options with patient and family. Patient and family are planning to transition home with resumption of [facility] services. Social work task [facility] to send referral to [facility]. Family will transport patient at discharge. PCP: FRANCIS OSBORNE DO [facility]acy[facility] PCP and pharmacy confirmed with patient. CN offered to assist with follow up appointment arrangements; patient declines. FRANCIS OSBORNE DO added to Follow Up Providers for Summary of Care communication. Per patient self-report: Drug use: denies Smoking: denies ETOH Use: denies Current discharge plan is: home care Services Requested: Services Requested Patient expects to be discharged to:: home with homecare Goals: Goals transition home with self care/family assist and resume home care services (pt-stated) Evaluation of progress towards goal: transition home with self care/family assist and resume home care services Will continue to follow as plan of care develops. CN discussed benefits and importance of medication compliance and follow ups. Please feel free to reach out for any discharge planning questions. - LARA ARROYO 01/02/25 2:45 PM [employer] [facility] 01-02-2025 History of Presen t illness Narrative Images from the original note were not included. [facility] Phys[facility] Hospitalists Progress Note 01/02/2025 Patient Name: Birgit Clarke : 1950 Hospital Day: 2 SUBJECTIVE Follow-up for AMS The patient seen and examined. No acute events over night. Denies any symptoms today. Resting comfortably in bed. Past Medical History: Diagnosis Date Anxiety Breast cancer (CMS-HCC) TIA (transient ischemic attack) Past Surgical History: Procedure Laterality Date APPENDECTOMY BREAST LUMPECTOMY SPINAL FUSION TONSILLECTOMY ADENOIDECTOMY OBJECTIVE Vital Signs: Temp: [36.3 C (97.4 F)-37.3 C (99.1 F)] 36.3 C (97.4 F) Pulse: [55-66] 55 Resp: [12-18] 18 BP: (125-158)/(86-93) 152/89 SpO2: [94 %-96 %] 95 % O2 Device: None (Room air) O2 Flow Rate (L/min): [0 L/min] 0 L/min Weight: Body mass index is 32.29 kg/m . Admission weight: 75 kg (165 lb 5.5 oz) Wt Readings from Last 3 Encounters: 01/02/25 75 kg (165 lb 5.5 oz) 08/25/21 72.6 kg (160 lb) 01/20/17 81.6 kg (180 lb) Input/Output: No intake or output data in the 24 hours ending 01/02/25 1341 Physical Exam: General appearance: Alert, cooperative, no distress. Eyes: PERRLA, EOM's intact Conjunctiva/corneas moist and clear, no pallor or icterus. ENT: Oropharynx clear with moist mucous membranes and no mucosal ulcerations. No thrush. External ears and nose are normal without lesions or scars. Respiratory: Normal work of breathing. No use of accessory muscles. No wheezing, rhonchi or crackles. Cardiovascular: Regular rate and rhythm, S1, S2 normal, no murmur, rub or gallop. No LE edema. Abdomen: Soft, non-tender, no masses. No hernia. No hepatosplenomegaly. Neuro: Cranial nerves are grossly intact. Muscle strength is 5/5 in all 4 extremities. Psychiatric: Mood and affect appropriate, Appropriate judgment and insight. Alert and oriented. Labs/Imaging: Recent Results (from the past 24 hours) Urinalysis Collection Time: 01/02/25 5:32 AM Specimen: Urine Result Value Ref Range COLOR Yellow Yellow, Colorless TURBIDITY Clear Clear SPECIFIC GRAVITY 1.012 1.003 - 1.035 NITRITE Negative Negative PH,URINE 6.0 5.0 - 8.5 LEUKOCYTE ESTERASE Negative Negative PROTEIN Negative Negative KETONES (URINE) Negative Negative UROBILINOGEN <1.1 eu/dL <1.1 eu/dL BILIRUBIN (URINE) Negative Negative BLOOD/HGB Negative Negative GLUCOSE (URINE) Negative Negative Er Extra Urine Collection Time: 01/02/25 5:32 AM Specimen: Urine Result Value Ref Range Extra Tube Auto Resulted CBC auto differential Collection Time: 01/02/25 5:54 AM Result Value Ref Range WBC 5.1 4 - 11 x10E9/L RBC Count 4.33 3.8 - 5.2 X10E12/L Hemoglobin 12.9 11.7 - 15.5 g/dL Hematocrit 38.2 35 - 47 % MCV 88 80 - 100 fL MCH 29.7 27 - 34 pg MCHC 33.8 32 - 36 g/dL RDW 14.3 11.5 - 15 % Platelet Count 284 150 - 450 X10E9/L MPV 8.9 7 - 12 fL Neutrophils Relative 55.8 % Lymphocytes Relative 21.5 % Monocytes Relative 18.2 % Eosinophils Relative 3.2 % Basophils Relative 1.3 % Neutrophils Absolute (A) 2.8 1.5 - 6.6 10*3/uL Lymphocytes Absolute 1.1 1.0 - 3.5 10*3/uL Monocytes Absolute 0.9 0.0 - 0.9 10*3/uL Eosinophils Absolute 0.2 0.0 - 0.4 10*3/uL Basophils Absolute 0.1 0.0 - 0.2 10*3/uL Differential Type AUTOMATED DIFFERENTIAL Comprehensive metabolic panel Collection Time: 01/02/25 5:54 AM Result Value Ref Range SODIUM 141 134 - 146 mmol/L POTASSIUM 3.7 3.5 - 5.0 mmol/L CHLORIDE 106 98 - 109 mmol/L CARBON DIOXIDE 27 22 - 32 mmol/L ANION GAP 8 5 - 15 mmol/L BLOOD UREA NITROGEN 12 5 - 27 mg/dL CREATININE 0.64 0.40 - 1.00 mg/dL GLUCOSE 88 65 - 99 mg/dL CALCIUM 9.0 8.5 - 10.5 mg/dL TOTAL PROTEIN 6.7 6.0 - 8.0 g/dL ALBUMIN 3.7 3.2 - 5.3 g/dL ALKALINE PHOSPHATASE 93 39 - 130 U/L AST 19 <=41 U/L ALT 7 <=31 U/L BILIRUBIN,TOTAL 0.6 0.3 - 1.2 mg/dL EGFR Non-Race Dependent >90 >=60 ml/min/1.73sq.m Magnesium Collection Time: 01/02/25 5:54 AM Result Value Ref Range MAGNESIUM 2.2 1.8 - 2.6 mg/dL Thyroid profile includes TSH FT4 Collection Time: 01/02/25 5:54 AM Result Value Ref Range FREE T4 0.81 0.61 - 1.60 ng/dL TSH 2.85 0.49 - 4.67 uIU/mL Protime & INR Collection Time: 01/02/25 5:54 AM Result Value Ref Range PROTIME 11.1 9.8 - 13.2 sec INR 1.0 0.9 - 1.2 Vitamin B12 Collection Time: 01/02/25 5:54 AM Result Value Ref Range VITAMIN B12 167 (L) 180 - 914 pg/mL Ammonia Collection Time: 01/02/25 5:54 AM Result Value Ref Range AMMONIA 21 18 - 72 umol/L Microbiology Results Procedure Component Value Units Date/Time Urine Culture Urine, Clean Catch Midstream [[id number]] Collected: 01/02/25531 Specimen: Urine, Clean Catch Midstream Updated: 01/02/2556 EEG Result Date: 01/02/2025 Images from the original result were not included. DC Routine EEG Report Length of Study: 31 minutes EEG Service Date: 01/02/2025 History: 74 year old woman with concern for seizures Medications: Not on any psychotropic medications Technique: This EEG was acquired with electrodes placed according to the 10-20 electrode placement system. A single EKG channel was recorded for cardiac rhythm monitoring. The quality of recording was good. EEG Classification: Normal State of Consciousness: Awake EEG Findings: 1.) Dominant Rhythm: A PDR of up to 9 Hz was seen, symmetric and reactive 2.) Background: There were multiple waveforms seen throughout the recording. In awake states, there was a normal PDR appreciated as described above. Reactivity to external stimuli was appreciated. No progressive sleep stages were seen. 3.) Activating procedures: Hyperventilation was not performed. Photic stimulation was performed, but did not produce significant changes. 4.) HR 48-50 BPM, regular Impression: This is a normal awake EEG. No epileptiform discharges or lateralizing signs were seen. Martha Prince MD Primary Education Professor DC Neurology X-ray chest 1 view Result Date: 01/02/2025 Single view chest History:Encephalopathy Difficulty breathing, shortness of breath Comparison: 01/02/2025 Findings: Single portable view of the chest. Cardiomediastinal silhouette is within normal limits. This bilateral lower lung atelectasis with hypoventilatory change. No large effusion or pneumothorax. Impression: Expiratory changes with bilateral lower lung atelectasis. Finalized by Horace Denis MD on 01/02/2025 6:57 AM All available laboratory, imaging, and microbiology data has been personally reviewed in detail, and accessible in full per EMR. Medications: aspirin, 81 mg, oral, Daily atorvastatin, 40 mg, oral, Daily bisoprolol, 5 mg, oral, Daily cyanocobalamin, 1,000 mcg, intramuscular, Daily enoxaparin (LOVENOX) injection, 40 mg, subcutaneous, Daily Infusion: sodium chloride 0.9 %, 20 mL/hr PRN medications: acetaminophen famotidine polyethylene glycol sodium chloride sodium chloride 0.9 % ASSESSMENT and plan: Active Hospital Problems Diagnosis Date Noted Vitamin B12 deficiency 01/02/2025 Ataxia 01/02/2025 Encephalopathy 01/01/2025 Resolved Problems No resolved problems to display. - Recurrent AMS/confusion- resolved: - Recent left parietal CVA: MRI brain during recent admission at OSH showed left parietal stroke. CTA head and carotic were negative for large vessel occlusion. - B12 deficiency - Vit B12 level 167. The etiology of her symptoms is likely multifactorial - EEG is pending. - Start Cyanocobalamin 1000 mcg IM daily. - Appreciate neurology input. Continue ASA 81 mg po daily, atorvastatin 40 mg po daily. - PT/OT consult. DVT prophylaxis: Lovenox 40 mg SQ daily. Code Status: Full code Disposition: Discharge tomorrow if her symptoms don't reoccur and if able to ambulate without unsteady gait. Current care plan discussed in detail with the patient. She verbalized understanding. Further management will follow based on the clinical course of the patient and results of ongoing evaluation Electronically signed by: LOBO MIGUEL MD 01/02/2025 Preferred contact method: #1. Epic chat #2. [facility] team pager Available from 7 am to 7 pm For after hours, please page [facility] night team. Disclaimer Note: To increase efficiency, your provider may have prepared this document using voice recognition technology. In that case, if a word or phrase is confusing, or does not make sense, this is likely due to a recognition error within the program which was not discovered during the provider s review. If you believe an error has occurred, please notify your provider s office at your earliest convenience, so we can correct any mistakes. [facility] Department of Pharmacy Pharmacist to Physician Communication Pharmacy adjusting enoxaparin 30 mg daily to enoxaparin 40 mg daily, per the [facility] approved dosing guidelines. Results from last 7 days Lab Units 01/02/25 0554 CREATININE mg/dL 0.64 HEMOGLOBIN g/dL 12.9 PLATELETS X10E9/L 284 Estimated Creatinine Clearance: 53.7 mL/min (by C-G formula based on SCr of 0.64 mg/dL). Wt Readings from Last 4 Encounters: 01/02/25 75 kg (165 lb 5.5 oz) 08/25/21 72.6 kg (160 lb) 01/20/17 81.6 kg (180 lb) Body mass index is 32.29 kg/m . Thank you, Baron Phillip PharmD [facility] Plan of care note Problem: Pain Goal: Patient goal is pain score less than 4, able to rest, and participant in treatment plan as appropriate Description: INTERVENTIONS: 1. Encourage patient or legal screening representative to report early pain and ask for pain medicine when needed 2. Assess pain using appropriate pain scale and include the scale used when documenting 3. Administer analgesics based on type and severity of pain and evaluate response within appropriate time frame 4. Implement non-pharmacological measures as appropriate and evaluate response 5. Consider cultural and social influences on pain and pain management 6. Notify LIP if interventions ineffective or patient reports new pain 7. Monitor vital signs including pulse ox, end-tidal CO2 based on pain intervention 8. Reassess pain per policy 9. Teach patient or legal screening representative interventions for comforting Outcome: Progressing Note: Evaluation of progress towards goal: Medicated with prn Tylenol for chronic pain. Pt states medication is helpful. [employer] 01-02-2025 Plan of care note Neurology plan of care. Patient currently awake, alert and oriented. Considering the patient's recent stroke, we will consult vascular neurology service for further recommendations. Patient also has low vitamin B12 and has been started on B12 replacement therapy. Kendall Higgins MD PGY-2 Neurology Resident, [facility]. [employer] Work Phone: 01-02-2025 Plan of care note Problem: Pain Goal: Patient goal is pain score less than 4, able to rest, and participant in treatment plan as appropriate Description: INTERVENTIONS: 1. Encourage patient or legal screening representative to report early pain and ask for pain medicine when needed 2. Assess pain using appropriate pain scale and include the scale used when documenting 3. Administer analgesics based on type and severity of pain and evaluate response within appropriate time frame 4. Implement non-pharmacological measures as appropriate and evaluate response 5. Consider cultural and social influences on pain and pain management 6. Notify LIP if interventions ineffective or patient reports new pain 7. Monitor vital signs including pulse ox, end-tidal CO2 based on pain intervention 8. Reassess pain per policy 9. Teach patient or legal screening representative interventions for comforting Outcome: Progressing Note: Evaluation of progress towards goal: Cut Off Tender Glass assessed that patient has had pain reassessed per policy. Implement no-pharmacological measures as appropriate and evaluate response with appropriate time frame. Monitor vital signs including pulse ox, end-tidal c02 based on paint intervention. Problem: Safety Goal: Patient will be injury free during hospitalization Description: INTERVENTIONS: 1. Assess patient's risk for falls and implement fall prevention plan of care per policy 2. Provide and maintain a safe environment 3. Proper use of double Identifiers 4. Medication administration using the 5 rights 5. Hand hygiene 6. Specimens are labeled at the bedside 7. Instruct patient/ patient screening representative about use of safety devices 8. Include patient/ patient screening representative in decisions related to safety Outcome: Progressing Note: Evaluation of progress towards goal: Cut Off Tender Glass assessed that patient has been provided and maintained a safe environment. Medication administration using the 5 rights. Proper use of double identifiers. Problem: Infection Goal: Absence of infection during hospitalization Description: INTERVENTIONS 1. Assess and monitor for signs and symptoms of infection. 2. Monitor lab/diagnostic results. 3. Monitor all insertion sites i.e., indwelling lines, tubes and drains. 4. Monitor endotracheal (as able) and nasal secretions for changes in amount and color. 5. Administer medications as ordered. 6. Instruct and encourage patient and family to use good hand hygiene technique. 7. Identify and instruct patient/patient screening representative in use of appropriate isolation precautions for identified infection/symptoms. 8. Provide and discuss with patient/patient screening representative on educational MDRO sheet. 9. Encourage and monitor nutritional status daily and consult senior bioinformatics specialist if indicated. 10. Implement neutropenic guidelines as needed. Outcome: Progressing Note: Evaluation of progress towards goal: Cut Off Tender Glass has been assessed and monitored for signs and symptoms of infection. Administered medications as ordered. Monitored all insertion sites. Problem: Knowledge Deficit Goal: Patient/patient screening representative demonstrates understanding of disease process, treatment plan, medications, and discharge instructions Description: INTERVENTIONS 1. Complete learning assessment and assess knowledge base 2. Provide teaching at level of understanding 3. Provide teaching via preferred learning method(s) Outcome: Progressing Note: Evaluation of progress towards goal: Cut Off Tender Glass has assessed that patient has been provided teaching at level of understanding. Provided teaching via preferred learning methods. Completed learning assessment and assessed knowledge base. Problem: Discharge Planning Goal: Discharge to post-acute care, other facility, or home with appropriate resources Description: Patient's goal is: INTERVENTIONS 1. Conduct assessment to determine patient/family and health care team treatment goals, and need for post-acute services based on payer coverage, community resources, and patient preferences, and barriers to discharge 2. Coordinate with Social work, Care Navigation, and Utilization Review to arrange appropriate level of services according to patient's needs based on patient preference and payer coverage in collaboration with the physician and health care team 3. Address psychosocial, clinical, and financial barriers to discharge as identified in assessment in conjunction with the patient/family and health care team 4. Consult appropriate ancillary services (i.e.. PT/OT/ST, etc) as needed 5. Communicate with and update the patient/family, physician, and health care team regarding progress on the discharge plan 6. Identify discharge learning needs (meds, wound care, etc). 7. Arrange for needed discharge transportation as appropriate Outcome: Progressing Note: Evaluation of progress towards goal: Cut [employer] Tender Glass assessed the patient for the following. Identify discharge learning needs. Arrange for needed discharge transportation as appropriate. Coordinate with social work and care navigation to arrange appropriate level of services according to patient's needs based on patient preference. [facility] 01-02-2025 History and physical note History & Physical: 01/02/2025 Patient Name: Birgit Clarke : 1950 Principal Problem: Encephalopathy Assessment: Encephalopathy Ataxia Recent left parietal ischemic stroke Recently diagnosed acute cystitis from [facility] Dyslipidemia Essential hypertension Plan: Placed on cardiac telemetry, monitor pulse oxygenation, oxygen as needed to maintain saturation more 93% Consult neurology Fall precautions Neuro checks Will obtain routine blood work Check thyroid profile, check vitamin B12 Chest x-ray Urinalysis and urine culture Check ammonia level Monitor closely clinically Supportive care Follow-up blood work ordered Routine admission orders See inpatient admission orders Home medications reconciled Constipation prophylaxis: monitor; medications ordered Incentive spirometry every hour while awake Pain management: monitor; medications ordered GI prophylaxis: monitor; medications ordered DVT prophylaxis: IPC cuffs. Lovenox Home medication reconciliation is not completed, will resume home medications once home medications are verified by nursing/pharmacy. Chief Complaint: No chief complaint on file. Confusion HPI: Birgit Clarke is a 74 y.o. female who was transferred to [facility] for further management from [facility] regarding encephalopathy. Patient apparently did have recent stroke and discharged home after being evaluated by neurology. Patient has a time was also diagnosed with a UTI and sent home with antibiotics. Family went to check on patient and noticed that she was confused and not her normal self and took her to emergency room for further evaluation. Apparently patient did have echo, MRI, EEG done during last admission and now has new finding of ataxia. It was requested patient be transferred to [facility] for Neurology evaluation. Patient evaluated by Neurology via tele stroke activation on December 30, 2024 for altered mental status. Patient apparently presented to the emergency room with confusion, left arm weakness, headache nausea and dizziness. Apparently family called to check on her and became concerned and sent him to the emergency room for further evaluation. Patient at the time was complaining of headache, dizziness, nausea, left arm weakness and was unable to recall events of the day. Neurology did review imaging that was done including CT of brain which was otherwise negative for any acute process. They also noted that imaging was negative for any large vessel occlusion or stenosis. Patient did undergo an MRI of the brain which demonstrated left parietal ischemic stroke in which Neurology was aware of. Patient has significant medical history of anxiety, breast cancer, TIA. In the ER, white count 7.1, hemoglobin 14.4, platelets 303, potassium normal, creatinine normal, troponin negative. CT head negative for any acute abnormality, CTA head and carotid negative for any large vessel occlusion. MRIs positive for left parietal ischemic stroke. Patient is afebrile, hemodynamically stable, saturation 96% on room air. Past Medical History: Diagnosis Date Anxiety Breast cancer ([facility]) TIA (transient ischemic attack) Past Surgical History: Procedure Laterality Date APPENDECTOMY BREAST LUMPECTOMY SPINAL FUSION TONSILLECTOMY ADENOIDECTOMY Flu vac 2015 (65 [id number](pf) and Morphine Prior to Admission medications Medication Sig Start Date End Date Taking? Authorizing Provider ALPRAZolam (XANAX) 0.5 mg tablet Take 0.5 mg by mouth 3 (three) times a day as needed for anxiety. Not In System Ref Prov buPROPion XL (WELLBUTRIN XL) 300 mg 24 hr tablet Take 300 mg by mouth daily. Not In System Ref Prov citalopram (CeleXA) 20 mg tablet Take 20 mg by mouth daily. Not In System Ref Prov reports that she has never smoked. She has never used smokeless tobacco. She reports that she does not drink alcohol and does not use drugs. No family history on file. Review of Systems: Unable to obtain secondary to altered mental status Exam: BP 138/86 Temp 37.3 C (99.1 F) (Oral) SpO2 96% No intake or output data in the 24 hours ending 01/02/25 0042 General appearance: no acute distress, appears ill, confused Head: atraumatic, normocepalic Eyes: Without exudate Nose: without exudate Lungs: Clear, diminished, chest expansion symmetrical, resp unlabored Heart: S1, S2 normal Abdomen: soft; bowel sounds normal; non distended Extremities: negative pedal edema Pulses: 2+ and symmetric, palpable Skin: Warm and dry Neurologic: Sensation intact Mental status: Consciousness: alert, oriented to person, confused Musculoskeletal: Moves extremities spontaneously Labs: No results found for this or any previous visit (from the past 48 hours). Principal Problem: Encephalopathy Electronically signed by: Nisa Hurst MD, 01/02/2025 12:42 AM This note is created with the assistance of a speech-recognition program. While intending to generate a document that actually reflects the content of the visit, no guarantees can be provided that every mistake has been identified and corrected by editing. [employer] Work Phone: 01-02-2025 History and physical note History & Physical: 01/02/2025 Patient Name: Birgit Clarke : 1950 Principal Problem: Encephalopathy Assessment: Encephalopathy Ataxia Recent left parietal ischemic stroke Recently diagnosed acute cystitis from [facility] Dyslipidemia Essential hypertension Plan: Placed on cardiac telemetry, monitor pulse oxygenation, oxygen as needed to maintain saturation more 93% Consult neurology Fall precautions Neuro checks Will obtain routine blood work Check thyroid profile, check vitamin B12 Chest x-ray Urinalysis and urine culture Check ammonia level Monitor closely clinically Supportive care Follow-up blood work ordered Routine admission orders See inpatient admission orders Home medications reconciled Constipation prophylaxis: monitor; medications ordered Incentive spirometry every hour while awake Pain management: monitor; medications ordered GI prophylaxis: monitor; medications ordered DVT prophylaxis: IPC cuffs. Lovenox Home medication reconciliation is not completed, will resume home medications once home medications are verified by nursing/pharmacy. Chief Complaint: No chief complaint on file. Confusion HPI: Birgit Clarke is a 74 y.o. female who was transferred to [facility] for further management from [facility] regarding encephalopathy. Patient apparently did have recent stroke and discharged home after being evaluated by neurology. Patient has a time was also diagnosed with a UTI and sent home with antibiotics. Family went to check on patient and noticed that she was confused and not her normal self and took her to emergency room for further evaluation. Apparently patient did have echo, MRI, EEG done during last admission and now has new finding of ataxia. It was requested patient be transferred to [facility] for Neurology evaluation. Patient evaluated by Neurology via tele stroke activation on December 30, 2024 for altered mental status. Patient apparently presented to the emergency room with confusion, left arm weakness, headache nausea and dizziness. Apparently family called to check on her and became concerned and sent him to the emergency room for further evaluation. Patient at the time was complaining of headache, dizziness, nausea, left arm weakness and was unable to recall events of the day. Neurology did review imaging that was done including CT of brain which was otherwise negative for any acute process. They also noted that imaging was negative for any large vessel occlusion or stenosis. Patient did undergo an MRI of the brain which demonstrated left parietal ischemic stroke in which Neurology was aware of. Patient has significant medical history of anxiety, breast cancer, TIA. In the ER, white count 7.1, hemoglobin 14.4, platelets 303, potassium normal, creatinine normal, troponin negative. CT head negative for any acute abnormality, CTA head and carotid negative for any large vessel occlusion. MRIs positive for left parietal ischemic stroke. Patient is afebrile, hemodynamically stable, saturation 96% on room air. Past Medical History: Diagnosis Date Anxiety Breast cancer ([facility]) TIA (transient ischemic attack) Past Surgical History: Procedure Laterality Date APPENDECTOMY BREAST LUMPECTOMY SPINAL FUSION TONSILLECTOMY ADENOIDECTOMY Flu vac 2014 (63 up)-[id number](pf) and Morphine Prior to Admission medications Medication Sig Start Date End Date Taking? Authorizing Provider ALPRAZolam (XANAX) 0.5 mg tablet Take 0.5 mg by mouth 3 (three) times a day as needed for anxiety. Not In System Ref Prov buPROPion XL (WELLBUTRIN XL) 300 mg 24 hr tablet Take 300 mg by mouth daily. Not In System Ref Prov citalopram (CeleXA) 20 mg tablet Take 20 mg by mouth daily. Not In System Ref Prov reports that she has never smoked. She has never used smokeless tobacco. She reports that she does not drink alcohol and does not use drugs. No family history on file. Review of Systems: Unable to obtain secondary to altered mental status Exam: BP 138/86 Temp 37.3 C (99.1 F) (Oral) SpO2 96% No intake or output data in the 24 hours ending 01/02/25 0042 General appearance: no acute distress, appears ill, confused Head: atraumatic, normocepalic Eyes: Without exudate Nose: without exudate Lungs: Clear, diminished, chest expansion symmetrical, resp unlabored Heart: S1, S2 normal Abdomen: soft; bowel sounds normal; non distended Extremities: negative pedal edema Pulses: 2+ and symmetric, palpable Skin: Warm and dry Neurologic: Sensation intact Mental status: Consciousness: alert, oriented to person, confused Musculoskeletal: Moves extremities spontaneously Labs: No results found for this or any previous visit (from the past 48 hours). Principal Problem: Encephalopathy Electronically signed by: Nisa Hurst MD, 01/02/2025 12:42 AM This note is created with the assistance of a speech-recognition program. While intending to generate a document that actually reflects the content of the visit, no guarantees can be provided that every mistake has been identified and corrected by editing. documented in this encounter [facility] 12-31-2024 Miscellaneous Notes ----- Message from ALEX Cheng sent at 12/31/2024 12:32 PM EDT ----- Follow up with Belia Moura, or fellow in 4-6 weeks after cardiac event monitor complete. Annemarie, will need 30 day event monitor scheduled documented in this encounter [facility] 12-31-2024 Telephone encounter Note ----- Message from ALEX Cheng sent at 12/31/2024 12:32 PM EDT ----- Follow up with Belia Moura, or fellow in 4-6 weeks after cardiac event monitor complete. Annemarie, will need 30 day event monitor [facility] 12-31-2024 Telephone encounter Note scheduled [facility] 11-24-2024 Evaluation note Diagnosis Onset Date Resolution Cerebral atherosclerosis acute November 24, 2024 2:47pm SHEFALI (generalized anxiety disorder) acute November 24, 2024 2:47pm Hypertension acute November 24, 2 025 2:47pm Lumbar spondylosis acute November 24, 2024 2:47pm Migraine acute November 24 2:47pm Primary osteoarthritis of right knee acute November 24, 2024 2:47pm Sinus tachycardia acute November 242024 2:47pm [facility] Work Phone: 1(109) 291-741804-01-2025 Evaluation note* Diagnosis Onset Date Resolution Status Admit Date Cerebral atherosclerosis acute November 24, 2024 2:47pm SHEFALI (generalized anxiety disorder) a cutNovember 24, 2024 2:47pm Hypertension acute November 24, 2 025 2:47pm Lumbar spondylosis acute November 24, 2024 2:47pm Migraine acute November 24 2:47pm Primary osteoarthritis of right knee acute November 24, 2024 2:47pm Sinus tachycardia acute November 242024 2:47pm Cerebral atherosclerosis acute January 06, 2025 3:48pm SHEFALI (generalized anxiety disorder) a cute January 06, 2025 3:48pm Hypercholesterolemia acute January 06, 2025 3:48pm Hypertension acute January 06 3:48pm Sinus tachycardia acute December 3:48pm [facility] Work Phone: 1(928) 927-234801-30-2025 Evaluation note* Diagnosis Onset Date Resolution Status Admit Date Cerebral atherosclerosis acute September 24, 2024 10:50am Cervical spondylosis acute erik 2024 10:50am SHEFALI (generalized anxiety disorder) acute September 24 10:50am Hypertension acute August 10:50am Lumbar spondylosis acute Auguar y 2024 10:50am Migraine acute September 24, 2024 10:50am Primary osteoarthritis of ri ght knee acute September 24 10:50am Primary osteoarthritis of ri ght shoulder acute September 24 10:50am Sinus tachycardia acute September 24, 2024 10:50am Cerebral atherosclerosis acute November 24, 2024 2:47pm Cervical spondylosis acute 2024 2:47pm SHEFALI (generalized anxiety disorder) acute November 24, 2024 2:47pm Hypertension acute November 24, 2 025 2:47pm Lumbar spondylosis acute November 24, 2024 2:47pm Migraine acute November 24 2:47pm Primary osteoarthritis of ri ght knee acute November 24, 2024 2:47pm Primary osteoarthritis of ri ght shoulder acute November 24, 2024 2:47pm Sinus tachycardia acute November 242024 2:47pm [facility] Work Phone: 1(570) 760-804901-08-2024 Evaluation note* Encounter Date Diagnosis Assessment Notes Treatment Notes Treatment Clinical Notes Aug, SHEFALI (generalized anxiety disorder) (ICD-10 - F41.1) [facility] Other 09-20-2023 Evaluation note* Encounter Date Diagnosis [...] Xanax as needed Continue SSRI as prescribed. [facility] Other 09-14-2023 Evaluation note* Encounter Date Diagnosis Assessment Notes Treatment Notes Treatment Clinical Notes Apr, SHEFALI (generalized anxiety disorder) (ICD-10 - F41.1) [facility] Other 08-18-2023 Evaluation note* Encounter Date Diagnosis [...] treatment plan. Patient left in stable condition. [facility] Other 08-14-2023 Evaluation note* Encounter Date Diagnosis [...] High risk medication use (ICD-10 - Z79.899) [facility] Other 02-23-2023 NotePROCEDURE: XR HIP RT 2 [...] changes of right hip. Electronically authenticated by: MURRAY TRAVIS Date: 2022-10-18 19:00[facility]01-27-2023 Evaluation note* Encounter Date Diagnosis Assessment Notes [...] and will send order to schedule mammogram. [facility] Other Evaluation noteNo InformationNort [employer] Other [facility] [employer] Other Evaluation note* Diagnosis Onset Date Resolution Status Cerebral atherosclerosis acu te Cervical spondylosis acute SHEFALI (generalized anxiety disorder) acute Hypertension acute Migraine acute Sinus tachycardia acute [facility] Work Phone: Evaluation note* Diagnosis Onset Date Resolution Status Cerebral atherosclerosis acu te Cervical spondylosis acute SHEFALI (generalized anxiety disorder) acute Hypertension acute Migraine acute Sinus tachycardia acute Cerebral atherosclerosis acu te SHEFALI (generalized anxiety disorder) acute Hypertension acute Medicare annual wellness visit, subsequent acute Migraine acute Personal history of malignant neoplasm of breast acute Right shoulder pain acute Sinus tachycardia acute [facility] Work Phone: Evaluation note* Diagnosis Onset Date Resolution Status Admit Date Cerebral atherosclerosis acute September 24, 2024 10:50am SHEFALI (generalized anxiety disorder) acute September 24 10:50am Hypertension acute August 10:50am Migraine acute September 24, 2024 10:50am Sinus tachycardia acute September 24, 2024 10:50am [facility] Work Phone: Evaluation note* Diagnosis Encephalopathy- Primary Unspecified encephalopathy Cerebrovascular accident (CVA), unspecified mechanism ([facility]) Vitamin B12 deficiency Other B-complex deficiencies Ataxia Lack of coordination [facility] - [facility]* Type Description Date [...] cataract extraction Hospitalization History SEE SURGICAL HX [facility]yla [facility] [place] [facility] - [facility] Other History general Narrative - Reported* Type [...] and adenoidectomy Hospitalization History SEE SURGICAL HX [facility] Other Hospital Discharge instructions* Attachments The following attachments cannot be sent through Care Everywhere. * Vitamin B12 deficiency and folate deficiency (Indonesian) documented in this [facility]Pro[facility] SystemInstructionsNot on file documented in this encounterProChillicothe Va Medical CenterReason for visit Narrative* Auth/Cert Specialty Diagnoses / Procedures Referred By Contac t Referred To Contact Diagnoses Encephalopathy Nicholas Boggs MD [address] [place] [address] Phone: tel: fax: Referral ID Status Reason Start Date Expiration Date Visits Re quested Visits Authorized [id number] 1 1 [employer] Reason for Referral Reason *FU 10/29 Low back and right hip pain Diagnosis 1 Lumbago with sciatic a, right side (M54.41) Diagnosis 2 Pain in right hip (M 25.551) Referral Organization [facility] Salvador thompson Referring Provider First Name Francis Referring Provider Last Name Salvador Referring Provider Specialty Internal Me patrickine Referred Organization [facility] Referred Provider Colten Shah Referred Address ,[place], [place],[address] Referred Provider Specialty Orthopedic S urgery Referral Priority Routine General Notes Patient seen w/ program rep mraly low back and right hip pain. Hx [...] Time Advance Directives No January 29 1:22pm Date Activated Date Inactivated Comments 01/02/2025 2:45 AM Chief Complaint and Reason for Visit Chief Complaint bp check, talk about driving Reason for Visit Cerebral atheroscler osis Cervical spondylosis SHEFALI (generalized anxiety disorder) Hypertension Migraine Sinus tachycardia Chief Complaint bp check, talk about driving [employer] Work[employer] Safety headahces, right knee pain Reason for [...] for Visit Admit Date Cerebral atherosclerosis September 24 2 025 10:50am SHEFALI (generalized anxiety disorder) Aug 2024 10:50am Hypertension September 24, 2024 1 0:50am Migraine September 24, 2024 1 0:50am Sinus tachycardia September 24, 2024 1 0:50am Chief Complaint Admit Date arthritis pain September 24, 2024 1 0:50am Lower Abd Pain/UTI November 24, 2024 2:47 pm Reason for Visit Admit Date Cerebral atherosclerosis September 24 2 025 10:50am Cervical spondylosis September 24, 2024 10:50am SHEFALI (generalized anxiety disorder) 2024 10:50am Hypertension September 24, 2024 1 0:50am Lumbar spondylosis September 24, 2024 1 0:50am Migraine September 24, 2024 1 0:50am Primary osteoarthritis of right knee [facility] 2024 10:50am Primary osteoarthritis of right shoulder September 24, 2024 10:50am Sinus tachycardia September 24, 2024 1 0:50am Cerebral atherosclerosis November 24, 2024 2:47pm Cervical spondylosis November 24, 2024 2:4 7pm SHEFALI (generalized anxiety disorder) November 24, 2024 2:47pm Hypertension November 24, 2024 2:47 pm Lumbar spondylosis November 24, 2024 2:47 pm Migraine November 24, 2024 2:47 pm Primary osteoarthritis of right knee Nov 2:47pm Primary osteoarthritis of right shoulder November 24, 2024 2:47pm Sinus tachycardia November 24, 2024 2:47 pm Chief Complaint Admit Date Lower Abd Pain/UTI November 24, 2024 2:47 pm Amb Documentation December 31, 2024 8:40am Unknown January 01, 2025 12:00p m Reason for Visit Admit Date Cerebral atherosclerosis November 24, 2024 2:47pm SHEFALI (generalized anxiety disorder) November 24, 2024 2:47pm Hypertension November 24, 2024 2:47 pm Lumbar spondylosis November 24, 2024 2:47 pm Migraine November 24, 2024 2:47 pm Primary osteoarthritis of right knee Nov 2:47pm Sinus tachycardia November 24, 2024 2:47 pm Chief Complaint Admit Date Lower Abd Pain/UTI November 24, 2024 2:47 pm Amb Documentation December 31, 2024 8:40am Unknown January 01, 2025 12:00p m hospital follow up January 06, 2025 3:48p m Reason for Visit Admit Date Cerebral atherosclerosis November 24, 2024 2:47pm SHEFALI (generalized anxiety disorder) November 24, 2024 2:47pm Hypertension November 24, 2024 2:47 pm Lumbar spondylosis November 24, 2024 2:47 pm Migraine November 24, 2024 2:47 pm Primary osteoarthritis of right knee Apr 2024 2:47pm Sinus tachycardia November 24, 2024 2:47 pm Cerebral atherosclerosis January 06, 2025 3:48pm SHEFALI (generalized anxiety disorder) December 242024 3:48pm Hypercholesterolemia January 06, 2025 3:48 pm Hypertension January 06, 2025 3:48p m Sinus tachycardia January 06, 2025 3:48p m Additional Source Comments REASON FOR VISIT (unrecogniz ed section and content) Prescription refillReferral DiscussionNo InformationresultsNo InformationNo InformationNo InformationWellnessEARACHEWellnessClinicalrefillWanting In TodayHeadachesrefill INFORMATION SOURCE (unrecogn ized section and content) DATE CREATED AUTHOR 12/10/2022 [facility] DATE CREATED AUTHOR AUTHOR'S ORGANIZ ATION 10/30/2024 [facility] DATE CREATED AUTHOR AUTHOR'S ORGANIZ ATION 01/03/2025 [facility] DATE CREATED AUTHOR AUTHOR'S ORGANIZ ATION 01/04/2025 [facility] DATE CREATED AUTHOR AUTHOR'S ORGANIZ ATION 01/08/2025 [facility] Care Teams (unrecognized sec tion and content) Team Status: Active Member Role Status Dates Francis Osborne DO Primary Care Provider Active Team Status: Inactive Member Role Status Dates Francis Osborne DO Primary Care Provide r, Attending Provider Active Start: February 10, 2024 End: February 10, 2024 Team Status: Inactive Member Role Status Dates Francis Osborne DO Primary Care Provide r, Attending Provider Active Start: February 21, 2024 End: February 21, 2024 Team Status: Inactive Member Role Status Dates Francis Osborne DO Primary Care Provide r, Attending Provider Active Start: May 08, 2024 End: May 08, 2024 Team Status: Active Member Role Status Dates Francis Osborne DO Primary Care Provider Active Start: January 12, 2024 Mia Manning MD Attending Provider Active Sta rt: January 12, 2024 Team Status: Inactive Member Role Status Dates Francis Osborne DO Primary Care Provide r, Attending Provider Active Start: September 24, 2024 End: September 24, 2024 Team Status: Inactive Member Role Status Dates Francis Osborne DO Primary Care Provide r, Attending Provider Active Start: November 24, 2024 End: November 24, 2024 Heel Cover Softener Relationship Specialty Start Date End Date Francis Osborne DO [address] [place] [address] PCP - General 01/20/17 Heel Cover Softener Relationship Specialty Start Date End Date Francis Osborne DO [address] [place] [address] PCP - General 01/20/17 Team Status: Active Member Role Status Dates Francis Osborne , Primary Care Provider Active Start: December 29, 2024 Mia Manning MD Attending Provider Active Sta rt: December 29, 2024 Team Status: Active Member Role Status Dates Francis Osborne DO Primary Care Provider Active Start: December 30, 2024 Outside Provider Attending Provider Active Start : December 30, 2024 Team Status: Active Member Role Status Dates Francis Osborne DO Primary Care Provider Active Start: December 31, 2024 Kendra Rollins CMA Attending Provider Active Start: December 31, 2024 Team Status: Active Member Role Status Dates Francis Osborne DO Primary Care Provider Active Start: January 01, 2025 Dorian Romeo DO Attending Provider Active Start : January 01, 2025 Team Status: Inactive Member Role Status Dates Dorian Romeo DO Attending Provider Active Start : January 01, 2025 End: January 01, 2025 Team Status: Inactive Member Role Status Dates Francsi Osborne DO Primary Care Provide r, Attending Provider Active Start: January 06, 2025 End: January 06, 2025 Goals (unrecognized section and content) Goals may be documented in a n alternate section Scheduled Active and Recently Administ ered Medications (unrecognized section and content) Medication Order 01/01/2025 01/02/2025 01/03/2025 aspirin chewable tablet 81 mg 81 mg, oral, Daily, First dose on 01/02/25 at 0900 0818 (Given - Provider: Brie Davison RN) 0748 (Given - Provider: Do Mccarty, OSBALDO) atorvastatin (LIPITOR) tablet 40 mg 40 mg, oral, Daily, First dose on 01/02/25 at 0900, Look-alike/sound-alike medication - verify indication for use. 0818 (Given - Provider: Brie Davison RN) 0748 (Given - Provider: Do Mccarty, OSBALDO) bisoprolol (ZEBETA) tablet 5 mg 5 mg, oral, Daily, First dose on 01/02/25 at 0900, Hold if HR <60 Look-alike/sound-alike medication - verify indication for use. 0818 (Given - Provider: Brie Davison RN) 0748 (Given - Provider: Do Mccarty, OSBALDO) clopidogreL (PLAVIX) tablet 75 mg 75 mg, oral, Daily, First dose on 01/02/25 at 1515, For 21 days, Look-alike/sound-alike medication - verify indication for use. 1539 (Given - Provider: Brie Davison RN) 0748 (Given - Provider: Do Mccarty, RN) cyanocobalamin (VITAMIN B-12) injection 1,000 mcg 1,000 mcg, intramuscular, Daily, First dose on 01/02/25 at 0900 1001 (Given - Provider: Brie Davison RN) 0748 (Given - Provider: Do Mccarty, RN) enoxaparin (LOVENOX) syringe 40 mg 40 mg, subcutaneous, Daily, First dose (after last modification) on 01/02/25 at 1030, Look-alike/sound-alike medication - verify indication for use. 1146 (Given - Provider: Brie Davison RN) 0557 (Given - Provider: Angy Henson RN) PRN Medication Order 01/01/2025 01/02/2025 01/03/2025 acetaminophen (TYLENOL EXTRA STRENGTH) tablet 500 mg 500 mg, oral, Every 6 hours PRN, mild pain - pain scale 1-3, temperature greater than 38 C, headaches, Starting on 01/02/25 at 0242, For 5 days 0820 (Given - Provider: Brie Davison RN) ALPRAZolam (XANAX) tablet 0.5 mg 0.5 mg, oral, 2 times daily PRN, anxiety, Starting on 01/03/25 at 0140, Look-alike/sound-alike medication - verify indication for use. 0146 (Given - Provid er: Angy Henson RN) famotidine (PEPCID) tablet 10 mg 10 mg, oral, 2 times daily PRN, indigestion, heartburn, Starting on 01/02/25 at 0242, For 5 days hydrALAZINE (APRESOLINE) injection 10 mg 10 mg, intravenous, Every 6 hours PRN, high blood pressure, Starting on 01/02/25 at 1707, For systolic blood pressure greater than 165 mmHg Look-alike/sound-alike medication - verify indication for use. Administer IV doses as a slow IV push; maximum rate: 5 mg/minute. polyethylene glycol (GLYCOLAX) packet 17 g 17 g, oral, Daily PRN, constipation, Starting on 01/02/25 at 0242, For 5 days, Look-alike/sound-alike medication - verify indication for use. Dissolve 1 packet (17 gm) in 8 ounces of water, juice, soda, coffee or tea. sodium chloride 0.9 % flush bag 25 mL, intravenous, at 100 mL/hr, Administer over 15 Minutes, As needed, line care, line care after IVPB administration, Starting on 01/02/25 at 0241 sodium chloride 0.9 % infusion 20 mL/hr, intravenous, Continuous PRN, to maintain patency of lines, Starting on 01/02/25 at 0241 FOR RECORDS PERTAINING TO PATIENTS WHO ARE [...] BE BASED ON THE PRIMARY CLINICAL RECORDS. [employer] provides no warranty or guarantee of the accuracy or completeness of information in this document.
[2025-01-11 10:03] VITALS: BP 111/80; PULSE 72; TEMP 36.6; O2SAT 94
[2025-01-11 10:51] VITALS: BP 142/67; PULSE 78; O2SAT 96
[2025-01-11 10:52] VITALS: BP 134/65; PULSE 80; O2SAT 96
[2025-01-11] MEDS: BUPIVACAINE HCL 0.25% PF 25 MG/10 ML VIAL 3 ML INJ (10:54)
--- NOTE | 2025-01-11 10:55 | W.PM.PROCNOT ---
Date of procedure: 01/11/25 Pre-op diagnosis: Pain due to thoracic spondylosis without myelopathy Post-op diagnosis: same as pre-op Procedure: Procedure: Bilateral T7-8, 8-9 medial branch block Medications: Bupivacaine 0.25% 6cc The patient was seen and examined in the preoperative holding area.? An informed consent was obtained and placed on the chart.? The patient was brought to the medical procedure unit and placed in the prone position.? A timeout was completed verifying correct patient, procedure site, positioning, plan, and special equipment.? Using aseptic technique, the needle was placed at left T7. Under direct fluoroscopic visualization a Quincke-tipped spinal needle was advanced to the junction of the superior articulating process with the transverse process at the designated medial branch segment.? Preceded by negative aspiration, the above-mentioned injectate was placed in 1 mL aliquots.? The procedure was repeated at left T8, 9.? The needle was removed and insertion site was covered. The same procedure, at the same levels, was completed on the right side. The patient was taken to the postprocedural recovery area and monitored for an appropriate length of time before found suitable for discharge in the company of a responsible adult. Anesthesia: Local Surgeon: Blanca Pinto Pathology: none sent Condition: stable Disposition: no change
== END 2025-01-11 11:01 | disposition home or self-care (01) ==
LOC: SURGOUT 09:29
PROVIDERS: PCP Internal Medicine; Visit Provider Anesthesiology
DX: M47.814 Spondylosis without myelopathy or radiculopathy, thoracic region (principal)
CPT/HCPCS: 64490; 64491; J0665

== ENCOUNTER 2025-01-27 10:03 | Outpatient (OUT) | payer MEDICARE, OTHER, SELFPAY ==
--- NOTE | 2025-01-27 11:09 | PM.CN ---
Consult Note: HPI Data of Consult Patient: known to practice within the last 3 years Requesting Physician: Mirtha Yuan NP Primary Care Provider: Francis Osborne DO Consult Narrative Reason for consult: back pain Narrative: 74 year old female presents for evaluation and management of chronic back pain. pt reports longstanding thoracic and lumbar spine pain, hx of lumbar surgery, has failed prior interventions per pt. recently underwent thoracic xray and lumbar MRI, see chart for details. engaged in provider guided HEP > 6 weeks without improvement, has failed tylenol, ibuprofen, heat, and ice. Pain today 4/10 increasing with standing, walking, activity. reports no improvement with bilateral T7/8 T8/9 MBB#1 cc:: CC: Mirtha Yuan NP Review of Systems ROS Status of ROS 10 or more systems reviewed and unremarkable except as noted in history and below Musculoskeletal Reports: back pain PFSH PFSH Medical History (Updated 01/04/25 @ 00:00 by ) UTI (urinary tract infection) ?N39.0 - Urinary tract infection, site not specified (ICD-10) Acute ischemic stroke ?I63.9 - Cerebral infarction, unspecified (ICD-10) Stroke ?I63.9 - Cerebral infarction, unspecified (ICD-10) Altered mental status ?R41.82 - Altered mental status, unspecified (ICD-10) HLD (hyperlipidemia) ?E78.5 - Hyperlipidemia, unspecified (ICD-10) HTN (hypertension) ?I10 - Essential (primary) hypertension (ICD-10) Encounter for cholecystectomy ?Z76.89 - Persons encountering health services in other specified circumstances (ICD-10) Hysterectomy planned TIA (transient ischemic attack) ?G45.9 - Transient cerebral ischemic attack, unspecified (ICD-10) Breast cancer ?C50.919 - Malignant neoplasm of unspecified site of unspecified female breast (ICD-10) Surgical History History of breast lump removal ?Z98.890 - Other specified postprocedural states (ICD-10) H/O Spinal surgery ?Z98.890 - Other specified postprocedural states (ICD-10) Social History Highest level of school completed/degree received: Bachelor's degree Little interest or pleasure in doing things: several days Feeling down, depressed, or hopeless: several days Meds Home Medications and Allergies Home Medications ?Medication ?Instructions ?Recorded ?Confirmed ?Type alprazolam 0.5 mg tablet 0.5 mg PO TID PRN anxiety 01/12/24 01/11/25 History baclofen 10 mg tablet 10 mg PO TID #90 tabs 12/24/24 01/11/25 Rx bisoprolol fumarate 5 mg tablet 5 mg PO .once daily 12/29/24 01/11/25 History bisoprolol 5 1 tab PO .QD 12/30/24 01/11/25 History mg-hydrochlorothiazide 6.25 mg tablet aspirin 81 mg tablet 81 mg PO DAILY #30 tabs 12/31/24 01/11/25 Rx atorvastatin 40 mg tablet (Lipitor) 40 mg PO DAILY #30 tabs 12/31/24 01/11/25 Rx cefuroxime axetil 500 mg tablet 500 mg PO BID #10 tabs 12/31/24 01/11/25 Rx Allergies Allergy/AdvReac Type Severity Reaction Status Date / Time influenza A (H1N1) virus AdvReac Mild Swelling Verified 01/11/25 10:02 vaccine [id number] 2008 of (From influenza A (H1N1)) Lip/Tongue/Throat morphine AdvReac Mild Headache Verified 01/11/25 10:02 Exam Constitutional Documenting provider has reviewed patient's vital signs: yes Common normals: no apparent distress, oriented x3, healthy appearing, alert and well nourished General appearance: cooperative [facility] Common normals: normocephalic, hearing grossly normal bilaterally and moist oral mucous membranes Head and scalp: normocephalic Eye Common normals: PERRL Pupil: PERRL Neck & C-Spine Common normals: full ROM General: normal visual inspection Chest Common normals: inspection of chest normal Respiratory Common normals: normal respiratory effort, no retractions and no use of accessory muscles Back & Pelvis Thoracic spine/upper back: ROM limited, pain with ROM, thoracic spinal tenderness T-spine tenderness location: T3, T4, T5, T6, T7, T8 and T9 and paraspinal muscle tenderness Lumbar spine/lower back: ROM limited, pain with ROM and lumbar spinal tenderness Lumbar spinal tenderness location: L2, L3 and L4 Other: diffuse thoracic pain increased low back pain with standing and walking, improved with forward flexion decreased sensation bilateral L3,4,5 strength 4/5 in BLE Neuro Common normals: oriented x3 Sensorium/orientation: alert Psych Common normals: mental status grossly normal, thought process normal, cooperative, affect normal, speech normal and activity/motor behavior normal Speech: normal speech Thought process: normal thought process Results Additional Findings Additional findings: If on a controlled substance or opioids, I have checked an [place] report on this patient and there are no aberrancies noted in the prescribing history.??If on a controlled substance or opioid a drug screen was completed and reviewed within the last year, and if there has not been a drug screen completed we ordered one today to monitor higher risk, state monitored pain medication use. As part of providing excellent, safe, comprehensive care, the following was completed at our patient's visit: 1. A medication reconciliation and review to ensure accurate knowledge of current/active medications, including asking our patients to inform us about any [id number] medications or herbal remedies/nutritional supplements/alternative remedies. 2. A review to specifically ensure our patients have had annual screening for screening for depression, screening for tobacco use, and screening for unhealthy alcohol use. For concerning screenings had a discussion with the patient, provided patient education, and recommended follow-up with primary care provider when appropriate. If patient noted with a risk of falling, they received education on strength, gait, and balance training to prevent future risk of falling. Portions of this note may have been carried over from the previous visit and updated as appropriate. Please note this office utilizes paper charting in addition to the electronic medical record. A list of current medications, vitals, and PMH is available there as the clinical staff outside of myself do not have access to [facility] charting during the clinic day operations. As part of providing quality comprehensive care the current medications, vitals, and PMH were reviewed in the paper chart. Assessment and Plan Assessment and Plan (1) Thoracic spondylosis: Assessment and Plan: The patient has had over 3 months of moderate to severe back pain with functional impairment and inadequate response to conservative care including NSAIDS (unless there are contraindication such as concurrent blood thinners), multiple oral or topical pain medications, and home exercise program/physical therapy.? Patient has completed >6 weeks of guided home exercise program and/or formal physical therapy program without relief of their symptoms.? The Oswestry Disability Index was completed, and the patient scored a 34%.? The patient noted the following:?? moderate to severe pain impacting ADLs, sleep, social life, travel 01/11/25 bilateral T7/8 T8/9 MBB with no improvement (2) Lumbar spondylosis: (3) Failed back surgical syndrome: Assessment and Plan: unknown prior back surgery, pt reports hx of extensive fusion however recent xrays contraindicate. there is hx of laminectomy (4) Lumbar stenosis with neurogenic claudication: (5) Osteoarthritis of right knee: Qualifiers: Osteoarthritis type: primary Qualified Code(s): M17.11 - Unilateral primary osteoarthritis, right knee Plan has not trialed baclofen as previously ordered i do not recommend additional injections with diffuse multifactorial pain, scs handout provided to pt to consider nncp due to xanax use continue PRN tylenol f/u PRN
== END 2025-01-27 10:04 | disposition home or self-care (01) ==
LOC: PM 10:03
PROVIDERS: PCP Internal Medicine; Visit Provider Nurse Practitioner
DX: M47.814 Spondylosis without myelopathy or radiculopathy, thoracic region (principal); M47.816 Spondylosis without myelopathy or radiculopathy, lumbar region; M48.062 Spinal stenosis, lumbar region with neurogenic claudication; M17.11 Unilateral primary osteoarthritis, right knee
CPT/HCPCS: G0463

== ENCOUNTER 2025-01-28 12:16 | Outpatient (OUT) | payer MEDICARE, OTHER, SELFPAY ==
[2025-01-28 13:01] LABS: Basophils Absolute Auto 0.1 10^3/uL (0.0-0.1); Eosinophils Absolute Auto 0.2 10^3/uL (0.0-0.7); Eosinophils Percent Auto 3.1 % (0.9-7.0); Hematocrit 43.7 % (36.0-48.0); Hemoglobin 14.5 g/dL (12.0-16.0); Immature Granulocytes Abs Auto 0.01 10^3/uL (0.00-0.03); Immature Granulocytes Pct Auto 0.2 % (0.0-0.5); Lymphocytes Absolute Auto 1.3 10^3/uL (1.2-3.8); Lymphocytes Percent Auto 22.6 % (20.5-60.0); Mean Corpuscular HGB Conc 33.2 g/dL (29.9-35.2); Mean Corpuscular Hemoglobin 29.5 pg (26.7-34.0); Mean Corpuscular Volume 88.8 fL (81.0-99.0); Mean Platelet Volume 10.9 fL (9.5-13.5); Monocytes Absolute Auto 0.8 10^3/uL (0.3-0.8); Monocytes Percent Auto 14.6 % (1.7-12.0); Neutrophils Absolute Auto 3.4 10^3/uL (1.4-6.5); Neutrophils Percent Auto 58.5 % (43.0-75.0); Platelet Count 372 10^3/uL (150-450); Red Blood Count 4.92 10^6/uL (4.20-5.40); Red Cell Distribution Width 13.5 % (11.0-15.0); White Blood Count 5.8 10^3/uL (4.0-11.0)
[2025-01-28 13:50] LABS: Alanine Aminotransferase 24 U/L (14-59); Albumin Globulin Ratio 0.7; Albumin Level 3.5 g/dL (3.4-5.0); Alkaline Phosphatase 218 U/L (46-116); Anion Gap 9.3; Aspartate Amino Transferase 21 U/L (15-37); BUN Creatinine Ratio 17.4; Bilirubin Total 0.7 mg/dL (0.2-1.0); Calcium 9.6 mg/dL (8.5-10.1); Carbon Dioxide 32.7 mmol/L (21.0-32.0); Chloride 101 mmol/L (98-107); Chol HDL Ratio 3.2; Cholesterol 174 mg/dL (<=200); Estimated GFR (African America >60 (>=60 mL/min/1.73m^2); Estimated GFR (Non-African Ame >60 (>=60 mL/min/1.73m^2); Globulin 4.7 g/dL; Glucose 88 mg/dL (74-106); HDL Cholesterol 55 mg/dL (40-60); Sodium 139 mmol/L (136-145); Thyroid Stimulating Hormone 1.857 uIU/mL (0.358-3.740); Total Protein 8.2 g/dL (6.4-8.2); Triglycerides 218 mg/dL (<=150); VLDL CHOLESTEROL 43.6 mg/dL
[2025-01-29 04:07] LABS: Vitamin B12 760 pg/mL (232-1245)
== END 2025-01-28 12:17 | disposition home or self-care (01) ==
LOC: LAB 12:18
PROVIDERS: PCP Internal Medicine; Visit Provider Internal Medicine
DX: E78.00 Pure hypercholesterolemia, unspecified (principal); I67.2 Cerebral atherosclerosis; I10 Essential (primary) hypertension; R53.83 Other fatigue; D51.0 Vitamin B12 deficiency anemia due to intrinsic factor deficiency
CPT/HCPCS: 36415; 80053; 80061; 82607; 82746; 84443; 85025

== ENCOUNTER 2025-03-08 17:30 | Emergency (ER) | payer MEDICARE, OTHER, SELFPAY ==
--- OUTSIDE RECORDS SUMMARY | 2025-03-02 20:00 | XMS_ITS | Clinical Summary ---
Author Organization Unknown Care Team Providers Care Food Service Lead Name Role Phone SALVADOR CAIN, JENIFER Unavailable Unavailable KEYSHA STONE, PILAR Unavailable Unavailable JOESPH ELECTRICIAN LOCOMOTIVE, EDVIN Unavailable Unavailable BRIAN OT, RINKU Unavailable Unavailable KAMALA PT, MASHA Unavailable Unavailable PATRICK PAULN, CHHAYA Unavailable Unavailable WAYNE RN, BRIDGETTE Unavailable Unavailable SHAHEEN TRINIDAD Unavailable Unavailable Payers Payer Name Policy Type Policy Number Effective Date Expira tion Date MEDICARE - [place] - PDGM [id number] Problems Condition Name Condition Details Condition Category Status Onset Date Resolution Date Last Treatment Date Treating Clinician Comments ESSENTIAL (PRIMARY) HYPERTENSION Active 08-26 00:00: 00 ANXIETY DISORDER, UNSPECIFIED Active 08-26 00:00: 00 GASTRO-ESOPH AGEAL REFLUX DISEASE WITHOUT ESOPHAGITIS Active 08-26 00:00: 00 PERSONAL HISTORY OF MALIGNANT NEOPLASM OF BREAST Active 08-26 00:00: 00 PRIMARY GENERALIZED (OSTEO)ARTHR ITIS Active 08-26 00:00: 00 SPONDYLOSIS, UNSPECIFIED Active 08-26 00:00: 00 PRSNL HX OF TIA (TIA), AND CEREB INFRC W/O RESID DEFICITS Active 08-26 00:00: 00 ACQUIRED ABSENCE OF BOTH CERVIX AND UTERUS Active 08-26 00:00: 00 ACQUIRED ABSENCE OF OTHER SPECIFIED PARTS OF DIGESTIVE TRACT Active 08-26 00:00: 00 DEFICIENCY OF OTHER SPECIFIED B GROUP VITAMINS Active 08-26 00:00: 00 ACUTE CYSTITIS WITHOUT HEMATURIA Active 08-26 00:00: 00 ARTHRODESIS STATUS Active 08-26 00:00: 00 PENITENTIARY (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 OF ASPIRIN Active 08-26 00:00: 00 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 Ordering Clinician Indication Dosage Frequency Signature (SIG) Comments Components baclofen 10 mg tablet 12-24 00:00: 00 Yes [id number] Unavailable 1 tablet THREE TIMES DAILY 1 tablet THREE TIMES DAILY (route: oral) Med Classific ation: Locomotor System aspirin 81 mg chewable tablet 01-03 00:00: 00 Yes [id number] 1 tablet DAILY 1 tablet DAILY (route: oral) Med Classific ation: Hematolog ical Agents atorvastati n 40 mg tablet 01-03 00:00: 00 Yes [id number] 1 tablet DAILY 1 tablet DAILY (route: oral) Med Classific ation: Cardiovas cular Therapy Agents bisoprolol fumarate 5 mg tablet 01-03 00:00: 00 Yes [id number] 1 tablet DAILY 1 tablet DAILY (route: oral) Med Classific ation: Cardiovas cular Therapy Agents clopidogrel 75 mg tablet 01-03 00:00: 00 01-22 23:59 :00 No [id number] 1 tablet DAILY 1 tablet DAILY (route: oral) Med Classific ation: Hematolog ical Agents cyanocobala min (vit B-12) 1,000 mcg/mL injection solution 01-03 00:00: 00 02-01 23:59 :00 No [id number] 1 mL WEEKLY 1 mL WEEKLY (route: injection) Med Classific ation: Electroly te Balance-N utritiona l Products Xanax 0.5 mg tablet 01-03 00:00: 00 Yes [id number] 1 tablet 3 TIMES DAILY 1 tablet 3 TIMES DAILY (route: oral) Med Classific ation: Central Nervous System Agents cyanocobala min (vit B-12) 1,000 mcg/mL injection solution 02-01 00:00: 00 Yes [id number] Low B12 levels 1000 mcg MONTHLY 1000 mcg MONTHLY (route: injection) Med Classific ation: Electroly te Balance-N utritiona l Products Vital Signs Vital Name Observation Time Observation Value Commen ts Temperature 2025-03-01 11:22:00.000 98.3 [degF] Temperature 2025-02-22 10:05:00.000 98.7 [degF] Temperature 2025-02-15 14:24:00.000 97.9 [degF] Temperature 2025-02-08 09:47:00.000 97.4 [degF] Temperature 2025-02-01 09:51:00.000 97.9 [degF] Temperature 2025-01-25 09:48:00.000 98.3 [degF] Temperature 2025-01-22 11:24:00.000 98 [degF] Temperature 2025-01-19 09:37:00.000 97.1 [degF] Temperature 2025-01-13 10:40:00.000 98.2 [degF] Temperature 2025-01-11 15:29:00.000 98.6 [degF] Temperature 2025-01-11 15:27:06.000 98.6 [degF] Temperature 2025-01-08 09:12:00.000 97.6 [degF] Temperature 2025-01-06 13:55:35.000 98.7 [degF] Temperature 2025-01-06 09:50:00.000 98.2 [degF] Temperature 2025-01-03 16:12:00.000 99.8 [degF] BMI (%) 2025-01-03 16:12:00.000 30 kg/m2 Height 2025-01-03 16:12:00.000 60 [in_us] Pulse 2025-03-01 11:22:00.000 65 /min Pulse 2025-02-22 10:05:00.000 70 /min Pulse 2025-02-15 14:24:00.000 78 /min Pulse 2025-02-08 09:47:00.000 78 /min Pulse 2025-02-01 09:51:00.000 78 /min Pulse 2025-01-25 09:48:00.000 74 /min Pulse 2025-01-22 11:24:00.000 83 /min Pulse 2025-01-19 09:37:00.000 70 /min Pulse 2025-01-13 10:40:00.000 84 /min Pulse 2025-01-11 15:29:33.000 77 /min Pulse 2025-01-11 15:29:00.000 77 /min Pulse 2025-01-08 09:12:00.000 78 /min Pulse 2025-01-06 13:54:42.000 71 /min Pulse 2025-01-06 09:50:00.000 78 /min Pulse 2025-01-03 16:12:00.000 64 /min O2 Saturation (%) 2025-03-01 11:22:00.000 96 % O2 Saturation (%) 2025-02-22 10:05:00.000 97 % O2 Saturation (%) 2025-02-15 14:24:00.000 97 % O2 Saturation (%) 2025-02-08 09:47:00.000 97 % O2 Saturation (%) 2025-02-01 09:51:00.000 95 % O2 Saturation (%) 2025-01-25 09:48:00.000 96 % O2 Saturation (%) 2025-01-22 11:24:00.000 96 % O2 Saturation (%) 2025-01-19 09:37:00.000 98 % O2 Saturation (%) 2025-01-13 10:40:00.000 97 % O2 Saturation (%) 2025-01-08 09:12:00.000 96 % O2 Saturation (%) 2025-01-06 09:50:00.000 97 % O2 Saturation (%) 2025-01-03 16:12:00.000 95 % Respirations 2025-03-01 11:22:00.000 14 /min Respirations 2025-02-22 10:05:00.000 18 /min Respirations 2025-02-15 14:24:00.000 18 /min Respirations 2025-02-08 09:47:00.000 18 /min Respirations 2025-02-01 09:51:00.000 18 /min Respirations 2025-01-25 09:48:00.000 18 /min Respirations 2025-01-22 11:24:00.000 17 /min Respirations 2025-01-19 09:37:00.000 18 /min Respirations 2025-01-13 10:40:00.000 18 /min Respirations 2025-01-11 15:29:00.000 18 /min Respirations 2025-01-11 15:22:59.000 18 /min Respirations 2025-01-08 09:12:00.000 16 /min Respirations 2025-01-06 13:54:45.000 18 /min Respirations 2025-01-06 09:50:00.000 18 /min Respirations 2025-01-03 16:12:00.000 15 /min Weight (lbs) 2025-02-01 09:51:00.000 160 [lb_av] Weight (lbs) 2025-01-03 16:12:00.000 158 [lb_av] Systolic Blood Pressure 2025-03-01 11:22:00.000 122 mm [Hg] Systolic Blood Pressure 2025-02-22 10:05:00.000 116 mm [Hg] Systolic Blood Pressure 2025-02-15 14:24:00.000 110 mm [Hg] Systolic Blood Pressure 2025-02-08 09:47:00.000 108 mm [Hg] Systolic Blood Pressure 2025-02-01 10:07:00.000 110 mm [Hg] Systolic Blood Pressure 2025-02-01 09:51:00.000 118 mm [Hg] Systolic Blood Pressure 2025-01-25 09:48:00.000 124 mm [Hg] Systolic Blood Pressure 2025-01-22 11:24:00.000 136 mm [Hg] Systolic Blood Pressure 2025-01-19 09:37:00.000 114 mm [Hg] Systolic Blood Pressure 2025-01-13 10:40:00.000 147 mm [Hg] Systolic Blood Pressure 2025-01-11 15:29:25.000 110 mm [Hg] Systolic Blood Pressure 2025-01-11 15:29:00.000 110 mm [Hg] Systolic Blood Pressure 2025-01-08 09:12:00.000 132 mm [Hg] Systolic Blood Pressure 2025-01-06 13:53:23.000 134 mm [Hg] Systolic Blood Pressure 2025-01-06 09:50:00.000 122 mm [Hg] Systolic Blood Pressure 2025-01-03 16:12:00.000 132 mm [Hg] Diastolic Blood Pressure 2025-03-01 11:22:00.000 82 mm [Hg] Diastolic Blood Pressure 2025-02-22 10:05:00.000 72 mm [Hg] Diastolic Blood Pressure 2025-02-15 14:24:00.000 66 mm [Hg] Diastolic Blood Pressure 2025-02-08 09:47:00.000 72 mm [Hg] Diastolic Blood Pressure 2025-02-01 10:07:00.000 60 mm [Hg] Diastolic Blood Pressure 2025-02-01 09:51:00.000 72 mm [Hg] Diastolic Blood Pressure 2025-01-25 09:48:00.000 70 mm [Hg] Diastolic Blood Pressure 2025-01-22 11:24:00.000 87 mm [Hg] Diastolic Blood Pressure 2025-01-19 09:37:00.000 70 mm [Hg] Diastolic Blood Pressure 2025-01-13 10:40:00.000 82 mm [Hg] Diastolic Blood Pressure 2025-01-11 15:29:25.000 76 mm [Hg] Diastolic Blood Pressure 2025-01-11 15:29:00.000 76 mm [Hg] Diastolic Blood Pressure 2025-01-08 09:12:00.000 78 mm [Hg] Diastolic Blood Pressure 2025-01-06 13:53:23.000 78 mm [Hg] Diastolic Blood Pressure 2025-01-06 09:50:00.000 76 mm [Hg] Diastolic Blood Pressure 2025-01-03 16:12:00.000 80 mm [Hg] Plan of Treatment Planned Activity Planned Date Details Comments Future Scheduled Test SKILLED NU RSE TO EVALUATE PATIENT, IDENTIFY PRIMARY AND CO-MORBID CONDITIONS CODED PER CODING GUIDELINES, AND DEVELOP PATIENT SPECIFIC PLAN OF CARE THAT INCLUDES PATIENT GOAL FOR HOME HEALTH. [code = SKILLED NURSE TO EVALUATE PATIENT, IDENTIFY PRIMARY AND CO-MORBID CONDITIONS CODED PER CODING GUIDELINES, AND DEVELOP PATIENT SPECIFIC PLAN OF CARE THAT INCLUDES PATIENT GOAL FOR HOME HEALTH.] Future Scheduled Test SKILLED NU RSE TO PROVIDE TEACHING/REINFORCEMENT RELATED TO URINARY INCONTINENCE. [code = SKILLED NURSE TO PROVIDE TEACHING/REINFORCEMENT RELATED TO URINARY INCONTINENCE.] Future Scheduled Test SKILLED NU RSE TO ASSESS ANXIETY AND PROVIDE ASSISTANCE TO PATIENT FOR UNDERSTANDING AND MANAGEMENT OF FEELINGS. [code = SKILLED NURSE TO ASSESS ANXIETY AND PROVIDE ASSISTANCE TO PATIENT FOR UNDERSTANDING AND MANAGEMENT OF FEELINGS.] Future Scheduled Test SKILLED NU RSE MAY COLLECT URINE SAMPLE FOR URINE REAGENT STRIP TESTING AND/OR URINALYSIS WITH CS 1-3 PRN IF INDICATED FOR SIGNS AND SYMPTOMS OF UTI. IF REAGENT STRIP TEST IS POSITIVE FOR UTI, SKILLED NURSE TO TAKE URINE SAMPLE TO LAB FOR URINE CS AND REPORT RESULTS TO PHYSICIAN. [code = SKILLED NURSE MAY COLLECT URINE SAMPLE FOR URINE REAGENT STRIP TESTING AND/OR URINALYSIS WITH CS 1-3 PRN IF INDICATED FOR SIGNS AND SYMPTOMS OF UTI. IF REAGENT STRIP TEST IS POSITIVE FOR UTI, SKILLED NURSE TO TAKE URINE SAMPLE TO LAB FOR URINE CS AND REPORT RESULTS TO PHYSICIAN.] Future Scheduled Test SKILLED NU RSE FOR INSTRUCTION/ REINFORCEMENT OF NEEDS RELATED TO NUTRITION/HYDRATION. [code = SKILLED NURSE FOR INSTRUCTION/ REINFORCEMENT OF NEEDS RELATED TO NUTRITION/HYDRATION.] Future Scheduled Test HOME HEALT H AIDE SERVICES FOR ASSISTANCE WITH PERSONAL CARE AND ADLS SECONDARY TO FUNCTIONAL LIMITATIONS [code = HOME HEALTH AIDE SERVICES FOR ASSISTANCE WITH PERSONAL CARE AND ADLS SECONDARY TO FUNCTIONAL LIMITATIONS] Future Scheduled Test OCCUPATION AL THERAPIST TO EVALUATE PATIENT FOR WEAKNESS, ADLS. ... [code = OCCUPATIONAL THERAPIST TO EVALUATE PATIENT FOR WEAKNESS, ADLS. ...] Future Scheduled Test SKILLED NU RSE FOR O/A AND SKILLED TEACHING RELATED TO SIGNS AND SYMPTOMS OF INFECTION AND INFECTION CONTROL MEASURES. [code = SKILLED NURSE FOR O/A AND SKILLED TEACHING RELATED TO SIGNS AND SYMPTOMS OF INFECTION AND INFECTION CONTROL MEASURES.] Future Scheduled Test SKILLED NU RSE FOR O/A OF SELF-CARE DEFICITS AND TO PROVIDE TEACHING RELATED TO SAFE PROVISION OF ADLS. [code = SKILLED NURSE FOR O/A OF SELF-CARE DEFICITS AND TO PROVIDE TEACHING RELATED TO SAFE PROVISION OF ADLS.] Future Scheduled Test SKILLED NU RSE FOR ADMINISTRATION AND TEACHING OF PRESCRIBED INJECTION THERAPY FOR VITAMIN B12 IM [code = SKILLED NURSE FOR ADMINISTRATION AND TEACHING OF PRESCRIBED INJECTION THERAPY FOR VITAMIN B12 IM] Future Scheduled Test PHYSICAL T HERAPIST TO EVALUATE PATIENT FOR WEAKNESS, ADLS. [code = PHYSICAL THERAPIST TO EVALUATE PATIENT FOR WEAKNESS, ADLS.] Future Scheduled Test SKILLED NU RSE TO PROVIDE TEACHING ON SIGNS AND SYMPTOMS AND MANAGEMENT OF HYPERTENSION. [code = SKILLED NURSE TO PROVIDE TEACHING ON SIGNS AND SYMPTOMS AND MANAGEMENT OF HYPERTENSION.] Future Scheduled Test SKILLED NU RSE FOR O/A AND TEACHING ON SIGNS AND SYMPTOMS AND MANAGEMENT OF HYPERTENSION. 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 [code = SKILLED NURSE TO INSTRUCT PATIENT/CAREGIVER ON WARNING SIGNS OF CVA, RISK FACTORS, AND METHODS TO MANAGE PENITENTIARY EFFECTS OF CVA.] Future Scheduled Test SKILLED NU RSE TO INSTRUCT PATIENT/CAREGIVER ON PREVENTION OF SEPSIS, AND SIGNS AND SYMPTOMS OF SEPSIS TO REPORT. [code = SKILLED NURSE TO INSTRUCT PATIENT/CAREGIVER ON PREVENTION OF SEPSIS, AND SIGNS AND SYMPTOMS OF SEPSIS TO REPORT.] Future Scheduled Test PATIENT MOREJON S A RISK OF HOSPITALIZATION AND ED USE. SKILLED NURSE TO ESTABLISH SUPPORT MEASURES TO MINIMIZE RISK OF HOSPITALIZATION AND ED USE, AND INSTRUCT PATIENT/CAREGIVER ON METHODS TO REDUCE AVOIDABLE HOSPITALIZATION AND ED USE. [code = PATIENT HAS A RISK OF HOSPITALIZATION AND ED USE. SKILLED NURSE TO ESTABLISH SUPPORT MEASURES TO MINIMIZE RISK OF HOSPITALIZATION AND ED USE, AND INSTRUCT PATIENT/CAREGIVER ON METHODS TO REDUCE AVOIDABLE HOSPITALIZATION AND ED USE.] Future Scheduled Test SKILLED NU RSE TO PROVIDE INSTRUCTION TO PATIENT/CAREGIVER RELATED TO DISCHARGE PLANNING. [code = SKILLED NURSE TO PROVIDE INSTRUCTION TO PATIENT/CAREGIVER RELATED TO DISCHARGE PLANNING.] Future Scheduled Test SKILLED NU RSE TO PERFORM ENVIRONMENTAL SAFETY RISK ASSESSMENT AND FALL RISK ASSESSMENT AND PROVIDE INSTRUCTION TO IMPLEMENT ENVIRONMENTAL SAFETY AND FALL PREVENTION STRATEGIES THROUGHOUT THE CERTIFICATION PERIOD. SKILLED NURSE WILL MAINTAIN SITUATIONAL AWARENESS AND WILL NOTIFY CLINICAL SEAM HAMMERER AND PHYSICIAN/PROVIDER WITH ANY CHANGE IN CONDITION. [code = SKILLED NURSE TO PERFORM ENVIRONMENTAL SAFETY RISK ASSESSMENT AND FALL RISK ASSESSMENT AND PROVIDE INSTRUCTION TO IMPLEMENT ENVIRONMENTAL SAFETY AND FALL PREVENTION STRATEGIES THROUGHOUT THE CERTIFICATION PERIOD. SKILLED NURSE WILL MAINTAIN SITUATIONAL AWARENESS AND WILL NOTIFY CLINICAL SEAM HAMMERER AND PHYSICIAN/PROVIDER WITH ANY CHANGE IN CONDITION.] Future Scheduled Test SKILLED NU RSE FOR OBSERVATION AND ASSESSMENT OF PATIENTS PAIN LEVEL AND EFFECTIVENESS OF PAIN MANAGEMENT REGIMEN. SKILLED NURSE TO INSTRUCT PATIENT/CAREGIVER REGARDING PHARMACOLOGIC AND NON-PHARMACOLOGIC PAIN CONTROL MEASURES. SKILLED NURSE TO REPORT TO PHYSICIAN IF PAIN LEVEL IS OUTSIDE OF ESTABLISHED PARAMETERS. [code = SKILLED NURSE FOR OBSERVATION AND ASSESSMENT OF PATIENTS PAIN LEVEL AND EFFECTIVENESS OF PAIN MANAGEMENT REGIMEN. SKILLED NURSE TO INSTRUCT PATIENT/CAREGIVER REGARDING PHARMACOLOGIC AND NON-PHARMACOLOGIC PAIN CONTROL MEASURES. SKILLED NURSE TO REPORT TO PHYSICIAN IF PAIN LEVEL IS OUTSIDE OF ESTABLISHED PARAMETERS.] Future Scheduled Test SKILLED NU RSE TO ASSESS PATIENT'S SKIN INTEGRITY AND INSTRUCT PATIENT/CAREGIVER ON MEASURES TO PREVENT PRESSURE ULCERS. [code = SKILLED NURSE TO ASSESS PATIENT'S SKIN INTEGRITY AND INSTRUCT PATIENT/CAREGIVER ON MEASURES TO PREVENT PRESSURE ULCERS.] Future Scheduled Test SN TO INST RUCT PATIENT/CAREGIVER ON MANAGEMENT OF EFFECTS OF STROKE UTILIZING THE STROKE SPECIALTY PROGRAM. [code = SN TO INSTRUCT PATIENT/CAREGIVER ON MANAGEMENT OF EFFECTS OF STROKE UTILIZING THE STROKE SPECIALTY PROGRAM.] Future Scheduled Test SKILLED NU RSE TO REVIEW PATIENT MEDICATIONS (PRESCRIPTION/OTC). INSTRUCT PATIENT/CAREGIVER ON ALL MEDICATIONS INCLUDING PURPOSE, WHEN TO TAKE, IMPORTANCE OF MEDICATION ADHERENCE, MONITORING OF EFFECTIVENESS, ADVERSE DRUG REACTIONS, POSSIBLE SIDE EFFECTS, AND WHEN TO NOTIFY AGENCY OR PHYSICIAN/PROVIDER OF ANY CONCERNS. [code = SKILLED NURSE TO REVIEW PATIENT MEDICATIONS (PRESCRIPTION/OTC). INSTRUCT PATIENT/CAREGIVER ON ALL MEDICATIONS INCLUDING PURPOSE, WHEN TO TAKE, IMPORTANCE OF MEDICATION ADHERENCE, MONITORING OF EFFECTIVENESS, ADVERSE DRUG REACTIONS, POSSIBLE SIDE EFFECTS, AND WHEN TO NOTIFY AGENCY OR PHYSICIAN/PROVIDER OF ANY CONCERNS.] Future Scheduled Test SKILLED NU RSE FOR MEDICATION ADMINISTRATION PER MEDICATION LIST TO BE PERFORMED EVERY VISIT [code = SKILLED NURSE FOR MEDICATION ADMINISTRATION PER MEDICATION LIST TO BE PERFORMED EVERY VISIT] Future Scheduled Test PHYSICAL T HERAPY TO EVALUATE AND TREAT. PHYSICAL THERAPY EVALUATION PERFORMED. NO ADDITIONAL VISITS REQUIRED. [code = PHYSICAL THERAPY TO EVALUATE AND TREAT. PHYSICAL THERAPY EVALUATION PERFORMED. NO ADDITIONAL VISITS REQUIRED.] Goal 2025-03-01 Patient Goal - STAY OUT OF H [facility] Goal Patient Goal - STAY OUT OF H [facility]SPITAL Goal Provider Goal - A PLAN OF CARE WILL BE ESTABLISHED THAT MEETS PATIENT'S USP NEEDS AND INCLUDES PATIENT GOAL FOR HOME HEALTH. Goal Provider Goal - PATIENT / CAREGIVER WILL VERBALIZE UNDERSTANDING OF EFFECTS OF URINARY INCONTINENCE BY THE END OF THE CERTIFICATION PERIOD. Goal Provider Goal - SYMPTOMS OF ANXIETY ARE IDENTIFIED AND INTERVENTIONS INITIATED TO ENABLE PATIENT TO UNDERSTAND AND MANAGE FEELINGS THROUGHOUT EPISODE. Goal Provider Goal - URINE SPECIMEN WILL BE OBTAINED PRN FOR SIGNS AND SYMPTOMS OF UTI AND RESULTS WILL BE REPORTED TO PHYSICIAN THROUGHOUT THE CERTIFICATION PERIOD. Goal Provider Goal - PATIENT/CAREGIVER WILL DEMONSTRATE ABILITY TO SELF MANAGE NEEDS RELATED TO NUTRITION/HYDRATION THROUGHOUT THE EPISODE. Goal Provider Goal - PATIENT WILL RECEIVE PERSONAL CARE AND ADL ASSISTANCE. Goal Provider Goal - OCCUPATIONAL THERAPY EVALUATION TO BE COMPLETED WITH RECOMMENDATIONS AND WRITTEN PLAN OF TREATMENT ESTABLISHED FOR THE PHYSICIANS SIGNATURE. Goal Provider Goal - PATIENT/CAREGIVER WILL VERBALIZE/DEMONSTRATE UNDERSTANDING OF S/S OF INFECTION AND INFECTION CONTROL MEASURES. SIGNS AND SYMPTOMS OF INFECTION WILL BE IDENTIFIED AND PHYSICIAN NOTIFIED FOR PROMPT INTERVENTION THROUGHOUT THE CERTIFICATION PERIOD. Goal Provider Goal - PATIENT/CAREGIVER WILL VERBALIZE/DEMONSTRATE UNDERSTANDING OF SAFE PROVISION OF ADLS BY THE END OF THE CERTIFICATION PERIOD. Goal Provider Goal - PATIENT WILL RECEIVE VITAMIN B12 IM ORDERED. PATIENT/CAREGIVER WILL VERBALIZE/DEMONSTRATE KNOWLEDGE OF INJECTION THERAPY BY THE END OF THE CERTIFICATION PERIOD. Goal Provider Goal - A PHYSICAL THERAPY EVALUATION TO BE COMPLETED WITH RECOMMENDATIONS AND/OR WRITTEN PLAN OF TREATMENT ESTABLISHED FOR PHYSICIANS SIGNATURE. Goal Provider Goal - PATIENT/CAREGIVER WILL VERBALIZE SIGNS AND SYMPTOMS OF HYPERTENSION AND WILL BE ABLE TO DEMONSTRATE ABILITY TO MANAGE EXACERBATION BY END OF THE EPISODE. Goal Provider Goal - PATIENT/CAREGIVER WILL VERBALIZE SIGNS AND SYMPTOMS OF HYPERTENSION AND WILL BE ABLE TO DEMONSTRATE ABILITY TO MANAGE EXACERBATION BY END OF THE EPISODE. Goal Provider Goal - PATIENT/CAREGIVER WILL DEMONSTRATE COMPLIANCE WITH TREATMENT REGIME AND VERBALIZE SIGNS AND SYMPTOMS TO REPORT WELL POSSIBLE COMPLICATIONS OF CVA BY END OF EPISODE. Goal Provider Goal - PATIENT WILL BE FREE FROM INFECTION AND PATIENT/CAREGIVER WILL VERBALIZE UNDERSTANDING OF SIGNS AND SYMPTOMS AND METHODS TO PREVENT SEPSIS BY END OF THE EPISODE. Goal Provider Goal - PATIENT WILL HAVE SUPPORT MEASURES ESTABLISHED TO PREVENT HOSPITALIZATION AND ED USE AND PATIENT/CAREGIVER WILL VERBALIZE/DEMONSTRATE METHODS TO REDUCE AVOIDABLE HOSPITALIZATION AND ED USE BY END OF EPISODE. Goal Provider Goal - PATIENT/CAREGIVER WILL VERBALIZE UNDERSTANDING OF DISCHARGE PLANNING INSTRUCTIONS BY DATE OF DISCHARGE. Goal Provider Goal - PATIENT/CAREGIVER WILL VERBALIZE/DEMONSTRATE EFFECTIVE ENVIRONMENTAL SAFETY AND FALL PREVENTION STRATEGIES, WILL REMAIN SAFE IN THE COMMUNITY, AND WILL BE FREE OF DANGER TO SELF AND OTHERS THROUGHOUT THE CERTIFICATION PERIOD. Goal Provider Goal - PATIENT/CAREGIVER WILL DEMONSTRATE UNDERSTANDING OF PHARMACOLOGIC AND NONPHARMACOLOGIC PAIN CONTROL MEASURES AND PATIENT WILL HAVE IMPROVEMENT IN PAIN INTERFERING WITH ACTIVITY EVIDENCED BY PAIN AT A LEVEL THAT IS ACCEPTABLE TO THE PATIENT AND PAIN LEVEL WITHIN ESTABLISHED PARAMETERS BY END OF CERTIFICATION PERIOD. Goal Provider Goal - PATIENT/CAREGIVER WILL VERBALIZE UNDERSTANDING OF PRESSURE ULCER PREVENTION BY END OF THE EPISODE. Goal Provider Goal - PATIENT/CAREGIVER WILL DEMONSTRATE MANAGEMENT OF EFFECTS OF STROKE A RESULT OF PARTICIPATION IN STROKE SPECIALTY PROGRAM. Goal Provider Goal - PATIENT/CAREGIVER WILL VERBALIZE UNDERSTANDING OF EDUCATION PROVIDED ON MEDICATIONS BY THE END OF THE CERTIFICATION PERIOD. Goal Provider Goal - PATIENT WILL COMPLY WITH MEDICATION WHEN NURSE ADMINISTERS THROUGHOUT CERTIFICATION PERIOD. Goal Provider Goal - NONE Encounters Start Date/Time End Date/Time Encounter Type Admission Type Attending [facility] Care Department Encounter ID Discharge Date Discharge Status Discharge Condition Discharge Reason Percent Goals Met 2025-01-03 00:00:00 2025-03-03 00:00:00 Outpatient NEW ADMISSION [facility] [id number]
--- OUTSIDE RECORDS SUMMARY | 2025-03-02 20:00 | XMS_ITS | Clinical Summary ---
Author Organization Unknown Care Team Providers Care Access Services Assistant Name Role Phone SALVADOR CAIN, JENIFER Unavailable Unavailable KEYSHA STONE, PILAR Unavailable Unavailable JOESPH STAFF READINESS OFFICER, EDVIN Unavailable Unavailable BRIAN OT, RINKU Unavailable Unavailable KAMALA PT, MASHA Unavailable Unavailable PATRICK PAULN, CHHAYA Unavailable Unavailable WAYNE RN, BRIDGETTE Unavailable Unavailable SHAHEEN TRINIDAD Unavailable Unavailable Payers Payer Name Policy Type Policy Number Effective Date Expira tion Date MEDICARE - [place] - PDGM [id number] Problems Condition Name Condition Details Condition Category [...] 00 ARTHRODESIS STATUS Active 08-26 00:00: 00 RESIDENTIAL (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 OF ASPIRIN Active 08-26 00:00: 00 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 TRADER (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 OF ANTITHROMBOT ICS/ANTIPLAT ELETS Active [...] 10 mg tablet 12-24 00:00: 00 Yes [id number] Unavailable 1 tablet THREE TIMES DAILY 1 tablet THREE TIMES DAILY (route: oral) Med Classific ation: Locomotor System aspirin 81 mg chewable tablet 01-03 00:00: 00 Yes [id number] 1 tablet DAILY 1 tablet DAILY (route: oral) Med Classific ation: Hematolog ical Agents atorvastati n 40 mg tablet 01-03 00:00: 00 Yes [id number] 1 tablet DAILY 1 tablet DAILY (route: oral) Med Classific ation: Cardiovas cular Therapy Agents bisoprolol fumarate 5 mg tablet 01-03 00:00: 00 Yes [id number] 1 tablet DAILY 1 tablet DAILY (route: oral) Med Classific ation: Cardiovas cular Therapy Agents clopidogrel 75 mg tablet 01-03 00:00: 00 01-22 23:59 :00 No [id number] 1 tablet DAILY 1 tablet DAILY (route: oral) Med Classific ation: Hematolog ical Agents cyanocobala min (vit B-12) 1,000 mcg/mL injection solution 01-03 00:00: 00 02-01 23:59 :00 No [id number] 1 mL WEEKLY 1 mL WEEKLY (route: injection) Med Classific ation: Electroly te Balance-N utritiona l Products Xanax 0.5 mg tablet 01-03 00:00: 00 Yes [id number] 1 tablet 3 TIMES DAILY 1 tablet 3 TIMES DAILY (route: oral) Med Classific ation: Central Nervous System Agents cyanocobala min (vit B-12) 1,000 mcg/mL injection solution 02-01 00:00: 00 Yes [id number] Low B12 levels 1000 mcg MONTHLY 1000 [...] CVA, RISK FACTORS, AND METHODS TO MANAGE FUTURES TRADER EFFECTS OF CVA. [code = SKILLED NURSE TO INSTRUCT PATIENT/CAREGIVER ON WARNING SIGNS OF CVA, RISK FACTORS, AND METHODS TO MANAGE RESIDENTIAL EFFECTS OF CVA.] Future Scheduled Test SKILLED [...] MAINTAIN SITUATIONAL AWARENESS AND WILL NOTIFY CLINICAL COMPLIANCE COORDINATOR AND PHYSICIAN/PROVIDER WITH ANY CHANGE IN CONDITION. [code = SKILLED NURSE TO PERFORM ENVIRONMENTAL SAFETY RISK ASSESSMENT AND FALL RISK ASSESSMENT AND PROVIDE INSTRUCTION TO IMPLEMENT ENVIRONMENTAL SAFETY AND FALL PREVENTION STRATEGIES THROUGHOUT THE CERTIFICATION PERIOD. SKILLED NURSE WILL MAINTAIN SITUATIONAL AWARENESS AND WILL NOTIFY CLINICAL COMPLIANCE COORDINATOR AND PHYSICIAN/PROVIDER WITH ANY CHANGE IN CONDITION.] [...] CARE WILL BE ESTABLISHED THAT MEETS PATIENT'S [facility]PC NEEDS AND INCLUDES PATIENT GOAL FOR HOME [...] End Date/Time Encounter Type Admission Type Attending [facility] Care Department Encounter ID Discharge Date Discharge Status Discharge Condition Discharge Reason Percent Goals Met 2025-01-03 00:00:00 2025-03-03 00:00:00 Outpatient NEW ADMISSION [facility] [id number]
[2025-03-08 17:32] VITALS: BP 160/92; PULSE 71; TEMP 36.8; O2SAT 96; BMI 30.9
--- NOTE | 2025-03-08 17:38 | ECG_ITS ---
[facility] Test Date: 2025-03-08 Pat Name: MATTHEW CLARKE Department: Room: - Gender: Female Log Skidder: : 1950 Requested By: JENIFER FRANCO Order Number: [id number] Reading MD: MARIJA MILES Measurements Intervals Wayne Rate: 68 P: 8 PA: 158 QRS: 8 QRSD: 76 T: 4 QT: 416 QTc: 433 Interpretive Statements 1100 Sinus rhythm 5211 Minimal voltage criteria for LVH, may be normal variant 9130 borderline ECG Compared to ECG 01/01/2025 10:55:22 Left ventricular hypertrophy now present Electronically Signed On 03-10-2025 13:25:35 EDT by MARIJA MILES
--- OUTSIDE RECORDS SUMMARY | 2025-03-08 17:39 | XMS_ITS | Clinical Summary ---
Author Organization [facility] Address [address] [place], [place] [address] Care Team Providers Care Stretcher Helper Name Role Phone Unavailable Primary Care Provider Unavailabl e Allergies Active Allergy Reactions Criticality Noted Date Comments Flu Vac 2011 (18-64yrs)(Pf) Swelling High 03/07/20 15 Morphine Other: See Comments High 03/07/2015 migraines Medications meloxicam (MOBIC) 15 mg tablet Take 15 mg by mouth once daily. Active ALPRAZolam (XANAX) 0.5 mg tablet Take 0.5 mg by mouth three times daily. Active Omeprazole-Sodiu m Bicarbonate (ZEGERID) 20-1.1 mg-gram cap Take by mouth once daily. Active ASPIRIN/ACETAMIN OPHEN/CAFFEINE (EXCEDRIN MIGRAINE ORAL) Take by mouth. Active DULoxetine (CYMBALTA) 60 mg capsule Take 1 capsule by mouth once daily. 30 capsule 11 5 Active cholecalciferol, Vitamin D3, (VITAMIN D3) 50,000 unit cap capsule Take 50,000 Units by mouth once each week. 5 Active calcium carbonate 600 mg-cholecalcifer ol 400 units (CALCIUM 600 + D) 600 mg(1,500mg) -400 unit tab Take 1 tablet by mouth once daily. Active CYANOCOBALAMIN, VITAMIN B-12, (VITAMIN B-12 INJECTION) by INJECTION(UNSPE CIFIED PARENTERAL ROUTES) route. Active Active Problems Problem Noted Date Diagnosed Date Recurrent major depression in partial remission 04/24/2015 Neck pain 03/12/2015 Family History Medical History Relation Comments lung cancer[other] Father Breast Cancer Mother COPD Other No Ocular Disease Other Relation Status Comments Father Mother Other Social History Tobacco Use Types Packs/Day Years Used Date Smoking Tobacco: Passive Smo ke Exposure - Never Smoker Cigarettes Alcohol Use Standard Drinks/Week Comments Yes 0 (1 standard drink = 0.6 oz pur e alcohol) wine cooler Comments Unknown Sex and Gender Information Value Date Recorded Sex Assigned at Not on file Legal Sex Female 3:12 PM EDT Gender Identity Not on file Sexual Orientation Not on file Last Filed Vital Signs Vital Sign Reading Time Taken Comments Blood Pressure 144/97 04/22/2015 3:20 PM EDT Pulse 99 04/22/2015 3:20 PM EDT Temperature - - Respiratory Rate 16 04/22/2015 3:20 PM EDT Oxygen Saturation - - Inhaled Oxygen Concentration - - Weight 84.5 kg (186 lb 4.8 oz) 04/22/2015 3:20 P M EDT Height 152.4 cm (5') 04/22/2015 3:20 PM EDT Body Mass Index 36.38 04/22/2015 3:20 PM EDT Plan of Treatment Health Maintenance Due Date Last Done Comments Anxiety Screening 1966 Depression Screening 1966 Hepatitis C Screening 1966 DTaP,Tdap,Td Vaccine (1 - Tdap) 1967 Diabetes Screening 1993 Pneumococcal Vaccine: 50+ (1 of 1 - PCV) 1998 Shingrix Vaccine (1 of 2) 1998 Bone Density Screening 2013 RSV Vaccine (1 - 1-dose 75+ series) 2023 Covid-19 Vaccine ( - 2023- season) 2024 Advance Directive Discussion 08/26/2024 Influenza Vaccine (#1) 2025 Insurance [facility] [address] [address] MEDICARE Member Subscriber Plan / Payer (Ef fective 2013-Present) Name:Birgit Sam Member ID:[id number] Relation to Subscriber:Self Name:Birgit Sam Subscriber ID:[id number] Payer ID:Not on file Group ID:Not on file Type:Medicare Address: [place] [id number]
--- NOTE | 2025-03-08 17:40 | ED.GENADUL1 ---
HPI HPI - General Adult General Chief complaint: Syncope Stated complaint: SYNCOPE/FALL Time Seen by Provider: 03/08/25 17:38 Source: patient Mode of arrival: walk-in Limitations: no limitations History of Present Illness HPI narrative: Patient is a 74-year-old female who presents to the emergency department today for evaluation concerns for a syncopal episode. Endorses she was at the store pushing a shopping cart when she suddenly felt lightheaded and had a syncopal episode. Blood glucose was in the 80s per EMS. She endorses she has a history of both CVA and TIA and mentions typically with her TIAs they present as syncopal episodes. Syncopal episode she believes was 01/30/25. she mention she had a CVA as recent as Mother's Day in December where she was transferred to [facility] for further evaluation. She mentions no interventions were performed there at that time, but mentions she had an EEG that was negative for seizure activity. She states she has continued low-dose aspirin since then. She mention she wore a Holter monitor for 2 weeks and sent it back to cardiology which has not yet interpreted this. She has any headache, vision difficulties. No neck/back pain. No chest pain or shortness of breath. No abdominal pain or nausea/vomiting. She denies any injuries to extremities. Related Data Home Medications ?Medication ?Instructions ?Recorded ?Confirmed alprazolam 0.5 mg tablet 0.5 mg PO TID PRN anxiety 01/12/24 01/11/25 bisoprolol fumarate 5 mg tablet 5 mg PO .once daily 12/29/24 01/11/25 bisoprolol 5 1 tab PO .QD 12/30/24 01/11/25 mg-hydrochlorothiazide 6.25 mg tablet Previous Rx's ?Medication ?Instructions ?Recorded baclofen 10 mg tablet 10 mg PO TID #90 tabs 12/24/24 aspirin 81 mg tablet 81 mg PO DAILY #30 tabs 12/31/24 atorvastatin 40 mg tablet (Lipitor) 40 mg PO DAILY #30 tabs 12/31/24 cefuroxime axetil 500 mg tablet 500 mg PO BID #10 tabs 12/31/24 Allergies Allergy/AdvReac Type Severity Reaction Status Date / Time influenza A (H1N1) virus AdvReac Mild Swelling Verified 01/11/25 10:02 vaccine m-dayna-split 2008 of (From influenza A (H1N1)) Lip/Tongue/Throat morphine AdvReac Mild Headache Verified 01/11/25 10:02 Opioid HPI Opioid Management Most Recent Opioid Data: Last Pain Scale 4 01/11/25, 10:03 Last ORT Total Score 0 01/01/25, 15:08 Last ORT Risk Category Low Risk 01/01/25, 15:08 Ur Phencyclidine Scrn, (NEGATIVE) Negative 01/01/25, 12:00 Review of Systems ROS Status of ROS 10 or more systems reviewed and unremarkable except as noted in history and below [facility] Medical History (Updated 03/08/25 @ 19:43 by Adria Craey NP) UTI (urinary tract infection) ?N39.0 - Urinary tract infection, site not specified (ICD-10) Acute ischemic stroke ?I63.9 - Cerebral infarction, unspecified (ICD-10) Stroke ?I63.9 - Cerebral infarction, unspecified (ICD-10) Altered mental status ?R41.82 - Altered mental status, unspecified (ICD-10) HLD (hyperlipidemia) ?E78.5 - Hyperlipidemia, unspecified (ICD-10) HTN (hypertension) ?I10 - Essential (primary) hypertension (ICD-10) Encounter for cholecystectomy ?Z76.89 - Persons encountering health services in other specified circumstances (ICD-10) Hysterectomy planned TIA (transient ischemic attack) ?G45.9 - Transient cerebral ischemic attack, unspecified (ICD-10) Breast cancer ?C50.919 - Malignant neoplasm of unspecified site of unspecified female breast (ICD-10) Surgical History History of breast lump removal ?Z98.890 - Other specified postprocedural states (ICD-10) H/O Spinal surgery ?Z98.890 - Other specified postprocedural states (ICD-10) Social History Highest level of school completed/degree received: Bachelor's degree Little interest or pleasure in doing things: not at all Feeling down, depressed, or hopeless: not at all Exam Narrative Exam Narrative: Constituational: Awake/ alert, no apparent distress, well hydrated HENMT: normocephalic, external ears normal, moist oral mucous membranes and oropharynx normal Eyes: EOMI and conjunctivae normal Neck: ROM intact Chest: inspection of chest normal Respiratory: Normal respiratory effort, clear to auscultation bilaterally Cardio: regular rate and regular rhythm GI: soft to palpation and non-tender Back: nontender MSK: ROM intact, +NVI Skin: no rashes or petechiae Neuro: no focal deficits, moves all extremities with normal and equal strenght Psych: mental status grossly normal Constitutional Vital Signs, click to edit/add: Last Vital Signs Temp 98.2 F 03/08/25 17:32 Pulse 71 03/08/25 17:32 Resp 16 03/08/25 17:32 BP 160/92 H 03/08/25 17:32 Pulse Ox 96 03/08/25 17:32 O2 Del Method Room Air 03/08/25 17:32 Course Vital Signs Vital signs: Vital Signs Temperature 98.2 F 03/08/25 17:32 Pulse Rate 71 03/08/25 17:32 Respiratory Rate 16 03/08/25 17:32 Blood Pressure 160/92 H 03/08/25 17:32 Pulse Oximetry 96 03/08/25 17:32 Oxygen Delivery Method Room Air 03/08/25 17:32 Temperature 98.2 F 03/08/25 17:32 Pulse Rate 71 03/08/25 17:32 Respiratory Rate 16 03/08/25 17:32 Blood Pressure 160/92 H 03/08/25 17:32 Pulse Oximetry 96 03/08/25 17:32 Oxygen Delivery Method Room Air 03/08/25 17:32 Medical Decision Making [facility] Narrative Medical decision making narrative: The patient is a nontoxic and well-appearing 74-year-old female who presented to the emergency department today for evaluation concerns for a syncopal episode while pushing a shopping cart and looking down. Initial examination vital signs stable. Orthostatic vital signs negative. No focal neurologic findings on exam. She otherwise appears euvolemic and to not obviously be exhibiting any ischemic symptoms. EKG without acute changes. Troponin is negative x 2. Labs stable as below. CT imaging of head without critical findings. Considered CT angiogram of head and neck however there are no focal neurologic deficits on exam and will hold off for now. Did discuss patient's condition with neurologist Dr. Chavarria [facility] 1929[facility] who agrees with plan additional CT angiogram of head and neck at this time and to treat supportively with continuation of aspirin therapy. Advised on driving restrictions until she is cleared by neurology. Patient additionally supposed to have seen a vascular neurologist Dr. Johns whom she states an appointment was canceled and needs to be rescheduled with. Will additionally refer to cardiology due to reported syncopal episodes. Discussed these findings with the patient. Reiterated recommendations from neurology as above in addition referral for cardiology for follow-up. Discussed signs and symptoms of any worsening condition and when to consider reevaluation by the emergency department. Patient verbalized an understanding of this and is agreeable to plan to be discharged home. Medical Records Medical records reviewed: Yes I reviewed the patient's medical records Lab Data Lab results reviewed: Yes I reviewed the patient's lab results Labs: Lab Results 03/08/25 03/08/25 03/08/25 Range/Units 17:52 17:57 18:30 WBC 5.4 (4.0-11.0) 10^3/uL RBC 4.14 L (4.20-5.40) 10^6/uL Hgb 12.2 (12.0-16.0) g/dL Hct 37.9 (36.0-48.0) % MCV 91.5 (81.0-99.0) fL MCH 29.5 (26.7-34.0) pg MCHC 32.2 (29.9-35.2) g/dL RDW 14.4 (11.0-15.0) % Plt Count 288 (150-450) 10^3/uL MPV 10.6 (9.5-13.5) fL Neut % (Auto) 52.4 (43.0-75.0) % Lymph % (Auto) 23.7 (20.5-60.0) % [place] % (Auto) 18.7 H (1.7-12.0) % Eos % (Auto) 3.9 (0.9-7.0) % Baso % (Auto) 1.1 (0.2-2.0) % Neut # (Auto) 2.8 (1.4-6.5) 10^3/uL Lymph # (Auto) 1.3 (1.2-3.8) 10^3/uL [place] # (Auto) 1.0 H (0.3-0.8) 10^3/uL Eos # (Auto) 0.2 (0.0-0.7) 10^3/uL Baso # (Auto) 0.1 (0.0-0.1) 10^3/uL Abs Immat Gran (auto) 0.01 (0.00-0.03) 10^3/uL Imm/Tot Granulo (auto) 0.2 (0.0-0.5) % APTT 26.6 (22.3-36.2) sec Sodium 140 (136-145) mmol/L Potassium 4.2 (3.5-5.1) mmol/L Chloride 104 (98-107) mmol/L Carbon Dioxide 29.1 (21.0-32.0) mmol/L Anion Gap 11.1 BUN 22.0 H (7.0-18.0) mg/dL Creatinine 0.75 (0.55-1.02) mg/dL Est GFR ( Amer) >60 (>=60 mL/min/1.73m^2) Est GFR (Non-Af Amer) >60 (>=60 mL/min/1.73m^2) BUN/Creatinine Ratio 29.3 Glucose 86 (74-106) mg/dL Calcium 9.0 (8.5-10.1) mg/dL Total Bilirubin 0.4 (0.2-1.0) mg/dL AST 28 (15-37) U/L ALT 30 (14-59) U/L Alkaline Phosphatase 248 H (46-116) U/L Troponin I High Sens 4.2 (4.0-51.3) pg/mL Total Protein 7.4 (6.4-8.2) g/dL Albumin 3.2 L (3.4-5.0) g/dL Globulin 4.2 g/dL Albumin/Globulin Ratio 0.8 Urine Color Lt. yellow (YELLOW) Urine Clarity Clear (CLEAR) Urine pH 7.5 (5.0-9.0) Ur Specific [place] 1.010 (1.005-1.025) Urine Protein Negative (NEG/TRACE) mg/dL Urine Glucose (UA) Negative (NEGATIVE) mg/dL Urine Ketones Negative (NEGATIVE) mg/dL Urine Occult Blood Negative (NEGATIVE) Urine Nitrite Negative (NEGATIVE) Urine Bilirubin Negative (NEGATIVE) Urine Urobilinogen 1.0 (0.2-1.0) EU/dL Ur Leukocyte Esterase Negative (NEGATIVE) POC Glucose 85 (74-106) mg/dL 03/08/25 Range/Units 19:06 WBC (4.0-11.0) 10^3/uL RBC (4.20-5.40) 10^6/uL Hgb (12.0-16.0) g/dL Hct (36.0-48.0) % MCV (81.0-99.0) fL MCH (26.7-34.0) pg MCHC (29.9-35.2) g/dL RDW (11.0-15.0) % Plt Count (150-450) 10^3/uL MPV (9.5-13.5) fL Neut % (Auto) (43.0-75.0) % Lymph % (Auto) (20.5-60.0) % [place] % (Auto) (1.7-12.0) % Eos % (Auto) (0.9-7.0) % Baso % (Auto) (0.2-2.0) % Neut # (Auto) (1.4-6.5) 10^3/uL Lymph # (Auto) (1.2-3.8) 10^3/uL [place] # (Auto) (0.3-0.8) 10^3/uL Eos # (Auto) (0.0-0.7) 10^3/uL Baso # (Auto) (0.0-0.1) 10^3/uL Abs Immat Gran (auto) (0.00-0.03) 10^3/uL Imm/Tot Granulo (auto) (0.0-0.5) % APTT (22.3-36.2) sec Sodium (136-145) mmol/L Potassium (3.5-5.1) mmol/L Chloride (98-107) mmol/L Carbon Dioxide (21.0-32.0) mmol/L Anion Gap BUN (7.0-18.0) mg/dL Creatinine (0.55-1.02) mg/dL Est GFR ( Amer) (>=60 mL/min/1.73m^2) Est GFR (Non-Af Amer) (>=60 mL/min/1.73m^2) BUN/Creatinine Ratio Glucose (74-106) mg/dL Calcium (8.5-10.1) mg/dL Total Bilirubin (0.2-1.0) mg/dL AST (15-37) U/L ALT (14-59) U/L Alkaline Phosphatase (46-116) U/L Troponin I High Sens 4.5 (4.0-51.3) pg/mL Total Protein (6.4-8.2) g/dL Albumin (3.4-5.0) g/dL Globulin g/dL Albumin/Globulin Ratio Urine Color (YELLOW) Urine Clarity (CLEAR) Urine pH (5.0-9.0) Ur Specific [place] (1.005-1.025) Urine Protein (NEG/TRACE) mg/dL Urine Glucose (UA) (NEGATIVE) mg/dL Urine Ketones (NEGATIVE) mg/dL Urine Occult Blood (NEGATIVE) Urine Nitrite (NEGATIVE) Urine Bilirubin (NEGATIVE) Urine Urobilinogen (0.2-1.0) EU/dL Ur Leukocyte Esterase (NEGATIVE) POC Glucose (74-106) mg/dL Imaging Data CT scan - head: Attestation: I have reviewed the pertinent imaging results. Radiologist's impression: ITS Impressions Head CT 03/08/25 18:19 IMPRESSION: No acute intracranial pathology Chronic age-related neurodegenerative changes are noted similar to the prior exam. Impression dictated by: Kota Gardner M.D. 03/08/2025 7:00 PM Dictation Location: [place] [address] Electronically authenticated by: [id number] Y Date: 03/08/2025 19:00 ECG Data Attestation: I personally reviewed and interpreted this ECG as follows: (SR with HR 68, no acute/ischemic changes) Discharge Plan Discharge Chief Complaint: Syncope Clinical Impression: Syncope Patient Disposition: Home, Self-Care Prescriptions / Home Meds: No Action alprazolam 0.5 mg tablet 0.5 mg PO TID PRN (Reason: anxiety) baclofen 10 mg tablet 10 mg PO TID Qty: 90 2RF bisoprolol fumarate 5 mg tablet 5 mg PO .once daily bisoprolol-hydrochlorothiazide 5-6.25 mg tablet 1 tab PO .QD aspirin 81 mg tablet 81 mg PO DAILY Qty: 30 0RF atorvastatin [Lipitor] 40 mg tablet 40 mg PO DAILY Qty: 30 0RF cefuroxime axetil 500 mg tablet 500 mg PO BID Qty: 10 0RF Print Language: Congolese Instructions: Syncope (DC) Additional Instructions: Due to your syncopal episode today no driving until cleared by a neurologist. Please follow-up with your neurologist out of [place]. You additionally need to follow-up with the vascular neurologist Dr. Krystin Johns [phone] evaluation from your hospitalizations in December. Additionally you should follow-up with cardiology due to the syncopal episode today. May return to the ER with any new or worsening symptoms/concerns. Referrals: Francis Osborne DO [Primary Care Provider, Internal Medicine] - 1 week LINA RICE MD [Physician, Cardiology] - 1 week
--- OUTSIDE RECORDS SUMMARY | 2025-03-08 17:40 | XMS_ITS | Clinical Summary ---
Author Organization [facility] Address [address] [place] [address] Care Team Providers Care Quality Inspector Name Role Phone Francis Osborne Primary Care Provider [phone] Allergies Active Allergy Reactions Criticality Noted Date Comments Influenza Vaccine Recombinant Unknown 2022 Morphine Unknown 01/04/2023 Medications acetaminophen (Tylenol 8 Hour Arthritis Pain) 650 MG ER tablet Take 650 mg by mouth every 8 (eight) hours if needed. Active citalopram (CeleXA) 40 MG tablet Take 20 mg by mouth in the morning. Active benazepril (Lotensin) 10 MG tablet Take 10 mg by mouth 1 (one) time each day at the same time. Active omeprazole (PriLOSEC) [address] capsule Take 20 mg by mouth in the morning. Take before meals. Do not crush or chew. . Active ALPRAZolam (Xanax) 0.25 MG tablet Take 0.25 mg by mouth as needed at bedtime for anxiety. Active Active Problems Problem Noted Date Diagnosed Date Lumbago with sciatica, right side 01/04/2023 Other chronic pain 01/04/2023 Family History Relation Name Status Comments Father Mother Social History Tobacco Use Types Packs/Day Years Used Date Smoking Tobacco: Never Smokeless Tobacco: Never Tobacco Cessation:Counseling Given: Not Answered Alcohol Use Standard Drinks/Week Comments Not Currently 0 (1 standard drink = 0.6 oz pur e alcohol) Comments Unknown Sex and Gender Information Value Date Recorded Sex Assigned at Not on file Legal Sex Female 6:39 PM EDT Gender Identity Not on file Sexual Orientation Not on file Last Filed Vital Signs Vital Sign Reading Time Taken Comments Blood Pressure - - Pulse - - Temperature - - Respiratory Rate - - Oxygen Saturation - - Inhaled Oxygen Concentration - - Weight 78.5 kg (173 lb) 01/04/2023 3:29 PM EDT Height 157.5 cm (5' 2 ) 01/04/2023 3:29 PM EDT Body Mass Index 31.64 01/04/2023 3:29 PM EDT Plan of Treatment Health Maintenance Due Date Last Done Comments Pneumococcal Vaccine: 65+ Ye ars (1 of 1 - PCV) 1998 Influenza Vaccine (#1) 2025 Colorectal Cancer Screening Discontinued FIT-DNA Discontinued 04/24/2023, 03/29/2020 CT Colonography Discontinued Colonoscopy Discontinued FIT Discontinued FOBT Discontinued Sigmoidoscopy Discontinued Insurance MEDICARE Care Teams Quality Inspector Relationship Specialty Start Date End Date Francis Osborne DO [address] [place] [id number] PCP - General Internal Medicine 01/08/25
--- OUTSIDE RECORDS SUMMARY | 2025-03-08 17:40 | XMS_ITS | Encounter Summary ---
Author Organization [facility] [facility] Address [id number] [address] [place] [address] Care Team Providers Care Brush Stainer Name Role Phone Francis Osborne Primary Care Provider [phone] Encounter Details Date Type Department Care Team (Late st Contact Info) Description 01/02/2025 Orders Only [facility] [address] [place] [phone] Transcribe, Orders Support User Pain (Primary Dx) Social History Tobacco Use Types Packs/Day Years Used Date Smoking Tobacco: Never Smokeless Tobacco: Never Alcohol Use Standard Drinks/Week Comments Never 0 (1 standard drink = 0.6 oz pur e alcohol) [facility] Utilities Answer Date Recorded In the past 12 months has th e electric, gas, oil, or water company threatened to shut off services in your home? No 01/02/2025 AUDIT-C Answer Date Recorded Q1: How often do you have a drink containing alcohol? Never 01/02/2025 Q2: How many drinks containi ng alcohol do you have on a typical day when you are drinking? Patient does not drink Q3: How often do you have si x or more drinks on one occasion? Never 01/02/2025 Overall Financial Resource Strain (CARDIA) Answe r Date Recorded How hard is it for you to pa y for the very basics like food, housing, medical care, and heating? Not hard at all 01/02/2025 PHQ-2 Answer Date Recorded Total Score 0 01/02/2025 PRAPARE - Transportation Answer Date Re corded In the past 12 months, has l ack of transportation kept you from medical appointments or from getting medications? No 12/24 In the past 12 months, has l ack of transportation kept you from meetings, work, or from getting things needed for daily living? No 01/02/2025 Housing Instability Answer Date Recorde d Are you worried or concerned that in the next two months you may not have stable housing that you own, rent or stay in as a part of a household? No 01/02/2025 Childcare Answer Date Recorded Childcare Unknown 02/04/2019 Employment Answer Date Recorded Employment Unknown 02/04/2019 Hunger Screening Answer Date Recorded Within the past 12 months we worried whether our food would run out before we got money to buy more. Never True 01/02/2025 Within the past 12 months th e food we bought just didn't last and we didn't have money to get more. Never True 01/02/2025 Purpose - Life Answer Date Recorded Purpose and direction in life Unknown Comments No Sex and Gender Information Value Date Recorded Sex Assigned at Not on file Legal Sex Female 12:00 PM EDT Gender Identity Not on file Sexual Orientation Not on file documented as of this encounter Functional Status * Audit-C Score Answer Date of Assessment Author 0 01/02/2025 9:07 AM Celestina Kumar RN * Question Answer Date of Assessment Author Q1: How often do you have a drink containing alcohol? Never 01/02/2025 9:07 AM Lisbet Kumar RN Q2: How many drinks containing alcohol do you have on a typical day when you are drinking? Patient does not drink 01/02/2025 9:07 AM Lisbet Kumar RN Q3: How often do you have six or more drinks on one occasion? Never 01/02/2025 9:07 AM Lisbet Kumar RN * Question Answer Date of Assessment Author Functional Status Independent 01/02/2025 8:59 AM Lisbet Kumar RN documented as of this encounter Plan of Treatment Not on file documented as of this encounter Goals Goal Patient Goal Type Associated Problems Recent Progress Patient-Stated? Author transition home with self care/family assist and resume home care services General Yes Shavon, Brit, SURGICAL TECHNOLOGY INSTRUCTOR Note: Evaluation of progress towards goal: transition home with self care/family assist and resume home care services documented as of this encounter Results * CT brain without contrast stroke alert (01/01/2025 11:10 AM EDT) us Scanning Provider External IMG CT ORDERABLES Fin al Result * X-ray chest 1 view (01/01/2025 10:50 AM EDT) us Scanning Provider External IMG DIAGNOSTIC IMAGIN G ORDERABLES Final Result * Non [facility] Echo (12/30/2024 11:25 AM EDT) us Scanning Provider External CV ECHO ORDERABLES Fi nal Result XCELERA * MR lumbar spine without contrast (12/15/2024 12:45 PM EDT) us Scanning Provider External IMG MRI ORDERABLES Fi nal Result * X-ray spine lumbar complete including flexion and extension 6+ views (12/15/2024 12:35 PM EDT) us Scanning Provider External IMG DIAGNOSTIC IMAGIN G ORDERABLES Final Result * X-ray spine thoracic 2 views (12/15/2024 12:30 PM EDT) us Scanning Provider External IMG DIAGNOSTIC IMAGIN G ORDERABLES Final Result documented in this encounter Visit Diagnoses Diagnosis Pain- Primary Generalized pain documented in this encounter Additional Health Concerns Assessment Noted Time PHQ-9 Depression Total Score: 0 01/03/20 25 9:07 AM EDT documented as of this encounter Care Teams Brush Stainer Relationship Specialty Start Date End Date Francis Osborne DO [address] [place] [address] PCP - General 01/20/17 documented as of this encounter
--- OUTSIDE RECORDS SUMMARY | 2025-03-08 17:40 | XMS_ITS | Encounter Summary ---
Author Organization [facility] Address [address] [facility] [place] [address] Care Team Providers Care Sales Representative Consultant Name Role Phone Francis Osborne DO Primary Care Provider [phone] Francis Osborne DO Primary Care Provider [phone] Encounter Details Date Type Department Care Team (Late st Contact Info) Description 01/21/2023 Abstract [facility] [address] [facility] [address] [place] [phone] Colten Shah DO [address] [facility] [address] [place] [address] Social History Tobacco Use Types Packs/Day Years Used Date Smoking Tobacco: Never Smokeless Tobacco: Never Alcohol Use Standard Drinks/Week Comments Not Currently 0 (1 standard drink = 0.6 oz pur e alcohol) Comments Unknown Sex and Gender Information Value Date Recorded Sex Assigned at Not on file Legal Sex Female 6:39 PM EDT Gender Identity Not on file Sexual Orientation Not on file documented as of this encounter Plan of Treatment Not on file documented as of this encounter Visit Diagnoses Not on filedocumented in this encounter Care Teams Sales Representative Consultant Relationship Specialty Start Date End Date Francis Osborne DO PCP - General Internal Medicine 01/18/23 01/07/25 Francis Osborne DO [address] [facility] [place] [phone] PCP - General Internal Medicine 01/08/25 documented as of this encounter
--- OUTSIDE RECORDS SUMMARY | 2025-03-08 17:40 | XMS_ITS | Encounter Summary ---
Author Organization [email or web address] [facility] [employer] Address [id number] [address] [place] [address] Care Team Providers Care Cable Former Name Role Phone Francis Osborne Primary Care Provider [phone] Encounter Details Date Type Department Care Team (Late st Contact Info) Description 12/31/2024 Orders Only [facility] [address] [place] [phone] Transcribe, Orders Support User Pain (Primary Dx) Social History Tobacco Use Types Packs/Day Years Used Date Smoking Tobacco: Never Smokeless Tobacco: Never Alcohol Use Standard Drinks/Week Comments Never 0 (1 standard drink = 0.6 oz pur e alcohol) [facility] Utilities Answer Date Recorded In the [...] home care services General Yes Shavon, Brit, COUNTER INSTALLER Note: Evaluation of progress towards goal: transition home with self care/family assist and resume home care services documented as of this encounter Results * CT angiogram head (12/30/2024 10:45 AM EDT) us Scanning Provider External IMG CT ORDERABLES Fin al Result * CT angiogram carotid (12/30/2024 10:40 AM EDT) us Scanning Provider External IMG CT ORDERABLES Fin al Result * MR brain without contrast (12/30/2024 8:10 AM EDT) us Scanning Provider External IMG MRI ORDERABLES Fi nal Result * CT brain without contrast stroke alert (12/29/2024 7:10 PM EDT) us Scanning Provider External IMG CT ORDERABLES Fin al Result documented in this encounter Visit Diagnoses Diagnosis Pain- Primary Generalized pain documented in this encounter Care Teams Cable Former Relationship Specialty [place] [address] [place] [id number] PCP - General 01/20/17 documented as of this encounter
--- OUTSIDE RECORDS SUMMARY | 2025-03-08 17:40 | XMS_ITS | Clinical Summary ---
Author Organization [facility] [employer] [facility] tem Address [id number] [address] [place] [address] Care Team Providers Care Sewing Inspector Name Role Phone DylonFrancis Primary Care Provider [phone] Allergies Active Allergy Reactions Criticality Noted Date Comments Flu Vac 2014 (65 Up)-Mf59c(Pf) 08/25 Arm swelling Morphine Headache 01/20/2017 Medications baclofen (LIORESAL) 10 mg tablet Take 1 tablet (10 mg total) by mouth 3 (three) times a day. 5 Active bisoprolol (ZEBETA) 5 mg tablet Take 1 tablet (5 mg total) by mouth in the morning. 5 Active aspirin 81 mg chewable tablet Chew 1 tablet (81 mg total) and swallow in the morning. Active atorvastatin (LIPITOR) 40 mg tablet Take 1 tablet (40 mg total) by mouth in the morning. Active cyanocobalamin (VITAMIN B-12) 1,000 mcg/mL injection Inject 1 mL (1,000 mcg total) into the appropriate muscle once a week for 8 doses. 4 mL 1 5 02/23/20 25 Active Problems Problem Noted Date Diagnosed Date Vitamin B12 deficiency 01/02/2025 Resolved Problems Problem Noted Date Diagnosed Date Resolved Date Ataxia 01/02/2025 01/03/2025 Encephalopathy 01/01/2025 01/03/2025 Encounters Date Type Department Care Team Description 01/13/2025 Telephone [facility] Neurology, A Department of [facility] [address] [facility] [address] [place] [address] Narda Diggs RN 01/02/2025 Travel 01/02/2025 Orders Only [facility] [address] [place] [phone] Transcribe, Orders Support User Pain (Primary Dx) 01/01/2025 11:08 PM EDT - 01/03/2025 2:48 PM EDT Hospital Encounter [facility] - GEN [address] Acute [address] [place] [phone] Robel Ragsdale MD Noumi, Andre, MD Cerebrovascular accident (CVA), unspecified mechanism ([facility]) (Primary Dx) Discharge Disposition: Home Health 01/01/2025 11:10 AM EDT Ancillary Procedure [facility] [address] [place] [phone] Pain 01/01/2025 10:50 AM EDT Ancillary Procedure [facility] [address] [place] [phone] Pain 12/31/2024 Telephone [facility], A Department of [facility] [address] [facility] [address] [place] [phone] Krystin Johns MD 12/31/2024 Orders Only [facility] [address] [place] [phone] Transcribe, Orders Support User Pain (Primary Dx) 12/30/2024 11:25 AM EDT Ancillary Procedure [facility] [address] [place] [phone] Pain 12/30/2024 10:45 AM EDT Ancillary Procedure [facility] [address] [place] [phone] Pain 12/30/2024 10:40 AM EDT Ancillary Procedure [facility] [address] [place] [phone] Pain 12/30/2024 8:10 AM EDT Ancillary Procedure [facility] [address] [place] [address] Pain 12/30/2024 4:32 AM EDT - 01/01/2025 2:12 PM EDT Emergency [facility] St[facility] [address] [place] [address] 12/29/2024 7:10 PM EDT Ancillary Procedure [facility] [address] [place] [phone] Pain 12/15/2024 12:45 PM EDT Ancillary Procedure [facility] [address] [place] [phone] Pain 12/15/2024 12:35 PM EDT Ancillary Procedure [facility] [address] [place] [phone] Pain 12/15/2024 12:30 PM EDT Ancillary Procedure [facility] [address] [place] [phone] Pain from Last 3 Months Immunizations No known immunizations Social History Tobacco Use Types Packs/Day Years Used Date Smoking Tobacco: Never Smokeless Tobacco: Never Alcohol Use Standard Drinks/Week Comments Never 0 (1 standard drink = 0.6 oz pur e alcohol) [facility] Utilities Answer Date Recorded In the past [...] Sign Reading Time Taken Comments Blood Pressure 149/81 01/03/2025 12:10 PM EDT Pulse 64 01/03/2025 12:10 PM EDT Temperature 36.6 C (97.8 F) 01/03/2025 12:10 PM EDT Respiratory Rate 18 01/03/2025 12:10 PM EDT Oxygen Saturation 94% 01/03/2025 12:10 PM EDT Inhaled Oxygen Concentration - - Weight 75 kg (165 lb 5.5 oz) 01/02/2025 5:00 AM EDT Height 152.4 cm (5') 01/02/2025 5:00 AM EDT Body Mass Index 32.29 01/02/2025 5:00 AM EDT Plan of Treatment Health Maintenance Due Date Last Done Comments DTaP,Tdap and Td Vaccines (1 - Tdap) 1967 Zoster (Shingles) Vaccine (1 of 2) 1998 Fall Risk Screening 2013 COVID-19 Vaccine (2023-2 5 season) 2024 05/13/2022, 12/31/2021, 07/23/2021, Additional history exists Influenza Vaccine 04/26/2025 Depression Screening 01/02/2026 01/02/2025 Tobacco Screening 01/02/2026 01/02/2025 Goals Goal Patient Goal Type Associated Problems Recent Progress Patient-Stated? Author transition home with self care/family assist and resume home care services General Yes Shavon, Brit, FILE KEEPER Note: Evaluation of progress towards goal: transition home with self care/family assist and resume home care services Medical Devices Not on file Procedures Procedure Name Priority Date/Time Associated Diagnosis Comments MAGNESIUM Routine 01/03/2025 6:57 AM EDT COMPREHENSIVE METABOLIC PANEL Routine 01/03/2025 6:57 AM EDT CBC WITH AUTO DIFFERENTIAL Routine 01/03/2025 6:57 AM EDT EEG Routine 01/02/2025 10:59 AM EDT AMMONIA Routine 01/02/2025 5:54 AM EDT VITAMIN B12 Routine 01/02/2025 5:54 AM EDT PROTIME & INR Routine 01/02/2025 5:54 AM EDT THYROID PROFILE INCLUDES TSH FT4 Routine 01/02/2025 5:54 AM EDT MAGNESIUM Routine 01/02/2025 5:54 AM EDT COMPREHENSIVE METABOLIC PANEL Routine 01/02/2025 5:54 AM EDT CBC WITH AUTO DIFFERENTIAL Routine 01/02/2025 5:54 AM EDT ER EXTRA URINE Routine 01/02/2025 5:32 AM EDT URINALYSIS Routine 01/02/2025 5:32 AM EDT URINE CULTURE Routine 01/02/2025 5:32 AM EDT XR CHEST 1 VW Routine 01/02/2025 3:37 AM EDT PULSE OXIMETRY, SPOT Routine 01/02/2025 2:[address] BRAIN WO CONT STROKE ALERT STAT Reading 01/01/2025 11:10 AM EDT Pain XR CHEST 1 VW Routine 01/01/2025 10:50 AM EDT Pain NON [facility] Routine 12/30/2024 11 :[address] CTA HEAD Routine 12/30/2024 10:[address] CTA CAROTID Routine 12/30/2024 10:40 AM EDT Pain MR BRAIN WO CONT Routine 12/30/2024 8:[address] BRAIN WO CONT STROKE ALERT STAT Reading 12/29/2024 7:10 PM EDT Pain MR LUMBAR SPINE WO CONT Routine 12/15/2024 12:45 PM EDT Pain XR SPINE LUMB COMP INCL BEND 6+ VWS Routine 12/15/2024 12:35 PM EDT Pain XR SPINE THORACIC 2 VWS Routine 12/15/2024 12:30 PM EDT Pain from Last 3 Months Results * (ABNORMAL) CBC auto differential (01/03/2025 6:57 AM EDT) Only the most recent of2 resultswithin the time period is included. WBC 5.4 4 - 11 x10E9/L 01/03/2025 7:52 AM EDT [facility] RBC Count 4.40 3.8 - 5.2 X10E12/L 01/03/2025 7:52 AM EDT [facility] Hemoglobin 13.1 11.7 - 15.5 g/dL 01/03/2025 7:52 AM EDT [facility] Hematocrit 38.5 35 - 47 % 01/03/2025 7:52 AM EDT [facility] MCV 87 80 - 100 fL 01/03/2025 7:52 AM EDT [facility] MCH 29.8 27 - 34 pg 01/03/2025 7:52 AM EDT [facility] MCHC 34.1 32 - 36 g/dL 01/03/2025 7:52 AM EDT [facility] RDW 14.1 11.5 - 15 % 01/03/2025 7:52 AM EDT [facility] Platelet Count 264 150 - 450 X10E9/L 01/03/2025 7:52 AM EDT [facility] MPV 9.0 7 - 12 fL 01/03/2025 7:52 AM EDT [facility] Neutrophils % 62.6 % 01/03/2025 7:52 AM EDT [facility] Lymphocytes % 16.8 % 01/03/2025 7:52 AM EDT [facility] Monocytes % 16.0 % 01/03/2025 7:52 AM EDT [facility] Eosinophils % 3.3 % 01/03/2025 7:52 AM EDT [facility] Basophils % 1.3 % 01/03/2025 7:52 AM EDT [facility] Neutrophils Absolute (A) 3.4 1.5 - 6.6 10*3/uL 01/03/2025 7:52 AM EDT [facility] Lymphocytes Absolute 0.9(L) 1.0 - 3.5 10*3/uL 01/03/2025 7:52 AM EDT [facility] Monocytes Absolute 0.9 0.0 - 0.9 10*3/uL 01/03/2025 7:52 AM EDT [facility] Eosinophils Absolute 0.2 0.0 - 0.4 10*3/uL 01/03/2025 7:52 AM EDT [facility] Basophils Absolute 0.1 0.0 - 0.2 10*3/uL 01/03/2025 7:52 AM EDT [facility] Differential Type AUTOMATED DIFFERENTIAL 01/03/2025 7:52 AM EDT [facility] Blood 01/03/2025 6:57 AM EDT 01/03/2025 6:57 AM EDT Nisa Hurst MD LAB BLOOD ORDERABLES Final Resu lt [facility] [address] [place] [address], [place] [phone] * Magnesium (01/03/2025 6:57 AM EDT) Only the most recent of2 resultswithin the time period is included. MAGNESIUM 2.2 1.8 - 2.6 mg/dL 01/03/2025 8:11 AM EDT [facility] Blood Venous blood / Unknown 01/03/2025 6:57 AM EDT 01/03/2025 6:57 AM EDT Nisa Hurst MD LAB BLOOD ORDERABLES Final Resu lt Performing Organization Address City/[facility]/ZIP Co de Phone Number [facility] [address] [place] [address], [place] [phone] * Comprehensive metabolic panel (01/03/2025 6:57 AM EDT) Only the most recent of2 resultswithin the time period is included. SODIUM 142 134 - 146 mmol/L 01/03/2025 8:11 AM EDT [facility] POTASSIUM 3.5 3.5 - 5.0 mmol/L 01/03/2025 8:11 AM EDT [facility] CHLORIDE 106 98 - 109 mmol/L 01/03/2025 8:11 AM EDT [facility] CARBON DIOXIDE 28 22 - 32 mmol/L 01/03/2025 8:11 AM EDT [facility] ANION GAP 8 5 - 15 mmol/L 01/03/2025 8:11 AM EDT [facility] BLOOD UREA NITROGEN 12 5 - 27 mg/dL 01/03/2025 8:11 AM EDT [facility] CREATININE 0.68 0.40 - 1.00 mg/dL 01/03/2025 8:11 AM EDT [facility] Comment:METHOD TRACEABLE TO IDMS STANDARD GLUCOSE 82 65 - 99 mg/dL 01/03/2025 8:11 AM EDT [facility] CALCIUM 9.2 8.5 - 10.5 mg/dL 01/03/2025 8:11 AM EDT [facility] TOTAL PROTEIN 6.7 6.0 - 8.0 g/dL 01/03/2025 8:11 AM EDT [facility] ALBUMIN 3.7 3.2 - 5.3 g/dL 01/03/2025 8:11 AM EDT [facility] ALKALINE PHOSPHATASE 97 39 - 130 U/L 01/03/2025 8:11 AM EDT [facility] AST 16 <=41 U/L 01/03/2025 8:11 AM EDT [facility] ALT 7 <=31 U/L 01/03/2025 8:11 AM EDT [facility] BILIRUBIN,TOTAL 0.5 0.3 - 1.2 mg/dL 01/03/2025 8:11 AM EDT [facility] EGFR Non-Race Dependent 90 >=60 ml/min/1.7 3sq.m 01/03/2025 8:11 AM EDT [facility] Comment: Reported eGFR is based on the CKD-EPI 2020 equation that does not use a race coefficient. Blood Venous blood / Unknown 01/03/2025 6:57 AM EDT 01/03/2025 6:57 AM EDT us Nisa Hurst MD LAB BLOOD ORDERABLES Final Resu lt [facility] [address] [place] [address], [place] [phone] * EEG (01/02/2025 10:59 AM EDT) Narrative MANUALLY TRANSCRIBED RESULTS - 01/02/2025 1:26 PM EDT Images from the original result were not included. [facility] Routine EEG Report Length of Study: 31 [...] lateralizing signs were seen. Martha Prince MD Yardage Estimator [facility] Sylvia Mason MD NEUROLOGY ORDERABLES Final Resul t Performing Organization Address City/[facility] Co de Phone Number MANUALLY TRANSCRIBED RESULTS * Thyroid profile includes TSH FT4 (01/02/2025 5:54 AM EDT) FREE T4 0.81 0.61 - 1.60 ng/dL 01/02/2025 7:17 AM EDT [facility] TSH 2.85 0.49 - 4.67 uIU/mL 01/02/2025 7:17 AM EDT [facility] Blood Venous blood / Unknown 01/02/2025 5:54 AM EDT 01/02/2025 5:54 AM EDT Nisa Hurst MD LAB BLOOD ORDERABLES Final Resu lt Performing Organization Address City/[facility] Co de Phone Number [facility] [address] [place] [address], [place] [phone] * Protime & INR (01/02/2025 5:54 AM EDT) PROTIME 11.1 9.8 - 13.2 sec 01/02/2025 7:09 AM EDT [facility] INR 1.0 0.9 - 1.2 01/02/2025 7:09 AM EDT [facility] Blood Venous blood / Unknown 01/02/2025 5:54 AM EDT 01/02/2025 5:54 AM EDT us Nisa Hurst MD LAB BLOOD ORDERABLES Final Resu lt [facility] [address] [place] [address], [place] [phone] * (ABNORMAL) Vitamin B12 (01/02/2025 5:54 AM EDT) VITAMIN B12 167(L) 180 - 914 pg/mL 01/02/2025 7:26 AM EDT [facility] Blood Venous blood / Unknown 01/02/2025 5:54 AM EDT 01/02/2025 5:54 AM EDT us Nisa Hurst MD LAB BLOOD ORDERABLES Final Resu lt Performing Organization Address City/[facility]/ZIP Co de Phone Number [facility] [address] [place] [address], [place] [phone] * Ammonia (01/02/2025 5:54 AM EDT) AMMONIA 21 18 - 72 umol/L 01/02/2025 7:50 AM EDT [facility] Blood Venous blood / Unknown 01/02/2025 5:54 AM EDT 01/02/2025 5:59 AM EDT us Nisa Hurst MD LAB BLOOD ORDERABLES Final Resu lt [facility] [address] [place] [address], [place] [phone] * Er Extra Urine (01/02/2025 5:32 AM EDT) Extra Tube Auto Resulted 01/02/2025 7:01 AM EDT [facility] Urine 01/02/2025 5:32 AM EDT 01/02/2025 5:57 AM EDT us Robel Ragsdale MD URINE ORDERABLES Final Result [facility] [address] [place] [address], [place] [phone] * Urinalysis (01/02/2025 5:32 AM EDT) COLOR Yellow Yellow, Colorless 01/02/2025 6:15 AM EDT [facility] TURBIDITY Clear Clear 01/02/2025 6:15 AM EDT [facility] SPECIFIC GRAVITY 1.012 1.003 - 1.035 01/02/2025 6:15 AM EDT [facility] NITRITE Negative Negative 01/02/2025 6:15 AM EDT [facility] PH,URINE 6.0 5.0 - 8.5 01/02/2025 6:15 AM EDT [facility] LEUKOCYTE ESTERASE Negative Negative 01/02/2025 6:15 AM EDT [facility] PROTEIN Negative Negative 01/02/2025 6:15 AM EDT [facility] KETONES (URINE) Negative Negative 6:15 AM EDT [facility] UROBILINOGEN <1.1 eu/dL <1.1 eu/dL 01/02/2025 6:15 AM EDT [facility] BILIRUBIN (URINE) Negative Negative 01/02/2025 6:15 AM EDT [facility] BLOOD/HGB Negative Negative 01/02/2025 6:15 AM EDT [facility] GLUCOSE (URINE) Negative Negative 6:15 AM EDT [facility] Urine 01/02/2025 5:32 AM EDT 01/02/2025 5:56 AM EDT us Nisa Hurst MD URINE ORDERABLES Final Result [facility] [address] [place] [address], [place] [phone] * Urine Culture Urine, Clean Catch Midstream (01/02/2025 5:32 AM EDT) CULTURE RESULTS NO GROWTH AT <1000 CFU/mL 01/03/2025 7:40 AM EDT [facility] Urine Urine specimen collection, clean catch / Unknown 01/02/2025 5:32 AM EDT 01/02/2025 5:56 AM EDT us Nisa Hurst MD MICROBIOLOGY - GENERAL ORDERABL ES Final Result Performing Organization Address City/[facility]/ZIP Co de Phone Number [facility] [address] [place] [address], [place] [phone] * X-ray chest 1 view (01/02/2025 3:37 AM EDT) Only the most recent of2 resultswithin the time period is included. Anatomical Region Laterality Modality Body, Chest N/A Computed Radiogr aphy 01/02/2025 6:56 AM EDT Narrative 01/02/2025 6:57 AM EDT Single view chest History:Encephalopathy Difficulty breathing, shortness of breath Comparison: 01/02/2025 Findings: Single portable view of the chest. Cardiomediastinal silhouette is within normal limits. This bilateral lower lung atelectasis with hypoventilatory change. No large effusion or pneumothorax. Impression: Expiratory changes with bilateral lower lung atelectasis. Finalized by Horace Denis MD on 01/02/2025 6:57 AM Procedure Note Horace Denis MD - 01/02/2025 Single view chest History:Encephalopathy Difficulty breathing, shortness of breath Comparison: 01/02/2025 Findings: Single portable view of the chest. Cardiomediastinal silhouette is withinnormal limits. This bilateral lower lung atelectasis with hypoventilatorychange. No large effusion or pneumothorax. Impression: Expiratory changes with bilateral lower lung atelectasis. Finalized by Horace Denis MD on 01/02/2025 6:57 AM us Nisa Hurst MD IMG DIAGNOSTIC IMAGING ORDERABL ES Final Result * CT brain without contrast stroke alert (01/01/2025 11:10 AM EDT) Only the most recent of2 resultswithin the time period is included. us Scanning Provider External IMG CT ORDERABLES Fin al Result * Non [facility] (12/30/2024 11:25 AM EDT) us Scanning Provider External CV ECHO ORDERABLES Fi nal Result [facility] * CT angiogram head (12/30/2024 10:45 AM EDT) us Scanning Provider External IMG CT ORDERABLES Fin al Result * CT angiogram carotid (12/30/2024 10:40 AM EDT) us Scanning Provider External IMG CT ORDERABLES Fin al Result * MR brain without contrast (12/30/2024 8:10 AM EDT) us Scanning Provider External IMG MRI ORDERABLES Fi nal Result * MR lumbar spine without contrast (12/15/2024 [...] IMG DIAGNOSTIC IMAGIN G ORDERABLES Final Result from Last 3 Months Insurance MEDICARE COMMERCIAL Advance Directives * Full Code (Latest Code Status on File) Date Activated Date Inactivated Comments 01/02/2025 2:45 AM 01/03/2025 4:53 PM Care Teams Sewing Inspector Relationship Specialty Start Date End Date Francis Osborne DO [address] [place] [address] PCP - General 01/20/17
[2025-03-08 17:47] VITALS: PULSE 67
[2025-03-08 18:09] LABS: Hematocrit 37.9 % (36.0-48.0); Hemoglobin 12.2 g/dL (12.0-16.0); Immature Granulocytes Abs Auto 0.01 10^3/uL (0.00-0.03); Immature Granulocytes Pct Auto 0.2 % (0.0-0.5); Lymphocytes Absolute Auto 1.3 10^3/uL (1.2-3.8); Mean Corpuscular HGB Conc 32.2 g/dL (29.9-35.2); Mean Corpuscular Hemoglobin 29.5 pg (26.7-34.0); Mean Corpuscular Volume 91.5 fL (81.0-99.0); Platelet Count 288 10^3/uL (150-450); Red Blood Count 4.14 10^6/uL (4.20-5.40); White Blood Count 5.4 10^3/uL (4.0-11.0)
--- NOTE | 2025-03-08 18:19 | CT_ITS ---
The [address] [address] Patient Name: MATTHEW CLARKE MRN: [id number] date: 1950 Sex: F Assigned Patient Location: ED.MAIN Current Patient Location: ED.MAIN Accession/Order Number: [id number] Exam Date: 03/08/2025 18:56 Report Date: 03/08/2025 19:00 At the request of: REJI HEART NP Procedure: CT head/brain wo con CT head/brain wo con 03/08/2025 6:19 PM SIGNS AND SYMPTOMS: ^syncope, hx cva/tia mult TECHNIQUE:Multi-detector CT axial slices of the brain were obtained without IV contrast. CT was performed with one or more of the following dose reduction techniques: Automated exposure control, adjustment of the mA and/or kV according to patient size, or use of iterative reconstruction technique. COMPARISON: 01/01/2025 atherosclerotic changes are noted in the V4 segments of the vertebral arteries, basilar artery, and intravenous segments of the internal carotid arteries. FINDINGS: There is no shift of the midline structures, acute intracranial bleeding, mass effects, or evidence of acute ischemia. There is mild age-related cortical atrophy. There is periventricular white matter hypoattenuation. The ventricular system is normal in size. The brainstem and the cerebellum are unremarkable. The visualized intraorbital contents, the visualized paranasal sinuses, and the infratemporal soft tissues show no acute abnormality. The osseous structures in the skull base and the calvarium show no abnormality. CT/CT head/brain wo con IMPRESSION: No acute intracranial pathology Chronic age-related neurodegenerative changes are noted similar to the prior exam. Impression dictated by: Kota Gardner M.D. 03/08/2025 7:00 PM Dictation Location: [employer] Electronically authenticated by: [id number] Y Date: 03/08/2025 19:00
[2025-03-08 18:22] LABS: Partial Thromboplastin Time 26.6 sec (22.3-36.2)
[2025-03-08 18:33] LABS: Alanine Aminotransferase 30 U/L (14-59); Albumin Globulin Ratio 0.8; Albumin Level 3.2 g/dL (3.4-5.0); Alkaline Phosphatase 248 U/L (46-116); Anion Gap 11.1; Aspartate Amino Transferase 28 U/L (15-37); Blood Urea Nitrogen 22.0 mg/dL (7.0-18.0); Calcium 9.0 mg/dL (8.5-10.1); Carbon Dioxide 29.1 mmol/L (21.0-32.0); Chloride 104 mmol/L (98-107); Estimated GFR (African America >60 (>=60 mL/min/1.73m^2); Estimated GFR (Non-African Ame >60 (>=60 mL/min/1.73m^2); Globulin 4.2 g/dL; Glucose 86 mg/dL (74-106); Potassium 4.2 mmol/L (3.5-5.1); Sodium 140 mmol/L (136-145); Total Protein 7.4 g/dL (6.4-8.2)
[2025-03-08 18:46] LABS: Glucose Urine UA NEGATIVE (NEGATIVE)
[2025-03-08 19:48] VITALS: BP 139/94; BP 155/101; BP 159/105; PULSE 72; PULSE 74; PULSE 81
[2025-03-08 20:02] VITALS: BP 139/94; PULSE 74; O2SAT 97
== END 2025-03-08 20:04 | disposition home or self-care (01) ==
PROVIDERS: Emergency Medicine; Nurse Practitioner; Emergency Provider Emergency Medicine; PCP Internal Medicine
DX: R55 Syncope and collapse (principal); Z86.73 Personal history of transient ischemic attack (TIA), and cerebral infarction without residual deficits
CPT/HCPCS: 36415; 70450; 80053; 81003; 82948; 84484; 85025; 85730; 93005; 99285

== ENCOUNTER 2025-04-03 14:10 | Emergency (ER) | payer MEDICARE, OTHER, SELFPAY ==
[2025-04-03] VITALS (28 sets, daily range): BP systolic 97–120; BP diastolic 60–79; PULSE 70–79; TEMP 34.7–36.4; O2SAT 93–97; BMI 33.3
--- OUTSIDE RECORDS SUMMARY | 2025-04-03 14:19 | XMS_ITS | CCD ---
Author Organization [facility] Care Team Providers Care Regional Service Manager Name Role Phone Francis Osborne Unavailable DR FRANCIS OSBORNE Admitting Unavailable BALL, DR BURGESS Attending Unavailable BALL, DR BURGESS Primary Care Unavailable BALL, DR BURGESS Consulting Unavailable ZIEBER, DR MURRAY Skinner Consulting Unavailable ROJELIO, DR Katey Gutierrez Admitting Unavailable ROJELIO, DR Katey Gutierrez Attending Unavailable BALL, DR BURGESS Primary Care Unavailable ROJELIO, DR Katey Gutierrez Consulting Unavailable HOLLEY DOS SANTOS Consulting Unavailable Emiliana Patricia Unavailable DO Francis Osborne Primary Care Provider [phone] DO Francis Osborne Attending Provider Farncis Osborne DO Primary Care Provider Dorian Romeo Admdeirdre Unavailable Pay, Dorian Attending Unavailable Ball, Francis [...] Care Unavailable Pay Dorian CAIN Attending Provider Blair CARTER, Blanca Ugalde Attending Unavailable Blair CARTER, Blanca Ugalde Attending Unavailable NICHOLAS BOGGS Admitting Unavailable PAYDORIAN Referring Unavailable BALL, FRANCIS E Primary Care Unavailable TUTU PERALES I Consulting Unavailable LOBO IMGUEL Attending Unavailable ANDRAE FARRAR Consulting Unavailable Francis Osborne DO Primary Care Provider Mia Manning MD Attending Provider Provider, Outside Attending Provider Unavailable Kendra Rollins CMA Attending Provider Unavaila hossein Romeo Dorian Attending Provider Francis Osborne DO Attending Provider Phillip Sharpe MD Attending Provider Allergies Allergy Classification Reported Allergen(s) Allergy Type Date of Onset Reaction(s) Facility (20 sources) Morphine; Translations: [MORPHINE] Drug Allergy 01-21-20 17 Headache [facility] (16 sources) Influenza Vac Recombinant MOREJON Drug allergy swelling at site location [facility] Other (1 source) Morphine Drug Allergy 10-26-19 14 [facility] (1 source) Flu Vaccine [id number] (9 yr +) Drug allergy (disorder) 10-26-19 14 [facility] (1 source) Flu Vaccine [id number] (3 yr +) Drug allergy (disorder) 10-26-19 14 [facility] (7 sources) influenza A virus (H1N1) antigen / influenza A virus (H3N2) antigen / influenza B virus antigen Drug Allergy Comment:FLU VACCINE Amarin [facility] Other (2 sources) patient allergy list reviewed by nurse or physicia Propensity to adverse reactions 07-24-20 13 Comment:Done [facility] Other (10 sources) Contraindication to Flu Injection Propensity to adverse reactions 09-20-19 15 Comment:advers e rxn/side effects [facility] Other (3 sources) Morphine Drug Allergy migraines Amarin [facility] Other (10 sources) Fluad Quadrivalent Drug allergy 05-15-20 23 Comment:FLU VACCINE [facility] (7 sources) Influenza Virus Vaccines Allergy to substance 02-10-20 24 swelling at site location [facility] (5 sources) Flu Vac 2014 (65 Up)-Mf59c(Pf); Translations: [FLU VAC 2014 (65 UP)-MF59C(PF)] Propensity to adverse reactions to drug 08-25-20 21 [facility] Medications Current Medications Medication Drug Class(es) [...] 01/02/25 at 0242, For 5 days ALPRAZolam 0.5 mg oral tablet (20 sources) Benzodiazepine Start: 01-03-2025 take 0.5 mg by mouth twice daily as needed for anxiety 0.5 mg, oral, 2 times daily PRN, anxiety, Starting on 01/03/25 at 0140, Look-alike/sound-a like medication - verify indication for use. Start: 08-30-2022 End: 01-21-2025 take 1 tablet by mouth three times daily aspirin 81 mg chewable tablet (20 sources) Platelet Aggregation Inhibitor, Nonsteroidal Anti-inflammatory Drug Start: 01-02-2025 End: 01-28-2025 take 1 tablet by mouth once daily Start: 10-31-2023 End: 05-08-2024 take 1 tablet by mouth once daily Aspirin 81 mg tablet,delayed release (DR/EC) Discontinued 81 MG PO Daily October 31, 2023 1:00am May 08, 2024 10:08am take 1 tablet by bony th every twenty-four hours Aspirin 81 81 MG 1 tablet Orally Once a day Active atorvastatin 40 mg oral tablet (20 sources) HMG-CoA Reductase Inhibitor Start: 01-02-2025 End: 01-28-2025 take 1 tablet by mouth once daily baclofen 10 mg oral tablet (5 sources) gamma-Aminobutyric Acid-ergic Agonist Start: 12-24-2024 take 1 tablet by mouth three times daily bisoprolol fumarate 5 mg oral tablet (9 sources) beta-Adrenergic Lou Start: 01-02-2025 take 5 mg by mouth once daily 5 mg, oral, Daily, First dose on 01/02/25 at 0900, Hold if HR Start: 11-24-2024 End: 01-28-2025 take 1 tablet by mouth once daily cetirizine hydrochloride 10 mg oral tablet (14 sources) Histamine-1 Receptor Antagonist Start: 10-31-2023 take 1 tablet by mouth once daily Start: 04-12-2023 take 1 tablet by bony th every twenty-four hours Cetirizine HCl 10 MG 1 tablet Orally Once a day for 14 days Mar, Active clopidogrel 75 mg oral tablet (6 sources) P2Y12 Platelet Inhibitor Start: 01-02-2025 End: 01-23-2025 take 1 tablet by mouth once daily 0.4 ml enoxaparin sodium 100 mg/ml prefilled syringe (1 source) Low Molecular Weight Heparin Start: 01-02-2025 inject 40 mg by subcutaneous injection once daily 40 mg, subcutaneous, Daily, First dose (after last modification) on 01/02/25 at 1030, Look-alike/yoon nd-alike medication - verify indication for use. etodolac [...] systolic blood pressure greater than 165 mmHg Look-alike/yoon nd-alike medication - verify indication for use. Administer IV doses as a slow IV push; maximum rate: 5 mg/minute. polyethylene glycol 3350 [id number] mg powder for oral solution (1 source) Osmotic Laxative Start: 01-02-2025 End: 01-07-2025 17 g, oral, Daily PRN, constipation, Starting on 01/02/25 at 0242, For 5 days, Look-alike/yoon nd-alike medication - verify indication for use. Dissolve [...] 0241 vitamin b12 1 mg/ml injectable solution (7 sources) Vitamin B12 Start: 02-01-2025 inject 1000 ug by intramuscular injection every month Start: 01-03-2025 End: 02-22-2025 inject 1000 ug by intramuscular injection every week Cyanocobalamin (Vitamin B-12) 1,000 mcg/mL solution Discontinued 1000 MCG IM every week January 05, 2025 12:00am February 01, 2025 1:12pm Start: 01-02-2025 inject 1000 ug by in [...] mg / hydroCHLOROthiazide 6.25 mg oral tablet (14 sources) Thiazide Diuretic, beta-Adrenergic Lou Start: 09-24-2024 [...] tablet Discontinued 40 MG PO Daily 90 November 24, 2024 3:51pm January 05, [...] Active cyproheptadine hydrochloride 4 mg oral tablet (6 sources) Start: 05-08-2024 End: 01-05-2025 take 1 tablet by mouth once daily at bedtime Cyproheptadine 4 mg tablet Discontinued 4 MG PO Daily at bedtime May 08, 2024 12:00am January 05, 2025 8:06am hydroCHLOROthiazide (16 sources) Thiazide Diuretic hydroCHLOROthiazide Not-Taking/PRN hydroCHLOROthiaz ursula Not-Taking hydroCHLOROthiaz ursula Active omeprazole 20 mg / sodium bicarbonate 1100 mg oral capsule (14 sources) Proton Pump Inhibitor Start: 10-31-2023 End: 05-08-2024 Omeprazole-Sodium Bicarbonate 20-1.1 mg-gram capsule Discontinued 1 CAP PO October 31, 2023 1:00am May 08, 2024 10:08am take 1 capsule by mo ut every [...] 2 mg tablet Discontinued 0 .ROUTE .COMPLEX 90 February 16, 2024 8:20am May 08, 2024 10:08am take 1 tablet by mouth at bedtime Start: 02-16-2024 End: 05-08-2024 take 1 tablet by mouth at bedtime Tizanidine Discontinued 0 .ROUTE .COMPLEX 90 February 16, 2024 8:20am May 08, 2024 [...] [Palpitations] 10-31-2023 Episodic Deficiency and other anemia (10 sources) Pernicious anemia; Translations: [Vitamin B12 deficiency anemia due to intrinsic factor deficiency] 10-31-2023 Episodic Disorders of lipid metabolism (20 sources) Hypercholesterolemia; Translations: [Pure hypercholesterolemia, unspecified] Chronic Esophageal disorders (7 sources) Gastroesophageal reflux disease; Translations: [Gastro-esophageal reflux [...] ovarian failure] Onset: 7 Chronic Mood disorders (17 sources) Moderate recurrent major depression; Translations: [Major depressive disorder, recurrent, moderate] Onset: 4 Resolved: 2 10-31-2023 Chronic Multiple sclerosis (2 sources) Multiple sclerosis; Translations: [Multiple sclerosis] Onset: 5 Chronic Mycoses (2 sources) Candidiasis of skin and nails; Translations: [Candidiasis of skin and nail] Episodic Nutritional deficiencies (2 sources) Vitamin D deficiency; Translations: [Vitamin D deficiency, unspecified] Onset: 7 Chronic Nutritional deficiencies (3 sources) Cobalamin deficiency; Translations: [Deficiency of other specified B group vitamins] Onset: 5 01-02-2025 Episodic Osteoarthritis (20 sources) Localized, primary osteoarthritis of the shoulder region; Translations: [Primary osteoarthritis, left shoulder] Onset: 5 09-24-2024 Chronic Osteoporosis (20 sources) Senile osteoporosis; Translations: [Age-related osteoporosis without current pathological fracture] Chronic Other aftercare (2 sources) Other intermediate (current) drug therapy Episodic Other and ill-defined cerebrovascular disease (11 sources) Cerebral atherosclerosis; Translations: [Cerebral atherosclerosis] 10-31-2023 [...] knee] 10-31-2023 Episodic Other connective tissue disease (6 sources) Synovial cyst of popliteal space [Garcia], [...] impairment, so stated] Onset: 4 Chronic Other hereditary and degenerative nervous system conditions (2 sources) Impaired cognition; Translations: [Mild cognitive impairment, so stated] 01-06-2025 Chronic Other injuries and conditions due to [...] Onset: 6 Chronic Other nervous system disorders (4 sources) Disorder of brain; Translations: [Encephalopathy, unspecified] [...] conditions (not mental disorders or infectious disease) (8 sources) Encounter for screening for malignant neoplasm [...] and fatigue] Onset: 02-07-2016 Episodic Mood disorders (2 sources) Mood disorders Onset: 01-02-2025 01-02-2025 Nonmalignant breast conditions (2 sources) Breast lump; Translations: [Unspecified lump in unspecified breast] Onset: 06-10-2018 Episodic Other circulatory disease (2 sources) Elevated blood-pressure reading without diagnosis of hypertension; Translations: [Elevated blood-pressure reading, without diagnosis of hypertension] Onset: 05-03-2015 Episodic Other gastrointestinal disorders (2 sources) Diarrhea; Translations: [Diarrhea] Onset: 12-04-2013 Episodic Other nervous system disorders (5 sources) Ataxia; Translations: [Ataxia, unspecified] Onset: 02-10-2015 Resolved: 01-03-2025 01-03-2025 Episodic Other nervous system disorders (2 sources) Paresthesia; Translations: [Paresthesia of skin] Onset: 09-20-2014 Episodic Residual codes; unclassified (2 sources) Amnesia; Translations: [Memory loss] Onset: 02-07-2016 Episodic Syncope (2 sources) Syncope and collapse; Translations: [Syncope and collapse] Onset: 03-18-2017 Episodic Results Test Name Value Interpretation Reference Range Facility Activated partial thrombopla stin time (aPTT) in platelet poor plasma by coagulation aOrdered By: Adria Carey on 03-08-2025 aPTT Coag (PPP) [Time] 26.6 s 22.3-36.2 [facility] Basophils Auto (Bld) [#/Vol] Ordered By: Adria Carey on 03-08-2025 Basophils (Bld) [#/Vol] 0.1 10 3/uL 0.0-0.1 [facility] Basophils/100 WBC Auto (Bld) Ordered By: Adria Carey on 03-08-2025 Basophils/100 WBC (Bld) 1.1 % 0.2-2.0 [facility] Eosinophils/100 WBC Auto (Bl d)Ordered By: Adria Carey on 03-08-2025 Eosinophils/100 WBC (Bld) 3.9 % 0.9-7.0 [facility] Erythrocyte distribution wid th Auto (RBC) [Ratio]Ordered By: Adria Carey on 03-08-2025 Erythrocyte distribution width (RBC) [Ratio] 14.4 % 11.0-15.0 [facility] Estimated glomerular filtrat ion rate (GFR) non- AmericanOrdered By: Adria Carey on 03-08-2025 GFR/1.73 sq M.predicted among non-blacks MDRD (S/P/Bld) [Vol rate/Area] mL/min/{1.73_m2} >=60 mL/min/1.73m 2 [facility] Globulin Calc (S) [Mass/Vol] Ordered By: Adria Carey on 03-08-2025 Globulin (S) [Mass/Vol] 4.2 g/dL F [facility] Hematocrit Auto (Bld) [Volum e fraction]Ordered By: Adria Carey on 03-08-2025 Hematocrit (Bld) [Volume fraction] 37.9 % 36.0-48.0 [facility] Hemoglobin [Mass/volume] in BloodOrdered By: Adria Carey on 03-08-2025 Hemoglobin (Bld) [Mass/Vol] 12.2 g/dL 12.0-16.0 [facility] - Chemistry and C hemistry - challengeOrdered By: Adria Carey on 03-08-2025 Bilirubin Ql (U) Negative NEGATIVE [facility] Glucose (U) [Mass/Vol] Negative NEGATIVE [facility] Ketones Ql (U) Negative NEGATIVE [facility] pH (U) 7.5 [pH] 5.0-9.0 [facility] Specific gravity (U) [Rel density] 1.010 1.005-1.025 [facility] Urobilinogen Qn (U) 1.0 {Aura'U}/dL 0.2-1.0 [facility] Albumin [Mass/Vol] 3.2 g/dL Low 3.4-5.0 [facility] ALP [Catalytic activity/Vol] 248 U/L High 46-116 [facility] ALT [Catalytic activity/Vol] 30 U/L 14-59 [facility] AST [Catalytic activity/Vol] 28 U/L 15-37 [facility] Bilirubin [Mass/Vol] 0.4 mg/dL 0.2-1.0 [facility] Calcium [Mass/Vol] 9.0 mg/dL 8.5-10.1 [facility] Chloride [Moles/Vol] 104 mmol/L 98-107 [facility] CO2 [Moles/Vol] 29.1 mmol/L 21.0-32.0 [facility] Creatinine [Mass/Vol] 0.75 mg/dL 0.55-1.02 [facility] GFR/1.73 sq M.predicted MDRD (S/P/Bld) [Vol rate/Area] mL/min/{1.73_m2} >=60 mL/min/1.73m 2 [facility] Glucose [Mass/Vol] 86 mg/dL 74-106 [facility] Potassium [Moles/Vol] 4.2 mmol/L 3.5-5.1 [facility] Protein [Mass/Vol] 7.4 g/dL 6.4-8.2 [facility] Sodium [Moles/Vol] 140 mmol/L 136-145 [facility] Urea nitrogen [Mass/Vol] 22.0 mg/dL High 7.0-18.0 [facility] Urea nitrogen/Creatinine [Mass ratio] 29.3 mg/mg [facility] - Hematology and Cell countsOrdered By: Adria Carey on 03-08-2025 Immature granulocytes/100 WBC (Bld) 0.2 % 0.0-0.5 [facility] - Specimen inform ationOrdered By: Adria Carey on 03-08-2025 Appearance (U) CLEAR CLEAR [facility] Color (U) LT. YELLOW YELLOW [facility] - UrinalysisOrder ed By: Adria Carey on 03-08-2025 Leukocyte esterase Test strip Ql (U) Negative NEGATIVE [facility] Nitrite Ql (U) Negative NEGATIVE [facility] Protein Ql (U) Negative NEG/TRACE [facility] Leukocytes [#/volume] correc sharon for nucleated erythrocytes in Blood by Automated counOrdered By: Adria Carey on 03-08-2025 WBC corrected for nucl RBC Auto (Bld) [#/Vol] 5.4 10 3/uL 4.0-11.0 [facility] Lymphocytes Auto (Bld) [#/Vo l]Ordered By: Adria Carey on 03-08-2025 Lymphocytes (Bld) [#/Vol] 1.3 10 3/uL 1.2-3.8 [facility] Lymphocytes/100 WBC Auto (Bl d)Ordered By: Adria Carey on 03-08-2025 Lymphocytes/100 WBC (Bld) 23.7 % 20.5-60.0 [facility] MCH Auto (RBC) [Entitic mass ]Ordered By: Adria Carey on 03-08-2025 MCH (RBC) [Entitic mass] 29.5 pg 26.7-34.0 [facility] MCHC Auto (RBC) [Mass/Vol]Or dered By: Adria Carey on 03-08-2025 MCHC (RBC) [Mass/Vol] 32.2 g/dL 29.9-35.2 [facility] MCV Auto (RBC) [Entitic vol] Ordered By: Adria Carey on 03-08-2025 MCV (RBC) [Entitic vol] 91.5 fL 81.0-99.0 F [facility] Monocytes Auto (Bld) [#/Vol] Ordered By: Adria Carey on 03-08-2025 Monocytes (Bld) [#/Vol] 1.0 10 3/uL High 0.3-0.8 [facility] Monocytes/100 WBC Auto (Bld) Ordered By: Adria Carey on 03-08-2025 Monocytes/100 WBC (Bld) 18.7 % High 1.7-12.0 [facility] Neutrophils Auto (Bld) [#/Vo l]Ordered By: Adria Carey on 03-08-2025 Neutrophils (Bld) [#/Vol] 2.8 10 3/uL 1.4-6.5 [facility] Neutrophils/100 WBC Auto (Bl d)Ordered By: Adria Carey on 03-08-2025 Neutrophils/100 WBC (Bld) 52.4 % 43.0-75.0 [facility] No Panel InformationOrdered By: Adria Carey on 07-14-2025 Troponin I High Sensitivity 4.5 pg/mL 4.0-51.3 [facility] Comment on above: CUT-OFF POINTS HAVE BEEN [...] IN CONJUNCTIONWITH OTHER DIAGNOSTIC AND CLINICAL INFORMATION. Urine Microscopic Review NO [facility] Urine Occult Blood Negative NEGATIVE [facility] Eosinophils # (Auto) 0.2 10 3/uL 0.0-0.7 [facility] Immature Granulocyte # (Auto) 0.01 10 3/uL 0.00-0.03 [facility] Platelet mean volume Auto (B ld) [Entitic vol]Ordered By: Adria Carey on 03-08-2025 Platelet mean volume (Bld) [Entitic vol] 10.6 fL 9.5-13.5 [facility] Platelets Auto (Bld) [#/Vol] Ordered By: Adria Carey on 03-08-2025 Platelets (Bld) [#/Vol] 288 10 3/uL 150-450 [facility] RBC Auto (Bld) [#/Vol]Ordere d By: Adria Carey on 03-08-2025 RBC (Bld) [#/Vol] 4.14 10 6/uL Low 4.20-5.40 [facility] Serum or plasma albumin/glob ulin mass ratioOrdered By: Adria Carey on 03-08-2025 Albumin/Globulin [Mass ratio] 0.8 {ratio} [facility] Serum or plasma anion gap de terminationOrdered By: Adria Carey on 03-08-2025 Anion gap [Moles/Vol] 11.1 mmol/L [facility] Basophils Auto (Bld) [#/Vol] on 01-28-2025 Basophils (Bld) [#/Vol] 0.1 10 3/uL 0.0-0.1 [facility] Basophils/100 WBC Auto (Bld) on 01-28-2025 Basophils/100 WBC (Bld) 1.0 % 0.2-2.0 [facility] Cholesterol in LDL Calc [Mas s/Vol]on 01-28-2025 Cholesterol in LDL [Mass/Vol] 76.0 mg/dL [facility] Comment on above: <100 mg/dl [id number] 0-129 mg/dl NEAR OR ABOVE [id number] mg/dl BORDERLINE [id number] mg/dl HIGH>190 mg/dl VERY HIGH Cholesterol in VLDL Calc [Ma ss/Vol]on 01-28-2025 Cholesterol in VLDL [Mass/Vol] 43.6 mg/dL [facility] Eosinophils/100 WBC Auto (Bl d)on 01-28-2025 Eosinophils/100 WBC (Bld) 3.1 % 0.9-7.0 [facility] Erythrocyte distribution wid th Auto (RBC) [Ratio]on 01-28-2025 Erythrocyte distribution width (RBC) [Ratio] 13.5 % 11.0-15.0 [facility] Estimated glomerular filtrat ion rate (GFR) non- Americanon 01-28-2025 GFR/1.73 sq M.predicted among non-blacks MDRD (S/P/Bld) [Vol rate/Area] mL/min/{1.73_m2} >=60 mL/min/1.73m 2 [facility] Globulin Calc (S) [Mass/Vol] on 01-28-2025 Globulin (S) [Mass/Vol] 4.7 g/dL F [facility] Hematocrit Auto (Bld) [Volum e fraction]on 01-28-2025 Hematocrit (Bld) [Volume fraction] 43.7 % 36.0-48.0 [facility] Hemoglobin [Mass/volume] in Bloodon 01-28-2025 Hemoglobin (Bld) [Mass/Vol] 14.5 g/dL 12.0-16.0 [facility] - Chemistry and C hemistry - challengeon 01-28-2025 Albumin [Mass/Vol] 3.5 g/dL 3.4-5.0 [facility] ALP [Catalytic activity/Vol] 218 U/L High 46-116 [facility] ALT [Catalytic activity/Vol] 24 U/L 14-59 [facility] AST [Catalytic activity/Vol] 21 U/L 15-37 [facility] Bilirubin [Mass/Vol] 0.7 mg/dL 0.2-1.0 [facility] Calcium [Mass/Vol] 9.6 mg/dL 8.5-10.1 [facility] Chloride [Moles/Vol] 101 mmol/L 98-107 [facility] Cholesterol [Mass/Vol] 174 mg/dL <=200 [facility] Cholesterol in HDL [Mass/Vol] 55 mg/dL 40-60 [facility] Comment on above: > or =60 mg/dl - LOW CARDIOVASCULAR RISK<40 mg/dl - HIGH CARDIOVASCULAR RISK CO2 [Moles/Vol] 32.7 mmol/L High 21.0-32.0 [facility] Cobalamin (Vitamin B12) [Mass/Vol] 760 pg/mL 232-1245 [facility] Comment on above: Performed at: [address] [id number] Director: Giovany Conway PhD, Phone: [phone] Creatinine [Mass/Vol] 0.86 mg/dL 0.55-1.02 [facility] GFR/1.73 sq M.predicted MDRD (S/P/Bld) [Vol rate/Area] mL/min/{1.73_m2} >=60 mL/min/1.73m 2 [facility] Glucose [Mass/Vol] 88 mg/dL 74-106 [facility] Potassium [Moles/Vol] 4.0 mmol/L 3.5-5.1 [facility] Protein [Mass/Vol] 8.2 g/dL 6.4-8.2 [facility] Sodium [Moles/Vol] 139 mmol/L 136-145 [facility] Triglyceride [Mass/Vol] 218 mg/dL High <=150 F [facility] TSH Qn 1.857 m[IU]/L 0.358-3.740 [facility] Urea nitrogen [Mass/Vol] 15.0 mg/dL 7.0-18.0 [facility] Urea nitrogen/Creatinine [Mass ratio] 17.4 mg/mg [facility] - Hematology and Cell countson 01-28-2025 Immature granulocytes/100 WBC (Bld) 0.2 % 0.0-0.5 [facility] Leukocytes [#/volume] correc sharon for nucleated erythrocytes in Blood by Automated counon 01-28-2025 WBC corrected for nucl RBC Auto (Bld) [#/Vol] 5.8 10 3/uL 4.0-11.0 [facility] Lymphocytes Auto (Bld) [#/Vo l]on 01-28-2025 Lymphocytes (Bld) [#/Vol] 1.3 10 3/uL 1.2-3.8 [facility] Lymphocytes/100 WBC Auto (Bl d)on 01-28-2025 Lymphocytes/100 WBC (Bld) 22.6 % 20.5-60.0 [facility] MCH Auto (RBC) [Entitic mass ]on 01-28-2025 MCH (RBC) [Entitic mass] 29.5 pg 26.7-34.0 [facility] MCHC Auto (RBC) [Mass/Vol]on 01-28-2025 MCHC (RBC) [Mass/Vol] 33.2 g/dL 29.9-35.2 [facility] MCV Auto (RBC) [Entitic vol] on 01-28-2025 MCV (RBC) [Entitic vol] 88.8 fL 81.0-99.0 [facility] Monocytes Auto (Bld) [#/Vol] on 01-28-2025 Monocytes (Bld) [#/Vol] 0.8 10 3/uL 0.3-0.8 [facility] Monocytes/100 WBC Auto (Bld) on 01-28-2025 Monocytes/100 WBC (Bld) 14.6 % High 1.7-12.0 [facility] Neutrophils Auto (Bld) [#/Vo l]on 01-28-2025 Neutrophils (Bld) [#/Vol] 3.4 10 3/uL 1.4-6.5 [facility] Neutrophils/100 WBC Auto (Bl d)on 01-28-2025 Neutrophils/100 WBC (Bld) 58.5 % 43.0-75.0 [facility] No Panel Informationon 01-28 Eosinophils # (Auto) 0.2 10 3/uL 0.0-0.7 [facility] Folate 10.50 ng/mL 8.60-58.90 [facility] Immature Granulocyte # (Auto) 0.01 10 3/uL 0.00-0.03 [facility] Platelet mean volume Auto (B ld) [Entitic vol]on 01-28-2025 Platelet mean volume (Bld) [Entitic vol] 10.9 fL 9.5-13.5 [facility] Platelets Auto (Bld) [#/Vol] on 01-28-2025 Platelets (Bld) [#/Vol] 372 10 3/uL 150-450 [facility] RBC Auto (Bld) [#/Vol]on RBC (Bld) [#/Vol] 4.92 10 6/uL 4.20-5.40 [facility] Serum or plasma albumin/glob ulin mass ratioon 01-28-2025 Albumin/Globulin [Mass ratio] 0.7 {ratio} [facility] Serum or plasma anion gap de terminationon 01-28-2025 Anion gap [Moles/Vol] 9.3 mmol/L [facility] Serum or plasma total choles terol/high density lipoprotein (HDL) cholesterol mass aakash 01-28-2025 Cholesterol.total/[place] sterol in HDL [Mass ratio] 3.2 {ratio} [facility] Comment on above: 3.3 - 4.4 LOW RISK4. 4 - 7.1 AVERAGE RISK7.1 - 11.0 MODERATE RISK>11.0 HIGH RISK Bacteria identified Cx Nom ( U)on 01-03-2025 Bacteria identified Aer cx Nom (Unsp spec) NO GROWTH AT <1000 CFU/mL [facility] CBC WITH AUTO DIFFERENTIALon 01-03-2025 BASOPHILS ABSOLUTE COUNT (10*3/UL) BY AUTOMATED COUNT 0.1 10*3/uL Normal 0.0-0.2 [facility] Comment on above: Performed By: #### C BCA #### [facility] ([facility]) [address] [place] [address] VIR BASOPHILS RELATIVE PERCENT BY AUTOMATED COUNT 1.3 % Normal [facility] Comment on above: Performed By: #### C BCA #### [facility] ([facility]) [address] [place] [address] VIR CELLAVISION DIFFERENTIAL TYPE AUTOMATED DIFFERENTIAL Normal [facility] Comment on above: Performed By: #### C BCA #### [facility] ([facility]) [address] [place] [address] VIR Eosinophils (Bld) [#/Vol] 0.2 10*3/uL Normal 0.0-0.4 [facility] Comment on above: Performed By: #### C BCA #### [facility] ([facility]) [address] [place] [address] VIR EOSINOPHILS RELATIVE PERCENT BY AUTOMATED COUNT 3.3 % Normal [facility] Comment on above: Performed By: #### C BCA #### [facility] ([facility]) [address] [place] [address] VIR Erythrocyte distribution width (RBC) [Ratio] 14.1 % Normal 11.5-15 [facility] Comment on above: Performed By: #### C BCA #### [facility] ([facility]) [address] [place] [address] VIR Hematocrit (Bld) [Volume fraction] 38.5 % Normal 35-47 [facility] [facility] Comment on above: Performed By: #### C BCA #### [facility] ([facility]) [address] [place] [address] VIR Hemoglobin (Bld) [Mass/Vol] 13.1 g/dL Normal 11.7-15.5 [facility] Comment on above: Performed By: #### C BCA #### [facility] ([facility]) [address] [place] [address] VIR LYMPHOCYTES ABSOLUTE COUNT (10*3/UL) BY AUTOMATED COUNT 0.9 10*3/uL Low 1.0-3.5 [facility] Comment on above: Performed By: #### C BCA #### [facility] ([facility]) [address] [place] [address] VIR LYMPHOCYTES RELATIVE PERCENT BY AUTOMATED COUNT 16.8 % Normal [facility] Comment on above: Performed By: #### C BCA #### [facility] ([facility]) [address] [place] [address] VIR MCH (RBC) [Entitic mass] 29.8 pg Normal 27-34 [facility] Comment on above: Performed By: #### C BCA #### [facility] ([facility]) [address] [place] [address] VIR MCHC (RBC) [Mass/Vol] 34.1 g/dL Normal 32-[address] [facility] Comment on above: Performed By: #### C BCA #### [facility] ([facility]) [address] [place] [address] VIR MCV (RBC) [Entitic vol] 87 fL Normal 80-100 [facility] Comment on above: Performed By: #### C BCA #### [facility] ([facility]) [address] [place] [address] VIR MONOCYTES ABSOLUTE COUNT (10*3/UL) BY AUTOMATED COUNT 0.9 10*3/uL Normal 0.0-0.9 [facility] Comment on above: Performed By: #### C BCA #### [facility] ([facility]) [address] [place] [address] VIR MONOCYTES RELATIVE PERCENT BY AUTOMATED COUNT 16.0 % Normal [facility] Comment on above: Performed By: #### C BCA #### [facility] ([facility]) [address] [place] [address] VIR NEUTROPHILS ABSOLUTE COUNT BY AUTOMATED COUNT 3.4 10*3/uL Normal 1.5-6.6 [facility] Comment on above: Performed By: #### C BCA #### [facility] ([facility]) [address] [place] [address] VIR NEUTROPHILS RELATIVE PERCENT BY AUTOMATED COUNT 62.6 % Normal [facility] Comment on above: Performed By: #### C BCA #### [facility] ([facility]) [address] [place] [address] VIR Platelet mean volume (Bld) [Entitic vol] 9.0 fL Normal 7-12 [facility] Comment on above: Performed By: #### C BCA #### [facility] ([facility]) [address] [facility] [address] [place] [address] VIR Platelets (Bld) [#/Vol] 264 10*3/uL Normal 150-450 [facility] Comment on above: Performed By: #### C BCA #### [facility] ([facility]) [address] [place] [address] VIR RBC COUNT 4.40 X10E12/L Normal 3.8-5.2 [facility] Comment on above: Performed By: #### C BCA #### [facility] ([facility]) [address] [facility] [facility] [facility] [address] [place] [address] VIR WBC (Bld) [#/Vol] 5.4 10*3/uL Normal 4-11 [facility] Comment on above: Performed By: #### C BCA #### [facility] ([facility]) [address] [place] [address] VIR CBC auto differentialon 05- Basophils (Bld) [#/Vol] 0.1 10*3/uL 0.0 - 0.2 10*3/uL [facility] Basophils/100 WBC (Bld) 1.3 % P [facility] Differential cell count method Nom (Bld) AUTOMATED DIFFERENTIAL [facility] Eosinophils (Bld) [#/Vol] 0.2 10*3/uL 0.0 - 0.4 10*3/uL [facility] Eosinophils/100 WBC (Bld) 3.3 % [facility] Erythrocyte distribution width (RBC) [Ratio] 14.1 % 11.5 - 15 % [facility] Hematocrit (Bld) [Volume fraction] 38.5 % 35 - 47 % [facility] Hemoglobin (Bld) [Mass/Vol] 13.1 g/dL 11.7 - 15.5 g/dL [facility] Interpretation and review of laboratory results Abnormal [facility] Lymphocytes (Bld) [#/Vol] 0.9 10*3/uL Low 1.0 - 3.5 10*3/uL [facility] Lymphocytes/100 WBC (Bld) 16.8 % [facility] MCH (RBC) [Entitic mass] 29.8 pg 27 - 34 pg [facility] MCHC (RBC) [Mass/Vol] 34.1 g/dL 32 - 36 g/dL P [facility] MCV (RBC) [Entitic vol] 87 fL 80 - 100 fL [facility] Monocytes (Bld) [#/Vol] 0.9 10*3/uL 0.0 - 0.9 10*3/uL [facility] Monocytes/100 WBC (Bld) 16 % P [facility] Neutrophils (Bld) [#/Vol] 3.4 10*3/uL 1.5 - 6.6 10*3/uL [facility] Neutrophils/100 WBC (Bld) 62.6 % [facility] Platelet mean volume (Bld) [Entitic vol] 9 fL 7 - 12 fL [facility] Platelets (Bld) [#/Vol] 264 10*3/uL [facility] RBC (Bld) [#/Vol] 4.4 10*6/uL [facility] WBC LM Ql (Sput) 5.4 [facility] COMPREHENSIVE METABOLIC PANE Artemio 01-03-2025 Albumin [Mass/Vol] 3.7 g/dL Normal 3.2-5.3 [facility] Comment on above: Performed By: #### C BCA #### [facility] ([facility]) [address] [place] [address] VIR ALP [Catalytic activity/Vol] 97 U/L Normal 39-130 [facility] Comment on above: Performed By: #### C BCA #### [facility] ([facility]) [address] [place] [address] VIR ALT [Catalytic activity/Vol] 7 U/L Normal <=31 [facility] Comment on above: Performed By: #### C BCA #### [facility] ([facility]) [address] [place] [address] VIR Anion gap [Moles/Vol] 8 mmol/L Normal 5-[address] [facility] Comment on above: Performed By: #### C BCA #### [facility] ([facility]) [address] [place] [address] VIR AST [Catalytic activity/Vol] 16 U/L Normal <=41 [facility] Comment on above: Performed By: #### C BCA #### [facility] ([facility]) [address] [place] [address] VIR Bilirubin [Mass/Vol] 0.5 mg/dL Normal 0.3-1.2 [facility] Comment on above: Performed By: #### C BCA #### [facility] ([facility]) [address] [place] [address] VIR Calcium [Mass/Vol] 9.2 mg/dL Normal 8.5-10.5 [facility] Comment on above: Performed By: #### C BCA #### [facility] ([facility]) [address] [place] [address] VIR Chloride [Moles/Vol] 106 mmol/L Normal 98-109 [facility] Comment on above: Performed By: #### C BCA #### [facility] ([facility]) [address] [place] [address] VIR CO2 [Moles/Vol] 28 mmol/L Normal 22-32 [facility] Comment on above: Performed By: #### C BCA #### [facility] ([facility]) [address] [place] [address] VIR Creatinine [Mass/Vol] 0.68 mg/dL Normal 0.40-1.[address] [facility] Comment on above: Result Comment: METH OD TRACEABLE TO IDMS STANDARD Performed By: #### C BCA #### [facility] ([facility]) [address] [place] [address] VIR GFR/1.73 sq M.predicted among non-blacks MDRD (S/P/Bld) [Vol rate/Area] 90 mL/min/{1.73_m2} Normal >=60 [facility] Comment on above: Result Comment: [facility] eGFR is based on the CKD-EPI 2020 equation that does not use a race coefficient. Performed By: #### C BCA #### [facility] ([facility]) [address] [place] [address] VIR Glucose [Mass/Vol] 82 mg/dL Normal 65-99 [facility] Comment on above: Performed By: #### C BCA #### [facility] ([facility]) [address] [place] [address] VIR Potassium [Moles/Vol] 3.5 mmol/L Normal 3.5-5.[address] [facility] Comment on above: Performed By: #### C BCA #### [facility] ([facility]) [address] [place] [address] VIR Protein [Mass/Vol] 6.7 g/dL Normal 6.0-8.0 [facility] Comment on above: Performed By: #### C BCA #### [facility] ([facility]) [address] [place] [address] VIR Sodium [Moles/Vol] 142 mmol/L Normal 134-146 [facility] Comment on above: Performed By: #### C BCA #### [facility] ([facility]) [address] [place] [address] VIR Urea nitrogen [Mass/Vol] 12 mg/dL Normal 5-27 [facility] Comment on above: Performed By: #### C BCA #### [facility] ([facility]) [address] [place] [address] VIR Comprehensive metabolic pane artemio 01-03-2025 Albumin [Mass/Vol] 3.7 g/dL 3.2 - 5.3 g/dL [facility] ALP [Catalytic activity/Vol] 97 U/L 39 - 130 U/L [facility] ALT No additional P-5'-P [Catalytic activity/Vol] 7 U/L NINF - 31 U/L [facility] Anion gap [Moles/Vol] 8 mmol/L 5 - 15 mmol/L [facility] AST [Catalytic activity/Vol] 16 U/L NINF - 41 U/L [facility] Bilirubin [Mass/Vol] 0.5 mg/dL 0.3 - 1 .2 mg/dL [facility] Calcium [Mass/Vol] 9.2 mg/dL 8.5 - 10. 5 mg/dL [facility] Chloride [Moles/Vol] 106 mmol/L 98 - 10 9 mmol/L [facility] CO2 [Moles/Vol] 28 mmol/L 22 - 32 mmol/L [facility] Creatinine [Mass/Vol] 0.68 mg/dL 0.40 - 1.00 mg/dL [facility] Comment on above: METHOD TRACEABLE TO IDMS STANDARD EGFR Non-Race Dependent 90 - PINF [facility] Comment on above: Reported eGFR is bas ed on the CKD-EPI 2020 equation that does not use a race coefficient. Glucose [Mass/Vol] 82 mg/dL 65 - 99 mg/dL [facility] Potassium [Moles/Vol] 3.5 mmol/L 3.5 - 5.0 mmol/L [facility] Protein [Mass/Vol] 6.7 g/dL 6.0 - 8.0 g/dL [facility] Sodium [Moles/Vol] 142 mmol/L 134 - 146 mmol/L [facility] Urea nitrogen [Mass/Vol] 12 mg/dL 5 - 27 mg/dL [facility] MAGNESIUMon 0511-2025 Magnesium [Mass/Vol] 2.2 mg/dL Normal 1.8-2.6 [facility] Comment on above: Performed By: #### C BCA #### [facility] ([facility]) [address] [place] [address] VIR Magnesiumon 01-03-2025 Magnesium [Mass/Vol] 2.2 mg/dL 1.8 - 2 .6 mg/dL [facility] No Panel Informationon 01-03 Interpretation and review of laboratory results Normal [facility] AMMONIAon 01-02-2025 Ammonia (P) [Moles/Vol] 21 umol/L Normal 18-72 P [facility] Comment on above: Performed By: #### A MMON #### [facility] ([facility]) [address] [place] [address] VIR Ammoniaon 01-02-2025 Ammonia (P) [Moles/Vol] 21 umol/L 18 - 72 umol/L [facility] Interpretation and review of laboratory results Normal [facility] CBC WITH AUTO DIFFERENTIALon 01-02-2025 BASOPHILS ABSOLUTE COUNT (10*3/UL) BY AUTOMATED COUNT 0.1 10*3/uL Normal 0.0-0.2 [facility] Comment on above: Performed By: #### C BCA #### [facility] ([facility]) [address] [place] [address] VIR BASOPHILS RELATIVE PERCENT BY AUTOMATED COUNT 1.3 % Normal [facility] Comment on above: Performed By: #### C BCA #### [facility] ([facility]) [address] [place] [address] VIR CELLAVISION DIFFERENTIAL TYPE AUTOMATED DIFFERENTIAL Normal [facility] Comment on above: Performed By: #### C BCA #### [facility] ([facility]) [address] [place] [address] VIR Eosinophils (Bld) [#/Vol] 0.2 10*3/uL Normal 0.0-0.4 [facility] Comment on above: Performed By: #### C BCA #### [facility] ([facility]) [address] [place] [address] VIR EOSINOPHILS RELATIVE PERCENT BY AUTOMATED COUNT 3.2 % Normal [facility] Comment on above: Performed By: #### C BCA #### [facility] ([facility]) [address] [place] [address] VIR Erythrocyte distribution width (RBC) [Ratio] 14.3 % Normal 11.5-15 [facility] Comment on above: Performed By: #### C BCA #### [facility] ([facility]) [address] [facility] [address] [place] [address] VIR Hematocrit (Bld) [Volume fraction] 38.2 % Normal 35-47 [facility] Comment on above: Performed By: #### C BCA #### [facility] ([facility]) [address] [place] [address] VIR Hemoglobin (Bld) [Mass/Vol] 12.9 g/dL Normal 11.7-15.5 [facility] Comment on above: Performed By: #### C BCA #### [facility] ([facility]) [address] [place] [address] VIR LYMPHOCYTES ABSOLUTE COUNT (10*3/UL) BY AUTOMATED COUNT 1.1 10*3/uL Normal 1.0-3.5 [facility] Comment on above: Performed By: #### C BCA #### [facility] ([facility]) [address] [place] [address] VIR LYMPHOCYTES RELATIVE PERCENT BY AUTOMATED COUNT 21.5 % Normal [facility] Comment on above: Performed By: #### C BCA #### [facility] ([facility]) [address] [place] [address] VIR MCH (RBC) [Entitic mass] 29.7 pg Normal 27-34 [facility] Comment on above: Performed By: #### C BCA #### [facility] ([facility]) [address] [place] [address] VIR MCHC (RBC) [Mass/Vol] 33.8 g/dL Normal 32-[address] [facility] Comment on above: Performed By: #### C BCA #### [facility] ([facility]) [address] [place] [address] VIR MCV (RBC) [Entitic vol] 88 fL Normal 80-100 [facility] Comment on above: Performed By: #### C BCA #### [facility] ([facility]) [address] [place] [address] VIR MONOCYTES ABSOLUTE COUNT (10*3/UL) BY AUTOMATED COUNT 0.9 10*3/uL Normal 0.0-0.9 [facility] Comment on above: Performed By: #### C BCA #### [facility] ([facility]) [address] [place] [address] VIR MONOCYTES RELATIVE PERCENT BY AUTOMATED COUNT 18.2 % Normal [facility] Comment on above: Performed By: #### C BCA #### [facility] ([facility]) [address] [place] [address] VIR NEUTROPHILS ABSOLUTE COUNT BY AUTOMATED COUNT 2.8 10*3/uL Normal 1.5-6.6 [facility] Comment on above: Performed By: #### C BCA #### [facility] ([facility]) [address] [place] [address] VIR NEUTROPHILS RELATIVE PERCENT BY AUTOMATED COUNT 55.8 % Normal [facility] Comment on above: Performed By: #### C BCA #### [facility] ([facility]) [address] [place] [address] VIR Platelet mean volume (Bld) [Entitic vol] 8.9 fL Normal 7-12 [facility] Comment on above: Performed By: #### C BCA #### [facility] ([facility]) [address] [place] [address] VIR Platelets (Bld) [#/Vol] 284 10*3/uL Normal 150-450 [facility] Comment on above: Performed By: #### C BCA #### [facility] ([facility]) [address] [place] [address] VIR RBC COUNT 4.33 X10E12/L Normal 3.8-5.2 [facility] Comment on above: Performed By: #### C BCA #### [facility] ([facility]) [address] [place] [address] VIR WBC (Bld) [#/Vol] 5.1 10*3/uL Normal 4-11 [facility] Comment on above: Performed By: #### C BCA #### [facility] ([facility]) [address] [place] [address] VIR CBC auto differentialon 12-24 Basophils (Bld) [#/Vol] 0.1 10*3/uL 0.0 - 0.2 10*3/uL [facility] Basophils/100 WBC (Bld) 1.3 % [facility] Differential cell count method Nom (Bld) AUTOMATED DIFFERENTIAL [facility] Eosinophils (Bld) [#/Vol] 0.2 10*3/uL 0.0 - 0.4 10*3/uL [facility] Eosinophils/100 WBC (Bld) 3.2 % [facility] Erythrocyte distribution width (RBC) [Ratio] 14.3 % 11.5 - 15 % [facility] Hematocrit (Bld) [Volume fraction] 38.2 % 35 - 47 % [facility] Hemoglobin (Bld) [Mass/Vol] 12.9 g/dL 11.7 - 15.5 g/dL [facility] Lymphocytes (Bld) [#/Vol] 1.1 10*3/uL 1.0 - 3.5 10*3/uL [facility] Lymphocytes/100 WBC (Bld) 21.5 % [facility] MCH (RBC) [Entitic mass] 29.7 pg 27 - 34 pg [facility] MCHC (RBC) [Mass/Vol] 33.8 g/dL 32 - 36 g/dL P [facility] MCV (RBC) [Entitic vol] 88 fL 80 - 100 fL [facility] Monocytes (Bld) [#/Vol] 0.9 10*3/uL 0.0 - 0.9 10*3/uL [facility] Monocytes/100 WBC (Bld) 18.2 % P [facility] Neutrophils (Bld) [#/Vol] 2.8 10*3/uL 1.5 - 6.6 10*3/uL [facility] Neutrophils/100 WBC (Bld) 55.8 % [facility] Platelet mean volume (Bld) [Entitic vol] 8.9 fL 7 - 12 fL [facility] Platelets (Bld) [#/Vol] 284 10*3/uL [facility] RBC (Bld) [#/Vol] 4.33 10*6/uL [facility] WBC LM Ql (Sput) 5.1 [facility] COMPREHENSIVE METABOLIC PANE Artemio 01-02-2025 Albumin [Mass/Vol] 3.7 g/dL Normal 3.2-5.3 [facility] Comment on above: Performed By: #### C MP #### [facility] ([facility]) [address] [place] [address] VIR ALP [Catalytic activity/Vol] 93 U/L Normal 39-130 [facility] Comment on above: Performed By: #### C MP #### [facility] ([facility]) [address] [place] [address] VIR ALT [Catalytic activity/Vol] 7 U/L Normal <=31 [facility] Comment on above: Performed By: #### C MP #### [facility] ([facility]) [address] [place] [address] VIR Anion gap [Moles/Vol] 8 mmol/L Normal 5-[address] [facility] Comment on above: Performed By: #### C MP #### [facility] ([facility]) [address] [place] [address] VIR AST [Catalytic activity/Vol] 19 U/L Normal <=41 [facility] Comment on above: Performed By: #### C MP #### [facility] ([facility]) [address] [place] [address] VIR Bilirubin [Mass/Vol] 0.6 mg/dL Normal 0.3-1.2 [facility] Comment on above: Performed By: #### C MP #### [facility] ([facility]) [address] [place] [address] VIR Calcium [Mass/Vol] 9.0 mg/dL Normal 8.5-10.5 [facility] Comment on above: Performed By: #### C MP #### [facility] ([facility]) [address] [place] [address] VIR Chloride [Moles/Vol] 106 mmol/L Normal 98-109 [facility] Comment on above: Performed By: #### C MP #### [facility] ([facility]) [address] [place] [address] VIR CO2 [Moles/Vol] 27 mmol/L Normal 22-32 [facility] Comment on above: Performed By: #### C MP #### [facility] ([facility]) [address] [place] [address] VIR Creatinine [Mass/Vol] 0.64 mg/dL Normal 0.40-1.[address] [facility] Comment on above: Result Comment: METH OD TRACEABLE TO IDMS STANDARD Performed By: #### C MP #### [facility] ([facility]) [address] [place] [address] VIR EGFR (CKD-EPI) NON-RACE DEPENDENT >^90 Normal >=60 [facility] Comment on above: Result Comment: Repo rted eGFR is based on the CKD-EPI 2020 equation that does not use a race coefficient. Performed By: #### C MP #### [facility] ([facility]) [address] [place] [address] VIR Glucose [Mass/Vol] 88 mg/dL Normal 65-99 [facility] Comment on above: Performed By: #### C MP #### [facility] ([facility]) [address] [place] [address] VIR Potassium [Moles/Vol] 3.7 mmol/L Normal 3.5-5.[address] [facility] Comment on above: Performed By: #### C MP #### [facility] ([facility]) [address] [place] [address] VIR Protein [Mass/Vol] 6.7 g/dL Normal 6.0-8.0 [facility] Comment on above: Performed By: #### C MP #### [facility] ([facility]) [address] [place] [address] VIR Sodium [Moles/Vol] 141 mmol/L Normal 134-146 [facility] Comment on above: Performed By: #### C MP #### [facility] ([facility]) [address] [place] [address] VIR Urea nitrogen [Mass/Vol] 12 mg/dL Normal 5-27 [facility] Comment on above: Performed By: #### C MP #### [facility] ([facility]) [address] [place] [address] VIR Comprehensive metabolic pane artemio 01-02-2025 Albumin [Mass/Vol] 3.7 g/dL 3.2 - 5.3 g/dL [facility] ALP [Catalytic activity/Vol] 93 U/L 39 - 130 U/L [facility] ALT No additional P-5'-P [Catalytic activity/Vol] 7 U/L NINF - 31 U/L [facility] Anion gap [Moles/Vol] 8 mmol/L 5 - 15 mmol/L [facility] AST [Catalytic activity/Vol] 19 U/L NINF - 41 U/L [facility] Bilirubin [Mass/Vol] 0.6 mg/dL 0.3 - 1 .2 mg/dL [facility] Calcium [Mass/Vol] 9 mg/dL 8.5 - 10. 5 mg/dL [facility] Chloride [Moles/Vol] 106 mmol/L 98 - 10 9 mmol/L [facility] CO2 [Moles/Vol] 27 mmol/L 22 - 32 mmol/L [facility] Creatinine [Mass/Vol] 0.64 mg/dL 0.40 - 1.00 mg/dL [facility] Comment on above: METHOD TRACEABLE TO [facility] STANDARD EGFR Non-Race Dependent - [facility] Comment on above: Reported eGFR is bas ed on the CKD-EPI 2020 equation that does not use a race coefficient. Glucose [Mass/Vol] 88 mg/dL 65 - 99 mg/dL [facility] Potassium [Moles/Vol] 3.7 mmol/L 3.5 - 5.0 mmol/L [facility] Protein [Mass/Vol] 6.7 g/dL 6.0 - 8.0 g/dL [facility] Sodium [Moles/Vol] 141 mmol/L 134 - 146 mmol/L [facility] Urea nitrogen [Mass/Vol] 12 mg/dL 5 - 27 mg/dL [facility] EEGon 01-02-2025 Images from the original result were not included. [place] Routine EEG Report Length of Study: 31 [...] lateralizing signs were seen. Martha Prince MD [employer] [facility] MANUALLY TRANSCRIBED RESULTS EEGOrdered By: Martha Prince on 01-02-2025 [facility] Work Phone: Er Extra Urineon 01-02-2025 [employer] Resulted First [facility] MAGNESIUMon 01-02-2025 Magnesium [Mass/Vol] 2.2 mg/dL Normal 1.8-2.6 [facility] Comment on above: Performed By: #### M G #### [facility] ([facility]) [address] [place] [address] VIR Magnesiumon 01-02-2025 Magnesium [Mass/Vol] 2.2 mg/dL 1.8 - 2 .6 mg/dL [facility] No Panel Informationon 01-02 Interpretation and review of laboratory results Normal [facility] PROTIME AND INRon 01-02-2025 INR 1.0 Normal 0.9-1.2 [facility] Comment on above: Performed By: #### P INR #### [facility] ([facility]) [address] [place] [address] VIR PT Coag (PPP) [Time] 11.1 s Normal 9.8-13.2 [facility] Comment on above: Performed By: #### P INR #### [facility] ([facility]) [address] [place] [id number] VIR Protime & INRon 01-02-2025 INR Coag (Platelet poor plasma or blood) [Relative time] 1 0.9 - 1.2 [facility] Interpretation and review of laboratory results Normal [facility] PT Coag (PPP) [Time] 11.1 s [facility] THYROID PROFILE INCLUDES TSH FT4on 01-02-2025 Free T4 [Mass/Vol] 0.81 ng/dL Normal 0.61-1.60 [facility] Comment on above: Performed By: #### T HYR #### [facility] ([facility]) [address] [place] [address] VIR TSH 2.85 uIU/mL Normal 0.49-4.67 [facility] Comment on above: Performed By: #### T HYR #### [facility] ([facility]) [address] [place] [address] VIR Thyroid profile includes TSH FT4on 01-02-2025 Free T4 [Mass/Vol] 0.81 ng/dL 0.61 - 1. 60 ng/dL [facility] Interpretation and review of laboratory results Normal [facility] TSH Qn 2.85 m[IU]/L [facility] URINALYSISon 01-02-2025 Bilirubin Ql (U) Negative Normal Negative [facility] Comment on above: Performed By: #### U A #### [facility] ([facility]) [address] [place] [address] VIR BLOOD/HGB Negative Normal Negative [facility] Comment on above: Performed By: #### U A #### [facility] ([facility]) [address] [place] [address] VIR Color (U) Yellow Normal Yellow, Colorless [facility] Comment on above: Performed By: #### U A #### [facility] ([facility]) [address] [place] [address] VIR Glucose Ql (U) Negative Normal Negative [facility] Comment on above: Performed By: #### U A #### [facility] ([facility]) [address] [place] [address] VIR Ketones Ql (U) Negative Normal Negative [facility] Comment on above: Performed By: #### U A #### [facility] ([facility]) [address] [place] [address] VIR Leukocyte esterase Test strip Ql (U) Negative Normal Negative [facility] Comment on above: Performed By: #### U A #### [facility] ([facility]) [address] [place] [address] VIR Nitrite Ql (U) Negative Normal Negative [facility] Comment on above: Performed By: #### U A #### [facility] ([facility]) [address] [place] [address] VIR PH,URINE 6.0 Normal 5.0-8.5 [facility] Comment on above: Performed By: #### U A #### [facility] ([facility]) [address] [place] [address] VIR Protein Ql (U) Negative Normal Negative [facility] Comment on above: Performed By: #### U A #### [facility] ([facility]) [address] [place] [address] VIR Specific gravity (U) [Rel density] 1.012 Normal 1.003-1.035 [facility] Comment on above: Performed By: #### U A #### [facility] ([facility]) [address] [place] [address] VIR TURBIDITY Clear Normal Clear [facility] Comment on above: Performed By: #### U A #### [facility] ([facility]) [address] [place] [address] VIR UROBILINOGEN <1.1 eu/dL Normal <1.1 eu/dL [facility] Comment on above: Performed By: #### U A #### [facility] ([facility]) [address] [place] [address] VIR URINE CULTUREon 01-02-2025 Bacteria identified Cx Nom (U) CULTURE RESULTS NO GROWTH AT <1000 CFU/mL Normal [facility] Comment on above: Performed By: #### U C #### [facility] ([facility]) [address] [place] [address] VIR Urinalysison 01-02-2025 Bilirubin Ql (U) Negative Negative [facility] Color (U) Yellow Yellow, Colorless [facility] Glucose (U) [Mass/Vol] Negative Negative [facility] Hemoglobin Auto test strip Ql (U) Negative Negative [facility] Interpretation and review of laboratory results Normal [facility] Ketones (U) [Mass/Vol] Negative Negative [facility] Leukocyte esterase Auto test strip Ql (U) Negative Negative [facility] Nitrite Auto test strip Ql (U) Negative Negative [facility] pH (U) 6 [pH] 5.0 - 8.5 [facility] Protein (U) [Mass/Vol] Negative Negative [facility] Specific gravity Refractometry automated (U) [Rel density] 1.012 1.003 - 1.035 [facility] Turbidity Ql (U) Clear Clear [facility] Urobilinogen Qn (U) {Aura'U}/dL <1.1 eu/dL P [facility] VITAMIN B12on 01-02-2025 Cobalamin (Vitamin B12) [Mass/Vol] 167 pg/mL Low 180-914 [facility] Comment on above: Performed By: #### B 12 #### [facility] ([facility]) [address] [place] [address] VIR Vitamin B12on 01-02-2025 Cobalamin (Vitamin B12) [Mass/Vol] 167 pg/mL Low 180 - 914 pg/mL [facility] Interpretation and review of laboratory results Abnormal [facility] XR CHEST 1 VWon 01-02-2025 XR CHEST 1 VW XR CHEST 1 VW Single view chest History:Encephalopat hy Difficulty breathing, shortness of breath Comparison: 01/02/2025 Findings: Single portable view of the chest. Cardiomediastinal silhouette is within normal limits. This bilateral lower lung atelectasis with hypoventilatory change. No large effusion or pneumothorax. Impression: Expiratory changes with bilateral lower lung atelectasis. Finalized by Horace Denis MD on 01/02/2025 6:57 AM Normal [facility] XR Chest Single viewon 01-02 Single view chest History:Encephalopat hy Difficulty breathing, shortness of breath Comparison: 01/02/2025 Findings: Single portable view of the chest. Cardiomediastinal silhouette is within normal limits. This bilateral lower lung atelectasis with hypoventilatory change. No large effusion or pneumothorax. Impression: Expiratory changes with bilateral lower lung atelectasis. Finalized by Horace Denis MD on 01/02/2025 6:57 AM SECTRAHorace Diaz MD - 01/02/2025 Single view chest History:Encephalopat hy Difficulty breathing, shortness of breath Comparison: 01/02/2025 Findings: Single portable view of the chest. Cardiomediastinal silhouette is within normal limits. This bilateral lower lung atelectasis with hypoventilatory change. No large effusion or pneumothorax. Impression: Expiratory changes with bilateral lower lung atelectasis. Finalized by Horace Denis MD on 01/02/2025 6:57 AM [employer] [facility] Study observation (narrative) [employer] XR Chest Single viewOrdered By: Horace Denis on 01-02-2025 [employer] Work Phone: Basophils Auto (Bld) [#/Vol] on 01-01-2025 Basophils (Bld) [#/Vol] Automated basoph il count 0.0-0.1 [facility] Basophils (Bld) [#/Vol] 0.1 10 3/uL 0.0-0.1 [facility] Basophils/100 WBC Auto (Bld) on 01-01-2025 Basophils/100 WBC (Bld) Automated basophil % 0. 2-2.0 [facility] Basophils/100 WBC (Bld) 0.8 % 0.2-2.0 F [facility] Buprenorphine [Presence] in Urineon 01-01-2025 Buprenorphine Ql (U) Buprenorphine [Presence] in Urine NEGATIVE [facility] Comment on above: DRUG CLASS TEST SYST EM CUT-OFF CONCENTRATIONS ARE ASFOLLOWS:AMP (Amphetamine): 500 ng/mLBAR (Barbiturates): 200 ng/mLBZO (Benzodiazepines): 150 ng/mLBUP (Buprenorphine): 10 ng/mLCOC (Cocaine): 150 ng/mLmAMP (Methamphetamine): 500 ng/mLMTD (Methadone): 200 ng/mLOPI (Opiates): 100 ng/mLOXY (Oxycodone): 100 ng/mLPCP (Phencyclidine): 25 ng/mLTHC (Cannabinoids): 50 ng/mLTCA (Trycyclic Antidepressants): 300 ng/mL Buprenorphine Ql (U) Negative NEGATIVE [facility] Comment on above: DRUG CLASS TEST SYST EM CUT-OFF CONCENTRATIONS ARE ASFOLLOWS:AMP (Amphetamine): 500 ng/mLBAR (Barbiturates): 200 ng/mLBZO (Benzodiazepines): 150 ng/mLBUP (Buprenorphine): 10 ng/mLCOC (Cocaine): 150 ng/mLmAMP (Methamphetamine): 500 ng/mLMTD (Methadone): 200 ng/mLOPI (Opiates): 100 ng/mLOXY (Oxycodone): 100 ng/mLPCP (Phencyclidine): 25 ng/mLTHC (Cannabinoids): 50 ng/mLTCA (Trycyclic Antidepressants): 300 ng/mL Eosinophils/100 WBC Auto (Bl d)on 01-01-2025 Eosinophils/100 WBC (Bld) Automated eosinophil % 0.9-7.0 [facility] Eosinophils/100 WBC (Bld) 1.9 % 0.9-7.0 [facility] Erythrocyte distribution wid th Auto (RBC) [Ratio]on 01-01-2025 Erythrocyte distribution width (RBC) [Ratio] Erythrocyte distribution width [Ratio] by Automated count 11.0-15.0 [facility] Erythrocyte distribution width (RBC) [Ratio] 13.5 % 11.0-15.0 [facility] Estimated glomerular filtrat ion rate (GFR) non- Americanon 01-01-2025 GFR/1.73 sq M.predicted among non-blacks MDRD (S/P/Bld) [Vol rate/Area] Estimated glomerular filtration rate (GFR) non- >=60 mL/min/1.73m 2 [facility] GFR/1.73 sq M.predicted among non-blacks MDRD (S/P/Bld) [Vol rate/Area] mL/min/{1.73_m2} >=60 mL/min/1.73m 2 [facility] Globulin Calc (S) [Mass/Vol] on 01-01-2025 Globulin (S) [Mass/Vol] Serum globulin measurement by calculation (mass/volume) [facility] Globulin (S) [Mass/Vol] 4.3 g/dL [facility] Hematocrit Auto (Bld) [Volum e fraction]on 01-01-2025 Hematocrit (Bld) [Volume fraction] Hematocrit [Volume Fraction] of Blood by Automated count 36.0-48.0 [facility] Hematocrit (Bld) [Volume fraction] 42.4 % 36.0-48.0 [facility] Hemoglobin [Mass/volume] in Bloodon 01-01-2025 Hemoglobin (Bld) [Mass/Vol] Hemoglobin [Mass/volume] in Blood 12.0-16.0 [facility] Hemoglobin (Bld) [Mass/Vol] 14.0 g/dL 12.0-16.0 [facility] Laboratory - Chemistry and C hemistry - challengeon 01-01-2025 Bilirubin Ql (U) Negative NEGATIVE [facility] Glucose (U) [Mass/Vol] Negative NEGATIVE [facility] Ketones Ql (U) Negative NEGATIVE [facility] pH (U) 6.0 [pH] 5.0-9.0 [facility] Specific gravity (U) [Rel density] 1.025 1.005-1.025 [facility] Urobilinogen Qn (U) 0.2 {Aura'U}/dL 0.2-1.0 [facility] Albumin [Mass/Vol] 3.4 g/dL 3.4-5.0 [facility] ALP [Catalytic activity/Vol] 128 U/L High 46-116 [facility] ALT [Catalytic activity/Vol] 16 U/L 14-59 [facility] AST [Catalytic activity/Vol] 18 U/L 15-37 [facility] Bilirubin [Mass/Vol] 0.5 mg/dL 0.2-1.0 [facility] Calcium [Mass/Vol] 9.1 mg/dL 8.5-10.1 [facility] Chloride [Moles/Vol] 103 mmol/L 98-107 [facility] CO2 [Moles/Vol] 28.8 mmol/L 21.0-32.0 [facility] Creatinine [Mass/Vol] 0.84 mg/dL 0.55-1.02 [facility] GFR/1.73 sq M.predicted MDRD (S/P/Bld) [Vol rate/Area] mL/min/{1.73_m2} >=60 mL/min/1.73m 2 [facility] Glucose [Mass/Vol] 96 mg/dL 74-106 [facility] Lactate [Moles/Vol] 0.9 mmol/L 0.4-2.0 [facility] Magnesium [Mass/Vol] 2.2 mg/dL 1.8-2.4 [facility] Potassium [Moles/Vol] 3.6 mmol/L 3.5-5.1 [facility] Protein [Mass/Vol] 7.7 g/dL 6.4-8.2 [facility] Sodium [Moles/Vol] 136 mmol/L 136-145 [facility] Urea nitrogen [Mass/Vol] 18.0 mg/dL 7.0-18.0 [facility] Urea nitrogen/Creatinine [Mass ratio] 21.4 mg/mg [facility] Laboratory - Drug toxicology on 01-01-2025 Amphetamines Ql (U) Negative NEGATIVE [facility] Benzodiazepines Ql (U) Positive Abnormal NEGATIVE [facility] Cocaine Ql (U) Negative NEGATIVE [facility] Opiates Ql (U) Negative NEGATIVE [facility] Phencyclidine Ql (U) Negative NEGATIVE [facility] Laboratory - Hematology and Cell countson 01-01-2025 Immature granulocytes/100 WBC (Bld) 0.3 % 0.0-0.5 [facility] - Specimen inform ationon 01-01-2025 Appearance (U) CLEAR CLEAR [facility] Color (U) YELLOW YELLOW [facility] - Urinalysison Leukocyte esterase Test strip Ql (U) Negative NEGATIVE [facility] Mucus Ql (Urine sed) LARGE Abnormal NONE SEEN [facility] Nitrite Ql (U) Negative NEGATIVE [facility] Protein Ql (U) Negative NEG/TRACE [facility] Leukocytes [#/volume] correc sharon for nucleated erythrocytes in Blood by Automated counon 01-01-2025 WBC corrected for nucl RBC Auto (Bld) [#/Vol] Leukocytes [#/volume] corrected for nucleated erythrocytes in Blood by Automated coun 4.0-11.0 [facility] WBC corrected for nucl RBC Auto (Bld) [#/Vol] 6.2 10 3/uL 4.0-11.0 [facility] Lymphocytes Auto (Bld) [#/Vo l]on 01-01-2025 Lymphocytes (Bld) [#/Vol] Lymphocytes [#/volume] in Blood by Automated count Low 1.2-3.8 [facility] Lymphocytes (Bld) [#/Vol] 1.1 10 3/uL Low 1.2-3.8 [facility] Lymphocytes/100 WBC Auto (Bl d)on 01-01-2025 Lymphocytes/100 WBC (Bld) Lymphocytes/100 leukocytes in Blood by Automated count Low 20.5-60.0 [facility] Lymphocytes/100 WBC (Bld) 18.4 % Low 20.5-60.0 [facility] MCH Auto (RBC) [Entitic mass ]on 01-01-2025 MCH (RBC) [Entitic mass] MCH [Entitic mass] by Automated count 26.7-34.0 [facility] MCH (RBC) [Entitic mass] 29.7 pg 26.7-34.0 [facility] MCHC Auto (RBC) [Mass/Vol]on 01-01-2025 MCHC (RBC) [Mass/Vol] MCHC [Mass/volume] by Automated count 29.9-35.2 [facility] MCHC (RBC) [Mass/Vol] 33.0 g/dL 29.9-35.2 [facility] MCV Auto (RBC) [Entitic vol] on 01-01-2025 MCV (RBC) [Entitic vol] MCV [Entitic vol ume] by Automated count 81.0-99.0 [facility] MCV (RBC) [Entitic vol] 89.8 fL 81.0-99.0 F [facility] Methadone [Presence] in Urin e by Screen methodon 01-01-2025 Methadone Screen Ql (U) Methadone [Prese nce] in Urine by Screen method NEGATIVE [facility] Methadone Screen Ql (U) Negative NEGATIVE [facility] Monocytes Auto (Bld) [#/Vol] on 01-01-2025 Monocytes (Bld) [#/Vol] Automated blood monocyte count High 0.3-0.8 [facility] Monocytes (Bld) [#/Vol] 0.9 10 3/uL High 0.3-0.8 [facility] Monocytes/100 WBC Auto (Bld) on 01-01-2025 Monocytes/100 WBC (Bld) Automated monocyte % High 1. 7-12.0 [facility] Monocytes/100 WBC (Bld) 15.0 % High 1.7-12.0 [facility] Neutrophils Auto (Bld) [#/Vo l]on 01-01-2025 Neutrophils (Bld) [#/Vol] Neutrophils [#/volume] in Blood by Automated count 1.4-6.5 [facility] Neutrophils (Bld) [#/Vol] 4.0 10 3/uL 1.4-6.5 [facility] Neutrophils/100 WBC Auto (Bl d)on 01-01-2025 Neutrophils/100 WBC (Bld) Automated neutrophil % 43.0-75.0 [facility] Neutrophils/100 WBC (Bld) 63.6 % 43.0-75.0 [facility] No Panel Informationon 01-01 Urine Bacteria MODERATE #/HPF Abnormal NONE SEEN [facility] Urine Barbiturates Screen Negative NEGATIVE [facility] Urine Culture Reflexed YES-[facility] Urine Marijuana (THC) Screen Negative NEGATIVE [facility] Urine Methamphetamines Screen Negative NEGATIVE [facility] Urine Occult Blood SMALL Abnormal NEGATIVE [facility] Urine Other Casts NONE SEEN #/LPF NONE SEEN [facility] Urine Other Crystals None Seen #/HPF None Seen [facility] Urine RBC 2-5 #/HPF Abnormal 0-2 [facility] Urine Squamous Epithelial Cells FEW #/LPF Abnormal NONE/RARE [facility] Urine WBC 0-2 #/HPF Abnormal NONE SEEN [facility] Ammonia <10 umol/L Low 11-32 [facility] Eosinophils # (Auto) 0.1 10 3/uL 0.0-0.7 [facility] Ethyl Alcohol Level <3 mg/dL [facility] Comment on above: NOTE: 80 mg/dl is th e legal limit for a blood alcohol level Immature Granulocyte # (Auto) 0.02 10 3/uL 0.00-0.03 [facility] Troponin I High Sensitivity 4.4 pg/mL 4.0-51.3 [facility] Comment on above: CUT-OFF POINTS HAVE BEEN [...] Blood Partial Pressure CO2 45.2 mm[Hg] 40.0-52.0 [facility] Venous Blood pH 7.387 7.330-7.430 [facility] Platelet mean volume Auto (B ld) [Entitic vol]on 01-01-2025 Platelet mean volume (Bld) [Entitic vol] Platelet mean volume [Entitic volume] in Blood by Automated count 9.5-13.5 [facility] Platelet mean volume (Bld) [Entitic vol] 10.2 fL 9.5-13.5 [facility] Platelets Auto (Bld) [#/Vol] on 01-01-2025 Platelets (Bld) [#/Vol] Platelets [#/vol ume] in Blood by Automated count 150-450 [facility] Platelets (Bld) [#/Vol] 325 10 3/uL 150-450 [facility] RBC Auto (Bld) [#/Vol]on RBC (Bld) [#/Vol] Erythrocytes [#/volume] in Blood by Automated count 4.20-5.40 [facility] RBC (Bld) [#/Vol] 4.72 10 6/uL 4.20-5.40 [facility] Serum or plasma albumin/glob ulin mass ratioon 01-01-2025 Albumin/Globulin [Mass ratio] Serum or plasma albumin/globulin mass ratio [facility] Albumin/Globulin [Mass ratio] 0.8 {ratio} [facility] Serum or plasma anion gap de terminationon 01-01-2025 Anion gap [Moles/Vol] Serum or plasma anion gap determination [facility] Anion gap [Moles/Vol] 7.8 mmol/L [facility] Urine Cultureon 01-01-2025 Bacteria identified Cx Nom (U) No Growth 2 Days PERFORMED BY: [facility] [address] [place] [address] PATHOLOGIST TRUCK GREASER TARYN PITTMAN M.D. Normal [facility] Comment on above: Performed By: #### C UU #### [facility] [address] Urine cultureOrdered By: Francisco Javier Romeo on 01-01-2025 Bacteria identified Cx Nom (U) Urine culture [facility] Bacteria identified Cx Nom (U) No Growth 2 Days [facility] Urine tricyclic antidepressa nt measurementon 01-01-2025 Tricyclic antidepressants (U) [Mass/Vol] Urine tricyclic antidepressant measurement NEGATIVE [facility] Tricyclic antidepressants (U) [Mass/Vol] Negative NEGATIVE [facility] oxyCODONE+oxyMORphone [Prese nce] in Urine by Screen methodon 01-01-2025 oxyCODONE+oxyMORphone Screen Ql (U) oxyCODONE+oxyMORphon e [Presence] in Urine by Screen method NEGATIVE [facility] oxyCODONE+oxyMORphone Screen Ql (U) Negative NEGATIVE [facility] Basophils Auto (Bld) [#/Vol] on 12-30-2024 Basophils (Bld) [#/Vol] Automated basoph il count 0.0-0.1 [facility] Basophils (Bld) [#/Vol] 0.1 10 3/uL 0.0-0.1 [facility] Basophils/100 WBC Auto (Bld) on 12-30-2024 Basophils/100 WBC (Bld) Automated basophil % 0. 2-2.0 [facility] Basophils/100 WBC (Bld) 0.8 % 0.2-2.0 F [facility] Cholesterol in LDL Calc [Mas s/Vol]on 12-30-2024 Cholesterol in LDL [Mass/Vol] Cholesterol in LDL [Mass/volume] in Serum or Plasma by calculation [facility] Comment on above: <100 mg/dl [id number] 0-129 mg/dl NEAR OR ABOVE [id number] mg/dl BORDERLINE [id number] mg/dl HIGH>190 mg/dl VERY HIGH Cholesterol in LDL [Mass/Vol] 156.0 mg/dL [facility] Comment on above: <100 mg/dl [id number] 0-129 mg/dl NEAR OR ABOVE [id number] mg/dl BORDERLINE [id number] mg/dl HIGH>190 mg/dl VERY HIGH Cholesterol in VLDL Calc [Ma ss/Vol]on 12-30-2024 Cholesterol in VLDL [Mass/Vol] Cholesterol in VLDL [Mass/volume] in Serum or Plasma by calculation [facility] Cholesterol in VLDL [Mass/Vol] 21.0 mg/dL [facility] Eosinophils/100 WBC Auto (Bl d)on 12-30-2024 Eosinophils/100 WBC (Bld) Automated eosinophil % 0.9-7.0 [facility] Eosinophils/100 WBC (Bld) 1.0 % 0.9-7.0 [facility] Erythrocyte distribution wid th Auto (RBC) [Ratio]on 12-30-2024 Erythrocyte distribution width (RBC) [Ratio] Erythrocyte distribution width [Ratio] by Automated count 11.0-15.0 [facility] Erythrocyte distribution width (RBC) [Ratio] 13.8 % 11.0-15.0 [facility] Estimated glomerular filtrat ion rate (GFR) non- Americanon 12-30-2024 GFR/1.73 sq M.predicted among non-blacks MDRD (S/P/Bld) [Vol rate/Area] Estimated glomerular filtration rate (GFR) non- >=60 mL/min/1.73m 2 [facility] GFR/1.73 sq M.predicted among non-blacks MDRD (S/P/Bld) [Vol rate/Area] mL/min/{1.73_m2} >=60 mL/min/1.73m 2 [facility] Globulin Calc (S) [Mass/Vol] on 12-30-2024 Globulin (S) [Mass/Vol] Serum globulin measurement by calculation (mass/volume) [facility] Globulin (S) [Mass/Vol] 4.1 g/dL F [facility] Glucose mean value [Mass/vol ume] in Blood Estimated from glycated hemoglobinon 12-30-2024 Average glucose Estimated from glycated hemoglobin (Bld) [Mass/Vol] Glucose mean value [Mass/volume] in Blood Estimated from glycated hemoglobin [facility] Average glucose Estimated from glycated hemoglobin (Bld) [Mass/Vol] 111 mg/dL [facility] Hematocrit Auto (Bld) [Volum e fraction]on 12-30-2024 Hematocrit (Bld) [Volume fraction] Hematocrit [Volume Fraction] of Blood by Automated count 36.0-48.0 [facility] Hematocrit (Bld) [Volume fraction] 39.6 % 36.0-48.0 [facility] Hemoglobin A1c percentageon 12-30-2024 HbA1c (Bld) [Mass fraction] Hemoglobin A1c percentage 4.5-6.2 [facility] Comment on above: ADA RECOMMENDED LIMI T 4.0 - 6.0ADA THERAPEUTIC TARGET < 7.0ACTION SUGGESTED> 7.0 HbA1c (Bld) [Mass fraction] 5.5 % 4.5-6.2 [facility] Comment on above: ADA RECOMMENDED LIMI T 4.0 - 6.0ADA THERAPEUTIC TARGET < 7.0ACTION SUGGESTED> 7.0 Hemoglobin [Mass/volume] in Bloodon 12-30-2024 Hemoglobin (Bld) [Mass/Vol] Hemoglobin [Mass/volume] in Blood 12.0-16.0 [facility] Hemoglobin (Bld) [Mass/Vol] 13.4 g/dL 12.0-16.0 [facility] Laboratory - Chemistry and C hemistry - challengeon 12-30-2024 Albumin [Mass/Vol] 3.3 g/dL Low 3.4-5.0 [facility] ALP [Catalytic activity/Vol] 127 U/L High 46-116 [facility] ALT [Catalytic activity/Vol] 17 U/L 14-59 [facility] AST [Catalytic activity/Vol] 14 U/L Low 15-37 [facility] Bilirubin [Mass/Vol] 0.6 mg/dL 0.2-1.0 [facility] Calcium [Mass/Vol] 9.1 mg/dL 8.5-10.1 [facility] Chloride [Moles/Vol] 104 mmol/L 98-107 [facility] Cholesterol [Mass/Vol] 229 mg/dL High <=200 [facility] Cholesterol in HDL [Mass/Vol] 52 mg/dL 40-60 [facility] Comment on above: > or =60 mg/dl - LOW CARDIOVASCULAR RISK<40 mg/dl - HIGH CARDIOVASCULAR RISK CO2 [Moles/Vol] 24.7 mmol/L 21.0-32.0 [facility] Creatinine [Mass/Vol] 0.74 mg/dL 0.55-1.02 [facility] GFR/1.73 sq M.predicted MDRD (S/P/Bld) [Vol rate/Area] mL/min/{1.73_m2} >=60 mL/min/1.73m 2 [facility] Glucose [Mass/Vol] 97 mg/dL 74-106 [facility] Potassium [Moles/Vol] 3.2 mmol/L Low 3.5-5.1 [facility] Protein [Mass/Vol] 7.4 g/dL 6.4-8.2 [facility] Sodium [Moles/Vol] 137 mmol/L 136-145 [facility] Triglyceride [Mass/Vol] 105 mg/dL <=150 F [facility] TSH Qn 2.531 m[IU]/L 0.358-3.740 [facility] Urea nitrogen [Mass/Vol] 17.0 mg/dL 7.0-18.0 [facility] Urea nitrogen/Creatinine [Mass ratio] 23.0 mg/mg [facility] Laboratory - Hematology and Cell countson 12-30-2024 Immature granulocytes/100 WBC (Bld) 0.3 % 0.0-0.5 [facility] Leukocytes [#/volume] correc sharon for nucleated erythrocytes in Blood by Automated counon 12-30-2024 WBC corrected for nucl RBC Auto (Bld) [#/Vol] Leukocytes [#/volume] corrected for nucleated erythrocytes in Blood by Automated coun 4.0-11.0 [facility] WBC corrected for nucl RBC Auto (Bld) [#/Vol] 6.0 10 3/uL 4.0-11.0 [facility] Lymphocytes Auto (Bld) [#/Vo l]on 12-30-2024 Lymphocytes (Bld) [#/Vol] Lymphocytes [#/volume] in Blood by Automated count 1.2-3.8 [facility] Lymphocytes (Bld) [#/Vol] 1.2 10 3/uL 1.2-3.8 [facility] Lymphocytes/100 WBC Auto (Bl d)on 12-30-2024 Lymphocytes/100 WBC (Bld) Lymphocytes/100 leukocytes in Blood by Automated count Low 20.5-60.0 [facility] Lymphocytes/100 WBC (Bld) 19.7 % Low 20.5-60.0 [facility] MCH Auto (RBC) [Entitic mass ]on 12-30-2024 MCH (RBC) [Entitic mass] MCH [Entitic mass] by Automated count 26.7-34.0 [facility] MCH (RBC) [Entitic mass] 30.1 pg 26.7-34.0 [facility] MCHC Auto (RBC) [Mass/Vol]on 12-30-2024 MCHC (RBC) [Mass/Vol] MCHC [Mass/volume] by Automated count 29.9-35.2 [facility] MCHC (RBC) [Mass/Vol] 33.8 g/dL 29.9-35.2 [facility] MCV Auto (RBC) [Entitic vol] on 12-30-2024 MCV (RBC) [Entitic vol] MCV [Entitic vol ume] by Automated count 81.0-99.0 [facility] MCV (RBC) [Entitic vol] 89.0 fL 81.0-99.0 [facility] Monocytes Auto (Bld) [#/Vol] on 12-30-2024 Monocytes (Bld) [#/Vol] Automated blood monocyte count High 0.3-0.8 [facility] Monocytes (Bld) [#/Vol] 0.9 10 3/uL High 0.3-0.8 [facility] Monocytes/100 WBC Auto (Bld) on 12-30-2024 Monocytes/100 WBC (Bld) Automated monocyte % High 1. 7-12.0 [facility] Monocytes/100 WBC (Bld) 14.5 % High 1.7-12.0 [facility] Neutrophils Auto (Bld) [#/Vo l]on 12-30-2024 Neutrophils (Bld) [#/Vol] Neutrophils [#/volume] in Blood by Automated count 1.4-6.5 [facility] Neutrophils (Bld) [#/Vol] 3.8 10 3/uL 1.4-6.5 [facility] Neutrophils/100 WBC Auto (Bl d)on 12-30-2024 Neutrophils/100 WBC (Bld) Automated neutrophil % 43.0-75.0 [facility] Neutrophils/100 WBC (Bld) 63.7 % 43.0-75.0 [facility] No Panel Informationon 12-30 Eosinophils # (Auto) 0.1 10 3/uL 0.0-0.7 [facility] Immature Granulocyte # (Auto) 0.02 10 3/uL 0.00-0.03 [facility] Troponin I High Sensitivity 5.4 pg/mL 4.0-51.3 [facility] Comment on above: CUT-OFF POINTS HAVE BEEN [...] volume] in Blood by Automated count 9.5-13.5 [facility] Platelet mean volume (Bld) [Entitic vol] 10.6 fL 9.5-13.5 [facility] Platelets Auto (Bld) [#/Vol] on 12-30-2024 Platelets (Bld) [#/Vol] Platelets [#/vol ume] in Blood by Automated count 150-450 [facility] Platelets (Bld) [#/Vol] 320 10 3/uL 150-450 [facility] RBC Auto (Bld) [#/Vol]on RBC (Bld) [#/Vol] Erythrocytes [#/volume] in Blood by Automated count 4.20-5.40 [facility] RBC (Bld) [#/Vol] 4.45 10 6/uL 4.20-5.40 [facility] Serum or plasma albumin/glob ulin mass ratioon 12-30-2024 Albumin/Globulin [Mass ratio] Serum or plasma albumin/globulin mass ratio [facility] Albumin/Globulin [Mass ratio] 0.8 {ratio} [facility] Serum or plasma anion gap de terminationon 12-30-2024 Anion gap [Moles/Vol] Serum or plasma anion gap determination [facility] Anion gap [Moles/Vol] 11.5 mmol/[facility] Serum or plasma total choles terol/high density lipoprotein (HDL) cholesterol mass aakash 12-30-2024 Cholesterol.total/Kinga sterol in HDL [Mass ratio] Serum or plasma total cholesterol/high density lipoprotein (HDL) cholesterol mass rat [facility] Comment on above: 3.3 - 4.4 LOW RISK4. 4 - 7.1 AVERAGE RISK7.1 - 11.0 MODERATE RISK>11.0 HIGH RISK Cholesterol.total/Kinga sterol in HDL [Mass ratio] 4.4 {ratio} [facility] Comment on above: 3.3 - 4.4 LOW RISK4. 4 - 7.1 AVERAGE RISK7.1 - 11.0 MODERATE RISK>11.0 HIGH RISK Basophils Auto (Bld) [#/Vol] on 12-29-2024 Basophils (Bld) [#/Vol] Automated basoph il count 0.0-0.1 [facility] Basophils (Bld) [#/Vol] 0.1 10 3/uL 0.0-0.1 [facility] Basophils/100 WBC Auto (Bld) on 12-29-2024 Basophils/100 WBC (Bld) Automated basophil % 0. 2-2.0 [facility] Basophils/100 WBC (Bld) 0.6 % 0.2-2.0 [facility] Eosinophils/100 WBC Auto (Bl d)on 12-29-2024 Eosinophils/100 WBC (Bld) Automated eosinophil % Low 0.9-7.0 [facility] Eosinophils/100 WBC (Bld) 0.4 % Low 0.9-7.0 [facility] Erythrocyte distribution wid th Auto (RBC) [Ratio]on 12-29-2024 Erythrocyte distribution width (RBC) [Ratio] Erythrocyte distribution width [Ratio] by Automated count 11.0-15.0 [facility] Erythrocyte distribution width (RBC) [Ratio] 13.6 % 11.0-15.0 [facility] Estimated glomerular filtrat ion rate (GFR) non- Americanon 12-29-2024 GFR/1.73 sq M.predicted among non-blacks MDRD (S/P/Bld) [Vol rate/Area] Estimated glomerular filtration rate (GFR) non- Low >=60 mL/min/1.73m 2 [facility] GFR/1.73 sq M.predicted among non-blacks MDRD (S/P/Bld) [Vol rate/Area] 57 mL/min/{1.73_m2} Low >=60 mL/min/1.73m 2 [facility] Globulin Calc (S) [Mass/Vol] on 12-29-2024 Globulin (S) [Mass/Vol] Serum globulin measurement by calculation (mass/volume) [facility] Globulin (S) [Mass/Vol] 4.7 g/dL [facility] Hematocrit Auto (Bld) [Volum e fraction]on 12-29-2024 Hematocrit (Bld) [Volume fraction] Hematocrit [Volume Fraction] of Blood by Automated count 36.0-48.0 [facility] Hematocrit (Bld) [Volume fraction] 44.1 % 36.0-48.0 [facility] Hemoglobin [Mass/volume] in Bloodon 12-29-2024 Hemoglobin (Bld) [Mass/Vol] Hemoglobin [Mass/volume] in Blood 12.0-16.0 [facility] Hemoglobin (Bld) [Mass/Vol] 14.9 g/dL 12.0-16.0 [facility] INR in Platelet poor plasma by Coagulation assayon 12-29-2024 INR Coag (PPP) [Relative time] INR in Platelet poor plasma by Coagulation assay [facility] Comment on above: DESIRED INR:2.0-3.0 CONDITIONS NOT LISTED BELOW2.5-3.5 FOR PROSTHETIC HEART VALVE REPLACEMENT2.5-3.5 RECURRENT THROMBOSIS INR Coag (PPP) [Relative time] 0.97 {INR} [facility] Comment on above: DESIRED INR:2.0-3.0 CONDITIONS NOT LISTED BELOW2.5-3.5 FOR PROSTHETIC HEART VALVE REPLACEMENT2.5-3.5 RECURRENT THROMBOSIS Laboratory - Chemistry and C hemistry - challengeon 12-29-2024 Bilirubin Ql (U) Negative NEGATIVE [facility] Glucose (U) [Mass/Vol] Negative NEGATIVE [facility] Ketones Ql (U) TRACE mg/dL Abnormal NEGATIVE [facility] pH (U) 6.0 [pH] 5.0-9.0 [facility] Specific gravity (U) [Rel density] >=1.030 Abnormal 1.005-1.025 [facility] Urobilinogen Qn (U) 1.0 {Aura'U}/dL 0.2-1.0 [facility] Albumin [Mass/Vol] 3.6 g/dL 3.4-5.0 [facility] ALP [Catalytic activity/Vol] 146 U/L High 46-116 [facility] ALT [Catalytic activity/Vol] 18 U/L 14-59 [facility] AST [Catalytic activity/Vol] 17 U/L 15-37 [facility] Bilirubin [Mass/Vol] 0.6 mg/dL 0.2-1.0 [facility] Calcium [Mass/Vol] 9.6 mg/dL 8.5-10.1 [facility] Chloride [Moles/Vol] 102 mmol/L 98-107 [facility] CO2 [Moles/Vol] 25.3 mmol/L 21.0-32.0 [facility] Creatinine [Mass/Vol] 0.96 mg/dL 0.55-1.02 [facility] GFR/1.73 sq M.predicted MDRD (S/P/Bld) [Vol rate/Area] mL/min/{1.73_m2} >=60 mL/min/1.73m 2 [facility] Glucose [Mass/Vol] 101 mg/dL 74-106 [facility] Potassium [Moles/Vol] 3.6 mmol/L 3.5-5.1 [facility] Protein [Mass/Vol] 8.3 g/dL High 6.4-8.2 [facility] Sodium [Moles/Vol] 136 mmol/L 136-145 [facility] Urea nitrogen [Mass/Vol] 19.0 mg/dL High 7.0-18.0 [facility] Urea nitrogen/Creatinine [Mass ratio] 19.8 mg/mg [facility] Laboratory - Hematology and Cell countson 12-29-2024 Immature granulocytes/100 WBC (Bld) 0.2 % 0.0-0.5 [facility] Laboratory - Specimen inform ationon 12-29-2024 Appearance (U) CLEAR CLEAR [facility] Color (U) YELLOW YELLOW [facility] Laboratory - Urinalysison Leukocyte esterase Test strip Ql (U) Negative NEGATIVE [facility] Mucus Ql (Urine sed) MODERATE Abnormal NONE SEEN [facility] Nitrite Ql (U) Negative NEGATIVE [facility] Protein Ql (U) TRACE mg/dL NEG/TRACE [facility] Leukocytes [#/volume] correc sharon for nucleated erythrocytes in Blood by Automated counon 12-29-2024 WBC corrected for nucl RBC Auto (Bld) [#/Vol] Leukocytes [#/volume] corrected for nucleated erythrocytes in Blood by Automated coun 4.0-11.0 [facility] WBC corrected for nucl RBC Auto (Bld) [#/Vol] 9.3 10 3/uL 4.0-11.0 [facility] Lymphocytes Auto (Bld) [#/Vo l]on 12-29-2024 Lymphocytes (Bld) [#/Vol] Lymphocytes [#/volume] in Blood by Automated count 1.2-3.8 [facility] Lymphocytes (Bld) [#/Vol] 1.4 10 3/uL 1.2-3.8 [facility] Lymphocytes/100 WBC Auto (Bl d)on 12-29-2024 Lymphocytes/100 WBC (Bld) Lymphocytes/100 leukocytes in Blood by Automated count Low 20.5-60.0 [facility] Lymphocytes/100 WBC (Bld) 14.6 % Low 20.5-60.0 [facility] MCH Auto (RBC) [Entitic mass ]on 12-29-2024 MCH (RBC) [Entitic mass] MCH [Entitic mass] by Automated count 26.7-34.0 [facility] MCH (RBC) [Entitic mass] 30.2 pg 26.7-34.0 [facility] MCHC Auto (RBC) [Mass/Vol]on 12-29-2024 MCHC (RBC) [Mass/Vol] MCHC [Mass/volume] by Automated count 29.9-35.2 [facility] MCHC (RBC) [Mass/Vol] 33.8 g/dL 29.9-35.2 [facility] MCV Auto (RBC) [Entitic vol] on 12-29-2024 MCV (RBC) [Entitic vol] MCV [Entitic vol ume] by Automated count 81.0-99.0 [facility] MCV (RBC) [Entitic vol] 89.3 fL 81.0-99.0 [facility] Monocytes Auto (Bld) [#/Vol] on 12-29-2024 Monocytes (Bld) [#/Vol] Automated blood monocyte count High 0.3-0.8 [facility] Monocytes (Bld) [#/Vol] 1.0 10 3/uL High 0.3-0.8 [facility] Monocytes/100 WBC Auto (Bld) on 12-29-2024 Monocytes/100 WBC (Bld) Automated monocyte % 1. 7-12.0 [facility] Monocytes/100 WBC (Bld) 10.7 % 1.7-12.0 [facility] Neutrophils Auto (Bld) [#/Vo l]on 12-29-2024 Neutrophils (Bld) [#/Vol] Neutrophils [#/volume] in Blood by Automated count High 1.4-6.5 [facility] Neutrophils (Bld) [#/Vol] 6.9 10 3/uL High 1.4-6.5 [facility] Neutrophils/100 WBC Auto (Bl d)on 12-29-2024 Neutrophils/100 WBC (Bld) Automated neutrophil % 43.0-75.0 [facility] Neutrophils/100 WBC (Bld) 73.5 % 43.0-75.0 [facility] No Panel Informationon 12-29 Urine Bacteria TRACE #/HPF Abnormal NONE SEEN [facility] Urine Culture Reflexed NO [facility] Urine Microscopic Review YES [facility] Urine Occult Blood SMALL Abnormal NEGATIVE [facility] Urine Other Casts NONE SEEN #/LPF NONE SEEN [facility] Urine Other Crystals None Seen #/HPF None Seen [facility] Urine RBC 0-2 #/HPF 0-2 [facility] Urine Squamous Epithelial Cells RARE #/LPF NONE/RARE [facility] Urine WBC 0-2 #/HPF Abnormal NONE SEEN [facility] Eosinophils # (Auto) 0.0 10 3/uL 0.0-0.7 [facility] Immature Granulocyte # (Auto) 0.02 10 3/uL 0.00-0.03 [facility] Troponin I High Sensitivity <4.0 pg/mL Low 4.0-51.3 [facility] Comment on above: CUT-OFF POINTS HAVE BEEN [...] volume] in Blood by Automated count 9.5-13.5 [facility] Platelet mean volume (Bld) [Entitic vol] 10.2 fL 9.5-13.5 [facility] Platelets Auto (Bld) [#/Vol] on 12-29-2024 Platelets (Bld) [#/Vol] Platelets [#/vol ume] in Blood by Automated count 150-450 [facility] Platelets (Bld) [#/Vol] 369 10 3/uL 150-450 [facility] Prothrombin time (PT)on PT Coag (PPP) [Time] Prothrombin time (PT) 9.0-11.6 [facility] PT Coag (PPP) [Time] 10.3 s 9.0-11.6 [facility] RBC Auto (Bld) [#/Vol]on RBC (Bld) [#/Vol] Erythrocytes [#/volume] in Blood by Automated count 4.20-5.40 [facility] RBC (Bld) [#/Vol] 4.94 10 6/uL 4.20-5.40 [facility] Serum or plasma albumin/glob ulin mass ratioon 12-29-2024 Albumin/Globulin [Mass ratio] Serum or plasma albumin/globulin mass ratio [facility] Albumin/Globulin [Mass ratio] 0.8 {ratio} [facility] Serum or plasma anion gap de terminationon 12-29-2024 Anion gap [Moles/Vol] Serum or plasma anion gap determination [facility] Anion gap [Moles/Vol] 12.3 mmol/L [facility] Laboratory - Chemistry and C hemistry - challengeon 11-24-2024 Bilirubin Ql (U) Negative [facility] Glucose (U) [Mass/Vol] Negative [facility] Ketones Ql (U) Negative [facility] pH (U) 5.0 [pH] [facility] Specific gravity (U) [Rel density] 1.015 [facility] Urobilinogen (U) [Mass/Vol] 0.2 mg/dL [facility] Laboratory - Specimen inform ationon 11-24-2024 Appearance (U) clear [facility] Color (U) yellow [facility] Laboratory - Urinalysison Leukocyte esterase Test strip Ql (U) Negative [facility] Nitrite Ql (U) Negative [facility] Protein Ql (U) + [facility] No Panel Informationon 11-24 Urine Occult Blood +/- [facility] Basophils Auto (Bld) [#/Vol] on 01-12-2024 Basophils (Bld) [#/Vol] 0.1 10 3/uL 0.0-0.1 [facility] Basophils/100 WBC Auto (Bld) on 01-12-2024 Basophils/100 WBC (Bld) 1.0 % 0.2-2.0 [facility] Eosinophils/100 WBC Auto (Bl d)on 01-12-2024 Eosinophils/100 WBC (Bld) 1.2 % 0.9-7.0 [facility] Erythrocyte distribution wid th Auto (RBC) [Ratio]on 01-12-2024 Erythrocyte distribution width (RBC) [Ratio] 14.3 % 11.0-15.0 [facility] Estimated glomerular filtrat ion rate (GFR) non- Americanon 01-12-2024 GFR/1.73 sq M.predicted among non-blacks MDRD (S/P/Bld) [Vol rate/Area] mL/min/{1.73_m2} >=60 [facility] Globulin Calc (S) [Mass/Vol] on 01-12-2024 Globulin (S) [Mass/Vol] 4.3 g/dL F [facility] Hematocrit Auto (Bld) [Volum e fraction]on 01-12-2024 Hematocrit (Bld) [Volume fraction] 40.5 % 36.0-48.0 [facility] Hemoglobin [Mass/volume] in Bloodon 01-12-2024 Hemoglobin (Bld) [Mass/Vol] 13.1 g/dL 12.0-16.0 [facility] Laboratory - Chemistry and C hemistry - challengeon 01-12-2024 Albumin [Mass/Vol] 3.6 g/dL 3.4-5.0 [facility] ALP [Catalytic activity/Vol] 98 U/L 46-116 [facility] ALT [Catalytic activity/Vol] 14 U/L 14-59 [facility] AST [Catalytic activity/Vol] 14 U/L 15-37 [facility] Bilirubin [Mass/Vol] 0.7 mg/dL 0.2-1.0 [facility] Calcium [Mass/Vol] 9.7 mg/dL 8.5-10.1 [facility] Chloride [Moles/Vol] 99 mmol/L 98-107 [facility] CO2 [Moles/Vol] 24.0 mmol/L 21.0-32.0 [facility] Creatinine [Mass/Vol] 0.88 mg/dL 0.55-1.02 [facility] GFR/1.73 sq M.predicted MDRD (S/P/Bld) [Vol rate/Area] mL/min/{1.73_m2} >=60 [facility] Glucose [Mass/Vol] 103 mg/dL 74-106 [facility] Potassium [Moles/Vol] 3.6 mmol/L 3.5-5.1 [facility] Protein [Mass/Vol] 7.9 g/dL 6.4-8.2 [facility] Sodium [Moles/Vol] 136 mmol/L 136-145 [facility] Urea nitrogen [Mass/Vol] 20.0 mg/dL 7.0-18.0 [facility] Urea nitrogen/Creatinine [Mass ratio] 22.7 mg/mg [facility] Laboratory - Hematology and Cell countson 01-12-2024 Immature granulocytes/100 WBC (Bld) 0.3 % 0.0-0.5 [facility] Leukocytes [#/volume] correc sharon for nucleated erythrocytes in Blood by Automated counon 01-12-2024 WBC corrected for nucl RBC Auto (Bld) [#/Vol] 7.7 10 3/uL 4.0-11.0 [facility] Lymphocytes Auto (Bld) [#/Vo l]on 01-12-2024 Lymphocytes (Bld) [#/Vol] 1.2 10 3/uL 1.2-3.8 [facility] Lymphocytes/100 WBC Auto (Bl d)on 01-12-2024 Lymphocytes/100 WBC (Bld) 15.0 % 20.5-60.0 [facility] MCH Auto (RBC) [Entitic mass ]on 01-12-2024 MCH (RBC) [Entitic mass] 28.5 pg 26.7-34.0 [facility] MCHC Auto (RBC) [Mass/Vol]on 01-12-2024 MCHC (RBC) [Mass/Vol] 32.3 g/dL 29.9-35.2 Fir [facility] MCV Auto (RBC) [Entitic vol] on 01-12-2024 MCV (RBC) [Entitic vol] 88.2 fL 81.0-99.0 F [facility] Monocytes Auto (Bld) [#/Vol] on 01-12-2024 Monocytes (Bld) [#/Vol] 0.9 10 3/uL 0.3-0.8 [facility] Monocytes/100 WBC Auto (Bld) on 01-12-2024 Monocytes/100 WBC (Bld) 12.0 % 1.7-12.0 F [facility] Neutrophils Auto (Bld) [#/Vo l]on 01-12-2024 Neutrophils (Bld) [#/Vol] 5.4 10 3/uL 1.4-6.5 [facility] Neutrophils/100 WBC Auto (Bl d)on 01-12-2024 Neutrophils/100 WBC (Bld) 70.5 % 43.0-75.0 [facility] No Panel Informationon 01-11 Troponin I High Sensitivity 9.6 pg/mL 4.0-51.3 [facility] Comment on above: CUT-OFF POINTS HAVE BEEN [...] Eosinophils # (Auto) 0.1 10 3/uL 0.0-0.7 [facility] Immature Granulocyte # (Auto) 0.02 10 3/uL 0.00-0.03 [facility] Platelet mean volume Auto (B ld) [Entitic vol]on 01-12-2024 Platelet mean volume (Bld) [Entitic vol] 10.8 fL 9.5-13.5 [facility] Platelets Auto (Bld) [#/Vol] on 01-12-2024 Platelets (Bld) [#/Vol] 334 10 3/uL 150-450 [facility] RBC Auto (Bld) [#/Vol]on RBC (Bld) [#/Vol] 4.59 10 6/uL 4.20-5.40 [facility] Serum or plasma albumin/glob ulin mass ratioon 01-12-2024 Albumin/Globulin [Mass ratio] 0.8 {ratio} [facility] Serum or plasma anion gap de terminationon 01-12-2024 Anion gap [Moles/Vol] 16.6 mmol/L [facility] MRI LSPINE WO CONon 12-07-19 MRI LSPINE [...] DOS SANTOS Date: 2022-12-06 10:06 Normal [facility] MG MAMM ALE DIAG W CADon MG MAMM ALE DIAG W CAD No [employer] Other MG MAMM DIAGNOSTIC 3D ALE CA Don 10-18-2022 MG MAMM DIAGNOSTIC 3D ALE CAD Patient: BIRGIT CLARKE Exam Date: 10/18/2022 : 1950 Gender:F Ordering : DR FRANCIS OSBORNE D.O. Admission #: [id number] Family : Order #: [id number] CLICK HERE TO VIEW EXAM RADIOLOGY REPORT [...] with lung cancer at age 58. LOCATION: [facility] BREAST COMPOSITION: Scattered areas fibroglandular density. FINDINGS: [...] Travis M.D. on 10/18/2022 at 13:36 Normal [facility] XR HIP RT 2 3V W PELVISon XR HIP RT 2 3V W PELVIS N [facility] [employer] Other XR LSPINE W_OBLS AND FLEX_EX Ton [...] by: MURRAY TRAVIS Date: 2022-10-18 18:59 Normal [facility] XR lumbar spine 6V w bending on 10-18-2022 XR lumbar spine 6V w bending [employer] Other Vital Signs Date Time Vital Sign Value Performing Clinician Facility 01-06-2025 16:07-0400 Body height 157.48 cm Assured Labor DO Work Phone: [facility] 01-06-2025 16:07-0400 Body mass index (BMI) [Ratio] 30.6 kg/m2 Assured Labor DO Work Phone: [facility] 01-06-2025 16:07-0400 Body weight 75.92 kg Dorian Pay DO Work Phone: [facility] 01-06-2025 16:07-0400 Diastolic blood pressure 87 mm[Hg] Dorian Pay DO Work Phone: [facility] 01-06-2025 16:07-0400 Heart rate 71 /min Dorian Pay DO Work Phone: [facility] 01-06-2025 16:07-0400 Respiratory rate 12 /min Dorian Pay DO Work Phone: [facility] 01-06-2025 16:07-0400 Systolic blood pressure 133 mm[Hg] Dorian Pay DO Work Phone: [facility] 01-03-2025 12:10-0400 Body temperature 97.81 [degF] Lobo Miguel MD Work Phone: [facility] 01-03-2025 12:10-0400 Diastolic blood pressure 81 mm[Hg] Lobo Miguel MD Work Phone: [facility] 01-03-2025 12:10-0400 Heart rate 64 /min Lobo Miguel MD Work Phone: [facility] 01-03-2025 12:10-0400 Respiratory rate 18 /min Lobo Miguel MD Work Phone: [facility] 01-03-2025 12:10-0400 SaO2% (BldA) [Mass fraction] 94 % Lobo Miguel MD Work Phone: [facility] 01-03-2025 12:10-0400 Systolic blood pressure 149 mm[Hg] Lobo Miguel MD Work Phone: [facility] 01-02-2025 05:00-0400 Body height 152.4 cm Lobo Miguel MD Work Phone: [facility] 01-02-2025 05:00-0400 Body mass index (BMI) [Ratio] 32.29 kg/m2 Lobo Miguel MD Work Phone: [facility] 01-02-2025 05:00-0400 Body weight 75 kg Lobo Miguel MD Work Phone: [facility] 11-24-2024 15:23-0400 Body height 157.48 cm [facility] 11-24-2024 15:23-0400 Body mass index (BMI) [Ratio] 30.7 kg/m2 [facility] 11-24-2024 15:23-0400 Body weight 76.2 kg [facility] 11-24-2024 15:23-0400 Diastolic blood pressure 84 mm[Hg] [facility] 11-24-2024 15:23-0400 Heart rate 111 /min [facility] 11-24-2024 15:23-0400 Respiratory rate 12 /min [facility] 11-24-2024 15:23-0400 Systolic blood pressure 131 mm[Hg] [facility] 09-24-2024 11:02-0500 Body height 157.48 cm [facility] 09-24-2024 11:02-0500 Body mass index (BMI) [Ratio] 30.5 kg/m2 [facility] 09-24-2024 11:02-0500 Body weight 75.74 kg [facility] 09-24-2024 11:02-0500 Diastolic blood pressure 110 mm[Hg] [facility] 09-24-2024 11:02-0500 Heart rate 111 /min [facility] 09-24-2024 11:02-0500 Respiratory rate 20 /min [facility] 09-24-2024 11:02-0500 Systolic blood pressure 145 mm[Hg] [facility] 05-08-2024 09:38-0400 Body height 157.48 cm DO Francis Ball Work Phone: [facility] 05-08-2024 09:38-0400 Body mass index (BMI) [Ratio] 30.2 kg/m2 DO Francis Ball Work Phone: [facility] 05-08-2024 09:38-0400 Body weight 74.84 kg DO Francis Ball Work Phone: [facility] 05-08-2024 09:38-0400 Diastolic blood pressure 86 mm[Hg] DO Francis Ball Work Phone: [facility] 05-08-2024 09:38-0400 Heart rate 84 /min DO Francis Ball Work Phone: [facility] 05-08-2024 09:38-0400 Respiratory rate 12 /min DO Francis Ball Work Phone: [facility] 05-08-2024 09:38-0400 Systolic blood pressure 136 mm[Hg] DO Francis Ball Work Phone: [facility] 02-10-2024 10:42-0400 Body height 157.48 cm [facility] 02-10-2024 10:42-0400 Body mass index (BMI) [Ratio] 29.9 kg/m2 [facility] 02-10-2024 10:42-0400 Body weight 74.38 kg [facility] 02-10-2024 10:42-0400 Diastolic blood pressure 89 mm[Hg] [facility] 02-10-2024 10:42-0400 Heart rate 114 /min [facility] 02-10-2024 10:42-0400 Respiratory rate 12 /min [facility] 02-10-2024 10:42-0400 Systolic blood pressure 130 mm[Hg] [facility] 05-15-2023 15:45-0400 Body height 157.48 cm Francis Ball Other [facility] [employer] Other 05-15-2023 15:45-0400 Body mass index (BMI) [Ratio] 32.37 kg/m2 Francis Ball Other [facility] [employer] Other 05-15-2023 15:45-0400 Body weight 80.29 kg Francis Ball Other [facility] [employer] Other 05-15-2023 15:45-0400 Diastolic blood pressure 87 mm[Hg] Francis Ball Other [employer] Other 05-15-2023 15:45-0400 Respiratory rate 12 /min Francis Ball Other [employer] Other 05-15-2023 15:45-0400 Systolic blood pressure 121 mm[Hg] Francis Ball Other [employer] Other 04-12-2023 11:25-0400 Body height 157.48 cm Emiliana Patricia Other [employer] Other 04-12-2023 11:25-0400 Body mass index (BMI) [Ratio] 31.09 kg/m2 Emiliana Patricia Other [employer] Other 04-12-2023 11:25-0400 Body temperature 98.1 [degF] Emiliana Patricia Other [employer] Other 04-12-2023 11:25-0400 Body weight 77.11 kg Emiliana Patricia Other [employer] Other 04-12-2023 11:25-0400 Diastolic blood pressure 88 mm[Hg] Emiliana Patricia Other [employer] Other 04-12-2023 11:25-0400 Respiratory rate 18 /min Emiliana Patricia Other [employer] Other 04-12-2023 11:25-0400 SaO2% (BldA) [Mass fraction] 98 % Emiliana Patricia Other [employer] Other 04-12-2023 11:25-0400 Systolic blood pressure 144 mm[Hg] Emiliana Patricia Other [employer] Other 04-08-2023 09:00-0400 Body height 157.48 cm Francis Ball Other [employer] Other 04-08-2023 09:00-0400 Body mass index (BMI) [Ratio] 32.19 kg/m2 Francis Ball Other [employer] Other 04-08-2023 09:00-0400 Body weight 79.83 kg Francis Ball Other [employer] Other 04-08-2023 09:00-0400 Diastolic blood pressure 83 mm[Hg] Francis Ball Other [employer] Other 04-08-2023 09:00-0400 Respiratory rate 12 /min Francis Ball Other [employer] Other 04-08-2023 09:00-0400 Systolic blood pressure 117 mm[Hg] Francis Ball Other [employer] Other 09-21-2022 14:30-0500 Body height 157.48 cm Francis Ball Other [employer] Other 09-21-2022 14:30-0500 Body mass index (BMI) [Ratio] 31.64 kg/m2 Francis Ball Other [employer] Other 09-21-2022 14:30-0500 Body weight 78.47 kg Francis Ball Other [employer] Other 09-21-2022 14:30-0500 Diastolic blood pressure 64 mm[Hg] Francis Ball Other [employer] Other 09-21-2022 14:30-0500 Respiratory rate 18 /min Francis Osborne Other [employer] Other 09-21-2022 14:30-0500 SaO2% (BldA) [Mass fraction] 97 % Francis Osborne Other [employer] Other 09-21-2022 14:30-0500 Systolic blood pressure 136 mm[Hg] Francis Osborne Other [employer] Other Encounters Encounter Date Encounter Type Care Provider Facility Start: 03-09-2025 Non-patient / Non-visit Kendra Noe PUBLIC INFORMATION COORDINATOR -[facility] Work Phone: Start: 03-08-2025 Non-patient / Non-visit Francis loo DO -[facility] Work Phone: Start: 01-28-2025 Non-patient / Non-visit Phillip Sharpe MD -[facility] Work Phone: Start: 01-26-2025 End: 01-26-2025 ambulatory Francis Osborne DO Work Phone: [facility] Work Phone: Start: 01-26-2025 End: 01-26-2025 Patient encounter procedure Francis Osborne DO -[facility] Work Phone: Start: 01-13-2025 End: 01-13-2025 Telephone encounter Narda Diggs RN [facility] Start: 01-11-2025 End: 01-11-2025 ambulatory Blanca Pinto MD Facility:[facility] Start: 01-06-2025 End: 01-06-2025 ambulatory Dorian Pay DO Work Phone: [facility] Work Phone: Start: 01-06-2025 End: 01-06-2025 Patient encounter procedure Dorian Pay DO Work Phone: [facility] Work Phone: Start: 01-02-2025 ambulatory [facility] Start: 01-01-2025 End: 01-03-2025 Evaluation and management of inpatient Nicholas Boggs MD Work Phone: [facility] - GEN 9 Acute Comment on above: Cerebrovascular acci dent (CVA), unspecified mechanism (CMS- HCC) (Primary Dx) Start: 01-01-2025 End: 01-03-2025 ambulatory Dorian Pay Facility:[facility] Start: 01-01-2025 End: 01-01-2025 Departed Referred Dorian Pay DO Work Phone: [facility] Start: 01-01-2025 Non-patient / Non-visit Jeffre y Pay DO Work Phone: [facility] Work Phone: Start: 12-31-2024 End: 12-31-2024 Telephone encounter Krystin Johns MD Work Phone: [facility], A Department of [facility] Start: 12-31-2024 Non-patient / Non-visit Jeffre y Pay DO Work Phone: [facility] Work Phone: Start: 12-31-2024 ambulatory [facility] Start: 12-30-2024 Non-patient / Non-visit Jeffre y Pay DO Work Phone: [facility] Work Phone: Start: 12-30-2024 End: 01-01-2025 Emergency department patient visit [facility] Start: 12-29-2024 Non-patient / Non-visit Jeffre y Pay DO Work Phone: [facility] Work Phone: Start: 11-24-2024 End: 11-24-2024 ambulatory [facility] Work Phone: Start: 11-24-2024 End: 11-24-2024 Patient encounter procedure [facility] Work Phone: Start: 10-26-2024 End: 10-26-2024 ambulatory Blanca Pinto MD Facility: [facility] Start: 09-24-2024 End: 09-24-2024 ambulatory [facility] Work Phone: Start: 09-24-2024 End: 09-24-2024 Patient encounter procedure [facility] Work Phone: Start: 05-08-2024 End: 05-08-2024 ambulatory DO Francis Ball Work Phone: [facility] Work Phone: Start: 05-08-2024 End: 05-08-2024 Patient encounter procedure DO Francis Ball Work Phone: [facility] Work Phone: Start: 05-06-2024 Patient encounter procedure DO Francis Ball Work Phone: [facility] Start: 02-21-2024 End: 02-21-2024 Patient encounter procedure DO Francis Ball Work Phone: [facility] Start: 02-21-2024 End: 02-21-2024 ambulatory Francis Ball Facility:[facility] Start: 02-10-2024 End: 02-10-2024 ambulatory [facility] Work Phone: Start: 02-10-2024 End: 02-10-2024 [facility] Work Phone: Start: 01-12-2024 Non-patient / Non-visit [facility] Work Phone: Start: 09-02-2023 End: 09-02-2023 ambulatory Francis Osborne Other [employer] Other Start: 09-02-2023 Telephone encounter Francis Osborne [facility] Start: 05-15-2023 End: 05-15-2023 ambulatory Francis Osborne Other [employer] Other Start: 05-15-2023 Office outpatient vi sit 25 minutes Francis Osborne [facility] Start: 05-15-2023 Telephone encounter Francis Osborne [facility] Start: 05-09-2023 End: 05-09-2023 ambulatory Francis Osborne Other [employer] Other Start: 05-09-2023 Telephone encounter Francis Osborne [facility] Start: 05-01-2023 End: 05-01-2023 ambulatory Francis Osborne Other [employer] Other Start: 05-01-2023 Telephone encounter Francis Osborne [facility] Start: 04-12-2023 End: 04-12-2023 ambulatory Emiliana Patricia Other [employer] Other Start: 04-12-2023 Office outpatient vi sit 25 minutes Emiliana Patricia [facility] Start: 04-08-2023 End: 04-08-2023 ambulatory Francis Osborne Other [employer] Other Start: 04-08-2023 Patient encounter procedure Francis Osborne [facility] Start: 04-01-2023 End: 04-01-2023 ambulatory Francis Osborne Other [employer] Other Start: 04-01-2023 Telephone encounter Francis Osborne [facility] Start: 02-28-2023 End: 02-28-2023 ambulatory Francis Osborne Other [employer] Other Start: 02-28-2023 Telephone encounter Francis Osborne [facility] Start: 01-27-2023 End: 01-27-2023 ambulatory Francis Osborne Other [employer] Other Start: 01-27-2023 Telephone encounter Francis Osborne [facility] Start: 12-04-2022 End: 12-05-[address] Katey SHAH Facility:[facility] Start: 10-22-2022 End: 10-22-2022 ambulatory Francis Osborne Other [employer] Other Start: 10-22-2022 Telephone encounter Francis Osborne [facility] Start: 10-18-2022 End: 10-19-[address] FRANCIS OSBORNE Facility:[facility] Start: 09-23-2022 End: 09-23-2022 ambulatory Francis Osborne Other [employer] Other Start: 09-23-2022 Telephone encounter Francis SPENCE [facility] Start: 09-21-2022 End: 09-21-2022 ambulatory Francis Osborne Other [employer] Other Start: 09-21-2022 Office outpatient vi sit 25 minutes Francis Osborne [facility] Start: 08-30-2022 End: 08-30-2022 ambulatory Francis Osborne Other [employer] Other Start: 08-30-2022 Telephone encounter Francis SPENCE [facility] Start: 01-24-2022 Adult health examination Seferino Osborne Other [employer] Other Procedures Date Procedure Procedure Detail Performing [...] SPOT Celestina Hurst MD Work Phone: Start: 01-02-2025 Adult depression scr eening assessment Narda Diggs RN Start: 01-01-2025 Urine culture Dorian villalobos DO Work Phone: Start: 06-18-2017 Screening for malign ant neoplasm of colon Francis Osborne Other Start: 06-18-2017 Screening for osteoporosis Francis Osborne Other Start: 06-18-2017 Screening mammography B enjamin Ball Other Screening for malign ant neoplasm of breast Francis Dylon Other Plan of Treatment Date Care Activity Detail Author Start: 01-02-2026 Depression Screening Depression Scre ening [facility] Start: 01-02-2026 Tobacco Screening Tobacco Screening [facility] Start: 04-26-2025 Influenza vaccination Influenza Vacc ine [facility] Start: 03-02-2025 End: 03-02-2025 Patient encounter procedure 03/02/2025 3:30 PM EDT Office Visit [facility], A Department of [address] [place] [address] Krystin Johns MD [address] [place] [address] [address] [place] [address] [facility], A Department of [facility] Start: 01-01-2025 Bacteria identified in Urine by Culture Urine [facility] Start: 05-09-2025 Urine culture [facility] Start: 04-26-2024 COVID-19 Vaccine ( season) COVID-19 Vaccine ( season) [facility] Start: 2013 Fall Risk Screening Fall Risk Screen ing [facility] Start: 1998 Administration of varicella zoster vaccine Zoster (Shingles) Vaccine (1 of 2) [facility] Start: 1967 DTaP,Tdap and Td Vaccines (1 - Tdap) DTaP,Tdap and Td Vaccines (1 - Tdap) [facility] Start: 1960 Depression Screening Depression Scre ening [facility] Start: 1960 Tobacco Screening Tobacco Screening [facility] End: 01-04-2025 CBC W Auto Differential panel - Blood CBC auto differential Lab Routine Lab max of 3 days, Daily, for lab use only for 3 Days starting 01/02/2025 until 01/04/2025, 2 completed [facility] Comment on above: Lab max of 3 days, D aily, for lab use only for 3 Days starting 01/02/2025 until 01/04/2025, 2 completed Comprehensive metabo lic 2000 panel - Serum or Plasma [facility] End: 01-04-2025 Comprehensive metabolic 2000 panel - Serum or Plasma Comprehensive metabolic panel Lab Routine Lab max of 3 days, Daily, for lab use only for 3 Days starting 01/02/2025 until 01/04/2025, 2 completed [facility] Comment on above: Lab max of 3 days, D aily, for lab use only for 3 Days starting 01/02/2025 until 01/04/2025, 2 completed End: 01-04-2025 Magnesium [Mass/volume] in Serum or Plasma Magnesium Lab Routine Lab max of 3 days, Daily, for lab use only for 3 Days starting 01/02/2025 until 01/04/2025, 2 completed [facility] Comment on above: Lab max of 3 days, D aily, for lab use only for 3 Days starting 01/02/2025 until 01/04/2025, 2 completed MG Breast - bilatera l Diagnostic [facility] MG Breast - bilatera l [facility] Oxygen Therapy - Maintain SpO2: 90%; *MANAGER HEART Guidelines for O2: Yes; Document: \[email or web address]\epi c\EPIC_Reference\Orders\ Respiratory Care Guidelines\CPG Oxygen 2022.pdf Oxygen Therapy - Maintain SpO2: 90%; *MANAGER HEART Guidelines for O2: Yes; Document: \[email or web address]\ep ic\EPIC_Reference\Order s\Respiratory Care Guidelines\CPG Oxygen 2022.pdf Respiratory Care Routine As Needed until discontinued starting 01/02/2025 [facility] Work Phone: Comment on above: As Needed until disc ontinued starting 01/02/2025 Platelets [#/volume] in Blood Platelet count Lab Routine Daily until discontinued starting 01/02/2025 [facility] Comment on above: Daily until disconti nued starting 01/02/2025 XR Shoulder - right Views [facility] Immunizations Immunization Date Immunization Notes Care Provider Fa rebeca 12-31-2021 COVID-19 Vaccine Pfi zer - Documentation Purposes Only Francis Osborne Other [facility] 06-19-2017 diphtheria, tetanus toxoids and acellular pertussis vaccine, unspecified formulation Francis Osborne Other [facility] 04-29-2013 tetanus and diphther ia toxoids, adsorbed, preservative free, for adult use (5 Lf of tetanus toxoid and 2 Lf of diphtheria toxoid) Francis Osborne Other [facility] 06-06-2011 diphtheria, tetanus toxoids and acellular pertussis vaccine, unspecified formulation Francis Osborne Other [facility] Payers Date Payer Category Payer Private Health Insurance 2020 Managed Care Other (unspecified) COMMERCIAL [id number] 2020 Unknown [id number] 2017 Unknown [id number] 2013 Medicare [id number] 2013 Medicare [id number] 1959 Medicare [id number] 1959 Unknown [id number] [id number] 1948 Unknown [id number] 2.16.840.1.552726.3.579.2 .593 1948 Unknown [id number] 2.16.840.1.104116.3.579.2 .593 1948 Unknown [id number] 2.16.840.1.219124.3.579.2 .1286 1948 Unknown [id number] 2.16.840.1.836408.3.579.2 .1286 1948 Unknown [id number] 2.16.840.1.850569.3.579.2 .1286 1948 Unknown [id number] 2.16.840.1.221340.3.579.2 .1286 1948 Unknown [id number] 2.16.840.1.417840.3.579.2 .1286 1948 Unknown [id number] 2.16.840.1.443892.3.579.2 .1286 1948 Unknown [id number] 2.16.840.1.321279.3.579.2 .1286 1948 Unknown [id number] 2.16.840.1.402553.3.579.2 .1286 1948 Unknown [id number] 2.16.840.1.918324.3.579.2 .1286 1948 Unknown [id number] 2.16.840.1.885336.3.579.2 .1286 1948 Unknown [id number] 2.16.840.1.479200.3.579.2 .1286 1948 Unknown [id number] 2.16.840.1.941702.3.579.2 .196 1948 Unknown [id number] 2.16.840.1.335101.3.579.2 .196 1948 Unknown [id number] 2.16.840.1.119212.3.579.2 .1286 Medicare [id number] [id number] Medicare Cigna Medicare Supplemental [id number] Self-pay Self Pay [id number] Unknown [facility] [id number] Social History Date Type Detail Facility Start: 10-06-2020 End: 08-25-2021 Sex Assigned At [facility] [employer] Other Start: 1950 Sex Assigned At Female F [facility] Work Phone: Start: 03-31-2015 End: 09-24-2024 Sex Female (finding) [facility] Start: 08-25-2021 [facility] tobacco [facility] Start: 08-25-2021 Tobacco use and exposure Smokeless tobacco non-user [facility] Start: 08-25-2021 End: 01-02-2025 Alcoholic beverage intake Lifetime non-drinker (finding) [facility] Start: 10-06-2020 End: 08-25-2021 History of Social function [facility] Childcare Unknown [facility] Start: 1950 Sex assigned at Not on file P [facility] Has the electric, [employer], oil, or water company threatened to shut off services in your home in past 12Mo No [facility] How often to you hav e a drink containing alcohol? Never [facility] Goals Date Patient Goal Desired Activity /State Personal health goal Comment on above: Formatting of this n ote might be different from the original. Evaluation of progress towards goal: transition home with self care/family assist and resume home care services Functional Status Date Assessment Result Facility 01-02-2025 Total score [AUDIT-C] 0 01/03/20 9:07 AM EDT Lisbet Abreu RN [facility] 01-02-2025 Humiliation, Afraid, Rape, and Kick questionnaire [HARK] [facility] Clinical Notes 09-21-2022 to 01-13-2025 Telephone Encounter - Narda Diggs RN - 01/13/2025 1:25 PM EDTTelephone Encounter - Narda Diggs RN - 01/13/2025 1:25 PM EDT Note Date & Type Note Facility 01-13-2025 Miscellaneous Notes Formattin g of this note might be different from the original. Received fax from [facility] requesting televisit note be signed by Dr. Johns. Found note and faxed to number provided ([facility]) [phone]. Fax successful at [phone]. documented in this encounter [facility] 01-13-2025 Telephone encount er Note Received fax from [facility] requesting televisit note be signed by Dr. Johns. Found note and faxed to number provided ([facility]) [phone]. Fax successful at [phone]. [facility] 01-06-2025 Evaluation note Diagnosis Onset Date Resolution Cerebral atherosclerosis acute January 06, 2025 3:48pm SHEFALI (generalized anxiety disorder) acute January 06, 2025 3:48pm Hypercholesterolemia acute January 06, 2025 3:48pm Hypertension acute January 06 3:48pm MCI (mild cognitive impairment) acute January 06, 2025 3:48pm Pernicious anemia acute December h2024 3:48pm Sinus tachycardia acute December h2024 3:48pm [facility] Work Phone: 1(990) 469-465705-11-2025 Progress note* Discharge Planning Note - LARA Arroyo - 01/03/2025 1:37 PM EDT DISCHARGE PLANNING NOTE Discharge written, CRF complete. [facility] notified of discharge and CRF sent. RN updated. - LARA ARROYO 01/03/25 1:37 PM [facility]05-11-2025 Miscellaneous Notes* Discharge Planning Note - LARA Arroyo - 01/03/2025 1:37 PM EDT DISCHARGE PLANNING NOTE Discharge written, CRF complete. [facility] notified of discharge and CRF sent. RN updated. - LARA ARROYO 01/03/25 1:37 PM * Plan of Care - Edilia Perales MD - 01/03/2025 10:41 AM EDT 74 y/o female with recent left parietal stroke and recurrent admission for reported confusion not explained by the stroke. Currently oriented x4. Oriented to name, place, person, situation. Intact recent and remote memory. Able to tell me days of the week. No further inpatient workup warranted. We will sign off Edilia Perales MD PGY-3 Neurology * Plan of Care - Do Mccarty RN - 01/03/2025 8:00 AM EDT Problem: Pain Goal: Patient goal is pain score less than 4, able to rest, and participant in treatment plan as appropriate Description: INTERVENTIONS: 1. Encourage patient or legal territory representative to report early pain and ask [...] per policy 9. Teach patient or legal territory representative interventions for comforting Outcome: Progressing Note: Evaluation of progress towards goal: Patient assessed with appropriate pain scale and reportsno pain at the moment. Patient encouraged to [...] at the bedside 7. Instruct patient/ patient territory representative about use of safety devices 8. Include patient/ patient territory representative in decisions related to safety Outcome: [...] hygiene technique. 7. Identify and instruct patient/patient territory representative in use of appropriate isolation precautionsfor identified infection/symptoms. 8. Provide and discuss with patient/patient territory representative on educational MDRO sheet. 9. Encourage and monitor nutritional status daily and consult trail construction worker if indicated. 10. Implement neutropenic guidelines as needed. Outcome: Progressing Note: Evaluation of progress towards goal: Patient remains afebrile with absence of typical signs of infection such as redness, swelling, purulent drainage, etc. Labs remain within defined limits. Infection preventative measures maintained. Will continue to monitor patient for any signs or symptomsindicating infection while providing care. Problem: Knowledge Deficit Goal: Patient/patient territory representative demonstrates understanding of disease process, treatment plan,medications, and discharge instructions Description: INTERVENTIONS 1. Complete [...] to have adequate support when discharged. Will cont inue plan of care and assess for further [...] of consciousness, motor function, sensory function, and levelof assistance needed for ADLs 4. Monitor and [...] and report duration and description of seizure toLIP 10. If seizure occurs, turn patient to [...] call for assistance with activity based on ass essment. Plan of care ongoing. * Plan of Care - Angy Henson RN - 01/02/2025 9:04 PM EDT Problem: Pain Goal: Patient goal is pain score less than 4, able to rest, and participant in treatment plan as appropriate Description: INTERVENTIONS: 1. Encourage patient or legal territory representative to report early pain and ask [...] per policy 9. Teach patient or legal territory representative interventions for comforting Outcome: Progressing Note: [...] at the bedside 7. Instruct patient/ patient territory representative about use of safety devices 8. Include patient/ patient territory representative in decisions related to safety Note: [...] hygiene technique. 7. Identify and instruct patient/patient territory representative in use of appropriate isolation precautionsfor identified infection/symptoms. 8. Provide and discuss with patient/patient territory representative on educational MDRO sheet. 9. Encourage and monitor nutritional status daily and consult trail construction worker if indicated. 10. Implement neutropenic guidelines as needed. Outcome: Progressing Note: Evaluation of progress towards goal: afebrile, no signs of infection * Discharge Planning Note - Niru Mondragon - 01/02/2025 3:56 PM EDT DISCHARGE PLANNING NOTE Referral for return sent to. [facility], [facility] ([place]: P# ; F# ); ([place]: P# ; F# ); (RAUL Stodd[place]: P# ; F# ); ([place]: P# ; F# for [facility] F# for Hospice) ([place] P# [phone] ; F# [phone]) * Discharge Planning Note - Brit Sands, CORPORATE HEALTH CONSULTANT - 01/02/2025 2:45 PM EDT Images from the original note were not included. DISCHARGE PLANNING NOTE Cigarette Filter Inspector met with patient and daughter, introduced self, [...] Medical History: Diagnosis Date Anxiety Breast cancer ([facility]) TIA (transient ischemic attack) Prior to admission [...] will transport as needed. Patient was receiving [facility] electric powerline examiner services prior to admission. Patient denies need for transportation/ food/ prescription medication assistanceresources. Social work discussed potential transition plan and options with patient and family. Patient and family are planning to transition home with resumption of [facility] services. Social work task [facility] to send referral to [facility]. Family will transport patient at discharge. [...] questions. - LARA ARROYO 01/02/25 2:45 PM * Plan of Care - Brie Davison RN - 01/02/2025 1:40 PM EDT Problem: Pain Goal: Patient goal is pain score less than 4, able to rest, and participant in treatment plan as appropriate Description: INTERVENTIONS: 1. Encourage patient or legal territory representative to report early pain and ask [...] per policy 9. Teach patient or legal territory representative interventions for comforting Outcome: Progressing Note: Evaluation of progress towards goal: Medicated with prn Tylenol for chronic pain. Pt states medication is helpful. * Plan of Care - Kendall Higgins MD - 01/02/2025 1:33 PM EDT Neurology plan of care. Patient currently awake, alert and oriented. Considering the patient's recent stroke, we will consult vascular neurology service for further recommendations. Patient also has low vitamin B12 and has been started on B12 replacement therapy. Kendall Higgins MD PGY-2 Neurology Resident, [facility]. * Plan of Care - Luis Alberto Deng RN - 01/02/2025 4:29 AM EDT Problem: Pain Goal: Patient goal is pain score less than 4, able to rest, and participant in treatment plan as appropriate Description: INTERVENTIONS: 1. Encourage patient or legal territory representative to report early pain and ask [...] per policy 9. Teach patient or legal territory representative interventions for comforting Outcome: Progressing Note: Evaluation of progress towards goal: Cigarette Filter Inspector assessed that patient has had pain reassessed perpolicy. Implement no-pharmacological measures as appropriate and evaluate response with appropriatetime frame. Monitor vital signs including pulse ox, [...] at the bedside 7. Instruct patient/ patient territory representative about use of safety devices 8. Include patient/ patient territory representative in decisions related to safety Outcome: Progressing Note: Evaluation of progress towards goal: Cigarette Filter Inspector assessed that patient has been provided and [...] hygiene technique. 7. Identify and instruct patient/patient territory representative in use of appropriate isolation precautionsfor identified infection/symptoms. 8. Provide and discuss with patient/patient territory representative on educational MDRO sheet. 9. Encourage and monitor nutritional status daily and consult trail construction worker if indicated. 10. Implement neutropenic guidelines as needed. Outcome: Progressing Note: Evaluation of progress towards goal: Cigarette Filter Inspector has been assessed and monitored for signs and symptoms of infection. Administered medications as ordered. Monitored all insertion sites. Problem: Knowledge Deficit Goal: Patient/patient territory representative demonstrates understanding of disease process, treatment plan,medications, and discharge instructions Description: INTERVENTIONS 1. Complete learning assessment and assess knowledge base 2. Provide teaching at level of understanding 3. Provide teaching via preferred learning method(s) Outcome: Progressing Note: Evaluation of progress towards goal: Cigarette Filter Inspector has assessed that patient has been provided [...] Progressing Note: Evaluation of progress towards goal: Cigarette Filter Inspector assessed the patient for the following. Identify discharge learning needs. Arrange for needed discharge transportation as appropriate. Coordinate with social work and care navigation to arrange appropriate level of services according to patient's needs based on patient preference. documented in this encounterC[facility] Hospital course Narrative* Lobo Miguel MD - 01/03/2025 12:27 PM EDT Images from the original note were not included. [facility] Medicine Discharge Summary Patient's Name: [...] response to B12 treatment. Hospital Course Birgit Clarkeis a 74 y.o.female with past medical history significant for breast cancer, primary hypertension, anxiety, stroke/TIA. The patient was transferred to [facility] from [facility] due to altered mental status and ataxia. [...] lacunar stroke. The patient was transferred to [facility] for Neurology evaluation. Per report she was [...] . She was able to ambulate independently. Iwalked with the patient in her room today [...] Your Medications These medications were sent to [id number] [id number] clopidogreL 75 mg tablet cyanocobalamin 1,000 mcg/mL [...] Regular Texture Adult diet Francis Osborne DO [facility] [address] Schedule an appointment as soon as possible [...] questions. Electronically signed by: LOBO MIGUEL MD [facility], Department of Internal Medicine 01/03/25 1:27 PM documented in this encounterC[facility]05-11-[facility]25 Plan of care note * Plan of Care - Edilia Perales MD - 01/03/2025 10:41 AM EDT 74 y/o female with recent left parietal stroke and recurrent admission for reported confusion not explained by the stroke. Currently oriented x4. Oriented to name, place, person, situation. Intact recent and remote memory. Able to tell me days of the week. No further inpatient workup warranted. We will sign off Edilia Perales MD PGY-3 Neurology [employer] Work Phone: 1(783) 579-889505-11-2025 Plan of care note* Plan of Care - Do Mccarty RN - 01/03/2025 8:00 AM EDT Problem: Pain Goal: Patient goal is pain score less than 4, able to rest, and participant in treatment plan as appropriate Description: INTERVENTIONS: 1. Encourage patient or legal territory representative to report early pain and ask [...] per policy 9. Teach patient or legal territory representative interventions for comforting Outcome: Progressing Note: Evaluation of progress towards goal: Patient assessed with appropriate pain scale and reportsno pain at the moment. Patient encouraged to [...] at the bedside 7. Instruct patient/ patient territory representative about use of safety devices 8. Include patient/ patient territory representative in decisions related to safety Outcome: [...] hygiene technique. 7. Identify and instruct patient/patient territory representative in use of appropriate isolation precautionsfor identified infection/symptoms. 8. Provide and discuss with patient/patient territory representative on educational MDRO sheet. 9. Encourage and monitor nutritional status daily and consult trail construction worker if indicated. 10. Implement neutropenic guidelines as needed. Outcome: Progressing Note: Evaluation of progress towards goal: Patient remains afebrile with absence of typical signs of infection such as redness, swelling, purulent drainage, etc. Labs remain within defined limits. Infection preventative measures maintained. Will continue to monitor patient for any signs or symptomsindicating infection while providing care. Problem: Knowledge Deficit Goal: Patient/patient territory representative demonstrates understanding of disease process, treatment plan,medications, and discharge instructions Description: INTERVENTIONS 1. Complete [...] to have adequate support when discharged. Will cont inue plan of care and assess for further [...] of consciousness, motor function, sensory function, and levelof assistance needed for ADLs 4. Monitor and [...] and report duration and description of seizure toLIP 10. If seizure occurs, turn patient to [...] call for assistance with activity based on ass essment. Plan of care ongoing. [place] [id number] Plan of care note* Plan of Care - Angy Henson RN - 01/02/2025 9:04 PM EDT Problem: Pain Goal: Patient goal is pain score less than 4, able to rest, and participant in treatment plan as appropriate Description: INTERVENTIONS: 1. Encourage patient or legal territory representative to report early pain and ask [...] per policy 9. Teach patient or legal territory representative interventions for comforting Outcome: Progressing Note: [...] at the bedside 7. Instruct patient/ patient territory representative about use of safety devices 8. Include patient/ patient territory representative in decisions related to safety Note: [...] hygiene technique. 7. Identify and instruct patient/patient territory representative in use of appropriate isolation precautionsfor identified infection/symptoms. 8. Provide and discuss with patient/patient territory representative on educational MDRO sheet. 9. Encourage and monitor nutritional status daily and consult trail construction worker if indicated. 10. Implement neutropenic guidelines as needed. Outcome: Progressing Note: Evaluation of progress towards goal: afebrile, no signs of infection [facility] Progress note* Discharge Planning Note - Niru Mondragon - 01/02/2025 3:56 PM EDT DISCHARGE PLANNING NOTE Referral for return sent to. Ady Farmer formerly, [facility] ([place]: P# ; F# ); ([place]: P# ; F# ); ([place]: P# ; F# ); ([place]: P# ; F# for C F# for Hospice) ([place] P# [phone] ; F# [phone]) [facility]05-10-[facility] Progress note* Discharge Planning Note - LARA Arroyo - 01/02/2025 2:45 PM EDT Images from the original note were not included. DISCHARGE PLANNING NOTE Cigarette Filter Inspector met with patient and daughter, introduced self, [...] Medical History: Diagnosis Date Anxiety Breast cancer ([facility]) TIA (transient ischemic attack) Prior to admission [...] will transport as needed. [facility] to [facility]. Patient denies need for transportation/ food/ prescription medication assistanceresources. Social work discussed potential transition plan and options with patient and family. Patient and family are planning to transition home with resumption of [facility] services. Social work task [facility] to send referral to [facility]. Family will transport patient at discharge. [...] questions. - LARA ARROYO 01/02/25 2:45 PM [facility]05-[facility] History of Present illness Narrative* Lobo Miguel MD - 01/02/2025 1:41 PM EDT Images from the original note were not included. [facility] Progress Note 01/02/2025 Patient [...] Date/Time Urine Culture Urine, Clean Catch Midstream [[id number]] Collected: 01/02/2532 Specimen: Urine, Clean Catch Midstream Updated: 01/02/2556 EEG Result Date: 01/02/2025 Images from the original result were not included. [place] Routine EEG Report Length of Study: 31 minutes EEG Service Date: 01/02/2025 History: 74 year old woman with concern for seizures Medications: Noton any psychotropic medications Technique: This EEG was acquired with electrodes placed according to the 10-20 electrode placement system. A single EKG channel was recorded for cardiac rhythm monitoring. The quality of recording was good. EEG Classification: Normal State of Consciousness: Awake EEGFindings: 1.) Dominant Rhythm: A PDR of up to 9 Hz was seen, symmetric and reactive 2.) Background:There were multiple waveforms seen throughout the recording. [...] lateralizing signs were seen. Martha Prince MD Flotation Tender Hel[employer] [place] Neurology X-ray chest 1 view Result Date: [...] is confusing, or does not make sense, thisis likely due to a recognition error within the program which was not discovered during the provider s review. If you believe an error has occurred, please notify your provider s office at your earliest convenience, so we can correct any mistakes. * Baron Phillip PharmD - 01/02/2025 10:01 AM EDT [facility] Department of Pharmacy Pharmacist to Physician Communication Pharmacy adjusting enoxaparin 30 mg daily to enoxaparin 40 mg daily, per the [facility] approved dosing guidelines. Results from last [...] index is 32.29 kg/m . Thank you, Michelle BoseD documented in this encounterC[facility]05-10-[facility] Plan of care note * Plan of Care - Brie Davison RN - 01/02/2025 1:40 PM EDT Problem: Pain Goal: Patient goal is pain score less than 4, able to rest, and participant in treatment plan as appropriate Description: INTERVENTIONS: 1. Encourage patient or legal territory representative to report early pain and ask [...] per policy 9. Teach patient or legal territory representative interventions for comforting Outcome: Progressing Note: Evaluation of progress towards goal: Medicated with prn Tylenol for chronic pain. Pt states medication is helpful. [facility]05-[facility] Plan of care note* Plan of Care - Kendall Higgins MD - 01/02/2025 1:33 PM EDT Neurology plan of care. Patient currently awake, alert and oriented. Considering the patient's recent stroke, we will consult vascular neurology service for further recommendations. Patient also has low vitamin B12 and has been started on B12 replacement therapy. Kendall Higgins MD PGY-2 Neurology Resident, [facility]. [employer] Work Phone: 1(930) 974-998705-10-2025 Plan of care note* Plan of Care - Luis Alberto Deng RN - 01/02/2025 4:29 AM EDT Problem: Pain Goal: Patient goal is pain score less than 4, able to rest, and participant in treatment plan as appropriate Description: INTERVENTIONS: 1. Encourage patient or legal territory representative to report early pain and ask [...] per policy 9. Teach patient or legal territory representative interventions for comforting Outcome: Progressing Note: Evaluation of progress towards goal: Cigarette Filter Inspector assessed that patient has had pain reassessed perpolicy. Implement no-pharmacological measures as appropriate and evaluate response with appropriatetime frame. Monitor vital signs including pulse ox, [...] at the bedside 7. Instruct patient/ patient territory representative about use of safety devices 8. Include patient/ patient territory representative in decisions related to safety Outcome: Progressing Note: Evaluation of progress towards goal: Cigarette Filter Inspector assessed that patient has been provided and [...] hygiene technique. 7. Identify and instruct patient/patient territory representative in use of appropriate isolation precautionsfor identified infection/symptoms. 8. Provide and discuss with patient/patient territory representative on educational MDRO sheet. 9. Encourage and monitor nutritional status daily and consult trail construction worker if indicated. 10. Implement neutropenic guidelines as needed. Outcome: Progressing Note: Evaluation of progress towards goal: Cigarette Filter Inspector has been assessed and monitored for signs and symptoms of infection. Administered medications as ordered. Monitored all insertion sites. Problem: Knowledge Deficit Goal: Patient/patient territory representative demonstrates understanding of disease process, treatment plan,medications, and discharge instructions Description: INTERVENTIONS 1. Complete learning assessment and assess knowledge base 2. Provide teaching at level of understanding 3. Provide teaching via preferred learning method(s) Outcome: Progressing Note: Evaluation of progress towards goal: Cigarette Filter Inspector has assessed that patient has been provided [...] Progressing Note: Evaluation of progress towards goal: Cigarette Filter Inspector assessed the patient for the following. Identify discharge learning needs. Arrange for needed discharge transportation as appropriate. Coordinate with social work and care navigation to arrange appropriate level of services according to patient's needs based on patient preference. [employer]05-10-2025 History and physical note* Nisa Hurst MD - 01/02/2025 12:42 AM EDT History & Physical: 01/02/2025 Patient Name: Birgit Clarke : 1950 Principal Problem: Encephalopathy Assessment: Encephalopathy Ataxia Recent left parietal ischemic stroke Recently diagnosed acute cystitis from [facility] Dyslipidemia Essential hypertension Plan: Placed on cardiac [...] completed, will resume home medications once home medicationsare verified by nursing/pharmacy. Chief Complaint: No chief complaint on file. Confusion HPI: Birgit Clarke is a 74 y.o. female who was transferred to [facility] for further management from [facility] regarding encephalopathy. Patient apparently did have recent [...] It was requested patient be transferred to [facility] for Neurology evaluation. Patient evaluated by Neurology via tele stroke activation on December 30, 2024 for altered mental status.Patient apparently presented to the emergency room with [...] cancer, TIA. In the ER, white count 7.1,hemoglobin 14.4, platelets 303, potassium normal, creatinine normal, troponin negative. CT head negative for any acute abnormality, CTA head and carotid negative for any large vessel occlusion. MRIs positive for left parietal ischemic stroke. Patient is afebrile, hemodynamically stable, saturation 96% on room air. Past Medical History: Diagnosis Date Anxiety Breast cancer ([facility]) TIA (transient ischemic attack) Past Surgical History: [...] has been identified and corrected by editing. [employer] Work Phone: 1(364) 794-923505-10-2025 History and physical note* Nisa Hurst MD - 01/02/2025 12:42 AM EDT History & Physical: 01/02/2025 Patient Name: Birgit Clarke : 1950 Principal Problem: Encephalopathy Assessment: Encephalopathy Ataxia Recent left parietal ischemic stroke Recently diagnosed acute cystitis from [facility] Dyslipidemia Essential hypertension Plan: Placed on cardiac [...] completed, will resume home medications once home medicationsare verified by nursing/pharmacy. Chief Complaint: No chief complaint on file. Confusion HPI: Birgit Clarke is a 74 y.o. female who was transferred to [facility] for further management from [facility] regarding encephalopathy. Patient apparently did have recent [...] It was requested patient be transferred to [facility] for Neurology evaluation. Patient evaluated by Neurology via tele stroke activation on December 30, 2024 for altered mental status.Patient apparently presented to the emergency room with [...] cancer, TIA. In the ER, white count 7.1,hemoglobin 14.4, platelets 303, potassium normal, creatinine normal, troponin negative. CT head negative for any acute abnormality, CTA head and carotid negative for any large vessel occlusion. MRIs positive for left parietal ischemic stroke. Patient is afebrile, hemodynamically stable, saturation 96% on room air. Past Medical History: Diagnosis Date Anxiety Breast cancer ([facility]) TIA (transient ischemic attack) Past Surgical History: [...] output data in the 24 hours ending 01/02/2541 General appearance: no acute distress, appears ill, [...] and corrected by editing. documented in this encounterC[facility] Miscellaneous Notes* Telephone Encounter - Paradise Stoddard - 12/31/2024 2:08 PM EDT ----- Message from ALEX Cheng sent at 12/31/2024 12:32 PM EDT ----- Follow up with Belia Moura, or fellow in 4-6 weeks after cardiac event monitor complete. Annemarie, will need 30 day event monitor * Telephone Encounter - Paradise Stoddard - 12/31/2024 2:08 PM EDT scheduled documented in this encounterC[facility] Telephone encounter Note* Telephone Encounter - Paradise Stoddard - 12/31/2024 2:08 PM EDT ----- Message from ALEX Cheng sent at 12/31/2024 12:32 PM EDT ----- Follow up with Belia Moura, or fellow in 4-6 weeks after cardiac event monitor complete. Annemarie, will need 30 day event monitor [facility]05-08-[facility] Telephone encounter Note* Telephone Encounter - Paradise Stoddard - 12/31/2024 2:08 PM EDT scheduled [facility]04-01-[facility] Evaluation note* Diagnosis Onset Date Resolution Status Admit Date Cerebral atherosclerosis acute November 24, 2024 2:47pm SHEFALI (generalized anxiety disorder) acute November 24, 2024 2:47pm Hypertension acute November 24, 2 025 2:47pm Lumbar spondylosis acute November 24, 2024 2:47pm Migraine acute November 24 2:47pm Primary osteoarthritis of ri ght knee acute November 24, 2024 2:47pm Sinus tachycardia acute November 242024 2:47pm [facility] Work Phone: 1(841) 322-499904-01-2025 Evaluation note* Diagnosis Onset Date Resolution Status [...] Sinus tachycardia acute December 3:48pm [facility] Work Phone: 1(141) 666-687901-30-2025 Evaluation note* Diagnosis Onset Date Resolution Status Admit Date Cerebral atherosclerosis acute September 24, 2024 10:50am Cervical spondylosis acute 2024 10:50am SHEFALI (generalized anxiety disorder) acute September 24 10:50am Hypertension acute August 10:50am Lumbar spondylosis acute y 2024 10:50am Migraine acute September 24, 2024 10:50am Primary osteoarthritis of ri ght knee acute September 24 10:50am Primary osteoarthritis of ri ght shoulder acute September 24 10:50am Sinus tachycardia acute September 24, 2024 10:50am Cerebral atherosclerosis acute November 24, 2024 2:47pm Cervical spondylosis acute 2024 2:47pm SHEFALI (generalized anxiety disorder) acute November 24, 2024 2:47pm Hypertension acute November 24, 2:47pm Lumbar spondylosis acute November 24, 2024 2:47pm Migraine acute November 24 2:47pm Primary osteoarthritis of ri ght knee acute November 24, 2024 2:47pm Primary osteoarthritis of ri ght shoulder acute November 24, 2024 2:47pm Sinus tachycardia acute November 242024 2:47pm [facility] Work Phone: 1(564) 510-210101-08-2024 Evaluation note* Encounter Date Diagnosis Assessment Notes Treatment Notes Treatment Clinical Notes Aug, SHEFALI (generalized anxiety disorder) (ICD-10 - F41.1) [place] [employer] Other 09-20-2023 Evaluation note* Encounter Date Diagnosis [...] continue exercise to achieve/maintain a normal BMI. 20 Sep, 2023 Elevated cholesterol (ICD-10 - E78.00) Instructed on [...] Xanax as needed Continue SSRI as prescribed. [employer] Other 09-14-2023 Evaluation note* Encounter Date Diagnosis Assessment Notes Treatment Notes Treatment Clinical Notes Apr, SHEFALI (generalized anxiety disorder) (ICD-10 - F41.1) [employer] Other 08-18-2023 Evaluation note* Encounter Date Diagnosis [...] treatment plan. Patient left in stable condition. [employer] Other 08-14-2023 Evaluation note* Encounter Date Diagnosis [...] High risk medication use (ICD-10 - Z79.899) [employer] Other 02-23-2023 NotePROCEDURE: XR HIP RT 2 [...] Electronically authenticated by: MURRAY TRAVIS Date: 2022-10-18 19:00[facility]01-27-2023 Evaluation note* Encounter Date Diagnosis Assessment [...] and will send order to schedule mammogram. [employer] Other Evaluation noteNo InformationNoozarks medical center [employer] Other Evaluation noteNoWaddle [employer] Other Evaluation note* Diagnosis Onset Date Resolution Status Cerebral atherosclerosis acu te Cervical spondylosis acute SHEFALI (generalized anxiety disorder) acute Hypertension acute Migraine acute Sinus tachycardia acute [facility] Work Phone: Evaluation note* Diagnosis Onset [...] pain acute Sinus tachycardia acute [facility] Work Phone: Evaluation note* Diagnosis Onset Date Resolution Status Admit Date Cerebral atherosclerosis acute September 24, 2024 10:50am SHEFALI (generalized anxiety disorder) acute September 24 10:50am Hypertension acute August 10:50am Migraine acute September 24, 2024 10:50am Sinus tachycardia acute September 24, 2024 10:50am [facility] Work Phone: Evaluation note* Diagnosis Encephalopathy- Primary Unspecified encephalopathy Cerebrovascular accident (CVA), unspecified mechanism ([facility]) Vitamin B12 deficiency Other B-complex deficiencies Ataxia [...] cataract extraction Hospitalization History SEE SURGICAL HX [facility] [employer] Other History general Narrative - ReportedNoozarks medical center [employer] Other History general Narrative - Reported* Type [...] and adenoidectomy Hospitalization History SEE SURGICAL HX [employer] Other Hospital Discharge instructions* Attachments The following attachments cannot be sent through Care Everywhere. * Vitamin B12 deficiency and folate deficiency ([place]in[place]) documented in this encounterProSt. Francis Hospital SystemInstructionsNot on file documented in this encounterProSt. Francis Hospital SystemInstructionsNot on file documented in this encounterProSt. Francis Hospital SystemReason for referral (narrative)No reason for referral information availableMercy Health T[facility] Work Phone: Reason for visit Narrative* Auth/Cert Specialty Diagnoses / Procedures Referred By Contdotty t Referred To Contact Diagnoses Encephalopathy Nicholas Boggs MD [address] [place] [address] Phone: tel: fax: Referral ID Status Reason Start Date Expiration Date Visits Re quested Visits Authorized [id number] 1 1 [employer] Reason for Referral Reason *FU 10/29 Low back and right hip pain Diagnosis 1 Lumbago with sciatic a, right side (M54.41) Diagnosis 2 Pain in right hip (M 25.551) Referral Organization [facility] jay Referring Provider First Name Francis Referring Provider Last Name Dylon Referring Provider Specialty Internal Pa dicine Referred Organization [facility] Referred Provider Colten Shah Referred Address ,[place], [place],[address] Referred Provider Specialty Orthopedic S urgery Referral Priority Routine General Notes 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, right knee pain Reason for [...] Visit Admit Date Cerebral atherosclerosis September 24, 2 025 10:50am SHEFALI (generalized anxiety disorder) Janua [...] 24, 2024 10:50am SHEFALI (generalized anxiety disorder) Janua ry 2024 10:50am Hypertension September 24, 2024 1 0:50am Lumbar spondylosis September 24, 2024 1 0:50am Migraine September 24, 2024 1 0:50am Primary osteoarthritis of right knee Fernando uary 2024 10:50am Primary osteoarthritis of right shoulder [...] osteoarthritis of right knee Apr 2024 2:47pm Primary osteoarthritis of right shoulder November [...] pm Primary osteoarthritis of right knee Apr il 2024 2:47pm Sinus tachycardia Renetta 1st, 2025 2:47 pm Cerebral atherosclerosis January 06, 2025 3:48pm SHEFALI (generalized anxiety disorder) December 242024 3:48pm Hypercholesterolemia January 06, 2025 3:48 pm Hypertension January 06, 2025 3:48p m Sinus tachycardia January 06, 2025 3:48p m Chief Complaint Admit Date Amb Documentation December 31, 2024 8:40am Unknown January 01, 2025 12:00p m hospital follow up January 06, 2025 3:48p m Zio January 26, 2025 11:30 am Amb Documentation March 08, 2025 8:51 am Amb Documentation March 09, 2025 1:42 pm Reason for Visit Admit Date Cerebral atherosclerosis January 06, 2025 3:48pm SHEFALI (generalized anxiety disorder) December 242024 3:48pm Hypercholesterolemia January 06, 2025 3:48 pm Hypertension January 06, 2025 3:48p m MCI (mild cognitive impairment) December 3:48pm Pernicious anemia January 06, 2025 3:48p m Sinus tachycardia January 06, 2025 3:48p m Additional Source Comments REASON FOR VISIT (unrecogniz ed section and content) Prescription refillReferral DiscussionNo InformationresultsNo InformationNo InformationNo InformationWellnessEARACHEWellnessClinicalrefillWanting In TodayHeadachesrefill INFORMATION SOURCE (unrecogn ized section and content) DATE CREATED AUTHOR 12/10/2022 [facility] DATE CREATED AUTHOR AUTHOR'S ORGANIZ ATION 01/04/2025 [facility] DATE CREATED AUTHOR AUTHOR'S ORGANIZ ATION 01/08/2025 [facility] DATE CREATED AUTHOR AUTHOR'S ORGANIZ ATION 01/22/2025 [facility] DATE CREATED AUTHOR AUTHOR'S ORGANIZ ATION 01/24/2025 [facility] Care Teams (unrecognized sec tion and content) Team Status: Active Member Role Status Dates Francis Osborne DO Primary Care Provider Active Team Status: Active Member Role Status Dates Francis Osborne DO Primary Care Provider Active Start: December 29, [...] Active Start: January 01, 2025 Dorian Romeo , DO Attending Provider Active Start : January 01, 2025 Team Status: Inactive Member Role Status Dates Dorian Romeo DO Attending Provider Active Start : January 01, 2025 End: January 01, 2025 Team Status: Inactive Member Role Status Dates Francis Osborne DO Primary Care Provider Active Start: January 06, 2025 End: January 06, 2025 Francis Osborne DO Attending Provider Active Sta rt: January 06, 2025 End: January 06, 2025 Team Status: Inactive Member Role Status Dates Francis Osborne DO Primary Care Provider Active Start: January 26, 2025 End: January 26, 2025 Francis Osborne , DO Attending Provider Active Sta rt: January 26, 2025 End: January 26, 2025 Team Status: Active Member Role Status Dates Francis Osborne DO Primary Care Provider Active Start: January 28, 2025 Phillip Sharpe MD Attending Provider Activ e Start: January 28, 2025 Team Status: Active Member Role Status Dates Francis Osborne DO Primary Care Provider Active Start: March 08, 2025 Francis Osborne DO Attending Provider Active Sta rt: March 08, 2025 Team Status: Active Member Role Status Dates Francis Osborne DO Primary Care Provider Active Start: March 09, 2025 Kendra Rollins CMA Attending Provider Active Start: March 09, 2025 Team Status: Active Member Role Status Dates [...] November 24, 2024 End: November 24, 2024 Regional Service Manager Relationship Specialty Start Date End Date Francis Osborne DO [address] [place] [address] PCP - General 01/20/17 Regional Service Manager Relationship Specialty Start Date End Date Francis Osborne DO [address], [place] [id number] PCP - General 01/20/17 Team Status: Active Member Role Status Dates Francis Osborne DO Primary Care Provider Active Start: December 29, [...] January 06, 2025 End: January 06, 2025 Regional Service Manager Relationship Specialty Start Date End Date Francis Osborne DO [address], [place] [id number] PCP - General 01/20/17 Team Status: Inactive Member Role Status Dates Francis Osborne DO Primary Care Provider Active Start: January 06, 2025 End: January 06, 2025 Francis Osborne DO Attending Provider Active Sta rt: January 06, 2025 End: January 06, 2025 Team Status: Inactive Member Role Status Dates Francis Osborne DO Primary Care Provider Active Start: January 26, 2025 End: January 26, 2025 Francis Osborne DO Attending Provider Active Sta rt: January 26, 2025 End: January 26, 2025 Team Status: Active Member Role Status Dates Francis Osborne DO Primary Care Provider Active Start: January 28, 2025 Phillip Sharpe MD Attending Provider Activ e Start: January 28, 2025 Team Status: Active Member Role Status Dates Francis Osborne DO Primary Care Provider Active Start: March 08, 2025 Francis Osborne DO Attending Provider Active Sta rt: March 08, 2025 Team Status: Active Member Role Status Dates Francis Osborne DO Primary Care Provider Active Start: March 09, 2025 Kendra Rollins CMA Attending Provider Active Start: March 09, 2025 Goals (unrecognized section and content) Goals [...] BE BASED ON THE PRIMARY CLINICAL RECORDS. [employer] provides no warranty or guarantee of the accuracy or completeness of information in this document.
--- NOTE | 2025-04-03 14:27 | CT_ITS ---
The [address] [address] Patient Name: MATTHEW CLARKE MRN: [id number] date: 1950 Sex: F Assigned Patient Location: ER Current Patient Location: ER Accession/Order Number: [id number] Exam Date: 04/03/2025 15:02 Report Date: 04/03/2025 15:05 At the request of: MINDY LUCIANO MD Procedure: CT stroke head/brain wo con CT BRAIN WITHOUT CONTRAST: CLINICAL HISTORY: Altered mental status. COMPARISON: CT brain 03/08/2025 TECHNIQUE: Contiguous axial unenhanced images were obtained through the brain. This CT exam was performed using one or more following dose reduction techniques: Automated exposure control, adjustment of the mA and/or kV according to patient size, or use of iterative reconstruction technique. FINDINGS: There is no evidence of midline shift, intra or extra-axial fluid collection, hemorrhage or CT evidence of stroke. Cortical atrophy with severe chronic microvascular ischemic changes similar to the prior study. Posterior fossa appears unremarkable. Visualized intraorbital contents demonstrate no acute findings. Visualized paranasal sinuses are clear. The surrounding soft tissues are normal. CT/CT stroke head/brain wo con IMPRESSION: NO ACUTE INTRACRANIAL ABNORMALITY. Impression dictated by: Patrice Herr Jr., D.O. 04/03/2025 3:05 PM Dictation Location: [facility] Electronically authenticated by: [id number] Y Date: 04/03/2025 15:05
--- NOTE | 2025-04-03 14:27 | XR_ITS ---
The [address] [address] Patient Name: MATTHEW CLARKE MRN: [id number] date: 1950 Sex: F Assigned Patient Location: ER Current Patient Location: ER Accession/Order Number: [id number] Exam Date: 04/03/2025 15:01 Report Date: 04/03/2025 15:02 At the request of: MINDY LUCIANO MD Procedure: XR chest 1V Single view chest: CLINICAL HISTORY: ams COMPARISON: Chest 01/01/2025 FINDINGS: The heart is normal in size. Large hiatal hernia. Bibasilar atelectasis. No consolidation pneumothorax or large pleural effusion or free air. IMPRESSION: BIBASILAR ATELECTASIS WITH LARGE HIATAL HERNIA. Impression dictated by: Patrice Herr Jr., D.O. 04/03/2025 3:02 PM [facility] Electronically authenticated by: [id number] Y Date: 04/03/2025 15:02
--- NOTE | 2025-04-03 14:27 | ECG_ITS ---
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 Measurements Intervals [place] Rate: 71 P: 5 [place]: 148 QRS: 8 QRSD: 74 T: -7 QT: 428 QTc: 451 Interpretive Statements 1100 Sinus rhythm 5211 Minimal voltage criteria for LVH, may be normal variant 8304 Long QTc interval 9150 abnormal ECG Compared to ECG 03/08/2025 17:37:54 No significant changes Electronically Signed On 04-03-2025 20:32:56 EDT by ANJALI WILKINSON M.D.
[2025-04-03 14:38] LABS: Hematocrit 41.7 % (36.0-48.0); Hemoglobin 13.8 g/dL (12.0-16.0); Immature Granulocytes Abs Auto 0.06 10^3/uL (0.00-0.03); Immature Granulocytes Pct Auto 0.7 % (0.0-0.5); Lymphocytes Absolute Auto 1.1 10^3/uL (1.2-3.8); Mean Corpuscular HGB Conc 33.1 g/dL (29.9-35.2); Mean Corpuscular Hemoglobin 29.6 pg (26.7-34.0); Mean Corpuscular Volume 89.3 fL (81.0-99.0); Platelet Count 350 10^3/uL (150-450); Red Blood Count 4.67 10^6/uL (4.20-5.40); White Blood Count 8.5 10^3/uL (4.0-11.0)
--- NOTE | 2025-04-03 14:56 | ED.AMS1 ---
HPI - Altered Mental Status General Chief Complaint: Altered Mental Status Stated Complaint: WEAKNESS Time Seen by Provider: 04/03/25 14:26 Source: patient Mode of arrival: Wheelchair Limitations: no limitations History of Present Illness HPI narrative: The patient is presented to us around 2:30 PM with a concern of symptoms that started almost 2 hours ago, patient was with her friend when she started feeling dizzy all of a sudden and have a headache in addition to some blurry vision bilaterally and memory issues, patient brought to us by her daughter and her boyfriend and apparently she could not remember who the boyfriend's, the patient apparently had a history of a stroke in December of this year at that time she also had similar presentation when she had a stroke that was ischemic. The patient apparently had no complain earlier this morning but 2 hours ago when she was outside with her friend walking around she started feeling complaining that she is dizzy and sweating with a headache and she was confused as per her friend and apparently that why the family brought her over There was no specific weakness or numbness or tingling and there was no palpitation feeling or any chest pain Related Data Home Medications ?Medication ?Instructions ?Recorded ?Confirmed alprazolam 0.5 mg tablet 0.5 mg PO TID PRN anxiety 01/12/24 04/03/25 bisoprolol fumarate 5 mg tablet 5 mg PO .once daily 12/29/24 04/03/25 Previous Rx's ?Medication ?Instructions ?Recorded aspirin 81 mg tablet 81 mg PO DAILY #30 tabs 12/31/24 atorvastatin 40 mg tablet (Lipitor) 40 mg PO DAILY #30 tabs 12/31/24 cefuroxime axetil 500 mg tablet 500 mg PO BID #10 tabs 12/31/24 Allergies Allergy/AdvReac Type Severity Reaction Status Date / Time influenza A (H1N1) virus AdvReac Mild Swelling Verified 01/11/25 10:02 vaccine [id number] 2008 of (From influenza A (H1N1)) Lip/Tongue/Throat morphine AdvReac Mild Headache Verified 01/11/25 10:02 Review of Systems ROS Status of ROS 10 or more systems reviewed and unremarkable except as noted in history and below [facility] Medical History (Updated 04/03/25 @ 17:17 by Mia Manning MD) UTI (urinary tract infection) ?N39.0 - Urinary tract infection, site not specified (ICD-10) Acute ischemic stroke ?I63.9 - Cerebral infarction, unspecified (ICD-10) Stroke ?I63.9 - Cerebral infarction, unspecified (ICD-10) Altered mental status ?R41.82 - Altered mental status, unspecified (ICD-10) HLD (hyperlipidemia) ?E78.5 - Hyperlipidemia, unspecified (ICD-10) HTN (hypertension) ?I10 - Essential (primary) hypertension (ICD-10) Encounter for cholecystectomy ?Z76.89 - Persons encountering health services in other specified circumstances (ICD-10) Hysterectomy planned TIA (transient ischemic attack) ?G45.9 - Transient cerebral ischemic attack, unspecified (ICD-10) Breast cancer ?C50.919 - Malignant neoplasm of unspecified site of unspecified female breast (ICD-10) Surgical History History of breast lump removal ?Z98.890 - Other specified postprocedural states (ICD-10) H/O Spinal surgery ?Z98.890 - Other specified postprocedural states (ICD-10) Social History Highest level of school completed/degree received: Bachelor's degree Little interest or pleasure in doing things: not at all Feeling down, depressed, or hopeless: not at all Exam Narrative Exam Narrative: Nurses notes and vital signs reviewed and patient is not hypoxic. General: Well-appearing and in no apparent distress. Skin: Warm, dry, no pallor noted. No rash. Head: Normocephalic, atraumatic. Neck: Supple, non-tender. Eye: Pupils are equal, round and EOMI. No scleral icterus. Ears, Nose, Mouth, and Throat: TM are clear, no nasal mucosal hypertrophy. Oral mucosa is moist, no posterior oropharynx erythema, uvula is mid-line Cardiovascular: Regular Rate and Rhythm without murmur, gallop or rub. Respiratory: No accessory muscle use or respiratory distress. Lungs are clear to auscultation, no wheezing, rales or rhonchi Chest Wall: no tenderness Back: No midline thoracic or lumbar vertebral tenderness. No CVA tenderness Musculoskeletal: normal ROM, no calf or popliteal tenderness, no lower extremity edema/swelling GI: Abdomen is soft, non-distended. Normal bowel sounds. No masses appreciated. No tenderness to palpation. No rebound, guarding, or rigidity noted. Neurological: A&O x4. No cranial nerve dysfunction observed. No truncal ataxia. Moves all extremities. Sensation intact. Psychiatric: Cooperative and interactive. Normal mood and affect. Upon arrival the patient NIH score is 0 and she is presented to us almost at 2:30 PM and her symptoms started 2 hours before arrival Constitutional Vital Signs, click to edit/add: Last Vital Signs Temp 97.6 F 04/03/25 16:25 Pulse 77 04/03/25 17:15 Resp 23 H 04/03/25 17:00 BP 120/79 04/03/25 17:24 Pulse Ox 94 L 04/03/25 17:00 O2 Del Method Room Air 04/03/25 15:52 Course Vital Signs Vital signs: Vital Signs Pulse Rate 71 04/03/25 14:16 Respiratory Rate 20 04/03/25 14:16 Blood Pressure 110/69 04/03/25 14:16 Pulse Oximetry 95 04/03/25 14:16 Oxygen Delivery Method Room Air 04/03/25 14:16 Temperature 97.6 F 04/03/25 16:25 Pulse Rate 77 04/03/25 17:15 Respiratory Rate 23 H 04/03/25 17:00 Blood Pressure 120/79 04/03/25 17:24 Pulse Oximetry 94 L 04/03/25 17:00 Oxygen Delivery Method Room Air 04/03/25 15:52 MDM - Altered Mental Status MDM Narrative Medical decision making narrative: The patient EKG on arrival showing sinus rhythm with a heart rate of [address] elevation or depression Patient on arrival although the family mentioned the stroke she presented to us with dizziness and headache and blurry vision that resolved before arrival, her symptoms were associated with her walking and her symptoms could be secondary to dehydration as well CT of the head showed no acute pathology and the patient clinical presentation did not show any signs of stroke she did not show any signs of confusion as well for me at the bedside and she was able to recognize all her family members The patient CBC and chemistry showed an acute kidney injury that why the patient was provided with normal saline fluid after which she was feeling much better She also was provided with medication for headache and nausea including Zofran and she was feeling much better and she was ambulating with no difficult Patient instructed on hydration, I discussed the plan with the patient that was feeling much better after ambulating with no difficulty that right now we will make sure that there is someone with her for the rest of the night and she need to make sure that she will come back in case of any symptoms right now with her symptoms could be secondary to dehydration She is going to see her neurologist on Saturday and right now there is no acute finding that could relate with possible stroke The patient is to follow up with primary care physician in next 2-3 days or to return to the emergency department should any of the signs or symptoms worsen or new symptoms develop. The patient agrees with the following Diagnosis and Treatment plan and the patient will be discharged home. Lab Data Labs: Lab Results 04/03/25 04/03/25 04/03/25 Range/Units 14:23 14:30 14:55 WBC 8.5 (4.0-11.0) 10^3/uL RBC 4.67 (4.20-5.40) 10^6/uL Hgb 13.8 (12.0-16.0) g/dL Hct 41.7 (36.0-48.0) % MCV 89.3 (81.0-99.0) fL MCH 29.6 (26.7-34.0) pg MCHC 33.1 (29.9-35.2) g/dL RDW 14.0 (11.0-15.0) % Plt Count 350 (150-450) 10^3/uL MPV 10.6 (9.5-13.5) fL Neut % (Auto) 76.8 H (43.0-75.0) % Lymph % (Auto) 13.1 L (20.5-60.0) % [place] % (Auto) 7.9 (1.7-12.0) % Eos % (Auto) 0.8 L (0.9-7.0) % Baso % (Auto) 0.7 (0.2-2.0) % Neut # (Auto) 6.5 (1.4-6.5) 10^3/uL Lymph # (Auto) 1.1 L (1.2-3.8) 10^3/uL [place] # (Auto) 0.7 (0.3-0.8) 10^3/uL Eos # (Auto) 0.1 (0.0-0.7) 10^3/uL Baso # (Auto) 0.1 (0.0-0.1) 10^3/uL Abs Immat Gran (auto) 0.06 H (0.00-0.03) 10^3/uL Imm/Tot Granulo (auto) 0.7 H (0.0-0.5) % PT 10.8 (9.0-11.6) sec INR 1.02 Sodium 139 (136-145) mmol/L Potassium 4.5 (3.5-5.1) mmol/L Chloride 103 (98-107) mmol/L Carbon Dioxide 27.0 (21.0-32.0) mmol/L Anion Gap 13.5 BUN 18.0 (7.0-18.0) mg/dL Creatinine 1.45 H (0.55-1.02) mg/dL Est GFR ( Amer) 43 L (>=60 mL/min/1.73m^2) Est GFR (Non-Af Amer) 35 L (>=60 mL/min/1.73m^2) BUN/Creatinine Ratio 12.4 Glucose 132 H (74-106) mg/dL Calcium 9.7 (8.5-10.1) mg/dL Magnesium 2.0 (1.8-2.4) mg/dL Total Bilirubin 0.8 (0.2-1.0) mg/dL AST 28 (15-37) U/L ALT 26 (14-59) U/L Alkaline Phosphatase 259 H (46-116) U/L Troponin I High Sens <4.0 L (4.0-51.3) pg/mL Total Protein 8.1 (6.4-8.2) g/dL Albumin 3.7 (3.4-5.0) g/dL Globulin 4.4 g/dL Albumin/Globulin Ratio 0.8 Urine Color Lt. yellow (YELLOW) Urine Clarity Clear (CLEAR) Urine pH 6.0 (5.0-9.0) Ur Specific [place] 1.010 (1.005-1.025) Urine Protein Negative (NEG/TRACE) mg/dL Urine Glucose (UA) Negative (NEGATIVE) mg/dL Urine Ketones Negative (NEGATIVE) mg/dL Urine Occult Blood Negative (NEGATIVE) Urine Nitrite Negative (NEGATIVE) Urine Bilirubin Negative (NEGATIVE) Urine Urobilinogen 0.2 (0.2-1.0) EU/dL Ur Leukocyte Esterase Negative (NEGATIVE) Urine RBC 0-2 (0-2) #/HPF Urine WBC 0-2 A (NONE SEEN) #/HPF Ur Squamous Epith Cells Rare (NONE/RARE) #/LPF Urine Crystals None seen (None Seen) #/HPF Urine Bacteria Trace A (NONE SEEN) #/HPF Urine Casts None seen (NONE SEEN) #/LPF Urine Mucus Trace A (NONE SEEN) Ur Culture Indicated? No Influenza Type A Ag Influenza Type B Ag SARS-CoV-2 Ag (CV2AG) (NEGATIVE) POC Glucose 127 H (74-106) mg/dL 04/03/25 04/03/25 04/03/25 Range/Units 15:20 15:42 16:06 WBC (4.0-11.0) 10^3/uL RBC (4.20-5.40) 10^6/uL Hgb (12.0-16.0) g/dL Hct (36.0-48.0) % MCV (81.0-99.0) fL MCH (26.7-34.0) pg MCHC (29.9-35.2) g/dL RDW (11.0-15.0) % Plt Count (150-450) 10^3/uL MPV (9.5-13.5) fL Neut % (Auto) (43.0-75.0) % Lymph % (Auto) (20.5-60.0) % [place] % (Auto) (1.7-12.0) % Eos % (Auto) (0.9-7.0) % Baso % (Auto) (0.2-2.0) % Neut # (Auto) (1.4-6.5) 10^3/uL Lymph # (Auto) (1.2-3.8) 10^3/uL [place] # (Auto) (0.3-0.8) 10^3/uL Eos # (Auto) (0.0-0.7) 10^3/uL Baso # (Auto) (0.0-0.1) 10^3/uL Abs Immat Gran (auto) (0.00-0.03) 10^3/uL Imm/Tot Granulo (auto) (0.0-0.5) % PT (9.0-11.6) sec INR Sodium (136-145) mmol/L Potassium (3.5-5.1) mmol/L Chloride (98-107) mmol/L Carbon Dioxide (21.0-32.0) mmol/L Anion Gap BUN (7.0-18.0) mg/dL Creatinine (0.55-1.02) mg/dL Est GFR ( Amer) (>=60 mL/min/1.73m^2) Est GFR (Non-Af Amer) (>=60 mL/min/1.73m^2) BUN/Creatinine Ratio Glucose (74-106) mg/dL Calcium (8.5-10.1) mg/dL Magnesium (1.8-2.4) mg/dL Total Bilirubin (0.2-1.0) mg/dL AST (15-37) U/L ALT (14-59) U/L Alkaline Phosphatase (46-116) U/L Troponin I High Sens <4.0 L (4.0-51.3) pg/mL Total Protein (6.4-8.2) g/dL Albumin (3.4-5.0) g/dL Globulin g/dL Albumin/Globulin Ratio Urine Color (YELLOW) Urine Clarity (CLEAR) Urine pH (5.0-9.0) Ur Specific [place] (1.005-1.025) Urine Protein (NEG/TRACE) mg/dL Urine Glucose (UA) (NEGATIVE) mg/dL Urine Ketones (NEGATIVE) mg/dL Urine Occult Blood (NEGATIVE) Urine Nitrite (NEGATIVE) Urine Bilirubin (NEGATIVE) Urine Urobilinogen (0.2-1.0) EU/dL Ur Leukocyte Esterase (NEGATIVE) Urine RBC (0-2) #/HPF Urine WBC (NONE SEEN) #/HPF Ur Squamous Epith Cells (NONE/RARE) #/LPF Urine Crystals (None Seen) #/HPF Urine Bacteria (NONE SEEN) #/HPF Urine Casts (NONE SEEN) #/LPF Urine Mucus (NONE SEEN) Ur Culture Indicated? Influenza Type A Ag Negative Influenza Type B Ag Negative SARS-CoV-2 Ag (CV2AG) Negative (NEGATIVE) POC Glucose (74-106) mg/dL Discharge Plan Discharge Chief Complaint: Altered Mental Status Clinical Impression: Dizziness, Headache, DONALD (acute kidney injury) Patient Disposition: Home, Self-Care Time of Disposition Decision: 17:17 Condition: Good Mode of Transportation: Private Vehicle Prescriptions / Home Meds: No Action alprazolam 0.5 mg tablet 0.5 mg PO TID PRN (Reason: anxiety) bisoprolol fumarate 5 mg tablet 5 mg PO .once daily aspirin 81 mg tablet 81 mg PO DAILY Qty: 30 0RF atorvastatin [Lipitor] 40 mg tablet 40 mg PO DAILY Qty: 30 0RF cefuroxime axetil 500 mg tablet 500 mg PO BID Qty: 10 0RF Print Language: Amharic Instructions: Dehydration (ED), Acute Kidney Injury (DC) Referrals: Francis Osborne DO [Primary Care Provider, Internal Medicine] - 1 week Discharge Date/Time: 04/03/25 17:35
[2025-04-03 14:59] LABS: INR 1.02; Prothrombin Time 10.8 sec (9.0-11.6)
[2025-04-03 15:04] LABS: Alanine Aminotransferase 26 U/L (14-59); Albumin Globulin Ratio 0.8; Albumin Level 3.7 g/dL (3.4-5.0); Alkaline Phosphatase 259 U/L (46-116); Anion Gap 13.5; Aspartate Amino Transferase 28 U/L (15-37); Blood Urea Nitrogen 18.0 mg/dL (7.0-18.0); Calcium 9.7 mg/dL (8.5-10.1); Carbon Dioxide 27.0 mmol/L (21.0-32.0); Chloride 103 mmol/L (98-107); Estimated GFR (African America 43 (>=60 mL/min/1.73m^2); Estimated GFR (Non-African Ame 35 (>=60 mL/min/1.73m^2); Globulin 4.4 g/dL; Glucose 132 mg/dL (74-106); Potassium 4.5 mmol/L (3.5-5.1); Sodium 139 mmol/L (136-145); Total Protein 8.1 g/dL (6.4-8.2)
[2025-04-03] MEDS: KETOROLAC TROMETHAMINE 30 MG/ML VIAL 15 MG IVP (15:12)
[2025-04-03] MEDS: 0.9 % SODIUM CHLORIDE 1,000 ML 500 ML IV (15:16)
[2025-04-03 15:37] LABS: SARS-CoV-2 Ag NEGATIVE (NEGATIVE)
[2025-04-03 15:37] LABS: Glucose Urine UA NEGATIVE (NEGATIVE)
[2025-04-03 15:48] LABS: Cast Seen? NONE SEEN #/LPF (NONE SEEN); Crystals Seen? None Seen #/HPF (None Seen); Urine Culture Indicated NO
[2025-04-03 16:08] LABS: Magnesium 2.0 mg/dL (1.8-2.4)
--- NOTE | 2025-04-03 16:25 | PC.NURSE ---
bear hugger turned off at this time, will continue to monitor
== END 2025-04-03 17:35 | disposition home or self-care (01) ==
PROVIDERS: Emergency Provider Emergency Medicine; PCP Internal Medicine
DX: R42 Dizziness and giddiness (principal); R51.9 Headache, unspecified; N17.9 Acute kidney failure, unspecified; R41.82 Altered mental status, unspecified; H53.8 Other visual disturbances
CPT/HCPCS: 36415; 70450; 71045; 80053; 81001; 82948; 83735; 84484; 85025; 85610; 87804; 87811; 93005; 96361; 96374; 96375; 99285; J1885; J2405